=== PATIENT | male | born 1950 | race Caucasian/White ===

== ENCOUNTER → 2020-02-04 07:40 | Outpatient (CLI) | payer MEDICARE, SELFPAY ==
[2020-01-28 09:40] VITALS: BMI 32.5
--- NOTE | 2020-02-04 07:48 | CT_ITS ---
STUDY: CT CHEST WITHOUT CONTRAST REASON FOR EXAM: Male, 69 years old. PT STATED ABNORMAL PULMONARY FUNCTION TEST RADIATION DOSAGE (If Supplied By Facility): CTDIvol = ( 16.08 ) mGy, DLP = ( 554.58 ) mGycm TECHNIQUE: Transaxial imaging was performed without the administration of intravenous contrast material. Multiplanar coronal and sagittal images were reformatted. Individualized dose optimization techniques were used for this CT. COMPARISON: None. FINDINGS: There is evidence of diffuse increased interstitial markings with areas of confluence with the subpleural blebs and evidence of honeycombing. Findings are in keeping with diffuse pulmonary fibrosis. The upper lobes and lower lobes are equally involved. There is no demonstrated pleural abnormality. There are calcifications of the coronary arteries. There are multiple small lymph nodes within the mediastinum, which are normal in size and morphology most compatible with reactive lymph hyperplasia. Normal hilar regions. Normal unenhanced pulmonary arteries. Normal aorta arch and descending thoracic aorta. There are degenerative changes of the thoracic spine. Small hiatal hernia. CT/Chest without Contrast IMPRESSION: Diffuse increased interstitial markings with areas of confluence and honeycombing suggestive of a diffuse pulmonary fibrosis. Electronically Signed: Calvin Vargas, at 10:28 EDT , Service support ,
== END ==
PROVIDERS: PCP Family Medicine; Referring Provider Internal Medicine Critical Care Medicine; Visit Provider Internal Medicine Critical Care Medicine
DX: R06.02 Shortness of breath (principal); R94.2 Abnormal results of pulmonary function studies
CPT/HCPCS: 71250

== ENCOUNTER → 2020-02-07 11:18 | Outpatient (CLI) | payer MEDICARE, SELFPAY ==
[2020-01-28 09:40] VITALS: BMI 32.5
[2020-02-07 12:05] VITALS: PULSE 66; PULSE 67; PULSE 74; PULSE 85; PULSE 86; PULSE 87; PULSE 93; PULSE 99; O2SAT 86; O2SAT 87; O2SAT 93; O2SAT 94; O2SAT 95; O2SAT 97
--- NOTE | 2020-02-07 12:08 | CPS ---
Patient started testing on Room air by the 2nd minute patient's SpO2 was 86%. Patient stated that he was only moderately short of breath at this time and can get much worse at home. Placed patient on 2 lpm O2 nasal cannula, SpO2 recovered to 97%. At the 5th minute SpO2 87% on 2 lpm turned up to 3 lpm and recovered to 95% before finishing test. Patient stated he was only slightly short of breath at the time of putting him on 3 lpm O2 and at the end of the test. Patient seems apprehensive about wearing O2 at home on ambulation due to being extremely active. Explained possibility of getting small tanks or portable concentrator. Called Dr. Gallagher's office and explained to the nursing staff all of the patient's concerns and they will follow up with him.
--- NOTE | 2020-02-08 13:14 | PCM.PSN.6M ---
PSN 6 Minute Walk Test - 6 Minute Walk Test 6 Minute Walk Test: 6 Minute Walk Test PSN:6-Minute Walk Test Start: 02/07/20 12:05 Freq: Status: Active Protocol: [id number] Document 02/07/20 12:05 EWELINA (Rec: 02/07/20 12:17 [email or web address] [id number]) 6 Minute Walk Test Date Performed 02/07/20 Time Performed 11:30 Height 5 ft 11 in Weight: 229 lb Weight in Pounds 229.[address]: Romulo Gallagher Assistive device used: None Pre-test Oxygen Delivery Method Room Air Pulse Ox (%) 94 Pulse Rate (60-100 beats/min) 66 Dyspnea Shaun Scale (0-10) 0 Exertion Shaun Scale (6-20) 6 1st minute Oxygen Delivery Method Room Air Pulse Ox (%) 93 Pulse Rate (60-100 beats/min) 74 2nd minute Oxygen Delivery Method Room Air Pulse Ox (%) 86 Pulse Rate (60-100 beats/min) 87 Dyspnea Shaun Scale (0-10) 3 3rd minute Oxygen Flow Rate (L/min) (L/min) 2 Oxygen Delivery Method Nasal Cannula Pulse Ox (%) 95 Pulse Rate (60-100 beats/min) 86 4th minute Oxygen Flow Rate (L/min) (L/min) 2 Oxygen Delivery Method Nasal Cannula Pulse Ox (%) 93 Pulse Rate (60-100 beats/min) 93 5th minute Oxygen Flow Rate (L/min) (L/min) 2 Oxygen Delivery Method Nasal Cannula Pulse Ox (%) 87 Pulse Rate (60-100 beats/min) 99 Dyspnea Shaun Scale (0-10) 2 6th minute Oxygen Flow Rate (L/min) (L/min) 3 Oxygen Delivery Method Nasal Cannula Pulse Ox (%) 95 Pulse Rate (60-100 beats/min) 85 Dyspnea Shaun Scale (0-10) 2 Exertion Shaun Scale (6-20) 11 Post-test Oxygen Flow Rate (L/min) (L/min) 3 Oxygen Delivery Method Nasal Cannula Pulse Ox (%) 97 Pulse Rate (60-100 beats/min) 67 Full Laps Walked 18 Partial Lap, Number of Tiles Walked 20 Total Distance Walked (ft) 1082 02/07/20 12:08 Cardiopulmonary Services by Bree Chaparro Patient started testing on Room air by the 2nd minute patient's SpO2 was 86%. Patient stated that he was only moderately short of breath at this time and can get much worse at home. Placed patient on 2 lpm O2 nasal cannula, SpO2 recovered to 97%. At the 5th minute SpO2 87% on 2 lpm turned up to 3 lpm and recovered to 95% before finishing test. Patient stated he was only slightly short of breath at the time of putting him on 3 lpm O2 and at the end of the test. Patient seems apprehensive about wearing O2 at home on ambulation due to being extremely active. Explained possibility of getting small tanks or portable concentrator. Called Dr. Gallagher's office and explained to the nursing staff all of the patient's concerns and they will follow up with him. Initialized on 02/07/20 12:08 - END OF NOTE - Interpretation Interpretation: The patient ambulated 1082 feet over the course of 6 minutes beginning on room air without assistive devices or breaks. Pretesting oxygen saturation was noted to be 94% on room air. With ambulation, the delia oxygen saturation was 86%. 2 L/min of supplemental oxygen was applied. However, the patient once again desaturated to 87%, requiring an escalation in his flow rate to 3 L/min. - Recommendations Recommendations: 3 L/min of supplemental oxygen should be utilized with exertion. No supplemental oxygen is indicated at rest.
== END ==
PROVIDERS: PCP Family Medicine; Referring Provider Internal Medicine Critical Care Medicine; Visit Provider Internal Medicine Critical Care Medicine
DX: R06.02 Shortness of breath (principal)
CPT/HCPCS: 94618

== ENCOUNTER → 2020-03-13 08:59 | Outpatient (CLI) | payer MEDICARE, SELFPAY ==
[2020-01-28 09:40] VITALS: BMI 32.5
--- NOTE | 2020-03-13 13:01 | PFTCOMP ---
COMPLETE PULMONARY FUNCTION TEST INTERPRETATION Brief HPI: Patient is a 69 year old male, currently under the care of myself, who presents to [facility] for complete pulmonary function tests secondary to diagnosis of dyspnea. Respiratory therapist reports good effort and reproducible results. Interpretation: Forced expiration spirometry shows no large airways obstructive ventilatory defect with an FEV1 of 48% predicted. There is no significant bronchodilator response by strict ATS criteria. Spirograms are of good quality and plateau normally. The respiratory flow volume loop shows a normal pattern. Lung volumes by body plethysmography show a decreased total lung capacity at 3.38 L, 50% predicted. All other lung volumes are reduced symmetrically. Diffusion capacity by carbon monoxide is decreased at 41% predicted. The airway resistance is elevated. No previous pulmonary function tests were available for review. Impression: Severe restrictive ventilatory defect with a symmetric reduction diffusing capacity
== END ==
PROVIDERS: PCP Family Medicine; Referring Provider Internal Medicine Critical Care Medicine; Visit Provider Internal Medicine Critical Care Medicine
DX: R06.02 Shortness of breath (principal)
CPT/HCPCS: 94060; 94726; 94729

== ENCOUNTER → 2020-05-15 10:29 | Outpatient (CLI) | payer MEDICARE, SELFPAY ==
[2020-05-15 07:10] VITALS: BMI 31.6
[2020-05-15 11:05] LABS: Erythrocyte Sedimentation Rate 10 mm/hr (0-20)
[2020-05-15 11:42] LABS: CRP < 2.90 mg/L (0.0-3.0); Rheumatoid Factor < 10.0 IU/mL (<15)
[2020-05-16 15:12] LABS: ANTINUCLEAR ANTIBODIES DIRECT Negative (Negative)
[2020-05-17 03:07] LABS: Cytoplasmic Ab (C-ANCA) <1:20 titer (Neg:<1:20)
[2020-05-17 05:07] LABS: CCP IgG Antibodies 14 units (0-19); Perinuclear Ab (P-ANCA) <1:20 titer (Neg:<1:20)
== END ==
PROVIDERS: PCP Family Medicine; Referring Provider Internal Medicine Critical Care Medicine; Visit Provider Internal Medicine Critical Care Medicine
DX: J84.10 Pulmonary fibrosis, unspecified (principal)
CPT/HCPCS: 85652; 86038; 86140; 86200; 86225; 86235; 86256; 86431

== ENCOUNTER → 2020-05-18 06:40 | Outpatient (CLI) | payer MEDICARE, SELFPAY ==
[2020-04-26 16:33] VITALS: BMI 32.1
[2020-05-15 07:10] VITALS: BMI 31.6
--- NOTE | 2020-05-18 12:35 | STRESSREP ---
Stress Test Report Exercise myocardial perfusion stress test. 69-year-old man with a history of coronary artery disease status post coronary artery bypass surgery. Stress protocol: Resting EKG demonstrates normal sinus rhythm with a rate of 57 bpm normal intervals are noted resting blood pressures 140/82 mmHg. The patient exercised according to the regular Romulo protocol for a total duration of 4 minutes and 50 seconds. Patient completed 1 minute and 50 seconds into stage II of the Romulo protocol. The maximum heart rate was 134 bpm which was 90% of maximum predicted heart rate maximum workload was 6.7 metabolic equivalents. At rest there were no ST or T wave changes noted to suggest ischemia at peak exercise upsloping ST changes were noted less than 1 mm which did not meet the criteria for ischemia. The test was terminated due to dyspnea and leg weakness. The peak blood pressure was 144/80 mmHg which represented an adequate blood pressure response to exercise. Myocardial perfusion protocol. 14.9 mCi of technetium 99m sestamibi was injected at rest. The patient exercised according to regular Romulo protocol for a total duration of 4 minutes and 50 seconds at peak exercise 44.6 mCi of technetium 99m sestamibi was injected at rest. Stress and rest images were reconstructed and compared in the short axis vertical long and horizontal long axis. Gated images were also obtained per Perfusion SPECT analysis: Review of the stress images demonstrate normal uptake of tracer noted in the septum inferior wall and lateral wall. A small portion of the distal anterior wall has a small amount of perfusion defect which appears to improve suggesting a small amount of distal anterior ischemia. This appears to be similar to the results from 2018. No previous infarct is noted. It could represent apical striping. Gated SPECT analysis: The gated ejection fraction is 62%. Conclusion: Probably normal exercise myocardial perfusion stress test at a moderate workload. A small amount of apical ischemia cannot be completely excluded. The above is unchanged from 2018. Preserved ejection fraction.
== END ==
PROVIDERS: PCP Family Medicine; Referring Provider Internal Medicine Cardiovascular Disease; Visit Provider Internal Medicine Cardiovascular Disease
DX: I25.10 Atherosclerotic heart disease of native coronary artery without angina pectoris (principal); Z95.1 Presence of aortocoronary bypass graft
CPT/HCPCS: 78452; 93017; A9500

== ENCOUNTER → 2020-12-06 09:26 | Outpatient (CLI) | payer MEDICARE, SELFPAY ==
[2020-06-14 09:50] VITALS: BMI 31.5
[2020-10-25 09:51] VITALS: BMI 32.3
--- NOTE | 2020-12-07 05:51 | PFTCOMP ---
COMPLETE PULMONARY FUNCTION TEST INTERPRETATION Brief HPI: Patient is a 70 year old male, currently under the care of Maggie Kemp, who presents to [facility] for complete pulmonary function tests secondary to diagnosis of dyspnea. Respiratory therapist reports good effort and reproducible results. Interpretation: Forced expiration spirometry shows a mild large airways obstructive ventilatory defect with an FEV1 of 59% predicted. There is a significant bronchodilator response in FEV1 by strict ATS criteria. Spirograms are of good quality and plateau slowly, indicating slowly emptying areas of the lungs. The respiratory flow volume loop shows decreased expiratory flow rates at high lung volumes consistent with small airways obstruction. Lung volumes by body plethysmography show a significantly decreased total lung capacity at 3.79 L, 59% predicted. All other lung volumes are reduced symmetrically. Diffusion capacity by carbon monoxide is decreased at 57% predicted. The airway resistance is normal. Compared to previous pulmonary function tests from 03/13/2020, there is been a significant improvement in DLCO by 34%. Impression: Partially reversible mixed moderately severe large airways ventilatory defect and symmetric reduction in diffusing capacity with some improvement compared to previous testing.
== END ==
PROVIDERS: PCP Family Medicine; Referring Provider Nurse Practitioner Acute Care; Visit Provider Nurse Practitioner Acute Care
DX: R06.02 Shortness of breath (principal)
CPT/HCPCS: 94060; 94726; 94729

== ENCOUNTER → 2023-05-21 | Outpatient (CLI) | payer MEDICARE, SELFPAY ==
[2023-05-21 15:54] LABS: Absolute Lymphocyte Count 2.04 X10^3/uL (0.83-4.51); Absolute Neutrophil Count 4.5 X10^3/uL (2.0-7.7); Basophil# 0.06 X10^3/uL; Basophil% 0.8 % (0-1); Eosinophil# 0.26 X10^3/uL; Eosinophils% 3.5 % (0-5); Hematocrit 55.5 % (40-54); Hemoglobin 17.3 g/dL (13.0-16.5); Lymphocyte # 2.04 X10^3/ul (0.83-4.51); Lymphocyte % 27.2 % (19-41); Mean Corp Hgb Conc 31.2 g/dL (32-36); Mean Corpuscular Hgb 29.3 pg (27.0-32.0); Mean Corpuscular Volume 93.9 fL (80-94); Mean Platelet Vol. 10.8 fl (6.2-12.0); Monocyte# 0.57 X10^3/uL; Monocyte% 7.6 % (0-10); NRBC Flagged by Analyzer 0 % (0-5); Neutrophil # 4.51 X10^3/uL (2.7-7.7); Neutrophil % 60.2 % (47-70); Platelet Count 185 K/mm3 (150-450); RBC Distribution Width CV 13.8 % (11.6-14.6); RBC Distribution Width SD 47.6 fl (35.1-43.9); Red Blood Count 5.91 M/mm3 (4.6-6.2); White Blood Count 7.5 K/mm3 (4.4-11.0)
[2023-05-21 16:34] LABS: Anion Gap 4 (5-15); BUN 10 mg/dL (7-18); BUN/Creat Ratio 8.1 RATIO (10-20); Calcium,Total 9.4 mg/dL (8.5-10.1); Chloride 105 mmol/L (98-107); Creatinine, Serum 1.24 mg/dL (0.70-1.30); EST Glomerular Filtration Rate 60 mL/min (>60); Est Glom Filt Rate - Afr Amer 73 mL/min (>60); Glucose 109 mg/dL (74-106); Sodium Level 137 mmol/L (136-145); Thyroid Stim Hormone (TSH) 2.98 uIU/mL (0.358-3.74)
== END | disposition home or self-care (01) ==
LOC: LAB 15:27
PROVIDERS: PCP Family Medicine; Referring Provider Physician Assistant Medical; Visit Provider Physician Assistant Medical
DX: E78.5 Hyperlipidemia, unspecified (principal); Z95.1 Presence of aortocoronary bypass graft; R53.83 Other fatigue
CPT/HCPCS: 36415; 80048; 84443; 85025

== ENCOUNTER → 2023-09-01 | Outpatient (CLI) | payer MEDICARE, SELFPAY ==
--- OUTSIDE RECORDS SUMMARY | 2023-09-01 07:03 | XMS RPT_ITS | CCD ---
Author Name Unknown Address [address] [place] [address] Organization [facility] Care Team Providers Care Director Sales Name Role Phone MICHAEL CAR Referring Unavailable MICHAEL CAR Attending Unavailable JOCELINE, MICHAEL Consulting Unavailable JOCELINE, MICHAEL Primary Care Unavailable MICHAEL CAR Admitting Unavailable PROVIDER, UNKNOWN Consulting Unavailable PROVIDER, UNKNOWN Consulting Unavailable PROVIDER, UNKNOWN Consulting Unavailable ALAN, GERMAN E Primary Care Unavailable MICHAEL CAR Consulting Unavailable ALAN, GERMAN E Admitting Unavailable ALAN, GERMAN E Attending Unavailable PROVIDER, UNKNOWN Consulting Unavailable PROVIDER, UNKNOWN Consulting Unavailable PROVIDER, UNKNOWN Consulting Unavailable ALAN, GERMAN E Admitting Unavailable MICHAEL CAR Consulting Unavailable ALAN, GERMAN E Attending Unavailable ALAN, GERMAN E Primary Care Unavailable PROVIDER, UNKNOWN Consulting Unavailable PROVIDER, UNKNOWN Consulting Unavailable PROVIDER, UNKNOWN Consulting Unavailable MICHAEL CAR Attending Unavailable JOCELINE, MICHAEL Consulting Unavailable JOCELINE, MICHAEL Primary Care Unavailable MICHAEL CAR Admitting Unavailable PROVIDER, UNKNOWN Consulting Unavailable PROVIDER, UNKNOWN Consulting Unavailable PROVIDER, UNKNOWN Consulting Unavailable Problems Problem Classification Problem Date Documented Da te Episodic/Chronic Immunizations and screening for infectious disease (3 sources) Encounter for immunization; Translations: [Encounter for immunization] Onset: 09-28-2020 Episodic Results Test Name Value Interpretation Reference Range Facil ity Encounters Encounter Date Encounter Type Care Provider Facility Start: 10-26-2020 End: 10-26-2020 Patient encounter procedure GERMAN PHILLIPS [facility] Start: 09-28-2020 End: 09-28-2020 Patient encounter procedure GERMAN Lorenz ALAN [facility] Start: 12-20-2019 End: 12-20-2019 Patient encounter procedure [facility]HA[facility] Start: 12-14-2019 End: 12-14-2019 Patient encounter procedure [facility] Payers Date Payer Category Payer Unknown [id number] 1950 Unknown [id number] 1950 Unknown [id number] 1950 Unknown [id number] Medicare [id number] Medicare [id number] Summary Purpose Family History No Family History Records FoundNo Family History Records Found Advance Directives No Advanced Directives Records FoundNo Advanced Directives Records Found Additional Source Comments (unrecognized sect ion and content) No Status Records FoundNo Status Records Found INFORMATION SOURCE (unrecogn ized section and content) DATE CREATED AUTHOR AUTHOR'S ORGANIZ ATION 01/03/2022 [facility] FOR RECORDS PERTAINING TO PATIENTS WHO ARE OR HAVE BEEN ENROLLED IN A CHEMICAL DEPENDENCY/SUBSTANCEABUSE PROGRAM, SOME INFORMATION MAY BE OMITTED. This clinical summary was aggregated from multiple sources. Caution should be exercised in using it in the provision of clinical care. This summary normalizes information from multiple sources, and as a consequence, information in this document may materially change the coding, format and clinical context of patient data. In addition, data may be omitted in some cases. CLINICAL DECISIONS SHOULD BE BASED ON THE PRIMARY CLINICAL RECORDS. [employer] [facility]. provides no warranty or guarantee of the accuracy or completeness of information in this document.
--- NOTE | 2023-09-01 11:10 | STRESSREP ---
Stress Test Report Pharmacologic myocardial perfusion stress test. 73-year-old man with a history of shortness of breath Resting EKG demonstrates sinus rhythm with a rate of 74 bpm. Resting blood pressure is 138/84 mmHg. 0.4 mg of regadenoson was infused per usual protocol followed by rapid intravenous saline flush injection. Continuous EKG monitoring was performed. The maximum heart rate was 101 bpm which was 69% of max impacted heart rate the maximum workload was 1 metabolic equivalent. At rest there were no ST or T wave changes noted to suggest ischemia and at peak infusion nonspecific ST changes were noted which did not meet the criteria for ischemia. No clinical angina is noted. The final blood pressure was 140/84 mmHg. Myocardial perfusion protocol. 14.1 mCi of technetium 99m sestamibi was injected at rest. 0.4 mg of regadenoson was infused per usual protocol. At peak infusion 44.8 mCi of technetium 99m sestamibi was injected stress images were obtained stress and rest images were reconstructed and compared in the short axis vertical long and horizontal long axis. Gated images were also obtained. Perfusion SPECT analysis: Review of the stress images demonstrate normal uptake of tracer noted in all areas of the myocardium. The resting images similar demonstrated normal uptake of tracer noted in all areas of the myocardium. No areas of reversibility are noted to suggest ischemia and no previous infarct is noted. Gated SPECT analysis: The gated ejection fraction is 54%. Conclusion: Normal pharmacologic myocardial perfusion stress test. Preserved ejection fraction.
== END | disposition home or self-care (01) ==
LOC: CVS 07:01
PROVIDERS: PCP Family Medicine; Referring Provider Physician Assistant Medical; Visit Provider Physician Assistant Medical
DX: R06.02 Shortness of breath (principal)
CPT/HCPCS: 78452; 93017; A9500; A4216; J2785

== ENCOUNTER 2023-09-24 10:36 | Inpatient (IN) | payer MEDICARE, SELFPAY ==
[2023-09-24] VITALS (12 sets, daily range): BP systolic 128–145; BP diastolic 75–103; PULSE 65–98; RESP 13–23; TEMP 36.2–36.8; O2SAT 86–99; BMI 31.3; BMI 31.1
--- NOTE | 2023-09-24 10:41 | ED.RN ---
PT 86% ON ROOM AIR. PT PLACED ON 2L OXYGEN VIA NASAL CANNULA.
[2023-09-24 11:11] LABS: Absolute Lymphocyte Count 1.43 X10^3/uL (0.83-4.51); Absolute Neutrophil Count 8.1 X10^3/uL (2.0-7.7); Basophil# 0.07 X10^3/uL; Basophil% 0.7 % (0-1); Eosinophil# 0.19 X10^3/uL; Eosinophils% 1.8 % (0-5); Hematocrit 49.5 % (40-54); Hemoglobin 15.6 g/dL (13.0-16.5); Lymphocyte # 1.43 X10^3/ul (0.83-4.51); Lymphocyte % 13.7 % (19-41); Mean Corp Hgb Conc 31.5 g/dL (32-36); Mean Corpuscular Hgb 28.7 pg (27.0-32.0); Mean Corpuscular Volume 91.2 fL (80-94); Mean Platelet Vol. 10.2 fl (6.2-12.0); Monocyte# 0.58 X10^3/uL; Monocyte% 5.6 % (0-10); NRBC Flagged by Analyzer 0 % (0-5); Neutrophil # 8.08 X10^3/uL (2.7-7.7); Neutrophil % 77.6 % (47-70); Platelet Count 222 K/mm3 (150-450); RBC Distribution Width CV 13.8 % (11.6-14.6); RBC Distribution Width SD 46.1 fl (35.1-43.9); Red Blood Count 5.43 M/mm3 (4.6-6.2); White Blood Count 10.4 K/mm3 (4.4-11.0)
--- NOTE | 2023-09-24 11:18 | NURSING ---
NO OLD EKGS
[2023-09-24 11:25] LABS: Anion Gap 4 (5-15); BUN 15 mg/dL (7-18); BUN/Creat Ratio 10.9 RATIO (10-20); Calcium,Total 9.6 mg/dL (8.5-10.1); Chloride 107 mmol/L (98-107); Creatinine, Serum 1.37 mg/dL (0.70-1.30); EST Glomerular Filtration Rate 54 mL/min (>60); Est Glom Filt Rate - Afr Amer 65 mL/min (>60); Estimated Creatinine Clearance 55.33 ml/min; Glucose 153 mg/dL (74-106); Potassium 3.6 mmol/L (3.5-5.1); Sodium Level 139 mmol/L (136-145)
--- NOTE | 2023-09-24 11:40 | EKG12_ITS ---
Test Reason : SOB Blood Pressure : / mmHG Vent. Rate : 099 BPM Atrial Rate : 099 BPM P-R Int : 144 ms QRS Dur : 102 ms QT Int : 360 ms P-R-T Axes : 027 040 054 degrees QTc Int : 462 ms Normal sinus rhythm Inferior infarct , age undetermined Abnormal ECG Confirmed by Kaz Johnson [id number]), marketing editor SILVA GUIDRY ([id number]) on 12/03/2023 5:42:25 AM Referred By: Confirmed By:Kaz Johnson
--- NOTE | 2023-09-24 11:42 | EDS_ITS ---
HPI History of Present Illness Chief Complaint: Shortness of Breath Detail of Chief Complaint: Shortness of breath Informant: patient Narrative Narrative: Patient presents with worsening shortness of breath mostly dyspnea starting this morning. Patient states he is kind of been feeling weak and no energy for about 5 days. Patient denies any chest discomfort. Denies recent travel or surgery. He does have history of pulmonary fibrosis. His states that his O2 sat was down to 85% at home. He is not on home O2. He has a chronic cough. Patient with history of pulmonary fibrosis. He states that he had pneumonia several months ago. He does see a survey statistician. He denies any fevers or chills or sweats. Denies exposures to other ill individuals. [facility] Medical History Atherosclerosis of coronary artery bypass graft without angina pectoris Atherosclerosis of coronary artery of [place] heart without angina pectoris CKD (chronic kidney disease), stage III history of tick bite Hyperlipidemia Kidney disease Pneumonia Pulmonary fibrosis Shortness of breath Home Medications losartan 25 mg tablet 25 mg PO DAILY BLOOD PRESSURE #90 tabs 04/06/21 [Rx Last Taken 09/24/23] albuterol sulfate 90 mcg/actuation aerosol inhaler (Ventolin HFA) 2 puff inhalation Q4H PRN SHORTNESS OF BREATH/WHEEZNG #18 grams 11/27/22 [Rx Last Taken 09/24/23] omeprazole 20 mg capsule,delayed release 20 mg PO DAILY ACID REFLUX 05/21/23 [History Last Taken 09/24/23] aspirin 81 mg tablet,delayed release (Adult Low Dose Aspirin) 81 mg PO DAILY HEART HEALTH 09/24/23 [History Last Taken 09/24/23] atorvastatin 40 mg tablet 40 mg PO QHS CHOLESTEROL 09/24/23 [History Last Taken 09/23/23] metoprolol succinate 50 mg tablet,extended release 24 hr 50 mg PO DAILY BLOOD PRESSURE 09/24/23 [History Last Taken 09/24/23] Allergy/AdvReac Type Severity Reaction Status Date / Time No Known Allergies Allergy Verified 09/24/23 10:36 Family History Mother Brain aneurysm Father CVA (cerebral vascular accident) Surgical History H/O coronary artery bypass surgery (1989) H/O hernia repair History of left heart catheterization (01/02/16) Social History Smoking Status: Former smoker Tobacco: How many years used: 16 Smokeless tobacco user: chewing tobacco alcohol intake: current alcohol intake frequency: holidays/special occasions only Alcohol type: beer substance use type: does not use caffeine: Yes Type: coffee Number of servings: 5 ROS ROS ED Review of Systems ROS Unobtainable: other Constitutional Constitutional ED: Reports lethargy; Denies chills, fever(s), sweats or weight loss Eyes Eyes: Denies blurry vision, change in vision or diplopia ENT ENT ED: Denies rhinorrhea or sore throat Cardiovascular Cardiovascular: Denies chest pain, orthopnea or racing heartbeat Respiratory/Chest Respiratory/Chest: Reports cough, dyspnea and dyspnea on exertion; Denies orthopnea or sputum Gastrointestinal Gastrointestinal: Denies abdominal pain, diarrhea, nausea or vomiting Genitourinary Genitourinary ED: Denies dysuria, hematuria or urinary frequency Musculoskeletal Musculoskeletal: Denies arthralgias, back pain, myalgias or neck pain Integumentary Denies abscess, Abrasions or rash Neurologic Neurologic: Reports weakness; Denies headache(s) Psychiatric Psychiatric: Denies anxiety, depression or suicidal thoughts Endocrine Endocrinology: Denies polydipsia, polyphagia or polyuria Hematologic/Lymphatic Hematologic/Lymphatic: Denies easy bleeding, easy bruising or lymphadenopathy Allergic/Immunologic Allergic/Immunologic ED: Denies mouth swelling, tongue swelling or urticaria EXAM Physical Exam Const Vital Signs: 09/24/23 10:38 09/24/23 11:29 09/24/23 11:30 Temperature 98.3 F Temperature Source Temporal Pulse Rate 98 82 Respiratory Rate 20 H 16 16 Respiratory Effort Respiratory Pattern Blood Pressure 128/75 H 143/88 H Blood Pressure Mean 92 106 Pulse Ox 86 98 98 Oxygen Delivery Method Room Air Nasal Cannula Nasal Cannula Oxygen Flow Rate (L/min) 2 2 09/24/23 11:31 09/24/23 11:31 09/24/23 11:55 Temperature Temperature Source Pulse Rate Respiratory Rate Respiratory Effort Short of Breath Respiratory Pattern Normal Blood Pressure Blood Pressure Mean Pulse Ox Oxygen Delivery Method Nasal Cannula Nasal Cannula Nasal Cannula Oxygen Flow Rate (L/min) 2 09/24/23 12:08 09/24/23 12:08 09/24/23 13:33 Temperature Temperature Source Pulse Rate 73 76 Respiratory Rate 14 13 Respiratory Effort Respiratory Pattern Normal Blood Pressure 143/88 H Blood Pressure Mean 106 Pulse Ox 96 99 Oxygen Delivery Method Nasal Cannula Nasal Cannula Oxygen Flow Rate (L/min) 3 2 09/24/23 13:33 09/24/23 15:00 Temperature 97.2 F L Temperature Source Temporal Pulse Rate 80 74 Respiratory Rate 18 16 Respiratory Effort Respiratory Pattern Blood Pressure 143/88 H 137/98 H Blood Pressure Mean 106 111 Pulse Ox 93 96 Oxygen Delivery Method Nasal Cannula Oxygen Flow Rate (L/min) 2 Positive well nourished and well developed General Appearance ED: well developed and NAD HEENT Reports TM's clear and moist mucous membranes normocephalic and atraumatic; Negative for trauma or tenderness Tympanic Membrane ED: Yes TM's clear Eyes PERRL and EOMs intact bilaterally General Eye ED: Negative for pale conjunctiva or scleral icterus Neck no lymphadenopathy, supple and no JVD General: Negative for tenderness Chest Wall inspection of chest normal and palpation of chest normal Chest: Negative for tenderness Resp normal respiratory effort and clear to auscultation bilaterally Resp Narrative: No significant tachypnea or conversational dyspnea. No accessory muscle use or retractions. He does have Rales and some faint expiratory wheezes. Effort and Inspection: Negative for respiratory distress or pain with movement Auscultation: rales and wheezes; Negative for rhonchi or diminished lung sounds Cardio regular rate, regular rhythm, S1 normal heart sound, S2 normal heart sound and no murmurs Peripheral Pulses: pulses 2+ throughout GI normal to inspection, nondistended, normoactive bowel sounds, soft to palpation, non-tender, non-distended and no masses Back/Spine no CVA tenderness and no thoracic nor lumbar tenderness Extremity normal to inspection General Extremety ED: Negative for edema General Extremity: Negative for edema Neuro oriented x3, CN's II-XII intact bilaterally, no sensory deficits noted and gait normal Sensorium / Orientation: awake, alert, oriented to person, oriented to place and oriented to time Motor Exam: strength 5/5 throughout and strength abnormal Psych mental status grossly normal Skin no rashes or lesions noted and no wounds MDM MDM MDM Narrative Medical decision making narrative: Patient presents to the emergency department with dyspnea and hypoxemia today. Patient has been feeling weak with no energy for about 5 days. He has history of pulmonary fibrosis. He does not wear home O2. IV line established and patient placed on a environmental monitoring technician. Patient placed on 2 L nasal cannula O2. EKG obtained showed sinus rhythm with rate of [address] changes. CBC with differential count of 10.4 with hemoglobin 15.6 and platelet count of 222. Chemistries unremarkable. Lactate normal at 1.3. D-dimer normal at 0.49. Chest x-ray showed chronic changes related to his chronic lung disease of pulmonary fibrosis. Lab Data Attestation: I reviewed the patient's lab results. Labs: Laboratory Results - last 24 hr 09/24/23 09/24/23 10:50 12:03 WBC 10.4 RBC 5.43 Hgb 15.6 Hct 49.5 MCV 91.2 MCH 28.7 MCHC 31.5 L RDW Std Deviation 46.1 H RDW Coeff of Breana 13.8 Plt Count 222 MPV 10.2 Immature Gran % (Auto) 0.600 Neut % (Auto) 77.6 H Lymph % (Auto) 13.7 L Carlton % (Auto) 5.6 Eos % (Auto) 1.8 Baso % (Auto) 0.7 Absolute Neuts (auto) 8.1 H Absolute Lymphs (auto) 1.43 Nucleated RBC % 0 D-Dimer Quant (PE/DVT) 0.49 Sodium 139 Potassium 3.6 Chloride 107 Carbon Dioxide 28.0 Anion Gap 4 L BUN 15 Creatinine 1.37 H Estim Creat Clear Calc 55.33 Est GFR (MDRD) Af Amer 65 Est GFR (MDRD) Non-Af 54 L BUN/Creatinine Ratio 10.9 Glucose 153 H Lactic Acid 1.3 Calcium 9.6 Troponin I High Sens 25 Radiography Diagnostic Testing: Clinical Impression(s) from Imaging Studies Chest X-Ray 09/24/23 12:25 IMPRESSION: 1. Diffuse chronic interstitial lung disease. 2. Cardiomegaly. Electronically Signed: Gonzales Sequeira MD at 13:03 EST , 1 view chest x-ray obtained interpreted by myself as chronic interstitial changes without evidence of infiltrate or pneumothorax or acute disease process. Radiology in agreement. Radiology also noted cardiomegaly. EKG Initial EKG: Attestation: I personally reviewed and interpreted this EKG as follows: Comments: Sinus rhythm with rate of [address] changes Discharge Plan Dx/Rx/DC Orders Clinical Impression: Dyspnea, Pulmonary fibrosis, Hypoxemia Disposition Disposition: [facility] omeprazole 20 mg capsule,delayed release(DR/EC) 20 mg PO DAILY atorvastatin 40 mg tablet 40 mg PO QHS metoprolol succinate 50 mg tablet extended release 24 hr 50 mg PO DAILY aspirin [Adult Low Dose Aspirin] 81 mg tablet,delayed release (DR/EC) 81 mg PO DAILY losartan 25 mg tablet 25 mg PO DAILY Qty: 90 3RF albuterol sulfate [Ventolin HFA] 90 mcg/actuation HFA aerosol inhaler 2 puff INHALATION Q4H PRN (Reason: SHORTNESS OF BREATH/WHEEZNG ) Qty: 18 6RF Primary Care Provider: Nehemiah Flanagan Referrals: Nehemiah Flanagan MD [Primary Care Provider] - Disposition Disposition: [facility]
[2023-09-24] MEDS: Ipratropium/Albuterol Sulfate 3 ML AMPUL.NEB INHALATION ×2 (12:07→20:27)
[2023-09-24] MEDS: 0.9% Normal Saline (1000mL) 1,000 ML 150 ML IV (12:07)
[2023-09-24] MEDS: MethylPREDNISolone 125 MG/2 ML Vial 60 MG IV (12:08)
--- NOTE | 2023-09-24 12:25 | RAD_ITS ---
EXAM: XR CHEST, 1 VIEW CLINICAL INDICATION: dyspnea TECHNIQUE: Frontal view of the chest. COMPARISON: CT chest 02/04/2020 FINDINGS: LUNGS AND PLEURAL SPACES: Diffuse interstitial thickening of the lungs consistent with chronic inflammatory change. HEART: Mild cardiomegaly. Surgical changes of coronary artery bypass graft (CABG). MEDIASTINUM: No mediastinal or hilar mass. BONES/JOINTS: No acute abnormality. RAD/Chest 1 View (Portable) IMPRESSION: 1. Diffuse chronic interstitial lung disease. 2. Cardiomegaly. Electronically Signed: Gonzales Sequeira MD at 13:03 EST ,
[2023-09-24 12:48] LABS: Lactic Acid 1.3 mmol/L (0.4-1.9)
[2023-09-24 13:23] LABS: D-Dimer Quantitative (DVT/PE) 0.49 FEU/ug/m (0.27-0.49)
--- NOTE | 2023-09-24 13:53 | NURSING ---
DR ESTEPHANIA DIAZ
[2023-09-24 13:58] LABS: Troponin-I HS 25 pg/mL (3.0-78.0)
--- NOTE | 2023-09-24 14:12 | NURSING ---
MED SURG ESTEPHANIA DYSPNEA, RESP FAILURE, HYPOXEMIA, PULMONARY FIBROSIS
--- NOTE | 2023-09-24 15:16 | PCM.HP.STD ---
HPI - General General Date of Admission: 09/24/23 Date of Service: 09/24/23 Chief Complaint: SOB HPI Narrative DU BACA, is a 73M history of CKD stage III unclear subtype, CAD w/ bypass, hypertension, pulmonary fibrosis, GERD who presented to [facility] 09/24/2023 with shortness of breath that mostly started this morning and has been somewhat weak with lack of energy for about 5 days. His O2 sat was 85% at home and he is not on home O2. Does follow with pulmonology. In the ED patient had x-ray that showed diffuse chronic interstitial lung disease and cardiomegaly. D-dimer 0.49, patient given steroids and DuoNebs and placed on O2 and hospitalist contacted for admission. Patient evaluated at bedside with present and reports that he has been short of breath for 3 months since he had pneumonia however the past 3 days he has had increased shortness of breath with some intermittent cough, has not really cough today however in last coughed yesterday morning, has a chronic scratchy throat, no chest pain, no fevers, denies any other specific complaints at this time aside from his increasing shortness of breath for the past 3 days. [facility] Medical History (Reviewed 09/18/23 @ 12:56 by Maggie Kemp PERSONAL INJURY PARALEGAL, PERSONAL INJURY PARALEGAL-C) Atherosclerosis of coronary artery bypass graft without angina pectoris Atherosclerosis of coronary artery of [place] heart without angina pectoris CKD (chronic kidney disease), stage III history of tick bite Hyperlipidemia Kidney disease Pneumonia Pulmonary fibrosis Shortness of breath Home Medications losartan 25 mg tablet 25 mg PO DAILY BLOOD PRESSURE #90 tabs 04/06/21 [Rx Last Taken 09/24/23] albuterol sulfate 90 mcg/actuation aerosol inhaler (Ventolin HFA) 2 puff inhalation Q4H PRN SHORTNESS OF BREATH/WHEEZNG #18 grams 11/27/22 [Rx Last Taken 09/24/23] omeprazole 20 mg capsule,delayed release 20 mg PO DAILY ACID REFLUX 05/21/23 [History Last Taken 09/24/23] aspirin 81 mg tablet,delayed release (Adult Low Dose Aspirin) 81 mg PO DAILY HEART HEALTH 09/24/23 [History Last Taken 09/24/23] atorvastatin 40 mg tablet 40 mg PO QHS CHOLESTEROL 09/24/23 [History Last Taken 09/23/23] metoprolol succinate 50 mg tablet,extended release 24 hr 50 mg PO DAILY BLOOD PRESSURE 09/24/23 [History Last Taken 09/24/23] Allergy/AdvReac Type Severity Reaction Status Date / Time No Known Allergies Allergy Verified 09/24/23 10:36 Family History (Reviewed 09/18/23 @ 12:56 by Maggie Kemp PERSONAL INJURY PARALEGAL, PERSONAL INJURY PARALEGAL-C) Mother Brain aneurysm Father CVA (cerebral vascular accident) Surgical History (Reviewed 09/18/23 @ 12:56 by Maggie Kemp PERSONAL INJURY PARALEGAL, PERSONAL INJURY PARALEGAL-C) H/O coronary artery bypass surgery (1989) H/O hernia repair History of left heart catheterization (01/02/16) Social History (Reviewed 09/18/23 @ 12:56 by Maggie Kemp PERSONAL INJURY PARALEGAL, PERSONAL INJURY PARALEGAL-C) Smoking Status: Former smoker Tobacco: How many years used: 16 Smokeless tobacco user: chewing tobacco alcohol intake: current alcohol intake frequency: holidays/special occasions only Alcohol type: beer substance use type: does not use caffeine: Yes Type: coffee Number of servings: 5 ROS ROS Narrative General: Denies fever/chills HENT: Denies headache, denies stuffy nose, has some chronic sore throat EYES: Denies changes in vision Resp: Occasional cough, has not coughed today, increasing shortness of breath for 3 days Cardiac: Denies chest pain GI: Denies abdominal pain, denies changes in bowel, denies nausea/vomiting : Denies changes in urination Extremity: Denies swelling MSK: Denies weakness Neuro: Denies any numbness/tingling Heme: Denies any bleeding or bruising Skin: Denies rashes Psychiatric: No complaints voiced Vital Signs Vital Signs Vital Signs: 09/24/23 10:38 09/24/23 11:29 09/24/23 11:30 Temperature 98.3 F Temperature Source Temporal Pulse Rate 98 82 Respiratory Rate 20 H 16 16 Respiratory Effort Respiratory Pattern Blood Pressure 128/75 H 143/88 H Blood Pressure Mean 92 106 Pulse Ox 86 98 98 Oxygen Delivery Method Room Air Nasal Cannula Nasal Cannula Oxygen Flow Rate (L/min) 2 2 09/24/23 11:31 09/24/23 11:31 09/24/23 11:55 Temperature Temperature Source Pulse Rate Respiratory Rate Respiratory Effort Short of Breath Respiratory Pattern Normal Blood Pressure Blood Pressure Mean Pulse Ox Oxygen Delivery Method Nasal Cannula Nasal Cannula Nasal Cannula Oxygen Flow Rate (L/min) 2 09/24/23 12:08 09/24/23 12:08 09/24/23 13:33 Temperature Temperature Source Pulse Rate 73 76 Respiratory Rate 14 13 Respiratory Effort Respiratory Pattern Normal Blood Pressure 143/88 H Blood Pressure Mean 106 Pulse Ox 96 99 Oxygen Delivery Method Nasal Cannula Nasal Cannula Oxygen Flow Rate (L/min) 3 2 09/24/23 13:33 09/24/23 15:00 Temperature 97.2 F L Temperature Source Temporal Pulse Rate 80 74 Respiratory Rate 18 16 Respiratory Effort Respiratory Pattern Blood Pressure 143/88 H 137/98 H Blood Pressure Mean 106 111 Pulse Ox 93 96 Oxygen Delivery Method Nasal Cannula Oxygen Flow Rate (L/min) 2 Weight Weight: 100.425 kg Body Mass Index (BMI) 31.3 Physical Exam Narrative General: Alert, oriented, no apparent distress HEENT: Atraumatic, normocephalic Eyes: Anicteric, normal conjunctiva, extraocular movements grossly intact Neck: Supple Respiratory: Coarse diffusely with some scattered wheezes, normal respiratory effort Cardiovascular: Regular rate GI: Soft, nontender, nondistended Extremities: Trace lower extremity edema Musculoskeletal: Moving all extremities Neuro: No overt focal neurological deficits Skin: No rashes appreciated Psych: Cooperative Results Lab / Micro Data 09/24/23 10:50 09/24/23 10:50 Labs: Laboratory Results - last 24 hr 09/24/23 10:50: WBC 10.4, RBC 5.43, Hgb 15.6, Hct 49.5, MCV 91.2, MCH 28.7, MCHC 31.5 L, RDW Std Deviation 46.1 H, RDW Coeff of Breana 13.8, Plt Count 222, MPV 10.2, Immature Gran % (Auto) 0.600, Neut % (Auto) 77.6 H, Lymph % (Auto) 13.7 L, Bremer % (Auto) 5.6, Eos % (Auto) 1.8, Baso % (Auto) 0.7, Absolute Neuts (auto) 8.1 H, Absolute Lymphs (auto) 1.43, Nucleated RBC % 0, D-Dimer Quant (PE/DVT) 0.49, Sodium 139, Potassium 3.6, Chloride 107, Carbon Dioxide 28.0, Anion Gap 4 L, BUN 15, Creatinine 1.37 H, Estim Creat Clear Calc 55.33, Est GFR (MDRD) Af Amer 65, Est GFR (MDRD) Non-Af 54 L, BUN/Creatinine Ratio 10.9, Glucose 153 H, Calcium 9.6, Troponin I High Sens 25 09/24/23 12:03: Lactic Acid 1.3 Micro: Microbiology 09/24/23 12:00 Mucosa - Nasopharyngeal SARS-CoV-2, Influenza & RSV (PCR) - Final Imaging Radiology Impression Chest X-Ray 09/24/23 12:25 IMPRESSION: 1. Diffuse chronic interstitial lung disease. 2. Cardiomegaly. Electronically Signed: Gonzales Sequeira MD at 13:03 EST , Assessment & Plan Assessment/Plan (1) Hypoxemia: (2) Pulmonary fibrosis: (3) H/O coronary artery bypass surgery: (4) Atherosclerosis of coronary artery bypass graft without angina pectoris: PLAN: Plan #Hypoxia in setting of chronic pulmonary fibrosis -Increasing shortness of breath over the past 3 days but does not endorse any significant cough and no fevers or chills but was found to be hypoxic -CXR in ED diffuse chronic interstitial lung disease and cardiomegaly. -Follows with Dr. Gallagher for pulmonology -Last PFTs in 2020 with partially reversible mixed moderately severe large airway ventilatory defect and symmetric reduction in diffusing capacity -COVID/flu/RSV negative, will obtain rest of respiratory panel and sputum culture if possible -Incentive spirometry -Mucinex -Continue nebs and steroids, do not presently see indication for antibiotics but will additionally check Pro-Baldemar -Will check BNP to assess for any component of fluid overload and if elevated will obtain echo #Hx CAD s/p bypass in 1989 -Continue aspirin, statin, beta-hermann #HTN -Continue beta-hermann, slight bump in creatinine so we will hold losartan at this time #CKD unclear subtype -Slight elevation in creatinine but does not meet criteria for DAISHA, monitor daily BMP #GERD -Continue PPI #Tobacco use -Chews tobacco occasionally, advise cessation -Nicotine replacement available if desired #DVT ppx: Heparin subcu Muna Bowers MD Time spent in the patient's overall evaluation,decision-making process, review of diagnostic data, adjustment of management, discussion with other providers, nursing nursing and ancillary staff involved in patient's care documentation, 56 Minutes Charges/Coding Visit Charges Inpatient E&M: 56346 Init Hosp L2
[2023-09-24 16:47] LABS: Procalcitonin < 0.04 ng/mL (0.00-0.09)
[2023-09-24 17:59] LABS: BNP,B-Type NATRIURETIC PEPTIDE 262.7 pg/mL (0-100)
--- NOTE | 2023-09-24 18:10 | ECHOCS_ITS ---
Reason For Study: Dyspnea/SOB Procedure This was a 2D Doppler, Color Flow transthoracic echocardiogram. The study was technically difficult. Contrast injection was performed. Exam performed portable in patient room. Left Ventricle Normal LV size. D shaped septum in systole and diastole. The estimated ejection fraction is 60 %. No evidence for diastolic dysfunction. No regional wall motion abnormalities noted. Right Ventricle Moderately dilated right ventricle. Mild global right ventricular systolic dysfunction. Atria The left atrium is mildly enlarged. Normal right atrium. Mitral Valve The mitral valve is structurally normal. No prolapse or stenosis seen. Trivial mitral valve insufficiency. Tricuspid Valve Normal tricuspid valve. Mild (1+) tricuspid valve insufficiency. Right ventricular systolic pressure estimated to be 43 mmHg. Mild pulmonary hypertension. Aortic Valve Trisinus/trileaflet aortic valve. Mild focal aortic valve thickening. Mild focal aortic valve calcification. Aortic sclerosis, no stenosis. Trivial aortic valve insufficiency. Pulmonic Valve Normal pulmonic valve. Great Vessels Mild atherosclerosis of the ascending aorta. Pericardium/Pleural Epicardial fat. No pericardial effusion. Medication Diluted definity 2ml given slow IV push to enhance endocardial definition. MMode/2D Measurements & Calculations LVIDd: 5.1 cm IVSd: 0.83 cm Ao root diam: 3.5 cm LVIDs: 3.1 cm LVPWd: 0.75 cm LA dimension: 3.7 cm RVDd: 4.5 cm FS: 38.0 % LAV(MOD-bp): 69.4 ml LVAd ap4: 31.3 cm2 SV(MOD-sp4): 58.6 ml LAV(MOD-bp) Indexed: 32.1 ml/m2 LVLd ap4: 7.9 cm LAV(MOD-sp2): 71.8 ml EDV(MOD-sp4): 99.5 ml LAV(MOD-sp4): 63.6 ml EDV(sp4-el): 105.4 ml LVAs ap4: 18.1 cm2 LVLs ap4: 6.8 cm ESV(MOD-sp4): 40.9 ml ESV(sp4-el): 41.2 ml EF(MOD-sp4): 58.9 % EF(sp4-el): 60.9 % SV(sp4-el): 64.1 ml LA A4 area: 23.4 cm2 RA A4 area: 19.5 cm2 TAPSE: 1.6 cm Time Measurements MV dec time: 0.16 sec Doppler Measurements & Calculations MV E max aly: 80.6 cm/sec Lat Peak E' Aly: 10.5 cm/sec Med Peak E' Aly: 7.9 cm/sec MV A max aly: 91.7 cm/sec E/E' lat: 7.7 E/E' med: 10.2 MV E/A: 0.88 MV V2 max: 107.1 cm/sec MV P1/2t max aly: 106.6 cm/sec Ao V2 max: 122.6 cm/sec MV max P.6 mmHg MV P1/2t: 69.4 msec Ao max P.0 mmHg MV V2 mean: 64.3 cm/sec Ao V2 mean: 88.1 cm/sec MV mean P.9 mmHg MV dec slope: 450.1 cm/sec2 Ao mean P.4 mmHg MV V2 VTI: 31.7 cm MVA(P1/2t): 3.2 cm2 Ao V2 VTI: 26.2 cm AV (velocity ratio): 0.86 AI max aly: 375.7 cm/sec LV V1 max: 104.1 cm/sec TR max aly: 295.8 cm/sec AI max P.5 mmHg LV V1 max P.3 mmHg TR max P.0 mmHg LV V1 mean P.3 mmHg AI dec slope: 220.7 cm/sec2 LV V1 mean: 72.0 cm/sec AI P1/2t: 498.6 msec LV V1 VTI: 22.6 cm ECHO/Echo Complete W/ Contrast Interpretation Summary The estimated ejection fraction is 60 %. D shaped septum in systole and diastole. Moderately dilated right ventricle. Mild global right ventricular systolic dysfunction. The left atrium is mildly enlarged. Mild (1+) tricuspid valve insufficiency. Mild pulmonary hypertension. Aortic sclerosis, no stenosis. Mild aortic insufficiency Mild atherosclerosis of the ascending aorta. Ordering Physician: Muna Bowers Referring Physician: Nehemiah Flanagan Performed By: Maximilian Morin RCS
[2023-09-24] MEDS: Furosemide 20 MG/2 ML VIAL IV (21:04)
[2023-09-24] MEDS: Atorvastatin Calcium 40 MG Tablet PO (21:04)
[2023-09-24] MEDS: Heparin Injection (Vial) 5,000 UNIT/ML VIAL 5000 UNIT SC (21:04)
[2023-09-24] MEDS: guaiFENesin 1,200 MG Tablet 1200 MG PO (21:13)
[2023-09-25] VITALS (9 sets, daily range): BP systolic 116–128; BP diastolic 70–90; PULSE 76–93; RESP 16–24; TEMP 36.3–36.6; O2SAT 84–96; BMI 31.4
[2023-09-25] MEDS: 0.9% Saline Lock 10 ML Syringe IV ×2 (05:43→21:30)
[2023-09-25] MEDS: Ipratropium/Albuterol Sulfate 3 ML AMPUL.NEB INHALATION ×3 (07:13→19:14)
[2023-09-25 07:40] LABS: Absolute Lymphocyte Count 0.91 X10^3/uL (0.83-4.51); Absolute Neutrophil Count 11.5 X10^3/uL (2.0-7.7); Basophil# 0.01 X10^3/uL; Basophil% 0.1 % (0-1); Hematocrit 45.1 % (40-54); Hemoglobin 14.5 g/dL (13.0-16.5); Lymphocyte # 0.91 X10^3/ul (0.83-4.51); Lymphocyte % 7.1 % (19-41); Mean Corp Hgb Conc 32.2 g/dL (32-36); Mean Corpuscular Hgb 29.1 pg (27.0-32.0); Mean Corpuscular Volume 90.4 fL (80-94); Mean Platelet Vol. 10.6 fl (6.2-12.0); Monocyte# 0.23 X10^3/uL; Monocyte% 1.8 % (0-10); NRBC Flagged by Analyzer 0 % (0-5); Neutrophil # 11.54 X10^3/uL (2.7-7.7); Neutrophil % 90.3 % (47-70); Platelet Count 226 K/mm3 (150-450); RBC Distribution Width CV 13.6 % (11.6-14.6); RBC Distribution Width SD 45.2 fl (35.1-43.9); Red Blood Count 4.99 M/mm3 (4.6-6.2); White Blood Count 12.8 K/mm3 (4.4-11.0)
[2023-09-25] MEDS: guaiFENesin 1,200 MG Tablet 1200 MG PO ×2 (08:13→21:30)
[2023-09-25] MEDS: Metoprolol(XL)Succ 50 MG Tablet PO (08:13)
[2023-09-25] MEDS: Aspirin E.C. 81 MG Tablet PO (08:13)
[2023-09-25] MEDS: Pantoprazole Sodium 20 MG Tablet PO (08:13)
[2023-09-25] MEDS: Heparin Injection (Vial) 5,000 UNIT/ML VIAL 5000 UNIT SC ×2 (08:14→21:30)
[2023-09-25 08:23] LABS: ALB/GLOB Ratio 0.6 RATIO (0.9-2.4); AST(SGOT) 16 U/L (15-37); Alanine Aminotransfer ALT/SGPT 25 U/L (16-61); Albumin, Serum 2.6 g/dL (3.2-5.0); Alkaline Phosphatase 92 U/L (45-117); Anion Gap 5 (5-15); BUN 26 mg/dL (7-18); BUN/Creat Ratio 24.3 RATIO (10-20); Calcium,Total 9.2 mg/dL (8.5-10.1); Chloride 107 mmol/L (98-107); Creatinine, Serum 1.07 mg/dL (0.70-1.30); EST Glomerular Filtration Rate 72 mL/min (>60); Est Glom Filt Rate - Afr Amer 87 mL/min (>60); Estimated Creatinine Clearance 70.43 ml/min; Globulin 4.5 g/dL (2.2-4.2); Glucose 146 mg/dL (74-106); Magnesium 2.2 mg/dL (1.6-2.6); Potassium 4.4 mmol/L (3.5-5.1); Protein, Total 7.1 g/dL (6.4-8.2); Sodium Level 136 mmol/L (136-145)
--- NOTE | 2023-09-25 08:56 | PCM.PN.HOSP ---
Subjective Subjective Short of breath with activity. Objective Data Objective Data Vital Signs: Vital Signs Temp Pulse Resp BP Pulse Ox O2 Del Method O2 Flow Rate 36.5 C L 79 16 117/70 94 Nasal Cannula 2 09/25/23 08:10 09/25/23 08:13 09/25/23 08:10 09/25/23 08:13 09/25/23 08:10 09/25/23 08:27 09/25/23 08:27 Oxygen Flow Rate (L/min) 2 Oxygen Delivery Method Nasal Cannula Weight: 99.2 kg Body Mass Index (BMI) 31.4 Intake & Output: Intake and Output for Last 24 Hours 09/23/23 09/24/23 09/25/23 23:59 23:59 23:59 Intake Total 837.5 / 837.5 Output Total 0 / 0 Balance 837.5 / 837.5 Lab / Micro Data 09/25/23 07:20 09/25/23 07:20 Labs: Laboratory Results - last 24 hr 09/24/23 10:50: WBC 10.4, RBC 5.43, Hgb 15.6, Hct 49.5, MCV 91.2, MCH 28.7, MCHC 31.5 L, RDW Std Deviation 46.1 H, RDW Coeff of Breana 13.8, Plt Count 222, MPV 10.2, Immature Gran % (Auto) 0.600, Neut % (Auto) 77.6 H, Lymph % (Auto) 13.7 L, Marquette % (Auto) 5.6, Eos % (Auto) 1.8, Baso % (Auto) 0.7, Absolute Neuts (auto) 8.1 H, Absolute Lymphs (auto) 1.43, Nucleated RBC % 0, D-Dimer Quant (PE/DVT) 0.49, Sodium 139, Potassium 3.6, Chloride 107, Carbon Dioxide 28.0, Anion Gap 4 L, BUN 15, Creatinine 1.37 H, Estim Creat Clear Calc 55.33, Est GFR (MDRD) Af Amer 65, Est GFR (MDRD) Non-Af 54 L, BUN/Creatinine Ratio 10.9, Glucose 153 H, Calcium 9.6, Troponin I High Sens 25, B-Natriuretic Peptide 262.7 H 09/24/23 12:03: Lactic Acid 1.3 09/24/23 15:52: Procalcitonin < 0.04 09/25/23 07:20: WBC 12.8 H, RBC 4.99, Hgb 14.5, Hct 45.1, MCV 90.4, MCH 29.1, MCHC 32.2, RDW Std Deviation 45.2 H, RDW Coeff of Breana 13.6, Plt Count 226, MPV 10.6, Immature Gran % (Auto) 0.700, Neut % (Auto) 90.3 H, Lymph % (Auto) 7.1 L, Marquette % (Auto) 1.8, Eos % (Auto) 0.0, Baso % (Auto) 0.1, Absolute Neuts (auto) 11.5 H, Absolute Lymphs (auto) 0.91, Nucleated RBC % 0, Sodium 136, Potassium 4.4, Chloride 107, Carbon Dioxide 24.0, Anion Gap 5, BUN 26 H, Creatinine 1.07, Estim Creat Clear Calc 70.43, Est GFR (MDRD) Af Amer 87, Est GFR (MDRD) Non-Af 72, BUN/Creatinine Ratio 24.3 H, Glucose 146 H, Calcium 9.2, Magnesium 2.2, Total Bilirubin 0.80, AST 16, ALT 25, Alkaline Phosphatase 92, Total Protein 7.1, Albumin 2.6 L, Globulin 4.5 H, Albumin/Globulin Ratio 0.6 L, TSH 0.50 Micro: Microbiology 09/24/23 17:25 Mucosa - Nasopharyngeal Respiratory Panel (PCR) - Final 09/24/23 12:00 Mucosa - Nasopharyngeal SARS-CoV-2, Influenza & RSV (PCR) - Final Radiography Diagnostic Testing: Radiology Impression Chest X-Ray 09/24/23 12:25 IMPRESSION: 1. Diffuse chronic interstitial lung disease. 2. Cardiomegaly. Electronically Signed: Gonzales Sequeira MD at 13:03 EST , Physical Exam Const alert and no apparent distress HEENT head/scalp atraumatic and moist oral mucous membranes Resp Resp Narrative: bilateral crackles. Cardio regular rate, regular rhythm, S1 normal heart sound and S2 normal heart sound GI normal to inspection, nondistended, normoactive bowel sounds and soft to palpation Neuro Sensorium / Orientation: awake and alert Assessment & Plan Assessment/Plan (1) Hypoxemia: (2) Pulmonary fibrosis: PLAN: Plan Acute exacerbation of pulmonary fibrosis CXR reviewed and shows chronic changes in lungs bilatearlly. COVID/flu/RSV/resp panel negative PEP steroids. Wean oxygen as tolerated. Chronic conditions: Hx CAD s/p bypass in 1989-Continue aspirin, statin, beta-hermann HTN-Continue beta-hermann, slight bump in creatinine so we will hold losartan at this time CKD unclear subtype-Slight elevation in creatinine but does not meet criteria for DAISHA, monitor daily BMP GERD-Continue PPI Tobacco use-Chews tobacco occasionally, advise cessation-Nicotine replacement available if desired DVT ppx: Heparin subcu DW pt's and dtr at bedside. Charges/Coding Visit Charges Inpatient E&M: 24523 Subs Hosp L2
--- NOTE | 2023-09-25 11:00 | CASEMGMT ---
RN ARSENIO Face to Face with patient for initial transition planning/care coordination assessment. RN CM introduced self and role at [facility]. Patient lying in bed, alert and oriented, and daughter at bedside. Patient willing to participate in assessment and is able to answer all questions appropriately. Care providers, pharmacy, and demographics verified. Patient wishes to discharge home, denies need for home health at this time. Patient states he has no further needs or concerns at this time. CM to follow for discharge planning needs that may arise. PCP: [facility] Specialists: Elliott, russian language professor; Arun, drying unit felting machine operator; Estela ENT Preferred Pharmacy: [facility], [facility] retail at discharge. Insurance: [employer] [facility] Prescription Benefit: yes Living Will/HPOA: none LNOK: , daughter Living Arrangements: Patient lives with in a single story home with ramp to enter the home. Patient states he is independent at home. Transportation: self, DME/HHC: Patient has shower chair, raised toilet, cane, walker, wheelchair, and POC the he purchased himself. No previous HHC or SNF. Will monitor for home oxygen, prefers [employer]. Disposition Plan: Patient to to discharge home with family support and follow-up plans in place. Will monitor for home oxygen. Raina PAULSON, RN, CM
[2023-09-25] MEDS: Atorvastatin Calcium 40 MG Tablet PO (21:30)
[2023-09-26 02:00] VITALS: BP 111/76; PULSE 72; RESP 17; TEMP 36.6; O2SAT 93
[2023-09-26 03:27] VITALS: BMI 31.9
[2023-09-26] MEDS: Ipratropium/Albuterol Sulfate 3 ML AMPUL.NEB INHALATION ×2 (07:08→11:12)
[2023-09-26 07:51] VITALS: PULSE 62; RESP 17; O2SAT 95
--- NOTE | 2023-09-26 08:41 | PN.HOSP_ITS ---
Subjective Subjective Breathing welll. Anxious to go home. Objective Data Objective Data Vital Signs: Vital Signs Temp Pulse Resp BP Pulse Ox O2 Del Method O2 Flow Rate 36.6 C 62 17 111/76 95 Nasal Cannula 2 09/26/23 02:00 09/26/23 07:51 09/26/23 07:51 09/26/23 02:00 09/26/23 07:51 09/26/23 07:51 09/26/23 07:51 Oxygen Flow Rate (L/min) [ 4 AMBULATING with Oxygen #2] Oxygen Flow Rate (L/min) [ 2 AMBULATING with Oxygen #1] Oxygen Flow Rate (L/min) [At 2 REST with Oxygen] Oxygen Flow Rate (L/min) 2 Oxygen Delivery Method Nasal Cannula Weight: 101.1 kg Body Mass Index (BMI) 31.9 Intake & Output: Intake and Output for Last 24 Hours 09/24/23 09/25/23 09/26/23 23:59 23:59 23:59 Intake Total 837.5 / 837.5 Output Total 0 / 0 0 / 0 Balance 837.5 / 837.5 Lab / Micro Data 09/25/23 07:20 09/25/23 07:20 Micro: Microbiology 09/24/23 17:25 Mucosa - Nasopharyngeal Respiratory Panel (PCR) - Final 09/24/23 12:00 Mucosa - Nasopharyngeal SARS-CoV-2, Influenza & RSV (PCR) - F inal Radiography Diagnostic Testing: Radiology Impression Echocardiogram 09/24/23 18:10 Interpretation Summary The estimated ejection fraction is 60 %. D shaped septum in systole and diastole. Moderately dilated right ventricle. Mild global right ventricular systolic dysfunction. The left atrium is mildly enlarged. Mild (1+) tricuspid valve insufficiency. Mild pulmonary hypertension. Aortic sclerosis, no stenosis. Mild aortic insufficiency Mild atherosclerosis of the ascending aorta. Ordering Physician: Muna Bowers Referring Physician: Nehemiah Flanagan Performed By: Maximilian Morin RCS Physical Exam Const alert and no apparent distress HEENT head/scalp atraumatic and moist oral mucous membranes Resp Resp Narrative: crackles bilaterally. Cardio regular rate, regular rhythm, S1 normal heart sound and S2 normal heart sound GI normal to inspection, nondistended, normoactive bowel sounds and soft to palpation Assessment & Plan Assessment/Plan (1) Hypoxemia: (2) Pulmonary fibrosis: PLAN: Plan Acute exacerbation of pulmonary fibrosis * CXR reviewed and shows chronic changes in lungs bilatearlly. * COVID/flu/RSV/resp panel negative * PEP * Prednisone taper. Levofloxacin. * Patient required oxygen at home with up to 6 L with activity. Patient is ambulatory in the home and community and requires home oxygen with portability. Chronic conditions: * Hx CAD s/p bypass in 1989-Continue aspirin, statin, beta-hermann * HTN-Continue beta-hermann, slight bump in creatinine so we will hold losartan at this time * CKD unclear subtype-Slight elevation in creatinine but does not meet criteria for DAISHA, monitor daily BMP * GERD-Continue PPI * Tobacco use-Chews tobacco occasionally, advise cessation-Nicotine replacement available if desired DVT ppx: Heparin subcu DW pt's and son at bedside.
[2023-09-26 09:36] VITALS: BP 107/77; PULSE 78; RESP 18; TEMP 36.3; O2SAT 95
[2023-09-26 09:49] VITALS: O2SAT 81; O2SAT 88; O2SAT 93
[2023-09-26] MEDS: Aspirin E.C. 81 MG Tablet PO (10:03)
[2023-09-26] MEDS: guaiFENesin 1,200 MG Tablet 1200 MG PO (10:04)
[2023-09-26] MEDS: Heparin Injection (Vial) 5,000 UNIT/ML VIAL 5000 UNIT SC (10:04)
[2023-09-26] MEDS: Pantoprazole Sodium 20 MG Tablet PO (10:04)
[2023-09-26 10:05] VITALS: PULSE 78
[2023-09-26] MEDS: Metoprolol(XL)Succ 50 MG Tablet PO (10:05)
--- NOTE | 2023-09-26 10:33 | DS.PCM_ITS ---
Providers Date of Admission: 09/24/23 Date of Discharge: 09/26/23 Primary Care Physician: Dr. Nehemiah Flanagan MD Reason For Visit: HYPOXIA Diagnosis Discharge Diagnosis (1) Hypoxemia: Status: Acute Code(s): R09.02 - Hypoxemia (2) Pulmonary fibrosis: Status: Acute Code(s): J84.10 - Pulmonary fibrosis, unspecified Plan Acute exacerbation of pulmonary fibrosis * CXR reviewed and shows chronic changes in lungs bilatearlly. * COVID/flu/RSV/resp panel negative * PEP * Prednisone taper. Levofloxacin. * Patient required oxygen at home with up to 6 L with activity. Patient is ambulatory in the home and community and requires home oxygen with portability. Chronic conditions: * Hx CAD s/p bypass in 1989-Continue aspirin, statin, beta-hermann * HTN-Continue beta-hermann, slight bump in creatinine so we will hold losartan at this time * CKD unclear subtype-Slight elevation in creatinine but does not meet criteria for DAISHA, monitor daily BMP * GERD-Continue PPI * Tobacco use-Chews tobacco occasionally, advise cessation-Nicotine replacement available if desired DVT ppx: Heparin subcu DW pt's and son at bedside. Medications at Discharge Home Medications losartan 25 mg tablet 25 mg PO DAILY BLOOD PRESSURE #90 tabs 04/06/21 albuterol sulfate 90 mcg/actuation aerosol inhaler (Ventolin HFA) 2 puff inhalation Q4H PRN SHORTNESS OF BREATH/WHEEZNG #18 grams 11/27/22 omeprazole 20 mg capsule,delayed release 20 mg PO DAILY ACID REFLUX 05/21/23 aspirin 81 mg tablet,delayed release (Adult Low Dose Aspirin) 81 mg PO DAILY HEART HEALTH 09/24/23 atorvastatin 40 mg tablet 40 mg PO QHS CHOLESTEROL 09/24/23 metoprolol succinate 50 mg tablet,extended release 24 hr 50 mg PO DAILY BLOOD PRESSURE 09/24/23 guaifenesin 1,200 mg tablet, extended release 12 hr (Mucus Relief ER) 1,200 mg PO BID #10 tabs 09/26/23 levofloxacin 750 mg tablet 750 mg PO DAILY #7 tabs 09/26/23 prednisone 10 mg tablet 10 mg PO DAILY #30 tabs 09/26/23 Hospital Course Operations None Procedures None Summary of Care Provided Minutes Spent on Discharge: 40 Hospital Course: Patient presents with shortness of breath and hypoxia. Workup was unremarkable but the patient overall did well. Patient required up to 6 L of oxygen with activity. Is due to an exacerbation of his idiopathic pulmonary fibrosis. Patient will be discharged on prednisone taper as well as 70 course of levofloxacin. Patient to follow-up with pulmonary office. Patient improved faster than anticipated. Weight / BMI Weight Weight: 101.1 kg Body Mass Index (BMI) 31.9 ABG / Lab / Microbiology Data 09/25/23 07:20 09/25/23 07:20 Microbiology: Microbiology 09/24/23 17:25 Mucosa - Nasopharyngeal Respiratory Panel (PCR) - Final 09/24/23 12:00 Mucosa - Nasopharyngeal SARS-CoV-2, Influenza & RSV (PCR) - Final Radiography Diagnostic Testing: Radiology Impression Echocardiogram 09/24/23 18:10 Interpretation Summary The estimated ejection fraction is 60 %. D shaped septum in systole and diastole. Moderately dilated right ventricle. Mild global right ventricular systolic dysfunction. The left atrium is mildly enlarged. Mild (1+) tricuspid valve insufficiency. Mild pulmonary hypertension. Aortic sclerosis, no stenosis. Mild aortic insufficiency Mild atherosclerosis of the ascending aorta. Ordering Physician: Muna Bowers Referring Physician: Nehemiah Flanagan Performed By: Maximilian Morin RCS D/C Instructions Discharge Diet: No restrictions Discharge Activity: - (Slowly ease back into your normal routine.) Meaningful Use Info Meaningful Use Diagnoses (Choose all that apply): None applicable Discharge Plan Admission Admit Date/Time: 09/24/23 15:16 Primary Reason for Your Visit: Acute exacerbation of pulmonary fibrosis. Attending Provider: Martin Clemens Primary Care Provider: Nehemiah Flanagan Consulting Providers: Muna Bowers Instructions Additional Instructions / Restrictions: You had an exacerbation of your pulmonary fibrosis. The source of which is not identified. You will be on a course of prednisone will be weaned over time. Also complete a course of antibiotics. Notify physician if you are feeling worse or not getting better over the coming weeks. Discharge Orders/Prescriptions Prescriptions: New guaifenesin [Mucus Relief ER] 1,200 mg Tablet Extended Release 12hr 1,200 mg PO BID Qty: 10 0RF prednisone 10 mg tablet 10 mg PO DAILY Qty: 30 0RF Rx Instructions: 4 tabs daily for 3 days, then 3 tabs daily for 3 days, then 2 tabs daily for 3 days, then 1 tab daily for 3 days levofloxacin 750 mg tablet 750 mg PO DAILY Qty: 7 0RF Continued omeprazole 20 mg capsule,delayed release(DR/EC) 20 mg PO DAILY atorvastatin 40 mg tablet 40 mg PO QHS metoprolol succinate 50 mg tablet extended release 24 hr 50 mg PO DAILY aspirin [Adult Low Dose Aspirin] 81 mg tablet,delayed release (DR/EC) 81 mg PO DAILY losartan 25 mg tablet 25 mg PO DAILY Qty: 90 3RF albuterol sulfate [Ventolin HFA] 90 mcg/actuation HFA aerosol inhaler 2 puff INHALATION Q4H PRN (Reason: SHORTNESS OF BREATH/WHEEZNG ) Qty: 18 6RF Referrals / Follow Up: [facility] [Provider Group] - Within 1 Month Nehemiah Flanagan MD [Primary Care Provider] - Within 2 Weeks Disposition Disposition (needs filled in before D/C Order can be placed): Home, Self Care Charges/Coding Visit Charges Inpatient E&M: 40797 Disch Hosp >30min
--- NOTE | 2023-09-26 10:56 | PHA.DC.MC.R ---
Pharmacy [facility] has performed discharge medication reconciliation and counseling for this patient. The patient's discharge medication list was reviewed for discrepancies and discrepancies were resolved. The patient was counseled on the following discharge medications and changes in medications for homegoing were reviewed. 1. LEVAQUIN 2. PREDNISONE The Reason for Use, instructions for use, and potential side effects were reviewed for all new medications. The patient's questions regarding all of their medications were answered. The patient/ family was able to verbally demonstrate an understanding of their discharge medications. Medications at Discharge Home Medications losartan 25 mg tablet 25 mg PO DAILY BLOOD PRESSURE #90 tabs 04/06/21 albuterol sulfate 90 mcg/actuation aerosol inhaler (Ventolin HFA) 2 puff inhalation Q4H PRN SHORTNESS OF BREATH/WHEEZNG #18 grams 11/27/22 omeprazole 20 mg capsule,delayed release 20 mg PO DAILY ACID REFLUX 05/21/23 aspirin 81 mg tablet,delayed release (Adult Low Dose Aspirin) 81 mg PO DAILY HEART HEALTH 09/24/23 atorvastatin 40 mg tablet 40 mg PO QHS CHOLESTEROL 09/24/23 metoprolol succinate 50 mg tablet,extended release 24 hr 50 mg PO DAILY BLOOD PRESSURE 09/24/23 guaifenesin 1,200 mg tablet, extended release 12 hr (Mucus Relief ER) 1,200 mg PO BID #10 tabs 09/26/23 levofloxacin 750 mg tablet 750 mg PO DAILY #7 tabs 09/26/23 prednisone 10 mg tablet 10 mg PO DAILY #30 tabs 09/26/23
[2023-09-26 11:13] VITALS: PULSE 79; RESP 17
--- NOTE | 2023-09-26 11:30 | CASEMGMT ---
Patient has order for discharge. Patient will need oxygen at discharge. Script received and referral sent to [facility] via [facility], patient's preferred provider. RN CM in to discuss needs at discharge. Patient and deny needs or help at home. Patient and deny further questions or concerns.
== END 2023-09-26 13:32 | disposition home or self-care (01) | DRG 198 ==
LOC: ED 14:00 → PCU 15:55
PROVIDERS: Admitting Provider Internal Medicine; Emergency Provider Emergency Medicine; PCP Family Medicine
DX: J84.112 Idiopathic pulmonary fibrosis (principal); E78.5 Hyperlipidemia, unspecified; Z99.81 Dependence on supplemental oxygen; N18.30 Chronic kidney disease, stage 3 unspecified; I12.9 Hypertensive chronic kidney disease with stage 1 through stage 4 chronic kidney disease, or unspecified chronic kidney disease; I25.10 Atherosclerotic heart disease of native coronary artery without angina pectoris; K21.9 Gastro-esophageal reflux disease without esophagitis; F17.220 Nicotine dependence, chewing tobacco, uncomplicated; R09.02 Hypoxemia; Z79.82 Long term (current) use of aspirin; Z79.899 Other long term (current) drug therapy
CPT/HCPCS: 36415; 71045; 80048; 80053; 83605; 83735; 83880; 84145; 84443; 84484; 85025; 85379; 87040; 87631; 87633; 93005; 93306; 94640; 94668; 94760; 97802; 99252; 99284; J7030; Q9957; A4216; C8929; G0463; J1940

== ENCOUNTER → 2023-10-24 | Outpatient (CLI) | payer MEDICARE, SELFPAY ==
[2023-10-24 11:50] VITALS: PULSE 101; PULSE 102; PULSE 88; PULSE 91; PULSE 97; PULSE 98; PULSE 99; PULSE 993; O2SAT 81; O2SAT 86; O2SAT 87; O2SAT 88; O2SAT 89; O2SAT 90; O2SAT 91; O2SAT 94
--- NOTE | 2023-10-24 12:17 | CPS ---
Pt came to walk on 8 lpm. Pt walked from Diagnostic to bench outside pulmonary rehab and had dropped to 88%. Walk was started on 8 lpm after pt had recovered and at 1 minute after 2 laps pt dropped to 88%. Pt was seated on bench for remainder of walk to recover.
--- NOTE | 2023-10-24 13:23 | PCM.PSN.6M ---
PSN 6 Minute Walk Test 6 Minute Walk Test 6 Minute Walk Test: 6 Minute Walk Test PSN:6-Minute Walk Test Start: 10/24/23 12:12 Freq: Status: Active Protocol: [id number] Document 10/24/23 11:50 AEH (Rec: 10/24/23 12:20 AEH Desktop) 6 Minute Walk Test Date Performed 10/24/23 Time Performed 11:50 Height 5 ft 11 in Weight: 102.512 kg Weight in Pounds 226.[address]: Dr Gallagher Assistive device used: None Pre-test Oxygen Flow Rate (L/min) 8 Oxygen Delivery Method Nasal Cannula Pulse Ox 94 Pulse Rate (60-100) 88 Dyspnea Shaun Scale (0-10) 0 1st minute Oxygen Flow Rate (L/min) 8 Oxygen Delivery Method Nasal Cannula Pulse Ox 88 Pulse Rate (60-100) 99 Dyspnea Shaun Scale (0-10) 0 2nd minute Oxygen Flow Rate (L/min) 8 Oxygen Delivery Method Nasal Cannula Pulse Ox 81 Pulse Rate (60-100) 101 H Dyspnea Shaun Scale (0-10) 0 Number of Rests Taken 1 3rd minute Oxygen Flow Rate (L/min) 8 Oxygen Delivery Method Nasal Cannula Pulse Ox 87 Pulse Rate (60-100) 102 H Dyspnea Shaun Scale (0-10) 0 Number of Rests Taken 1 4th minute Oxygen Flow Rate (L/min) 8 Oxygen Delivery Method Nasal Cannula Pulse Ox 86 Pulse Rate (60-100) 97 Dyspnea Shaun Scale (0-10) 0 Number of Rests Taken 1 5th minute Oxygen Flow Rate (L/min) 8 Pulse Ox 89 Pulse Rate (60-100) 98 Dyspnea Shaun Scale (0-10) 0 Number of Rests Taken 1 6th minute Oxygen Flow Rate (L/min) 8 Oxygen Delivery Method Nasal Cannula Pulse Ox 90 Pulse Rate (60-100) 993 H Dyspnea Shaun Scale (0-10) 0 Number of Rests Taken 1 Post-test Oxygen Flow Rate (L/min) 8 Oxygen Delivery Method Nasal Cannula Pulse Ox 91 Pulse Rate (60-100) 91 Dyspnea Shaun Scale (0-10) 0 Number of Rests Taken 1 Full Laps Walked 2 Partial Lap, Number of Tiles Walked 0 Total Distance Walked (ft) 118 10/24/23 12:17 Cardiopulmonary Services by [facility] Pt came to walk on 8 lpm. Pt walked from Diagnostic to bench outside pulmonary rehab and had dropped to 88%. Walk was started on 8 lpm after pt had recovered and at 1 minute after 2 laps pt dropped to 88%. Pt was seated on bench for remainder of walk to recover. Initialized on 10/24/23 12:17 - END OF NOTE Interpretation Interpretation: Patient noted to desaturate to 80% despite 8 L/min initially on the testing. Patient was able to rest for a minute and did improve to 94%. Patient did require the majority of the time to recover with ambulation. In total, the patient traveled 118 feet over the course of 6 minutes with no assistive devices and 1 break. No significant tachycardia was noted. There does appear to be an error in the 6-minute of documentation as patient's heart rate was noted to be 93 on the raw data. Recommendations Recommendations: The patient requires at least 8 L/min at all times to maintain saturation
== END | disposition home or self-care (01) ==
LOC: PSN 11:40
PROVIDERS: PCP Family Medicine; Referring Provider Internal Medicine Critical Care Medicine; Visit Provider Internal Medicine Critical Care Medicine
DX: R09.02 Hypoxemia (principal)
CPT/HCPCS: 94618

== ENCOUNTER → 2023-10-31 | Outpatient (CLI) | payer MEDICARE, SELFPAY | END | disposition home or self-care (01) | LOC: PSN 12:43 | PROVIDERS: PCP Family Medicine; Referring Provider Internal Medicine Critical Care Medicine; Visit Provider Internal Medicine Critical Care Medicine | DX: R09.02 Hypoxemia (principal) | CPT/HCPCS: 94010 ==

== ENCOUNTER 2023-12-01 13:24 | Inpatient (IN) | payer MEDICARE, SELFPAY ==
[2023-12-01] VITALS (22 sets, daily range): BP systolic 120–159; BP diastolic 74–119; PULSE 89–105; RESP 12–41; TEMP 35.8–36.6; O2SAT 88–100; BMI 31.8; BMI 29.0
[2023-12-01 14:11] LABS: Base Excess 11 mmol/L (-2 to +2); Blood Gas Specimen Type ART; Mode Not entered; O2 Delivery Device NRB; PO2 86 mmHG (75-100); SITE L Brach; SO2 96 % (95-99); Total Carbon Dioxide 38 mmol/L; pCO2 57.3 mmHg (35-45); pH 7.41 (7.35-7.45)
[2023-12-01] MEDS: Ipratropium/Albuterol Sulfate 3 ML AMPUL.NEB INHALATION (14:14)
[2023-12-01 14:15] LABS: Absolute Lymphocyte Count 0.76 X10^3/uL (0.83-4.51); Absolute Neutrophil Count 7.7 X10^3/uL (2.0-7.7); Basophil# 0.04 X10^3/uL; Basophil% 0.4 % (0-1); Eosinophil# 0.11 X10^3/uL; Eosinophils% 1.2 % (0-5); Hematocrit 45.6 % (40-54); Hemoglobin 13.9 g/dL (13.0-16.5); Lymphocyte # 0.76 X10^3/ul (0.83-4.51); Lymphocyte % 8.4 % (19-41); Mean Corp Hgb Conc 30.5 g/dL (32-36); Mean Corpuscular Hgb 28.1 pg (27.0-32.0); Mean Corpuscular Volume 92.1 fL (80-94); Mean Platelet Vol. 11.9 fl (6.2-12.0); Monocyte# 0.35 X10^3/uL; Monocyte% 3.9 % (0-10); NRBC Flagged by Analyzer 0 % (0-5); Neutrophil # 7.71 X10^3/uL (2.7-7.7); Neutrophil % 85.5 % (47-70); Platelet Count 186 K/mm3 (150-450); RBC Distribution Width CV 16.4 % (11.6-14.6); RBC Distribution Width SD 54.3 fl (35.1-43.9); Red Blood Count 4.95 M/mm3 (4.6-6.2)
[2023-12-01] MEDS: 0.9% Normal Saline (1000mL) 1,000 ML 150 ML IV (14:17)
--- NOTE | 2023-12-01 14:25 | RAD_ITS ---
STUDY: X-RAY CHEST REASON FOR EXAM: Male, 73 years old. Shortness of breath. TECHNIQUE: Single frontal view of the chest. COMPARISON: Chest x-ray report dated 09/24/2023. Images not provided. FINDINGS: Low volume to the lung smith with diffuse reticular nodular/interstitial opacities and patchy parenchymal opacities most marked in both bases, left greater than right. There is no demonstrated pleural abnormality. Cardiomegaly, sternotomy wires and changes of coronary artery bypass grafting. Normal mediastinum and liya. Prominent central pulmonary arteries. Aortic tortuosity with calcification. No abnormality of the visualized soft tissue structures of the upper abdomen. RAD/Chest 1 View (Portable) IMPRESSION: Cardiomegaly, low volume to the lung smith, diffuse reticulonodular and interstitial opacities and patchy parenchymal opacities in both bases, left greater than right. Findings may represent a combination of interstitial fibrosis and interstitial edema/congestive failure. Follow-up chest imaging to resolution recommended. Electronically Signed: Brian Hicks MD at 14:42 EDT ,
[2023-12-01 14:34] LABS: Anion Gap 4 (5-15); BUN 23 mg/dL (7-18); BUN/Creat Ratio 22.5 RATIO (10-20); Calcium,Total 9.3 mg/dL (8.5-10.1); Chloride 94 mmol/L (98-107); Creatinine, Serum 1.02 mg/dL (0.70-1.30); EST Glomerular Filtration Rate 76 mL/min (>60); Est Glom Filt Rate - Afr Amer 91 mL/min (>60); Estimated Creatinine Clearance 76.74 ml/min; Glucose 124 mg/dL (74-106); Potassium 3.8 mmol/L (3.5-5.1); Sodium Level 135 mmol/L (136-145); Troponin-I HS 34 pg/mL (3.0-78.0)
--- NOTE | 2023-12-01 14:54 | ED.VIS.DYS ---
HPI History of Present Illness Chief Complaint: Shortness of Breath Informant: patient Narrative Narrative: Patient is a 73-year-old male with history of pulmonary hypertension and pulmonary fibrosis on 5 to 6 L of oxygen at baseline presenting with worsening shortness of breath. He has a history of pretty significant hypoxia with exertion however today apparently he had a particularly rough bowel movement and his O2 sats dropped to 70% and couldnt get his oxygen back up. He also is at increased swelling of his legs since yesterday. Patient's been complaining of some increased nasal congestion and feeling congested over the past few weeks. Does not wear CPAP or BiPAP. Denies any change in his cough. Denies any chest pain. No other complaints or concerns at this time. PFSH PFSH Medical History Atherosclerosis of coronary artery bypass graft without angina pectoris Atherosclerosis of coronary artery of [place] heart without angina pectoris CKD (chronic kidney disease), stage III history of tick bite Hyperlipidemia Hypertension Kidney disease Kidney stones On home oxygen therapy Pneumonia Pulmonary fibrosis Pulmonary fibrosis Shortness of breath Smoker Home Medications losartan 25 mg tablet 25 mg PO DAILY BLOOD PRESSURE #90 tabs 04/06/21 [Rx Last Taken 09/24/23] albuterol sulfate 90 mcg/actuation aerosol inhaler (Ventolin HFA) 2 puff inhalation Q4H PRN SHORTNESS OF BREATH/WHEEZNG #18 grams 11/27/22 [Rx Last Taken 09/24/23] omeprazole 20 mg capsule,delayed release 20 mg PO DAILY ACID REFLUX 05/21/23 [History Last Taken 09/24/23] aspirin 81 mg tablet,delayed release (Adult Low Dose Aspirin) 81 mg PO DAILY HEART HEALTH 09/24/23 [History Last Taken 09/24/23] atorvastatin 40 mg tablet 40 mg PO QHS CHOLESTEROL 09/24/23 [History Last Taken 09/23/23] metoprolol succinate 50 mg tablet,extended release 24 hr 50 mg PO DAILY BLOOD PRESSURE 09/24/23 [History Last Taken 09/24/23] guaifenesin 1,200 mg tablet, extended release 12 hr (Mucus Relief ER) 1,200 mg PO BID PRN congestion 10/23/23 [History Last Taken Unknown] multivitamin (Daily Multi-Vitamin tablet) 1 tab PO DAILY 10/23/23 [History Last Taken Unknown] prednisone 10 mg tablet 10 mg PO DAILY #30 tabs 11/13/23 [Rx Last Taken Unknown] furosemide 40 mg tablet (Lasix) 40 mg PO DAILY PRN edema #10 tabs 11/26/23 [Rx Last Taken Unknown] nintedanib 150 mg capsule (Ofev) 150 mg PO Q12H 12/01/23 [History Last Taken Unknown] Allergy/AdvReac Type Severity Reaction Status Date / Time No Known Allergies Allergy Verified 10/23/23 11:00 Family History Mother Brain aneurysm Father CVA (cerebral vascular accident) Surgical History H/O coronary artery bypass surgery (1989) H/O hernia repair History of coronary artery stent placement History of left heart catheterization (01/02/16) Social History Smoking Status: Former smoker Tobacco: How many years used: 16 Smokeless tobacco user: chewing tobacco alcohol intake: current alcohol intake frequency: holidays/special occasions only Alcohol type: beer substance use type: does not use caffeine: Yes Type: coffee Number of servings: 5 ROS ROS ED Constitutional Constitutional ED: Denies chills or fever(s) ENT ENT ED: Reports other Details: congestion Cardiovascular Cardiovascular: Denies chest pain Respiratory/Chest Respiratory/Chest: Reports dyspnea and dyspnea on exertion; Denies sputum Gastrointestinal Gastrointestinal: Denies nausea or vomiting Musculoskeletal Musculoskeletal: Denies arthralgias or myalgias Integumentary Denies rash Neurologic Neurologic: Denies headache(s) Hematologic/Lymphatic Hematologic/Lymphatic: Denies easy bleeding or easy bruising EXAM Physical Exam Const Vital Signs: 12/01/23 13:26 12/01/23 13:30 12/01/23 13:30 Temperature 97 F L 97.8 F Temperature Source Temporal Temporal Pulse Rate 103 H 103 H 103 H Respiratory Rate 22 H 41 H 32 H Respiratory Effort Respiratory Pattern Blood Pressure 141/100 H 159/101 H 159/101 H Blood Pressure Mean 113 120 120 Pulse Ox 90 90 91 Oxygen Delivery Method Non-Rebreather Non-Rebreather Non-Rebreather Oxygen Flow Rate (L/min) 10 10 Fraction of Inspired Oxygen (FIO2) 12/01/23 13:32 12/01/23 14:19 12/01/23 14:25 Temperature Temperature Source Pulse Rate 102 H Respiratory Rate 28 H Respiratory Effort Short of Breath Labored Nasal Flaring Respiratory Pattern Tachypnea Blood Pressure 147/107 H Blood Pressure Mean 120 Pulse Ox 92 96 Oxygen Delivery Method Non-Rebreather Non-Rebreather Bi-pap Oxygen Flow Rate (L/min) 10 15 Fraction of Inspired Oxygen (FIO2) 100 12/01/23 15:00 12/01/23 14:19 12/01/23 14:38 Temperature Temperature Source Pulse Rate 103 H 105 H 99 Respiratory Rate 35 H 30 H 27 H Respiratory Effort Respiratory Pattern Tachypnea Blood Pressure 151/101 H Blood Pressure Mean 117 Pulse Ox 97 96 Oxygen Delivery Method Bi-pap Oxygen Flow Rate (L/min) Fraction of Inspired Oxygen (FIO2) 100 75 Positive well developed Constitutional Narrative: Patient appears to be in mild to moderate respiratory distress General Appearance ED: well developed HEENT Reports dry mucous membranes atraumatic Mouth ED: Yes dry mucous membranes Mouth: dry mucous membranes Eyes PERRL and EOMs intact bilaterally Neck supple and no JVD Resp Resp Narrative: Tachypneic. Diffuse crackles throughout. Decreased air movement. Increased work of breathing with use of accessory muscles Cardio regular rate and regular rhythm Extremity normal to inspection General Extremety ED: Yes edema General Extremity: edema Neuro oriented x3 Sensorium / Orientation: alert Motor Exam: general weakness Psych mental status grossly normal Skin no wounds MDM MDM MDM Narrative Medical decision making narrative: Patient evaluated for 1 day of worsening shortness of breath, increased work of breathing, hypoxia and increased lower extremity edema. Patient is on nonrebreather and is only 90%. Is given a DuoNeb with no improvement. ABG is consistent with compensated respiratory hypercapnia with hypoxia. Patient will be placed on a BiPAP due to his work of breathing. Patient appears intravascularly depleted but also mild fluid overloaded. Differential includes fluid overload, exacerbation pulmonary fibrosis, pneumonia and reactive airway. Do not think this presentation is consistent with flash pulmonary edema. Chest x-ray shows cardiomegaly with dense interstitial opacities likely consistent with chronic changes left worse than right and possible superimposed interstitial edema/CHF. High since he troponin is mildly elevated at 34 but EKG is nonischemic. White blood cell count is normal. Viral panel still pending. I do think patient require admission for his increased acute on chronic respiratory distress. BNP is elevated. IV fluids are stopped and patient is given 40 mg IV Lasix. Patient is also given a dose of IV Solu-Medrol due to his underlying pulmonary fibrosis. He does not have a fever, leukocytosis or infectious symptoms so low suspicion for pneumonia. Will defer antibiotics at this time. Case discussed admitting physician, Dr. Landon and will be admitted to ICU. Lab Data Attestation: I reviewed the patient's lab results. Labs: Laboratory Results - last 24 hr 12/01/23 13:50 WBC 9.0 RBC 4.95 Hgb 13.9 Hct 45.6 MCV 92.1 MCH 28.1 MCHC 30.5 L RDW Std Deviation 54.3 H RDW Coeff of Breana 16.4 H Plt Count 186 MPV 11.9 Immature Gran % (Auto) 0.600 Neut % (Auto) 85.5 H Lymph % (Auto) 8.4 L [place] % (Auto) 3.9 Eos % (Auto) 1.2 Baso % (Auto) 0.4 Absolute Neuts (auto) 7.7 Absolute Lymphs (auto) 0.76 L Nucleated RBC % 0 Sodium 135 L Potassium 3.8 Chloride 94 L Carbon Dioxide 37.0 H Anion Gap 4 L BUN 23 H Creatinine 1.02 Estim Creat Clear Calc 76.74 Est GFR (MDRD) Af Amer 91 Est GFR (MDRD) Non-Af 76 BUN/Creatinine Ratio 22.5 H Glucose 124 H Calcium 9.3 Troponin I High Sens 34 B-Natriuretic Peptide 720.5 H ABG Data ABG results: ABG 12/01/23 14:08 Specimen Type ART Sample Site L Brach pH 7.41 Bicarbonate Actual 36.0 H Total CO2 38 Base Excess 11 H O2 Saturation 96 O2 % 15.0 ABG pCO2 57.3 H ABG pO2 86 O2 Delivery Device NRB Vent Mode Not entered Radiography Chest X-Ray - ED: 1 View, Chronic Changes and CHF Diagnostic Testing: Clinical Impression(s) from Imaging Studies Chest X-Ray 12/01/23 14:25 IMPRESSION: Cardiomegaly, low volume to the lung smith, diffuse reticulonodular and interstitial opacities and patchy parenchymal opacities in both bases, left greater than right. Findings may represent a combination of interstitial fibrosis and interstitial edema/congestive failure. Follow-up chest imaging to resolution recommended. Electronically Signed: Brian Hicks MD at 14:42 EDT Reading Location ID and State: [facility] / [place] , Service support , Rhythm Strip Rhythm Strip: Sinus Rhythm Rate: 99 Ectopy: None EKG Initial EKG: Attestation: I personally reviewed and interpreted this EKG as follows: Interpretation: Sinus Rhythm Comments: Normal sinus rhythm rate of 90 bpm Normal axis Normal intervals Normal ST segments Differential Diagnosis Chest pain/SOB: ACS ACS: Positive for no evidence of ACS based on cardiac biomarkers, EKG without ischemia and history not suggestive of ischemia pain, pneumonia Reason(s) pneumonia less likely: Positive for no elevation in WBC count, no noted fever and symptoms not consistent with acute infection, CHF and COPD Reason(s) COPD less likely: Positive for no significant wheezing on exam Critical Care Time Critical Care Time: Yes Critical care time (excluding procedures): 30-74 minutes (37), 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, Arranging Admission or Transfer and Performing Direct Patient Care at Bedside Discharge Plan Triage Chief Complaint: Shortness of Breath ED Provider: Sunita Mckenna Dx/Rx/DC Orders Clinical Impression: Acute and chronic respiratory failure with hypoxia, Pulmonary fibrosis, Fluid overload Prescriptions: No Action omeprazole 20 mg capsule,delayed release(DR/EC) 20 mg PO DAILY multivitamin [Daily Multi-Vitamin] Tablet 1 tab PO DAILY guaifenesin [Mucus Relief ER] 1,200 mg tablet extended release 12hr 1,200 mg PO BID PRN (Reason: congestion) atorvastatin 40 mg tablet 40 mg PO QHS metoprolol succinate 50 mg tablet extended release 24 hr 50 mg PO DAILY aspirin [Adult Low Dose Aspirin] 81 mg tablet,delayed release (DR/EC) 81 mg PO DAILY Ofev 150 mg capsule 150 mg PO Q12H Rx Instructions: TAKE AT 0800 AND 2000 DAILY. losartan 25 mg tablet 25 mg PO DAILY Qty: 90 3RF albuterol sulfate [Ventolin HFA] 90 mcg/actuation HFA aerosol inhaler 2 puff INHALATION Q4H PRN (Reason: SHORTNESS OF BREATH/WHEEZNG ) Qty: 18 6RF prednisone 10 mg tablet 10 mg PO DAILY Qty: 30 3RF furosemide [Lasix] 40 mg tablet 40 mg PO DAILY PRN (Reason: edema) Qty: 10 0RF Patient Comments: HAS PRESCRIPTION, HAS NOT TAKEN YET Primary Care Provider: Nehemiah Flanagan Referrals: Nehemiah Flanagan MD [Primary Care Provider] - Disposition Disposition: Acute Care Hospital [facility]
[2023-12-01 15:09] LABS: BNP,B-Type NATRIURETIC PEPTIDE 720.5 pg/mL (0-100)
[2023-12-01] MEDS: MethylPREDNISolone 125 MG/2 ML Vial IV (15:43)
[2023-12-01] MEDS: Furosemide 40 MG/4 ML Vial IV (15:43)
--- NOTE | 2023-12-01 16:41 | NURSING ---
ICU [facility] ACUTE ON CHRONIC HYPOXIC RESP FAILURE
--- NOTE | 2023-12-01 18:34 | HP.PCM.HOS_ITS ---
[facility] - General General Date of Admission: 12/01/23 HPI Narrative DU BACA, is a 73 M who presents to the hospital with increased shortness of breath. He has a baseline history of idiopathic pulmonary fibrosis as well as mild pulmonary hypertension. He states that he has been in his usual state of health with his respiratory status and then this morning he went to have a bowel movement, he has been constipated for several days and he said it is a challenge to have a bowel movement and after he had his bowel movement he developed significant shortness of breath and was found to have an oxygen saturation at home in the 70-80's and he is normally requiring anywhere between 4 to 5 L nasal cannula at rest and on arrival he was only 90% on 10 L nonrebreather. Chest x-ray demonstrated his pulmonary fibrosis as well as possible pulmonary edema and there is some concern with his pulmonary hypertension if he potentially went into flash pulmonary edema with increased intrathoracic pressures from the [place] during his multiple times to have a bowel movement today. He had an echo in August 2023 with a normal EF and an RVSP of 43 mmHg. He was ultimately increased to BiPAP in the ER with improvement in his respiratory status and he was also given a dose of IV Lasix, ABG demonstrated a pCO2 of 57.3 however we do not have any baseline ABGs to compare to and his bicarb was 36 with a pH of 7.41. PFSH Medical History Atherosclerosis of coronary artery bypass graft without angina pectoris Atherosclerosis of coronary artery of [place] heart without angina pectoris CKD (chronic kidney disease), stage III GERD (gastroesophageal reflux disease) history of tick bite Hyperlipidemia Hypertension Kidney disease Kidney stones On home oxygen therapy Pneumonia Pulmonary fibrosis Pulmonary fibrosis Shortness of breath Smoker Home Medications losartan 25 mg tablet 25 mg PO DAILY BLOOD PRESSURE #90 tabs 04/06/21 [Rx Last Taken 12/01/23] albuterol sulfate 90 mcg/actuation aerosol inhaler (Ventolin HFA) 2 puff inhalation Q4H PRN SHORTNESS OF BREATH/WHEEZNG #18 grams 11/27/22 [Rx Last Taken 09/24/23] omeprazole 20 mg capsule,delayed release 20 mg PO DAILY ACID REFLUX 05/21/23 [History Last Taken 12/01/23] aspirin 81 mg tablet,delayed release (Adult Low Dose Aspirin) 81 mg PO DAILY HEART HEALTH 09/24/23 [History Last Taken 12/01/23] atorvastatin 40 mg tablet 40 mg PO QHS CHOLESTEROL 09/24/23 [History Last Taken 11/30/23 20:00] metoprolol succinate 50 mg tablet,extended release 24 hr 50 mg PO DAILY BLOOD PRESSURE 09/24/23 [History Last Taken 12/01/23] guaifenesin 1,200 mg tablet, extended release 12 hr (Mucus Relief ER) 1,200 mg PO BID PRN congestion 10/23/23 [History Last Taken Unknown] multivitamin (Daily Multi-Vitamin tablet) 1 tab PO DAILY vitamin 10/23/23 [History Last Taken 12/01/23] prednisone 10 mg tablet 10 mg PO DAILY breathing #30 tabs 11/13/23 [Rx Last Taken 12/01/23] furosemide 40 mg tablet (Lasix) 40 mg PO DAILY PRN edema #10 tabs 11/26/23 [Rx Last Taken Unknown] nintedanib 150 mg capsule (Ofev) 150 mg PO Q12H pulm fibrosis 12/01/23 [History Last Taken 12/01/23 08:00] Allergy/AdvReac Type Severity Reaction Status Date / Time No Known Allergies Allergy Verified 10/23/23 11:00 Family History Mother Brain aneurysm Father CVA (cerebral vascular accident) Surgical History H/O coronary artery bypass surgery (1989) H/O hernia repair History of coronary artery stent placement History of left heart catheterization (01/02/16) Social History Smoking Status: Former smoker Tobacco: How many years used: 16 Smokeless tobacco user: chewing tobacco alcohol intake: current alcohol intake frequency: holidays/special occasions only Alcohol type: beer substance use type: does not use caffeine: Yes Type: coffee Number of servings: 5 ROS Constitutional Constitutional: Denies chills, fatigue, fever(s) or malaise Eyes Eyes: Denies blurry vision ENT HEENT: Denies headache(s) or nasal discharge Cardiovascular Cardiovascular: Denies chest pain, dyspnea on exertion or syncope Respiratory/Chest Respiratory/Chest: Reports shortness of breath at rest and shortness of breath with exertion; Denies cough Gastrointestinal Gastrointestinal: Denies constipation, diarrhea, nausea or vomiting Genitourinary Genitourinary: Denies dysuria Neurologic Neurologic: Denies focal weakness, numbness or tremor(s) Psychiatric Psychiatric: Denies anxiety or depression Vital Signs Vital Signs Vital Signs: 12/01/23 13:26 12/01/23 13:30 12/01/23 13:30 Temperature 97 F L 97.8 F Temperature Source Temporal Temporal Pulse Rate 103 H 103 H 103 H Respiratory Rate 22 H 41 H 32 H Respiratory Effort Respiratory Depth Respiratory Pattern Blood Pressure 141/100 H 159/101 H 159/101 H Blood Pressure Mean 113 120 120 Blood Pressure Source Blood Pressure Position Blood Pressure Location Pulse Ox 90 90 91 Oxygen Delivery Method Non-Rebreather Non-Rebreather Non-Rebreather Oxygen Flow Rate (L/min) 10 10 Fraction of Inspired Oxygen (FIO2) 12/01/23 13:32 12/01/23 14:19 12/01/23 14:25 Temperature Temperature Source Pulse Rate 102 H Respiratory Rate 28 H Respiratory Effort Short of Breath Labored Nasal Flaring Respiratory Depth Respiratory Pattern Tachypnea Blood Pressure 147/107 H Blood Pressure Mean 120 Blood Pressure Source Blood Pressure Position Blood Pressure Location Pulse Ox 92 96 Oxygen Delivery Method Non-Rebreather Non-Rebreather Bi-pap Oxygen Flow Rate (L/min) 10 15 Fraction of Inspired Oxygen (FIO2) 100 12/01/23 15:00 12/01/23 14:19 12/01/23 14:38 Temperature Temperature Source Pulse Rate 103 H 105 H 99 Respiratory Rate 35 H 30 H 27 H Respiratory Effort Respiratory Depth Respiratory Pattern Tachypnea Blood Pressure 151/101 H Blood Pressure Mean 117 Blood Pressure Source Blood Pressure Position Blood Pressure Location Pulse Ox 97 96 Oxygen Delivery Method Bi-pap Oxygen Flow Rate (L/min) Fraction of Inspired Oxygen (FIO2) 100 75 12/01/23 16:00 12/01/23 16:30 12/01/23 17:22 Temperature 96.8 F L Temperature Source Pulse Rate 102 H 100 Respiratory Rate 32 H 32 H Respiratory Effort Short of Breath Labored Accessory Muscle Use Respiratory Depth Shallow Respiratory Pattern Tachypnea Blood Pressure 140/98 H 148/107 H Blood Pressure Mean 112 120 Blood Pressure Source Blood Pressure Position Blood Pressure Location Pulse Ox 97 96 Oxygen Delivery Method Bi-pap Bi-pap Oxygen Flow Rate (L/min) Fraction of Inspired Oxygen (FIO2) 75 12/01/23 17:20 12/01/23 17:15 12/01/23 17:30 Temperature 96.5 F L Temperature Source Temporal Pulse Rate 96 94 94 Respiratory Rate 34 H 28 H 27 H Respiratory Effort Respiratory Depth Respiratory Pattern Tachypnea Blood Pressure 158/101 H 150/119 H Blood Pressure Mean 120 129 Blood Pressure Source Monitor Monitor Blood Pressure Position Semi-Fowlers Semi-Fowlers Blood Pressure Location Right Arm Right Arm Pulse Ox 94 97 97 Oxygen Delivery Method Bi-pap Bi-pap Oxygen Flow Rate (L/min) Fraction of Inspired Oxygen (FIO2) 75 75 75 12/01/23 17:45 12/01/23 18:00 Temperature Temperature Source Pulse Rate 97 94 Respiratory Rate 27 H 22 H Respiratory Effort Respiratory Depth Respiratory Pattern Blood Pressure 152/102 H 148/74 H Blood Pressure Mean 118 98 Blood Pressure Source Monitor Monitor Blood Pressure Position Semi-Fowlers Semi-Fowlers Blood Pressure Location Right Arm Right Arm Pulse Ox 96 94 Oxygen Delivery Method Bi-pap Bi-pap Oxygen Flow Rate (L/min) Fraction of Inspired Oxygen (FIO2) 60 50 Weight Weight: 208 lb 1.862 oz Body Mass Index (BMI) 29.0 Physical Exam Narrative General: Alert, Oriented x3, Cooperative, moderate respiratory distress HEENT: Atraumatic, PERRLA, EOMI, Normocephalic Oral: On BiPAP Neck: Supple, No JVD Lungs: Diminished, Normal air movement, rhonchi, No wheeze, No rales, tachypneic, accessory muscle use Cardiovascular: Regular rate, Regular Rhythm, Normal S1, Normal S2, No murmurs Abdomen: Soft, Non Tender, Non-Distended, No Hepato-splenomegaly Extremities: Edema, Capillary Refill Less than 3 Seconds Skin: No rashes, No breakdown Musculoskeletal: No Tenderness to Palpation of Joints or Extremities Neurological: No focal neurological deficits, Motor Exam 5/5 strength throughout, Sensory exam intact to light touch and pain Psych/Mental Status: Anxious Results Lab / Micro Data 12/01/23 13:50 12/01/23 13:50 Labs: Laboratory Results - last 24 hr 12/01/23 13:50: WBC 9.0, RBC 4.95, Hgb 13.9, Hct 45.6, MCV 92.1, MCH 28.1, MCHC 30.5 L, RDW Std Deviation 54.3 H, RDW Coeff of Breana 16.4 H, Plt Count 186, MPV 11.9, Immature Gran % (Auto) 0.600, Neut % (Auto) 85.5 H, Lymph % (Auto) 8.4 L, [place] % (Auto) 3.9, Eos % (Auto) 1.2, Baso % (Auto) 0.4, Absolute Neuts (auto) 7.7, Absolute Lymphs (auto) 0.76 L, Nucleated RBC % 0, Sodium 135 L, Potassium 3.8, Chloride 94 L, Carbon Dioxide 37.0 H, Anion Gap 4 L, BUN 23 H, Creatinine 1.02, Estim Creat Clear Calc 76.74, Est GFR (MDRD) Af Amer 91, Est GFR (MDRD) Non-Af 76, BUN/Creatinine Ratio 22.5 H, Glucose 124 H, Calcium 9.3, Troponin I High Sens 34, B-Natriuretic Peptide 720.5 H Micro: Microbiology 12/01/23 14:20 Mucosa - Nose SARS-CoV-2, Influenza & RSV (PCR) - Final ABG Data ABG results: ABG 12/01/23 14:08 Specimen Type ART Sample Site L Brach pH 7.41 Bicarbonate Actual 36.0 H Total CO2 38 Base Excess 11 H O2 Saturation 96 O2 % 15.0 ABG pCO2 57.3 H ABG pO2 86 O2 Delivery Device NRB Vent Mode Not entered Rhythm Strip Rhythm Strip: Sinus Rhythm Rate: 99 Ectopy: None Imaging Radiology Impression Chest X-Ray 12/01/23 14:25 IMPRESSION: Cardiomegaly, low volume to the lung smith, diffuse reticulonodular and interstitial opacities and patchy parenchymal opacities in both bases, left greater than right. Findings may represent a combination of interstitial fibrosis and interstitial edema/congestive failure. Follow-up chest imaging to resolution recommended. Electronically Signed: Brian Hicks MD at 14:42 EDT , Assessment & Plan Assessment/Plan (1) Acute and chronic respiratory failure with hypoxia: PLAN: Plan 1. Acute on chronic hypoxic respiratory failure with acute hypercapnic respira tory failure secondary to pulmonary fibrosis and flash pulmonary edema in the setting of pulmonary hypertension ? Will continue with twice daily Lasix dosing ? Given his pulmonary fibrosis and his chronic prednisone use, will continue with p.o. prednisone 40 mg ? Will consult pulmonology ? Continue with BiPAP ? May benefit from Trelegy with sleep, unclear if he meets criteria with the pCO2 of 57 on ABG ? Continue with albuterol ? Continue with his home Nintedanib 2. CAD status post CABG and stent/essential HTN/HLD ? Continue with his home blood pressure medications ? His blood pressure is currently stable ? We will monitor make adjustments as necessary ? Continue with cholesterol medications 3. GERD ? Stable ? Continue with PPI 4. Anxiety/depression ? This will be a new diagnosis for him as he does not take any medications at baseline though family does agree that he does struggle with his medical diagnosis ? Will continue with Xanax 0.25 mg p.o. twice daily as well as Zoloft 50 mg daily DVT: Lovenox 75 minutes was spent on direct patient care, including documentation as well as chart review and collaboration with colleagues Charges/Coding Visit Charges Inpatient E&M: 02602 Init Hosp L3
[2023-12-01 21:58] LABS: D-Dimer Quantitative (DVT/PE) 0.56 FEU/ug/m (0.27-0.49)
[2023-12-02] VITALS (30 sets, daily range): BP systolic 86–150; BP diastolic 63–96; PULSE 75–95; RESP 12–36; TEMP 36.2–36.8; O2SAT 78–99; BMI 28.9
[2023-12-02 03:14] LABS: Absolute Lymphocyte Count 0.46 X10^3/uL (0.83-4.51); Absolute Neutrophil Count 5.4 X10^3/uL (2.0-7.7); Basophil# 0.01 X10^3/uL; Basophil% 0.2 % (0-1); Hematocrit 41.3 % (40-54); Hemoglobin 13.4 g/dL (13.0-16.5); Lymphocyte # 0.46 X10^3/ul (0.83-4.51); Lymphocyte % 7.7 % (19-41); Mean Corp Hgb Conc 32.4 g/dL (32-36); Mean Corpuscular Hgb 29.5 pg (27.0-32.0); Mean Platelet Vol. 11.5 fl (6.2-12.0); Monocyte# 0.08 X10^3/uL; Monocyte% 1.3 % (0-10); NRBC Flagged by Analyzer 0 % (0-5); Neutrophil # 5.43 X10^3/uL (2.7-7.7); Neutrophil % 90.3 % (47-70); POSITIVE DIFFERENTIAL YES; Platelet Count 147 K/mm3 (150-450); RBC Distribution Width CV 16.1 % (11.6-14.6); RBC Distribution Width SD 52.6 fl (35.1-43.9); Red Blood Count 4.54 M/mm3 (4.6-6.2)
[2023-12-02 03:30] LABS: Anion Gap 4 (5-15); BUN 24 mg/dL (7-18); BUN/Creat Ratio 23.8 RATIO (10-20); Calcium,Total 8.7 mg/dL (8.5-10.1); Chloride 98 mmol/L (98-107); Creatinine, Serum 1.01 mg/dL (0.70-1.30); EST Glomerular Filtration Rate 76 mL/min (>60); Est Glom Filt Rate - Afr Amer 93 mL/min (>60); Estimated Creatinine Clearance 74.14 ml/min; Glucose 128 mg/dL (74-106); Potassium 3.7 mmol/L (3.5-5.1); Sodium Level 141 mmol/L (136-145)
[2023-12-02] MEDS: 0.9% Saline Lock 10 ML Syringe IV ×3 (03:54→17:36)
[2023-12-02] MEDS: CHLORHEXIDINE GLUC 2% CLOTH 1 EACH TOWELETTE TOPICAL (03:55)
--- NOTE | 2023-12-02 07:08 | EX.PCM.CONCC ---
Assessment & Plan Assessment/Plan (1) Acute and chronic respiratory failure with hypoxia: PLAN: Plan RECOMMENDATIONS: 1. Continue AVAPS therapy and attempt to wean to heated high flow oxygen, as tolerated. 2. Diuretics as tolerated by hemodynamics and renal function. 3. Continue corticosteroids. 4. Resume Ofev after discharge. 5. Obtain follow-up CT chest without contrast to evaluate for progression of ILD. IMPRESSIONS: 1. Acute on chronic respiratory failure with hypoxemia The patient has a known history of interstitial lung disease and chronic respiratory failure with a 8 L/min oxygen requirement. He has been followed in the past by Dr. Gallagher in the pulmonary medicine clinic and was recently placed on Ofev. The patient readily admitted to noncompliance with prescribed oxygen therapy, which is likely contributing to his current clinical state. In addition, the patient is likely volume overloaded in the setting of pulmonary hypertension and RV dysfunction. For now, the patient will be transitioned from noninvasive positive pressure ventilatory to support to heated high flow oxygen, as tolerated. It is reasonable to continue diuretic therapy as tolerated by hemodynamics and renal function along with corticosteroids. Will obtain follow-up noncontrasted chest CT to evaluate for ILD progression. Ultimately, the patient would likely benefit from palliative care referral with eventual transition to hospice care services. 2. Coronary artery disease status post CABG/GERD/hypertension/hyperlipidemia/anxiety/depression Complicates care, management, recovery and prognosis. Continue home medications as indicated. This note was generated with [employer] dictation software. It may contain incorrect words, spelling, and punctuation that were not noted in checking the note before signing. HPI Consult Data Date of Consult: 12/02/23 HPI Narrative Reason for Consultation: Acute on chronic respiratory failure HPI Narrative: The patient is a 73-year-old male, with a history as outlined below, who presented to the emergency department on November 30 with worsening shortness of breath. The patient has been under the care of Dr. Gallagher since 2019, and according to documentation, has a history of pulmonary fibrosis, pulmonary hypertension and chronic hypoxemic respiratory failure. According to his last 6-minute walk test, the patient required 8 L/min of supplemental oxygen. However, the patient readily admitted that he has been noncompliant with its use. Prior autoimmune workup in 2019 was unremarkable. There has not been any recent CT imaging of the chest completed. He was recently started on Ofev by Dr. Gallagher in October. On presentation to the emergency department, the patient was documented to be afebrile hemodynamically stable. He was mildly tachycardic and tachypneic and presented with hypoxemia. Initial laboratory evaluation revealed a normal white blood cell count. D-dimer was noted to be 0.56. ABG was notable for a pH of 7.4 with a pCO2 of 57 and pO2 of 86. Chemistry profile was notable for a bicarbonate of 37 and normal creatinine. BNP was elevated at 720. The patient was started on noninvasive positive pressure ventilatory support and was administered IV Lasix. He was subsequently admitted to the medical intensive care unit for further management. Surface echocardiogram from September 2023 demonstrated normal LV size with an ejection fraction of 60%. There was mild global RV systolic dysfunction with left atrial enlargement and a right ventricular systolic pressure of 43 mmHg. PFSH Medical History Atherosclerosis of coronary artery bypass graft without angina pectoris Atherosclerosis of coronary artery of [place] heart without angina pectoris CKD (chronic kidney disease), stage III GERD (gastroesophageal reflux disease) history of tick bite Hyperlipidemia Hypertension Kidney disease Kidney stones On home oxygen therapy Pneumonia Pulmonary fibrosis Pulmonary fibrosis Shortness of breath Smoker Home Medications losartan 25 mg tablet 25 mg PO DAILY BLOOD PRESSURE #90 tabs 04/06/21 [Rx Last Taken 12/01/23] albuterol sulfate 90 mcg/actuation aerosol inhaler (Ventolin HFA) 2 puff inhalation Q4H PRN SHORTNESS OF BREATH/WHEEZNG #18 grams 11/27/22 [Rx Last Taken 09/24/23] omeprazole 20 mg capsule,delayed release 20 mg PO DAILY ACID REFLUX 05/21/23 [History Last Taken 12/01/23] aspirin 81 mg tablet,delayed release (Adult Low Dose Aspirin) 81 mg PO DAILY HEART HEALTH 09/24/23 [History Last Taken 12/01/23] atorvastatin 40 mg tablet 40 mg PO QHS CHOLESTEROL 09/24/23 [History Last Taken 11/30/23 20:00] metoprolol succinate 50 mg tablet,extended release 24 hr 50 mg PO DAILY BLOOD PRESSURE 09/24/23 [History Last Taken 12/01/23] guaifenesin 1,200 mg tablet, extended release 12 hr (Mucus Relief ER) 1,200 mg PO BID PRN congestion 10/23/23 [History Last Taken Unknown] multivitamin (Daily Multi-Vitamin tablet) 1 tab PO DAILY vitamin 10/23/23 [History Last Taken 12/01/23] prednisone 10 mg tablet 10 mg PO DAILY breathing #30 tabs 11/13/23 [Rx Last Taken 12/01/23] furosemide 40 mg tablet (Lasix) 40 mg PO DAILY PRN edema #10 tabs 11/26/23 [Rx Last Taken Unknown] nintedanib 150 mg capsule (Ofev) 150 mg PO Q12H pulm fibrosis 12/01/23 [History Last Taken 12/01/23 08:00] Allergy/AdvReac Type Severity Reaction Status Date / Time No Known Allergies Allergy Verified 10/23/23 11:00 Family History Mother Brain aneurysm Father CVA (cerebral vascular accident) Surgical History H/O coronary artery bypass surgery (1989) H/O hernia repair History of coronary artery stent placement History of left heart catheterization (01/02/16) Social History Smoking Status: Former smoker Tobacco: How many years used: 16 Smokeless tobacco user: chewing tobacco alcohol intake: current alcohol intake frequency: holidays/special occasions only Alcohol type: beer substance use type: does not use caffeine: Yes Type: coffee Number of servings: 5 ROS ROS Narrative 10 systems were reviewed with pertinent positives as noted in the HPI above. Physical Exam Const alert and no apparent distress Constitutional Narrative: PAP mask in place. General Appearance: cooperative HEENT normocephalic and head/scalp atraumatic Eyes PERRL, EOMs intact bilaterally and conjunctivae normal Neck supple General: trachea midline Chest inspection of chest normal Resp Effort and Inspection: tachypneic Auscultation: rales, wheezes and diminished lung sounds Cardio regular rate and regular rhythm GI normal to inspection, nondistended, normoactive bowel sounds Extremity General Extremity: edema bilateral lower extremity; Negative for clubbing Neuro CN's II-XII intact bilaterally, moves all extremities and no focal motor deficits Psych cooperative and affect normal Lab / Micro Data 12/02/23 03:06 12/02/23 03:06 Labs: Laboratory Results - last 24 hr 12/01/23 13:50: WBC 9.0, RBC 4.95, Hgb 13.9, Hct 45.6, MCV 92.1, MCH 28.1, MCHC 30.5 L, RDW Std Deviation 54.3 H, RDW Coeff of [place] 16.4 H, Plt Count 186, MPV 11.9, Immature Gran % (Auto) 0.600, Neut % (Auto) 85.5 H, Lymph % (Auto) 8.4 L, [place] % (Auto) 3.9, Eos % (Auto) 1.2, Baso % (Auto) 0.4, Absolute Neuts (auto) 7.7, Absolute Lymphs (auto) 0.76 L, Nucleated RBC % 0, Sodium 135 L, Potassium 3.8, Chloride 94 L, Carbon Dioxide 37.0 H, Anion Gap 4 L, BUN 23 H, Creatinine 1.02, Estim Creat Clear Calc 76.74, Est GFR (MDRD) Af Amer 91, Est GFR (MDRD) Non-Af 76, BUN/Creatinine Ratio 22.5 H, Glucose 124 H, Calcium 9.3, Troponin I High Sens 34, B-Natriuretic Peptide 720.5 H 12/01/23 20:57: D-Dimer Quant (PE/DVT) 0.56 H* 12/02/23 03:06: WBC 6.0, RBC 4.54 L, Hgb 13.4, Hct 41.3, MCV 91.0, MCH 29.5, MCHC 32.4 D, RDW Std Deviation 52.6 H, RDW Coeff of [place] 16.1 H, Plt Count 147 L, MPV 11.5, Immature Gran % (Auto) 0.500, Neut % (Auto) 90.3 H, Lymph % (Auto) 7.7 L, [place] % (Auto) 1.3, Eos % (Auto) 0.0, Baso % (Auto) 0.2, Absolute Neuts (auto) 5.4, Absolute Lymphs (auto) 0.46 L, Nucleated RBC % 0, Sodium 141, Potassium 3.7, Chloride 98, Carbon Dioxide 39.0 H, Anion Gap 4 L, BUN 24 H, Creatinine 1.01, Estim Creat Clear Calc 74.14, Est GFR (MDRD) Af Amer 93, Est GFR (MDRD) Non-Af 76, BUN/Creatinine Ratio 23.8 H, Glucose 128 H, Calcium 8.7 Micro: Microbiology 12/01/23 14:20 Mucosa - Nose SARS-CoV-2, Influenza & RSV (PCR) - Final ABG Data ABG results: ABG 12/01/23 14:08 Specimen Type ART Sample Site L Brach pH 7.41 Bicarbonate Actual 36.0 H Total CO2 38 Base Excess 11 H O2 Saturation 96 O2 % 15.0 ABG pCO2 57.3 H ABG pO2 86 O2 Delivery Device NRB Vent Mode Not entered Rhythm Strip Rhythm Strip: Sinus Rhythm Rate: 99 Ectopy: None Imaging Radiology Impression Chest X-Ray 12/01/23 14:25 IMPRESSION: Cardiomegaly, low volume to the lung smith, diffuse reticulonodular and interstitial opacities and patchy parenchymal opacities in both bases, left greater than right. Findings may represent a combination of interstitial fibrosis and interstitial edema/congestive failure. Follow-up chest imaging to resolution recommended. Electronically Signed: Brian Hicks MD at 14:42 EDT , Charges/Coding Visit Charges Inpatient E&M: 38231 Init Hosp L3
--- NOTE | 2023-12-02 07:18 | PCM.PN.HOSP ---
Reason for Visit Reason for Visit: Diagnoses Acute and chronic respiratory failure with hypoxia (12/01/23) Objective Data Objective Data Vital Signs: Vital Signs Temp Pulse Resp BP Pulse Ox O2 Del Method O2 Flow Rate 97.6 F L 83 24 H 148/90 H 99 Bi-pap 10 12/02/23 04:00 12/02/23 07:00 12/02/23 07:00 12/02/23 07:00 12/02/23 07:00 12/02/23 07:00 12/02/23 00:00 FiO2 45 12/02/23 07:00 Oxygen Flow Rate (L/min) 10 Oxygen Delivery Method Bi-pap Weight: 206 lb 12.697 oz Body Mass Index (BMI) 28.9 Intake & Output: Intake and Output for Last 24 Hours 11/30/23 12/01/23 12/02/23 23:59 23:59 23:59 Intake Total 480 / 480 Output Total 5425 / 5425 375 / 375 Balance -4945 / -4945 -375 / -375 Lab / Micro Data 12/02/23 03:06 12/02/23 03:06 Labs: Laboratory Results - last 24 hr 12/01/23 13:50: WBC 9.0, RBC 4.95, Hgb 13.9, Hct 45.6, MCV 92.1, MCH 28.1, MCHC 30.5 L, RDW Std Deviation 54.3 H, RDW Coeff of [place] 16.4 H, Plt Count 186, MPV 11.9, Immature Gran % (Auto) 0.600, Neut % (Auto) 85.5 H, Lymph % (Auto) 8.4 L, [place] % (Auto) 3.9, Eos % (Auto) 1.2, Baso % (Auto) 0.4, Absolute Neuts (auto) 7.7, Absolute Lymphs (auto) 0.76 L, Nucleated RBC % 0, Sodium 135 L, Potassium 3.8, Chloride 94 L, Carbon Dioxide 37.0 H, Anion Gap 4 L, BUN 23 H, Creatinine 1.02, Estim Creat Clear Calc 76.74, Est GFR (MDRD) Af Amer 91, Est GFR (MDRD) Non-Af 76, BUN/Creatinine Ratio 22.5 H, Glucose 124 H, Calcium 9.3, Troponin I High Sens 34, B-Natriuretic Peptide 720.5 H 04/08/24 20:57: D-Dimer Quant (PE/DVT) 0.56 H* 12/02/23 03:06: WBC 6.0, RBC 4.54 L, Hgb 13.4, Hct 41.3, MCV 91.0, MCH 29.5, MCHC 32.4 D, RDW Std Deviation 52.6 H, RDW Coeff of [place] 16.1 H, Plt Count 147 L, MPV 11.5, Immature Gran % (Auto) 0.500, Neut % (Auto) 90.3 H, Lymph % (Auto) 7.7 L, [place] % (Auto) 1.3, Eos % (Auto) 0.0, Baso % (Auto) 0.2, Absolute Neuts (auto) 5.4, Absolute Lymphs (auto) 0.46 L, Nucleated RBC % 0, Sodium 141, Potassium 3.7, Chloride 98, Carbon Dioxide 39.0 H, Anion Gap 4 L, BUN 24 H, Creatinine 1.01, Estim Creat Clear Calc 74.14, Est GFR (MDRD) Af Amer 93, Est GFR (MDRD) Non-Af 76, BUN/Creatinine Ratio 23.8 H, Glucose 128 H, Calcium 8.7 Micro: Microbiology 12/01/23 14:20 Mucosa - Nose SARS-CoV-2, Influenza & RSV (PCR) - Final ABG Data ABG results: ABG 12/01/23 14:08 Specimen Type ART Sample Site L Brach pH 7.41 Bicarbonate Actual 36.0 H Total CO2 38 Base Excess 11 H O2 Saturation 96 O2 % 15.0 ABG pCO2 57.3 H ABG pO2 86 O2 Delivery Device NRB Vent Mode Not entered Radiography Diagnostic Testing: Radiology Impression Chest X-Ray 12/01/23 14:25 IMPRESSION: Cardiomegaly, low volume to the lung smith, diffuse reticulonodular and interstitial opacities and patchy parenchymal opacities in both bases, left greater than right. Findings may represent a combination of interstitial fibrosis and interstitial edema/congestive failure. Follow-up chest imaging to resolution recommended. Electronically Signed: Brian Hicks MD at 14:42 EDT , Rhythm Strip Rhythm Strip: Sinus Rhythm Rate: 99 Ectopy: None Physical Exam Narrative Seen and examined. Clinical update from the nursing staff. No fever. Patient admitted with shortness of breath with predominantly dry cough. He has chronic dyspnea on exertion from IPF and pulmonary hypertension. Complain of mild chest tightness yesterday but feeling better after admission on BiPAP. Transition to Airvo. Physical exam General: Alert, Oriented x3, Cooperative HEENT: Atraumatic, PERRLA, EOMI, Normocephalic Oral: No Gingival or Mucosal Lesions/ Ulcerations Neck: Supple, No JVD, Negative Carotid Bruits Chest wall/Lungs: Air entry diminished in bilateral lung bases. Inspiratory coarse rales. On Airvo Cardiovascular: Sinus rhythm , Normal S1, Normal S2, No M/G/R Abdomen: Bowel Sounds Present, Soft, Non Tender, Non-Distended : No dysuria. No renal angle tenderness. No suprapubic tenderness. Extremities: 1-2+ bilateral ankle , Capillary Refill Less than 3 Seconds Skin: No rashes, No breakdown Musculoskeletal: No Tenderness to Palpation of Joints or Extremities Neurological: Cranial nerves II-XII grossly intact, DTR 2+/4. No acute focal neurological deficit. Psych/Mental Status: Flat affect Assessment & Plan Assessment/Plan (1) Acute and chronic respiratory failure with hypoxia: PLAN: Plan This is a 73-year-old gentleman being admitted for severe shortness of breath started after having straining for defecation with constipation. Patient got very hypoxic with pulse ox in 70s to 80s, unable to correct on home oxygen requirement of 4 to 5 L. Bilateral leg swelling. 1. Acute on chronic hypoxic respiratory failure with acute hypercapnic respiratory failure secondary to pulmonary fibrosis and flash pulmonary edema in the setting of pulmonary hypertension and acute on chronic right ventricular failure: Patient is being admitted in ICU. Initially on BiPAP transition to Airvo. On IV Lasix. Chest x-ray delirium shows interstitial reticulonodular fibrosis with pulmonary edema ? Given his pulmonary fibrosis and his chronic prednisone use, continue with p.o. prednisone 40 mg ? Pulmonology is consulted. ? ABG showed pH 7.41/pCO2 57/86 on nonrebreather 10 L in ED. On Trelegy at home. ? Continue with albuterol ? Continue with his home Nintedanib 2. CAD status post CABG and stent/essential HTN/HLD with acute on chronic right ventricular heart failure ? Continue with his home blood pressure medications ? His blood pressure is currently stable ? We will monitor make adjustments as necessary ? Continue with cholesterol medications 2D echo in August 2023 The estimated ejection fraction is 60 %. D shaped septum in systole and diastole. Moderately dilated right ventricle. Mild global right ventricular systolic dysfunction. The left atrium is mildly enlarged. Mild (1+) tricuspid valve insufficiency. Mild pulmonary hypertension. Aortic sclerosis, no stenosis. Mild aortic insufficiency Mild atherosclerosis of the ascending aorta. 3. GERD ? Stable ? Continue with PPI 4. Anxiety/depression ? This will be a new diagnosis for him as he does not take any medications at baseline though family does agree that he does struggle with his medical diagnosis ? continue with Xanax 0.25 mg p.o. twice daily as well as Zoloft 50 mg daily DVT: Lovenox Charges/Coding Visit Charges Inpatient E&M: [address] [facility] Hosp L3
[2023-12-02] MEDS: NINTEDANIB ESYLATE 150 MG CAPSULE PO ×2 (07:36→19:59)
[2023-12-02] MEDS: Aspirin E.C. 81 MG Tablet PO (07:36)
[2023-12-02] MEDS: predniSONE 20 MG Tablet 40 MG PO (07:36)
[2023-12-02] MEDS: Pantoprazole Sodium 20 MG Tablet PO (07:37)
[2023-12-02] MEDS: Metoprolol(XL)Succ 50 MG Tablet PO (07:37)
[2023-12-02] MEDS: Sertraline 50 MG Tablet PO (07:37)
--- NOTE | 2023-12-02 07:40 | CT_ITS ---
STUDY: CT CHEST WITHOUT CONTRAST REASON FOR EXAM: Male, 73 years old. Eval for ILD progression RADIATION DOSAGE (If Supplied By Facility): CTDIvol = ( 18.33 ) mGy, DLP = ( 655.17 ) mGycm TECHNIQUE: Transaxial imaging was performed without the administration of intravenous contrast material. Multiplanar coronal and sagittal images were reformatted. Individualized dose optimization techniques were used for this CT. COMPARISON: Comparison is made with prior chest radiograph dated December 01, [address] scan of the chest dated February 04, 2020. FINDINGS: CHEST Diffuse increased interstitial markings with evidence of bronchiectasis and subpleural blebs. This involves both the upper and lower lobes but is more prominent in the upper lobes. Findings are in keeping with diffuse interstitial fibrosis. There is a 7.7 mm calcified granuloma in the peripheral lateral aspect of the left lower lobe. Small calcified granulomas in both lower lobes. There is no demonstrated pleural abnormality. There are calcifications of the coronary arteries. Prior CABG. There are small lymph nodes within the mediastinum, which are normal in size and morphology most compatible with reactive lymph hyperplasia. Normal hilar regions. Normal unenhanced pulmonary arteries. There is atherosclerotic calcification of the aortic arch with tortuosity and elongation of the aortic arch and descending thoracic aorta. There are degenerative changes of the thoracic spine. There is no demonstrated abnormality of the visualized upper abdomen. CT/Chest without Contrast IMPRESSION: Findings indicative of diffuse interstitial fibrosis involving both upper and lower lobes although it is more prominent in the upper lobes. Electronically Signed: Calvin Vargas MD at 10:20 EDT ,
[2023-12-02 09:57] LABS: Procalcitonin < 0.04 ng/mL (0.00-0.09)
[2023-12-02] MEDS: ALPRAZolam 0.25 MG Tablet PO ×2 (10:04→20:00)
[2023-12-02] MEDS: Furosemide 40 MG/4 ML Vial IV ×2 (10:05→17:35)
[2023-12-02] MEDS: Enoxaparin 40 MG/0.4 ML Syringe SC (10:05)
--- NOTE | 2023-12-02 10:09 | CASEMGMT ---
TERE CESAR Assessment Face to Face with patient for initial transition planning/care coordination assessment. RN ARSENIO introduced self and role at [facility], pt voices understanding. Pt is A&Ox4 and is resting comfortably in bed and is calm. Pt family at bedside including (Windy) and Daughter (Sarah). Care providers, pharmacy, and demographics verified. Admitting dx: Acute on Chronic RF LACE Strata: 2 PCP: Nehemiah Flanagan Specialists: Galilea Flanagan. Arun. [facility] Pharmacy: [facility] Insurance: [facility] Prescription Benefit: Yes LNOK: Windy Amador (W), Sarah Hernandez (PAULINA), Jodie Amador (DIL) Living Arrangements: Pt lives with his in a single story home with a BM with HR with a ramp to enter. Pt children live close by as well. ADLs/IADLs: States normally ind. Pt assists Transportation: Self, DME: O2 through [employer]. Pt current order states 8LPM via [place] continuous. Pt has a Pulse Ox, portable tanks, and concentrator. Pt family states they will bring in a portable tank for time of DC. Pt and pt also report that they have a shower chair, cane, walker, and WC but the pt does not normally need to use. HHC/SNF: Denies history. Pt denies wanting to go to a SNF or have HHC set up. Pt and pt family are requesting a Palliative Care Consult. Referral made at this time to the Palliative Care team for Chronic RF. Awaiting return response. Pt?s goal: Home with and Palliative Care Plan: Pt denies the need for HHC or SNF placement at time of assessment. Pt states that he feels safe and comfortable discharging home with the certified teacher assistant of his (and children), once medially ready. CM to follow for increase (or decrease) in oxygen demands. CM to follow Palliative Referral. CM to follow for safe DC from [facility]. Nikolai Bowers RN, CM
[2023-12-02] MEDS: Atorvastatin Calcium 40 MG Tablet PO (19:59)
[2023-12-03] VITALS (29 sets, daily range): BP systolic 90–127; BP diastolic 60–83; PULSE 65–93; RESP 15–40; TEMP 36.2–36.9; O2SAT 67–96; BMI 27.9
[2023-12-03 05:07] LABS: Absolute Lymphocyte Count 1.52 X10^3/uL (0.83-4.51); Absolute Neutrophil Count 8.6 X10^3/uL (2.0-7.7); Basophil# 0.03 X10^3/uL; Basophil% 0.3 % (0-1); Eosinophil# 0.03 X10^3/uL; Eosinophils% 0.3 % (0-5); Hematocrit 43.4 % (40-54); Hemoglobin 13.6 g/dL (13.0-16.5); Lymphocyte # 1.52 X10^3/ul (0.83-4.51); Lymphocyte % 13.9 % (19-41); Mean Corp Hgb Conc 31.3 g/dL (32-36); Mean Corpuscular Hgb 28.5 pg (27.0-32.0); Mean Corpuscular Volume 90.8 fL (80-94); Mean Platelet Vol. 11.1 fl (6.2-12.0); Monocyte% 6.4 % (0-10); NRBC Flagged by Analyzer 0 % (0-5); Neutrophil # 8.61 X10^3/uL (2.7-7.7); Neutrophil % 78.6 % (47-70); Platelet Count 158 K/mm3 (150-450); RBC Distribution Width CV 16.2 % (11.6-14.6); RBC Distribution Width SD 53.1 fl (35.1-43.9); Red Blood Count 4.78 M/mm3 (4.6-6.2)
[2023-12-03 05:29] LABS: ALB/GLOB Ratio 0.7 RATIO (0.9-2.4); AST(SGOT) 25 U/L (15-37); Alanine Aminotransfer ALT/SGPT 44 U/L (16-61); Albumin, Serum 2.6 g/dL (3.2-5.0); Alkaline Phosphatase 73 U/L (45-117); Anion Gap 3 (5-15); BUN 27 mg/dL (7-18); Calcium,Total 8.8 mg/dL (8.5-10.1); Chloride 91 mmol/L (98-107); Creatinine, Serum 1.04 mg/dL (0.70-1.30); EST Glomerular Filtration Rate 74 mL/min (>60); Est Glom Filt Rate - Afr Amer 89 mL/min (>60); Estimated Creatinine Clearance 70.82 ml/min; Globulin 3.6 g/dL (2.2-4.2); Glucose 102 mg/dL (74-106); Potassium 2.9 mmol/L (3.5-5.1); Protein, Total 6.2 g/dL (6.4-8.2); Sodium Level 138 mmol/L (136-145)
--- NOTE | 2023-12-03 06:58 | PN.CC_ITS ---
Assessment & Plan Assessment/Plan (1) Acute and chronic respiratory failure with hypoxia: PLAN: Plan RECOMMENDATIONS: 1. Continue to wean supplemental oxygen as tolerated. 2. Decrease Lasix dosing to once daily. 3. Continue corticosteroids. 4. Resume Ofev after discharge. 5. Potassium repletion as ordered. 6. Palliative care referral with outpatient follow-up planned. IMPRESSIONS: 1. Acute on chronic respiratory failure with hypoxemia The patient has a known history of interstitial lung disease and chronic respiratory failure with a 8 L/min oxygen requirement. He has been followed in the past by Dr. Gallagher in the pulmonary medicine clinic and was recently placed on Ofev. The patient readily admitted to noncompliance with prescribed oxygen therapy, which is likely contributing to his current clinical state. In a ddition, the patient is likely volume overloaded in the setting of pulmonary hypertension and RV dysfunction. The patient appears to be improving from a respiratory perspective with volume optimization. Plan to continue Lasix, but will decrease dosing to once daily. In the interim, continue to wean oxygen as tolerated. The patient would benefit from outpatient palliative care referral for additional symptom management. 2. Coronary artery disease status post CABG/GERD/hyperten kathy/hyperlipidemia/anxiety/depression Complicates care, management, recovery and prognosis. Continue home medications as indicated. This note was generated with [employer] dictation software. It may contain incorrect words, spelling, and punctuation that were not noted in checking the note before signing. Subjective Subjective The patient was seen and examined at the bedside this morning. Events from the last 24 hours have been reviewed. The patient is currently afebrile, hemodynamically stable and maintaining appropriate oxygen saturations on heated high flow oxygen with an FiO2 requirement of 45%. The patient was partially compliant with use of AVAPS therapy overnight. He is documented to be overall net -7.6 L for the hospitalization. Potassium is low this morning at 2.9. Creatinine is within normal limits. Objective Data Objective Data The patient's most recent lab work, culture data and imaging studies have all be en personally reviewed. COVID, influenza and RSV PCR's were negative. Vital Signs: Vital Signs Temp Pulse Resp BP Pulse Ox O2 Del Method O2 Flow Rate 98.2 F 69 29 H 121/82 H 94 Airvo 45 12/03/23 06:00 12/03/23 06:00 12/03/23 06:00 12/03/23 06:00 12/03/23 06:00 12/03/23 06:00 12/03/23 06:00 FiO2 45 12/03/23 06:00 Oxygen Flow Rate (L/min) 45 Oxygen Delivery Method Airvo Weight: 200 lb 9.93 oz Body Mass Index (BMI) 27.9 Intake & Output: Intake and Output for Last 24 Hours 12/01/23 12/02/23 12/03/23 23:59 23:59 23:59 Intake Total 480 / 480 1250 / 1350 100 / 100 Output Total 5425 / 5425 2425 / 3425 1600 / 1600 Balance -4945 / -4945 -1175 / -2075 -1500 / -1500 Lab / Micro Data Attestation: I reviewed the patient's lab results. 12/03/23 04:55 12/03/23 04:55 Labs: Laboratory Results - last 24 hr 12/02/23 08:10: Procalcitonin < 0.04 12/03/23 04:55: WBC 11.0, RBC 4.78, Hgb 13.6, Hct 43.4, MCV 90.8, MCH 28.5, MCHC 31.3 L, RDW Std Deviation 53.1 H, RDW Coeff of Breana 16.2 H, Plt Count 158, MPV 11.1, Immature Gran % (Auto) 0.500, Neut % (Auto) 78.6 H, Lymph % (Auto) 13.9 L, [place] % (Auto) 6.4, Eos % (Auto) 0.3, Baso % (Auto) 0.3, Absolute Neuts (auto) 8.6 H, Absolute Lymphs (auto) 1.52, Nucleated RBC % 0, Sodium 138, Potassium 2.9 L, Chloride 91 L, Carbon Dioxide 44.0 H, Anion Gap 3 L, BUN 27 H, Creatinine 1.04, Estim Creat Clear Calc 70.82, Est GFR (MDRD) Af Amer 89, Est GFR (MDRD) Non-Af 74, BUN/Creatinine Ratio 26.0 H, Glucose 102, Calcium 8.8, Total Bilirubin 1.00, AST 25, ALT 44, Alkaline Phosphatase 73, Total Protein 6.2 L, Albumin 2.6 L, Globulin 3.6, Albumin/Globulin Ratio 0.7 L Micro: Microbiology 12/01/23 14:20 Mucosa - Nose SARS-CoV-2, Influenza & RSV (PCR) - Final Radiography Diagnostic Testing: Radiology Impression Chest CT 12/02/23 07:40 IMPRESSION: Findings indicative of diffuse interstitial fibrosis involving both upper and lower lobes although it is more prominent in the upper lobes. Electronically Signed: Calvin Vargas MD at 10:20 EDT , Rhythm Strip Rhythm Strip: Sinus Rhythm Rate: 99 Ectopy: None Physical Exam Const alert and no apparent distress General Appearance: cooperative HEENT normocephalic and head/scalp atraumatic Eyes PERRL, EOMs intact bilaterally and conjunctivae normal Neck supple General: trachea midline Chest inspection of chest normal Resp normal respiratory effort Auscultation: rales and diminished lung sounds Cardio regular rate and regular rhythm GI normal to inspection, nondistended, normoactive bowel sounds Extremity General Extremity: edema bilateral lower extremity; Negative for clubbing Neuro CN's II-XII intact bilaterally, moves all extremities and no focal motor deficits Psych cooperative and affect normal Charges/Coding Visit Charges Inpatient E&M: 79656 Subs Hosp L2
[2023-12-03] MEDS: 0.9% Normal Saline (250mL Bag) 250 ML 15 ML IV (07:51)
[2023-12-03] MEDS: Potassium Chloride Oral Tablet 20 MEQ 40 MEQ PO ×2 (07:51→18:02)
[2023-12-03] MEDS: Potassium Chloride 10mEq/100mL 10 MEQ/100 ML IV.SOLN. 100 MEQ IV BOLUS ×4 (07:51→11:05)
[2023-12-03] MEDS: NINTEDANIB ESYLATE 150 MG CAPSULE PO ×2 (08:56→21:04)
[2023-12-03] MEDS: predniSONE 20 MG Tablet 40 MG PO (08:56)
--- NOTE | 2023-12-03 09:42 | CASEMGMT ---
Nik Lyon responds via e-mail stating that the Palliative Care referral was received and that she is processing it. RN CM to pt room and the pt and family updated. Family is requesting that the pt Daughter (Sarah Hernandez) be contacted by Palliative. Sarah is an RN. This RN CM notified Nik Lyon with this information at this time. Pt and family deny further needs at this time.
[2023-12-03] MEDS: Metoprolol(XL)Succ 50 MG Tablet PO (10:01)
[2023-12-03] MEDS: Pantoprazole Sodium 20 MG Tablet PO (10:01)
[2023-12-03] MEDS: Aspirin E.C. 81 MG Tablet PO (10:02)
[2023-12-03] MEDS: Enoxaparin 40 MG/0.4 ML Syringe SC (10:02)
[2023-12-03] MEDS: Furosemide 40 MG/4 ML Vial IV (10:02)
[2023-12-03] MEDS: Sertraline 50 MG Tablet PO (10:02)
[2023-12-03] MEDS: Losartan Potassium 25 MG Tablet PO (10:02)
[2023-12-03] MEDS: CHLORHEXIDINE GLUC 2% CLOTH 1 EACH TOWELETTE TOPICAL (10:03)
[2023-12-03] MEDS: ALPRAZolam 0.25 MG Tablet PO ×2 (10:05→21:09)
--- NOTE | 2023-12-03 11:23 | PCM.PN.HOSP ---
Reason for Visit Reason for Visit: Diagnoses Acute and chronic respiratory failure with hypoxia (12/01/23) Objective Data Objective Data Vital Signs: Vital Signs Temp Pulse Resp BP Pulse Ox O2 Del Method O2 Flow Rate 97.9 F 84 26 H 104/70 94 High Flow 10 12/03/23 08:00 12/03/23 10:01 12/03/23 08:00 12/03/23 08:00 12/03/23 08:00 12/03/23 09:20 12/03/23 09:20 FiO2 63 12/03/23 07:15 Oxygen Flow Rate (L/min) 10 Oxygen Delivery Method High Flow Weight: 200 lb 9.93 oz Body Mass Index (BMI) 27.9 Intake & Output: Intake and Output for Last 24 Hours 12/01/23 12/02/23 12/03/23 23:59 23:59 23:59 Intake Total 480 / 480 1250 / 1350 400 / 400 Output Total 5425 / 5425 2425 / 3425 1600 / 1600 Balance -4945 / -4945 -1175 / -2075 -1200 / -1200 Lab / Micro Data 12/03/23 04:55 12/03/23 04:55 Labs: Laboratory Results - last 24 hr 12/03/23 04:55: WBC 11.0, RBC 4.78, Hgb 13.6, Hct 43.4, MCV 90.8, MCH 28.5, MCHC 31.3 L, RDW Std Deviation 53.1 H, RDW Coeff of Breana 16.2 H, Plt Count 158, MPV 11.1, Immature Gran % (Auto) 0.500, Neut % (Auto) 78.6 H, Lymph % (Auto) 13.9 L, [place] % (Auto) 6.4, Eos % (Auto) 0.3, Baso % (Auto) 0.3, Absolute Neuts (auto) 8.6 H, Absolute Lymphs (auto) 1.52, Nucleated RBC % 0, Sodium 138, Potassium 2.9 L, Chloride 91 L, Carbon Dioxide 44.0 H, Anion Gap 3 L, BUN 27 H, Creatinine 1.04, Estim Creat Clear Calc 70.82, Est GFR (MDRD) Af Amer 89, Est GFR (MDRD) Non-Af 74, BUN/Creatinine Ratio 26.0 H, Glucose 102, Calcium 8.8, Total Bilirubin 1.00, AST 25, ALT 44, Alkaline Phosphatase 73, Total Protein 6.2 L, Albumin 2.6 L, Globulin 3.6, Albumin/Globulin Ratio 0.7 L Micro: Microbiology 12/01/23 14:20 Mucosa - Nose SARS-CoV-2, Influenza & RSV (PCR) - Final Rhythm Strip Rhythm Strip: Sinus Rhythm Rate: 99 Ectopy: None Physical Exam Narrative Seen and examined. Clinical update from the nursing staff. Patient on 8 L of oxygen similar to his home O2 requirement. Has about 7 L negative fluid balance. Lasix dose decreased. Was on AVAPS overnight for some time No fever. Patient admitted with shortness of breath with predominantly dry cough. Physical exam General: Alert, Oriented x3, Cooperative HEENT: Atraumatic, PERRLA, EOMI, Normocephalic Oral: No Gingival or Mucosal Lesions/ Ulcerations Neck: Supple, No JVD, Negative Carotid Bruits Chest wall/Lungs: Air entry diminished in bilateral lung bases. Inspiratory coarse rales. On high flow oxygen. Cardiovascular: Sinus rhythm , Normal S1, Normal S2, No M/G/R Abdomen: Bowel Sounds Present, Soft, Non Tender, Non-Distended : No dysuria. No renal angle tenderness. No suprapubic tenderness. Extremities: Mild bilateral pitting ankle , Capillary Refill Less than 3 Seconds Skin: No rashes, No breakdown Musculoskeletal: No Tenderness to Palpation of Joints or Extremities Neurological: Cranial nerves II-XII grossly intact, DTR 2+/4. No acute focal neurological deficit. Psych/Mental Status: Flat affect Assessment & Plan Assessment/Plan (1) Acute and chronic respiratory failure with hypoxia: PLAN: Plan This is a 73-year-old gentleman being admitted for severe shortness of breath started after having straining for defecation with constipation. Patient got very hypoxic with pulse ox in 70s to 80s, unable to correct on home oxygen requirement of 4 to 5 L. Bilateral leg swelling. 1. Acute on chronic hypoxic respiratory failure with acute hypercapnic respiratory failure secondary to pulmonary fibrosis and flash pulmonary edema in the setting of pulmonary hypertension and acute on chronic right ventricular failure: Patient is being admitted in ICU. Initially on BiPAP transition to Airvo. On IV Lasix. Chest x-ray delirium shows interstitial reticulonodular fibrosis with pulmonary edema ? Given his pulmonary fibrosis and his chronic prednisone use, continue with p.o. prednisone 40 mg ? Pulmonology is consulted. ? ABG showed pH 7.41/pCO2 57/86 on nonrebreather 10 L in ED. On Trelegy at home. ? Continue with albuterol ? Continue with his home Nintedanib 12/02: Building Components Designer consult reviewed. Patient had -7 L of fluid balance therefore furosemide dose was decreased. Hypokalemia, K2.9. Potassium IV replacement. Patient was on AVAPS for some time last night. Patient was downgraded to PCU telemetry yesterday. 2. CAD status post CABG and stent/essential HTN/HLD with acute on chronic right ventricular heart failure ? Continue with his home blood pressure medications ? His blood pressure is currently stable ? We will monitor make adjustments as necessary ? Continue with cholesterol medications 2D echo in August 2023 The estimated ejection fraction is 60 %. D shaped septum in systole and diastole. Moderately dilated right ventricle. Mild global right ventricular systolic dysfunction. The left atrium is mildly enlarged. Mild (1+) tricuspid valve insufficiency. Mild pulmonary hypertension. Aortic sclerosis, no stenosis. Mild aortic insufficiency Mild atherosclerosis of the ascending aorta. 3. GERD ? Stable ? Continue with PPI 4. Anxiety/depression ? This will be a new diagnosis for him as he does not take any medications at baseline though family does agree that he does struggle with his medical diagnosis ? continue with Xanax 0.25 mg p.o. twice daily as well as Zoloft 50 mg daily DVT: Lovenox Charges/Coding Visit Charges Inpatient E&M: 74708 Subs Hosp L2
[2023-12-03] MEDS: Atorvastatin Calcium 40 MG Tablet PO (21:04)
[2023-12-04] VITALS (16 sets, daily range): BP systolic 103–120; BP diastolic 55–90; PULSE 60–76; RESP 16–30; TEMP 36.3–36.7; O2SAT 88–99; BMI 27.7
[2023-12-04 04:09] LABS: Absolute Lymphocyte Count 1.32 X10^3/uL (0.83-4.51); Absolute Neutrophil Count 7.7 X10^3/uL (2.0-7.7); Basophil# 0.02 X10^3/uL; Basophil% 0.2 % (0-1); Eosinophil# 0.01 X10^3/uL; Eosinophils% 0.1 % (0-5); Hematocrit 46.1 % (40-54); Hemoglobin 14.3 g/dL (13.0-16.5); Lymphocyte # 1.32 X10^3/ul (0.83-4.51); Lymphocyte % 13.7 % (19-41); Mean Corpuscular Hgb 28.2 pg (27.0-32.0); Mean Corpuscular Volume 90.9 fL (80-94); Mean Platelet Vol. 11.2 fl (6.2-12.0); Monocyte# 0.51 X10^3/uL; Monocyte% 5.3 % (0-10); NRBC Flagged by Analyzer 0 % (0-5); Neutrophil # 7.74 X10^3/uL (2.7-7.7); Platelet Count 154 K/mm3 (150-450); RBC Distribution Width CV 16.2 % (11.6-14.6); RBC Distribution Width SD 52.9 fl (35.1-43.9); Red Blood Count 5.07 M/mm3 (4.6-6.2); White Blood Count 9.7 K/mm3 (4.4-11.0)
[2023-12-04 04:25] LABS: Anion Gap 3 (5-15); BUN 24 mg/dL (7-18); BUN/Creat Ratio 28.5 RATIO (10-20); Calcium,Total 9.1 mg/dL (8.5-10.1); Chloride 94 mmol/L (98-107); Creatinine, Serum 0.84 mg/dL (0.70-1.30); EST Glomerular Filtration Rate 94 mL/min (>60); Est Glom Filt Rate - Afr Amer 114 mL/min (>60); Estimated Creatinine Clearance 87.68 ml/min; Glucose 104 mg/dL (74-106); Magnesium 1.7 mg/dL (1.6-2.6); Potassium 3.6 mmol/L (3.5-5.1); Sodium Level 137 mmol/L (136-145)
[2023-12-04] MEDS: NINTEDANIB ESYLATE 150 MG CAPSULE PO ×2 (08:18→20:37)
[2023-12-04] MEDS: Potassium Chloride Oral Tablet 20 MEQ 40 MEQ PO ×2 (08:18→17:23)
[2023-12-04] MEDS: Enoxaparin 40 MG/0.4 ML Syringe SC (08:19)
[2023-12-04] MEDS: Furosemide 40 MG/4 ML Vial IV (08:19)
[2023-12-04] MEDS: Aspirin E.C. 81 MG Tablet PO (08:19)
[2023-12-04] MEDS: Pantoprazole Sodium 20 MG Tablet PO (08:19)
[2023-12-04] MEDS: Sertraline 50 MG Tablet PO (08:19)
[2023-12-04] MEDS: Metoprolol(XL)Succ 50 MG Tablet PO (08:20)
[2023-12-04] MEDS: predniSONE 20 MG Tablet 40 MG PO (08:20)
[2023-12-04] MEDS: Losartan Potassium 25 MG Tablet PO (08:20)
[2023-12-04] MEDS: CHLORHEXIDINE GLUC 2% CLOTH 1 EACH TOWELETTE TOPICAL (08:21)
[2023-12-04] MEDS: ALPRAZolam 0.25 MG Tablet PO ×2 (08:23→20:37)
--- NOTE | 2023-12-04 10:21 | PCM.PN.INT ---
Assessment & Plan Assessment/Plan (1) Acute and chronic respiratory failure with hypoxia: PLAN: Plan RECOMMENDATIONS: 1. Continue to wean supplemental oxygen as tolerated. 2. Continue Lasix once daily as tolerated by hemodynamics and renal function. 3. Continue corticosteroids. 4. Resume Ofev after discharge. 5. Palliative care referral with outpatient follow-up planned. IMPRESSIONS: 1. Acute on chronic respiratory failure with hypoxemia The patient has a known history of interstitial lung disease and chronic respiratory failure with a 8 L/min oxygen requirement. He has been followed in the past by Dr. Gallagher in the pulmonary medicine clinic and was recently placed on Ofev. The patient readily admitted to noncompliance with prescribed oxygen therapy, which is likely contributing to his current clinical state. In addition, the patient is likely volume overloaded in the setting of pulmonary hypertension and RV dysfunction. The patient has improved somewhat with volume optimization. However, I do suspect that he will require an increased amount of supplemental oxygen at the time of his discharge. For now, we will continue once daily Lasix. The patient would benefit from outpatient palliative care referral for additional symptom management. 2. Coronary artery disease status post CABG/GERD/hypertension/hyperlipidemia/anxiety/depression Complicates care, management, recovery and prognosis. Continue home medications as indicated. This note was generated with [employer] dictation software. It may contain incorrect words, spelling, and punctuation that were not noted in checking the note before signing. Subjective Subjective The patient was seen and examined at the bedside this morning. Events from the last 24 hours have been reviewed. The patient is currently afebrile, hemodynamically stable and maintaining appropriate oxygen saturations on heated high flow oxygen with an FiO2 requirement of 45%. The patient continues to readily desaturate with any form of physical exertion. He is documented to be overall net -9.4 L for the hospitalization. Serum bicarbonate remains elevated at 40 with a normal creatinine. Objective Data Objective Data The patient's most recent lab work, culture data and imaging studies have all been personally reviewed. COVID, influenza and RSV PCR's were negative. Vital Signs: Vital Signs Temp Pulse Resp BP Pulse Ox O2 Del Method O2 Flow Rate 97.9 F 75 16 114/90 H 92 Airvo 45 12/04/23 09:00 12/04/23 09:00 12/04/23 09:00 12/04/23 09:00 12/04/23 09:00 12/04/23 10:00 12/04/23 10:00 FiO2 45 12/04/23 10:00 Oxygen Flow Rate (L/min) 45 Oxygen Delivery Method Airvo Weight: 198 lb 10.184 oz Body Mass Index (BMI) 27.7 Intake & Output: Intake and Output for Last 24 Hours 12/02/23 12/03/23 12/04/23 23:59 23:59 23:59 Intake Total 1250 / 1350 500 / 500 250 / 250 Output Total 2425 / 3425 3500 / 3800 575 / 575 Balance -1175 / -2075 -3000 / -3300 -325 / -325 Lab / Micro Data Attestation: I reviewed the patient's lab results. 12/04/23 04:03 12/04/23 04:03 Labs: Laboratory Results - last 24 hr 12/04/23 04:03: WBC 9.7, RBC 5.07, Hgb 14.3, Hct 46.1, MCV 90.9, MCH 28.2, MCHC 31.0 L, RDW Std Deviation 52.9 H, RDW Coeff of Breana 16.2 H, Plt Count 154, MPV 11.2, Immature Gran % (Auto) 0.700, Neut % (Auto) 80.0 H, Lymph % (Auto) 13.7 L, [place] % (Auto) 5.3, Eos % (Auto) 0.1, Baso % (Auto) 0.2, Absolute Neuts (auto) 7.7, Absolute Lymphs (auto) 1.32, Nucleated RBC % 0, Sodium 137, Potassium 3.6, Chloride 94 L, Carbon Dioxide 40.0 H, Anion Gap 3 L, BUN 24 H, Creatinine 0.84, Estim Creat Clear Calc 87.68, Est GFR (MDRD) Af Amer 114, Est GFR (MDRD) Non-Af 94, BUN/Creatinine Ratio 28.5 H, Glucose 104, Calcium 9.1, Magnesium 1.7 Micro: Microbiology 12/01/23 14:20 Mucosa - Nose SARS-CoV-2, Influenza & RSV (PCR) - Final Radiography Diagnostic Testing: Radiology Impression Chest CT 12/02/23 07:40 IMPRESSION: Findings indicative of diffuse interstitial fibrosis involving both upper and lower lobes although it is more prominent in the upper lobes. Electronically Signed: Calvin Vargas MD at 10:20 EDT , Rhythm Strip Rhythm Strip: Sinus Rhythm Rate: 99 Ectopy: None Physical Exam Const alert and no apparent distress Constitutional Narrative: Sitting in bedside recliner. Family is present. General Appearance: cooperative HEENT normocephalic and head/scalp atraumatic Eyes PERRL, EOMs intact bilaterally and conjunctivae normal Neck supple General: trachea midline Chest inspection of chest normal Resp normal respiratory effort Auscultation: rales and diminished lung sounds Cardio regular rate and regular rhythm GI normal to inspection, nondistended, normoactive bowel sounds Extremity General Extremity: edema bilateral lower extremity; Negative for clubbing Neuro CN's II-XII intact bilaterally, moves all extremities and no focal motor deficits Psych Mood & Affect: anxious Charges/Coding Visit Charges Inpatient E&M: 08766 Subs Hosp L2
--- NOTE | 2023-12-04 11:16 | CASEMGMT ---
This RN CM talked to the pt family ( and Daughter Sarah) at the nurses station regarding pt DC needs and options. The pt is currently on Airvo. Dr. Flanagan states that the plan is to wean the pt down enough today for a hopeful DC tomorrow. The pt family, Dr. Flanagan, and the pt RN notified that [employer] has the ability to stack/piggyback a 10L concentrator with a 5L concentrator- allowing a 15L maximum. They can also attach a regulator to the portable tanks to allow the pt to go up to 15L for the transit home. The family reassured at this time. Family also notified that [employer] does deliver over the weekend in the case that the pt would need to stay until then. Pt family denies further questions or concerns. This RN CM talked to Jim from [employer] and Jim states that the [employer] drivers would deliver the regulator for the portable tanks to the pt room prior to DC. This RN CM will follow the pt case and see what the pt qualifies for in regard to going home with an increased oxygen needs.
--- NOTE | 2023-12-04 12:44 | PN.HOSP_ITS ---
Reason for Visit Reason for Visit: Diagnoses Acute and chronic respiratory failure with hypoxia (12/01/23) Objective Data Objective Data Vital Signs: Vital Signs Temp Pulse Resp BP Pulse Ox O2 Del Method O2 Flow Rate 97.9 F 75 16 114/90 H 92 Airvo 45 12/04/23 09:00 12/04/23 09:00 12/04/23 09:00 12/04/23 09:00 12/04/23 09:00 12/04/23 10:00 12/04/23 10:00 FiO2 45 12/04/23 10:00 Oxygen Flow Rate (L/min) 45 Oxygen Delivery Method Airvo Weight: 198 lb 10.184 oz Body Mass Index (BMI) 27.7 Intake & Output: Intake and Output for Last 24 Hours 12/02/23 12/03/23 12/04/23 23:59 23:59 23:59 Intake Total 1250 / 1350 500 / 500 250 / 250 Output Total 2425 / 3425 3500 / 3800 575 / 575 Balance -1175 / -2075 -3000 / -3300 -325 / -325 Lab / Micro Data 12/04/23 04:03 12/04/23 04:03 Labs: Laboratory Results - last 24 hr 12/04/23 04:03: WBC 9.7, RBC 5.07, Hgb 14.3, Hct 46.1, MCV 90.9, MCH 28.2, MCHC 31.0 L, RDW Std Deviation 52.9 H, RDW Coeff of Breana 16.2 H, Plt Count 154, MPV 11.2, Immature Gran % (Auto) 0.700, Neut % (Auto) 80.0 H, Lymph % (Auto) 13.7 L, [place] % (Auto) 5.3, Eos % (Auto) 0.1, Baso % (Auto) 0.2, Absolute Neuts (auto) 7.7, Absolute Lymphs (auto) 1.32, Nucleated RBC % 0, Sodium 137, Potassium 3.6, Chloride 94 L, Carbon Dioxide 40.0 H, Anion Gap 3 L, BUN 24 H, Creatinine 0.84, Estim Creat Clear Calc 87.68, Est GFR (MDRD) Af Amer 114, Est GFR (MDRD) Non-Af 94, BUN/Creatinine Ratio 28.5 H, Glucose 104, Calcium 9.1, Magnesium 1.7 Micro: Microbiology 12/01/23 14:20 Mucosa - Nose SARS-CoV-2, Influenza & RSV (PCR) - Final Rhythm Strip Rhythm Strip: Sinus Rhythm Rate: 99 Ectopy: None Physical Exam Narrative Seen and examined. Clinical update from the nursing staff. Patient airvo. No fever. Patient admitted with shortness of breath with predominantly dry cough. Cough has improved Physical exam General: Alert, Oriented x3, Cooperative HEENT: Atraumatic, PERRLA, EOMI, Normocephalic Oral: No Gingival or Mucosal Lesions/ Ulcerations Neck: Supple, No JVD, Negative Carotid Bruits Chest wall/Lungs: Air entry diminished in bilateral lung bases. Inspiratory coarse rales. On Airvo, NIPPV Cardiovascular: Sinus rhythm , Normal S1, Normal S2, No M/G/R Abdomen: Bowel Sounds Present, Soft, Non Tender, Non-Distended : No dysuria. No renal angle tenderness. No suprapubic tenderness. Extremities: Mild bilateral pitting ankle , Capillary Refill Less than 3 Seconds Skin: No rashes, No breakdown Musculoskeletal: No Tenderness to Palpation of Joints or Extremities Neurological: Cranial nerves II-XII grossly intact, DTR 2+/4. No acute focal neurological deficit. Psych/Mental Status: Flat affect Assessment & Plan Assessment/Plan (1) Acute and chronic respiratory failure with hypoxia: PLAN: Plan This is a 73-year-old gentleman being admitted for severe shortness of breath started after having straining for defecation with constipation. Patient got very hypoxic with pulse ox in 70s to 80s, unable to correct on home oxygen requirement of 4 to 5 L. Bilateral leg swelling. 1. Acute on chronic hypoxic respiratory failure with acute hypercapnic respiratory failure secondary to pulmonary fibrosis and flash pulmonary edema in the setting of pulmonary hypertension and acute on chronic right ventricular failure: Patient is being admitted in ICU. Initially on BiPAP transition to Airvo. On IV Lasix. Chest x-ray delirium shows interstitial reticulonodular fibrosis with pulmonary edema ? Given his pulmonary fibrosis and his chronic prednisone use, continue with p.o. prednisone 40 mg ? Pulmonology is consulted. ? ABG showed pH 7.41/pCO2 57/86 on nonrebreather 10 L in ED. On Trelegy at home. ? Continue with albuterol ? Continue with his home Nintedanib 12/02: Orthopedic Brace Maker consult reviewed. Patient had -7 L of fluid balance therefore furosemide dose was decreased. Hypokalemia, K2.9. Potassium IV replacement. Patient was on AVAPS for some time last night. Patient was downgraded to PCU telemetry yesterday. 12/03: Subjectively patient feels better but objective does not show any i mprovement in oxygenation/ventilation. As needed. 9.4 L fluid balance. Bicarb decreased from 44-40 but is still elevated 2. CAD status post CABG and stent/essential HTN/HLD with acute on chronic right ventricular heart failure ? Continue with his home blood pressure medications ? His blood pressure is currently stable ? We will monitor make adjustments as necessary ? Continue with cholesterol medications 2D echo in August 2023 The estimated ejection fraction is 60 %. D shaped septum in systole and diastole. Moderately dilated right ventricle. Mild global right ventricular systolic dysfunction. The left atrium is mildly enlarged. Mild (1+) tricuspid valve insufficiency. Mild pulmonary hypertension. Aortic sclerosis, no stenosis. Mild aortic insufficiency Mild atherosclerosis of the ascending aorta. 3. GERD ? Stable ? Continue with PPI 4. Anxiety/depression ? This will be a new diagnosis for him as he does not take any medications at baseline though family does agree that he does struggle with his medical diagnosis ? continue with Xanax 0.25 mg p.o. twice daily as well as Zoloft 50 mg daily DVT: Lovenox Charges/Coding Visit Charges Inpatient E&M: 66887 Subs Hosp L2
--- NOTE | 2023-12-04 16:13 | CASEMGMT ---
TERE CESAR NOTE: RN ARSENIO informed that pt and family are now interested in HHC. 1st HHC preference stated by them was [facility]. Per TERE Butler CM, a referral was made to [facility] but they are unable to accept pt d/t location. TERE CESAR to room. Introduced self and role. Pt sitting up in chair. @ bedside. They were made aware [facility] unable to accept him. A list of C providers including quality and resource use data and consistent with the patient?s preferred geographic region, medical needs, and insurance network were provided from the [facility] Guide were given to pt and . asks for dtr, Zenaida, to make the decision. Call placed to Zenaida. She states she will be coming to [facility] this evening and will review the list. She is aware to choose top 5 preferences and TERE CESAR will f/u tomorrow and make referrals. Merlin PAULSON RN, CM
[2023-12-04] MEDS: Atorvastatin Calcium 40 MG Tablet PO (20:37)
[2023-12-04] MEDS: 0.9% Saline Lock 10 ML Syringe IV (20:46)
[2023-12-05 03:00] VITALS: BP 122/77; PULSE 70; RESP 25; TEMP 36.3; O2SAT 94
[2023-12-05 04:00] VITALS: O2SAT 95
[2023-12-05 04:25] LABS: Absolute Lymphocyte Count 1.33 X10^3/uL (0.83-4.51); Basophil# 0.02 X10^3/uL; Basophil% 0.2 % (0-1); Eosinophil# 0.03 X10^3/uL; Eosinophils% 0.3 % (0-5); Hematocrit 42.8 % (40-54); Hemoglobin 13.6 g/dL (13.0-16.5); Lymphocyte # 1.33 X10^3/ul (0.83-4.51); Lymphocyte % 14.7 % (19-41); Mean Corp Hgb Conc 31.8 g/dL (32-36); Mean Corpuscular Hgb 29.2 pg (27.0-32.0); Mean Platelet Vol. 11.4 fl (6.2-12.0); Monocyte# 0.64 X10^3/uL; Monocyte% 7.1 % (0-10); NRBC Flagged by Analyzer 0 % (0-5); Neutrophil # 6.99 X10^3/uL (2.7-7.7); Neutrophil % 77.4 % (47-70); Platelet Count 151 K/mm3 (150-450); RBC Distribution Width CV 15.6 % (11.6-14.6); RBC Distribution Width SD 52.2 fl (35.1-43.9); Red Blood Count 4.65 M/mm3 (4.6-6.2)
[2023-12-05 04:41] LABS: Anion Gap 2 (5-15); BUN 25 mg/dL (7-18); BUN/Creat Ratio 28.7 RATIO (10-20); Calcium,Total 8.3 mg/dL (8.5-10.1); Chloride 96 mmol/L (98-107); Creatinine, Serum 0.87 mg/dL (0.70-1.30); EST Glomerular Filtration Rate 91 mL/min (>60); Est Glom Filt Rate - Afr Amer 110 mL/min (>60); Estimated Creatinine Clearance 78.14 ml/min; Glucose 104 mg/dL (74-106); Potassium 3.3 mmol/L (3.5-5.1); Sodium Level 137 mmol/L (136-145)
[2023-12-05 05:17] VITALS: BMI 27.4
--- NOTE | 2023-12-05 06:45 | PCM.PN.INT ---
Assessment & Plan Assessment/Plan (1) Acute and chronic respiratory failure with hypoxia: PLAN: Plan RECOMMENDATIONS: 1. Continue to wean supplemental oxygen as tolerated. 2. Transition to p.o. Lasix regimen when feasible. 3. Continue corticosteroids. 4. Resume Ofev after discharge. 5. Palliative care referral with outpatient follow-up planned. 6. The patient is medically stable from a pulmonary perspective to be discharged home. 7. Will sign off from a critical care perspective. Please call with any additional questions. IMPRESSIONS: 1. Acute on chronic respiratory failure with hypoxemia The patient has a known history of interstitial lung disease and chronic respiratory failure with a 8 L/min oxygen requirement. He has been followed in the past by Dr. Gallagher in the pulmonary medicine clinic and was recently placed on Ofev. The patient readily admitted to noncompliance with prescribed oxygen therapy, which is likely contributing to his current clinical state. In addition, the patient is likely volume overloaded in the setting of pulmonary hypertension and RV dysfunction. The patient has improved with volume optimization. He is currently requiring 6 L/min at rest and 10 L/min with exertion, which is within the capabilities of his current home concentrator. I would recommend that the patient follow-up with palliative care medicine following discharge. I have no new additional recommendations from a pulmonary perspective. The patient is likely stable for discharge home. 2. Coronary artery disease status post CABG/GERD/hypertension/hyperlipidemia/anxiety/depression Complicates care, management, recovery and prognosis. Continue home medications as indicated. This note was generated with cent[employer] dictation software. It may contain incorrect words, spelling, and punctuation that were not noted in checking the note before signing. Subjective Subjective The patient was seen and examined at the bedside this morning. Events from the last 24 hours have been reviewed. The patient is currently afebrile, hemodynamically stable and maintaining appropriate oxygen saturations on 6 L/min via nasal cannula. The patient is currently requiring 6 L/min of oxygen at rest and 10 L/min with exertion. He is documented to be overall net -12 L for the hospitalization. Objective Data Objective Data The patient's most recent lab work, culture data and imaging studies have all been personally reviewed. COVID, influenza and RSV PCR's were negative. Vital Signs: Vital Signs Temp Pulse Resp BP Pulse Ox O2 Del Method O2 Flow Rate 97.4 F L 70 25 H 122/77 H 95 Room Air 6 12/05/23 03:00 12/05/23 03:00 12/05/23 03:00 12/05/23 03:00 12/05/23 04:00 12/05/23 04:00 12/05/23 04:00 FiO2 45 12/04/23 10:00 Oxygen Flow Rate (L/min) 6 Oxygen Delivery Method Room Air Weight: 196 lb 13.965 oz Body Mass Index (BMI) 27.4 Intake & Output: Intake and Output for Last 24 Hours 12/03/23 12/04/23 12/05/23 23:59 23:59 23:59 Intake Total 500 / 500 250 / 250 Output Total 3500 / 3800 2875 / 2875 250 / 250 Balance -3000 / -3300 -2625 / -2625 -250 / -250 Lab / Micro Data Attestation: I reviewed the patient's lab results. 12/05/23 04:05 12/05/23 04:05 Labs: Laboratory Results - last 24 hr 12/05/23 04:05: WBC 9.0, RBC 4.65, Hgb 13.6, Hct 42.8, MCV 92.0, MCH 29.2, MCHC 31.8 L, RDW Std Deviation 52.2 H, RDW Coeff of Breana 15.6 H, Plt Count 151, MPV 11.4, Immature Gran % (Auto) 0.300, Neut % (Auto) 77.4 H, Lymph % (Auto) 14.7 L, Cuming % (Auto) 7.1, Eos % (Auto) 0.3, Baso % (Auto) 0.2, Absolute Neuts (auto) 7.0, Absolute Lymphs (auto) 1.33, Nucleated RBC % 0, Sodium 137, Potassium 3.3 L, Chloride 96 L, Carbon Dioxide 39.0 H, Anion Gap 2 L, BUN 25 H, Creatinine 0.87, Estim Creat Clear Calc 78.14, Est GFR (MDRD) Af Amer 110, Est GFR (MDRD) Non-Af 91, BUN/Creatinine Ratio 28.7 H, Glucose 104, Calcium 8.3 L Micro: Microbiology 12/04/23 14:50 Stool Enteric Bacteriology - Final 12/04/23 14:50 Stool Clostridioides difficile (PCR) - Final 12/01/23 14:20 Mucosa - Nose SARS-CoV-2, Influenza & RSV (PCR) - Final Radiography Diagnostic Testing: Radiology Impression Chest CT 12/02/23 07:40 IMPRESSION: Findings indicative of diffuse interstitial fibrosis involving both upper and lower lobes although it is more prominent in the upper lobes. Electronically Signed: Calvin Vargas MD at 10:20 EDT , Rhythm Strip Rhythm Strip: Sinus Rhythm Rate: 99 Ectopy: None Physical Exam Const alert and no apparent distress Constitutional Narrative: Sitting upright in bed. General Appearance: cooperative HEENT normocephalic and head/scalp atraumatic Eyes PERRL, EOMs intact bilaterally and conjunctivae normal Neck supple General: trachea midline Chest inspection of chest normal Resp normal respiratory effort Auscultation: rales and diminished lung sounds Cardio regular rate and regular rhythm GI normal to inspection, nondistended, normoactive bowel sounds Extremity General Extremity: edema bilateral lower extremity; Negative for clubbing Neuro CN's II-XII intact bilaterally, moves all extremities and no focal motor deficits Psych Mood & Affect: anxious Charges/Coding Visit Charges Inpatient E&M: 59232 Subs Hosp L2
--- NOTE | 2023-12-05 07:20 | PCM.PN.HOSP ---
Reason for Visit Reason for Visit: Diagnoses Acute and chronic respiratory failure with hypoxia (12/01/23) Objective Data Objective Data Vital Signs: Vital Signs Temp Pulse Resp BP Pulse Ox O2 Del Method O2 Flow Rate 97.4 F L 70 25 H 122/77 H 95 Room Air 6 12/05/23 03:00 12/05/23 03:00 12/05/23 03:00 12/05/23 03:00 12/05/23 04:00 12/05/23 04:00 12/05/23 04:00 FiO2 45 12/04/23 10:00 Oxygen Flow Rate (L/min) 6 Oxygen Delivery Method Room Air Weight: 196 lb 13.965 oz Body Mass Index (BMI) 27.4 Intake & Output: Intake and Output for Last 24 Hours 12/03/23 12/04/23 12/05/23 23:59 23:59 23:59 Intake Total 500 / 500 250 / 250 Output Total 3500 / 3800 2875 / 2875 250 / 250 Balance -3000 / -3300 -2625 / -2625 -250 / -250 Lab / Micro Data 12/05/23 04:05 12/05/23 04:05 Labs: Laboratory Results - last 24 hr 12/05/23 04:05: WBC 9.0, RBC 4.65, Hgb 13.6, Hct 42.8, MCV 92.0, MCH 29.2, MCHC 31.8 L, RDW Std Deviation 52.2 H, RDW Coeff of Breana 15.6 H, Plt Count 151, MPV 11.4, Immature Gran % (Auto) 0.300, Neut % (Auto) 77.4 H, Lymph % (Auto) 14.7 L, Harvey % (Auto) 7.1, Eos % (Auto) 0.3, Baso % (Auto) 0.2, Absolute Neuts (auto) 7.0, Absolute Lymphs (auto) 1.33, Nucleated RBC % 0, Sodium 137, Potassium 3.3 L, Chloride 96 L, Carbon Dioxide 39.0 H, Anion Gap 2 L, BUN 25 H, Creatinine 0.87, Estim Creat Clear Calc 78.14, Est GFR (MDRD) Af Amer 110, Est GFR (MDRD) Non-Af 91, BUN/Creatinine Ratio 28.7 H, Glucose 104, Calcium 8.3 L Micro: Microbiology 12/04/23 14:50 Stool Enteric Bacteriology - Final 12/04/23 14:50 Stool Clostridioides difficile (PCR) - Final 12/01/23 14:20 Mucosa - Nose SARS-CoV-2, Influenza & RSV (PCR) - Final Rhythm Strip Rhythm Strip: Sinus Rhythm Rate: 99 Ectopy: None Physical Exam Narrative Seen and examined. Clinical update from the nursing staff. Patient airvo. No fever. Patient admitted with shortness of breath with predominantly dry cough. Cough has improved Physical exam General: Alert, Oriented x3, Cooperative HEENT: Atraumatic, PERRLA, EOMI, Normocephalic Oral: No Gingival or Mucosal Lesions/ Ulcerations Neck: Supple, No JVD, Negative Carotid Bruits Chest wall/Lungs: Air entry diminished in bilateral lung bases. Inspiratory coarse rales. On Airvo, NIPPV Cardiovascular: Sinus rhythm , Normal S1, Normal S2, No M/G/R Abdomen: Bowel Sounds Present, Soft, Non Tender, Non-Distended : No dysuria. No renal angle tenderness. No suprapubic tenderness. Extremities: Mild bilateral pitting ankle , Capillary Refill Less than 3 Seconds Skin: No rashes, No breakdown Musculoskeletal: No Tenderness to Palpation of Joints or Extremities Neurological: Cranial nerves II-XII grossly intact, DTR 2+/4. No acute focal neurological deficit. Psych/Mental Status: Flat affect Assessment & Plan Assessment/Plan (1) Acute and chronic respiratory failure with hypoxia: PLAN: Plan This is a 73-year-old gentleman being admitted for severe shortness of breath started after having straining for defecation with constipation. Patient got very hypoxic with pulse ox in 70s to 80s, unable to correct on home oxygen requirement of 4 to 5 L. Bilateral leg swelling. 1. Acute on chronic hypoxic respiratory failure with acute hypercapnic respiratory failure secondary to pulmonary fibrosis and flash pulmonary edema in the setting of pulmonary hypertension and acute on chronic right ventricular failure: Patient is being admitted in ICU. Initially on BiPAP transition to Airvo. On IV Lasix. Chest x-ray delirium shows interstitial reticulonodular fibrosis with pulmonary edema ? Given his pulmonary fibrosis and his chronic prednisone use, continue with p.o. prednisone 40 mg ? Pulmonology is consulted. ? ABG showed pH 7.41/pCO2 57/86 on nonrebreather 10 L in ED. On Trelegy at home. ? Continue with albuterol ? Continue with his home Nintedanib 12/02: [employer] consult reviewed. Patient had -7 L of fluid balance therefore furosemide dose was decreased. Hypokalemia, K2.9. Potassium IV replacement. Patient was on AVAPS for some time last night. Patient was downgraded to PCU telemetry yesterday. 12/03: Subjectively patient feels better but objective does not show any improvement in oxygenation/ventilation. As needed. 9.4 L fluid balance. Bicarb decreased from 44-40 but is still elevated 2. CAD status post CABG and stent/essential HTN/HLD with acute on chronic right ventricular heart failure ? Continue with his home blood pressure medications ? His blood pressure is currently stable ? We will monitor make adjustments as necessary ? Continue with cholesterol medications 2D echo in August 2023 The estimated ejection fraction is 60 %. D shaped septum in systole and diastole. Moderately dilated right ventricle. Mild global right ventricular systolic dysfunction. The left atrium is mildly enlarged. Mild (1+) tricuspid valve insufficiency. Mild pulmonary hypertension. Aortic sclerosis, no stenosis. Mild aortic insufficiency Mild atherosclerosis of the ascending aorta. 3. GERD ? Stable ? Continue with PPI 4. Anxiety/depression ? This will be a new diagnosis for him as he does not take any medications at baseline though family does agree that he does struggle with his medical diagnosis ? continue with Xanax 0.25 mg p.o. twice daily as well as Zoloft 50 mg daily DVT: Lovenox
[2023-12-05] MEDS: Potassium Chloride Oral Tablet 20 MEQ 40 MEQ PO ×2 (08:35→11:58)
[2023-12-05] MEDS: NINTEDANIB ESYLATE 150 MG CAPSULE PO (08:36)
[2023-12-05] MEDS: predniSONE 20 MG Tablet 40 MG PO (08:36)
[2023-12-05 09:23] VITALS: BP 114/79; PULSE 81; RESP 26; TEMP 36.3; O2SAT 95
--- NOTE | 2023-12-05 09:29 | DCINST_ITS ---
Discharge Instructions Diet Discharge Diet: No restrictions Activity Discharge Activity: Return to Normal Activity Weight Bearing Status: Weight bearing as tolerated Dressing / Incision Call your doctor if you observe: Fever of 101 or Higher, Coldness, Increased Pain, Numbness or Tingling, Change in Color, Inability to urinate, Inability to have a bowel movement, Shortness of breath, Dizziness, Fainting spells, Swelling in the ankles, Chest pain, Prolonged hiccupping, Increased palpitations (irregular heartbeat) and Calf discomfort Follow Up Care When: IN 2 WEEKS Test Results: Test results from this visit will be discussed in further detail at your follow- up appointment, if applicable. Discharge Plan Admission Admit Date/Time: 12/01/23 16:40 Primary Reason for Your Visit: Acute on chronic hypoxic respiratory/ILD Attending Provider: Jerson Avelar Primary Care Provider: Nehemiah Flanagan Consulting Providers: Frank Landon Discharge Orders/Prescriptions Prescriptions: New furosemide 40 mg Tablet 40 mg PO DAILY 30 Days Qty: 30 0RF Rx Instructions: Hold for SBP less than 100 mmHg. Continue for 5 days and then as needed for shortness of breath/ . potassium chloride 20 mEq Tablet,Er Particles/Crystals 40 meq PO DAILY 7 Days Qty: 14 0RF prednisone 10 mg tablet 10 mg PO DAILY Qty: 30 0RF Rx Instructions: 40 mg for 3 days 30 mg for 3 days, 20 mg for 3 days,and 10 mg for 3 days Continued omeprazole 20 mg capsule,delayed release(DR/EC) 20 mg PO DAILY multivitamin [Daily Multi-Vitamin] Tablet 1 tab PO DAILY guaifenesin [Mucus Relief ER] 1,200 mg tablet extended release 12hr 1,200 mg PO BID PRN (Reason: congestion) atorvastatin 40 mg tablet 40 mg PO QHS metoprolol succinate 50 mg tablet extended release 24 hr 50 mg PO DAILY aspirin [Adult Low Dose Aspirin] 81 mg tablet,delayed release (DR/EC) 81 mg PO DAILY Ofev 150 mg capsule 150 mg PO Q12H Rx Instructions: TAKE AT 0800 AND 2000 DAILY. losartan 25 mg tablet 25 mg PO DAILY Qty: 90 3RF albuterol sulfate [Ventolin HFA] 90 mcg/actuation HFA aerosol inhaler 2 puff INHALATION Q4H PRN (Reason: SHORTNESS OF BREATH/WHEEZNG ) Qty: 18 6RF Held prednisone 10 mg tablet 10 mg PO DAILY Qty: 30 3RF Hold Instructions: Hold it while patient is on prednisone taper dose of 40 mg daily. After completion of taper dose continue on prednisone 10 mg daily Discontinued furosemide [Lasix] 40 mg tablet 40 mg PO DAILY PRN (Reason: edema) Qty: 10 0RF Patient Comments: HAS PRESCRIPTION, HAS NOT TAKEN YET Referrals / Follow Up: Farrukh Flanagan DO [Med Staff - Active Staff] - Within 1 Month Nehemiah Flanagan MD [Primary Care Provider] - Disposition Disposition (needs filled in before D/C Order can be placed): Home, Self Care
[2023-12-05] MEDS: Aspirin E.C. 81 MG Tablet PO (09:35)
[2023-12-05] MEDS: Losartan Potassium 25 MG Tablet PO (09:35)
[2023-12-05] MEDS: Sertraline 50 MG Tablet PO (09:35)
[2023-12-05] MEDS: Pantoprazole Sodium 20 MG Tablet PO (09:35)
[2023-12-05] MEDS: Enoxaparin 40 MG/0.4 ML Syringe SC (09:36)
--- NOTE | 2023-12-05 09:37 | CASEMGMT ---
Pt dtr Sarah called, she states she and her mother are in pt room and have discussed hospice with pt. Pt is agreeable to this. She is aware that SW will be in to discuss. Updated SW.
[2023-12-05] MEDS: ALPRAZolam 0.25 MG Tablet PO (09:46)
[2023-12-05] MEDS: Furosemide 40 MG Tablet PO (09:47)
[2023-12-05 09:48] VITALS: PULSE 79
[2023-12-05] MEDS: Metoprolol(XL)Succ 50 MG Tablet PO (09:48)
--- NOTE | 2023-12-05 09:50 | CASEMGMT ---
Addendum entered by Yuliya Valles 12/05/23 10:22: Social Work Physician states he has the form was speaking of, will give to the office today and she needs to allow some time to get it completed. SW let know this, and asked her to follow up w/the office next week. SANDRA Cummings Addendum entered by Yuliya Valles 12/05/23 10:17: Social Work Pt's also asked about a form that the physician had taken to get completed by the office for a medication called Jelena, asked if SW can follow up on this. SW called Dr. Flanagan's office, spoke w/Dhara. Dhara states that they do not have any forms in regard to this medication, Dhara states all the paperwork had already been completed. SW let know, texted physician about it as well. SW also spoke w/pt's daughter Zenaida in the waiting room, offered support. SW remains available for support to pt and family. SANDRA Cummings Original Note: Social Work SW spoke w/pt and Windy in room. They would like a referral to hospice, and would like for pt to return home on hospice. Physician is aware. SW called [facility], spoke w/Cha. Referral made and faxed, they will call the to set up a time to meet. SW let know, SW will continue to follow. SANDRA Cummings
--- NOTE | 2023-12-05 10:00 | DS.PCM_ITS ---
Providers Date of Admission: 12/01/23 Date of Discharge: 12/05/23 Primary Care Physician: Dr. Nehemiah Flanagan MD Consultations 12/01/23 17:04 Consult: Handwriting Expert / Pulmonary Medicine Routine Consulting Provider: Intensivists/Pulmonary Med Reason for Consult: Pulm fibrosis EMERGENT Consult: No MD Notified: Yes Date Notified: 12/01/23 Time Notified: 16:43 Method of Notification: Text Reason For Visit: ACUTE ON CHRONIC RESPIRATORY FAILURE Diagnosis Discharge Diagnosis (1) Acute and chronic respiratory failure with hypoxia: Status: Chronic Code(s): J96.21 - Acute and chronic respiratory failure with hypoxia Plan This is a 73-year-old gentleman being admitted for severe shortness of breath started after having straining for defecation with constipation. Patient got very hypoxic with pulse ox in 70s to 80s, unable to correct on home oxygen requirement of 4 to 5 L. Bilateral leg swelling. 1. Acute on chronic hypoxic respiratory failure with acute hypercapnic respiratory failure secondary to pulmonary fibrosis and flash pulmonary edema in the setting of pulmonary hypertension and acute on chronic right ventricular failure: Patient is being admitted in ICU. Initially on BiPAP transition to Airvo. On IV Lasix. Chest x-ray delirium shows interstitial reticulonodular fibrosis with pulmonary edema ? Given his pulmonary fibrosis and his chronic prednisone use, continue with p.o. prednisone 40 mg ? Pulmonology is consulted. ? ABG showed pH 7.41/pCO2 57/86 on nonrebreather 10 L in ED. On Trelegy at home. ? Continue with albuterol ? Continue with his home Nintedanib 12/02: Handwriting Expert consult reviewed. Patient had -7 L of fluid balance therefore furosemide dose was decreased. Hypokalemia, K2.9. Potassium IV replacement. Patient was on AVAPS for some time last night. Patient was downgraded to PCU telemetry yesterday. 12/03: Subjectively patient feels better but objective does not show any improvement in oxygenation/ventilation. As needed. 9.4 L fluid balance. Bicarb decreased from 44-40 but is still elevated 12/04: Patient currently on 6 L of oxygen. On baseline home oxygen needed. Patient is discharged on Lasix 40 mg daily for 5 days and then as needed for shortness of breath/leg swelling/fluid overload. Prednisone taper and after completion of taper dose, continue prednisone 10 mg daily. Resume Ofev 150 mg bid. Mild hypokalemia, prescription for potassium supplement given. Bicarb gradually improving. 2. CAD status post CABG and stent/essential HTN/HLD with acute on chronic right ventricular heart failure ? Continue with his home blood pressure medications ? His blood pressure is currently stable ? We will monitor make adjustments as necessary ? Continue with cholesterol medications 2D echo in August 2023 The estimated ejection fraction is 60 %. D shaped septum in systole and diastole. Moderately dilated right ventricle. Mild global right ventricular systolic dysfunction. The left atrium is mildly enlarged. Mild (1+) tricuspid valve insufficiency. Mild pulmonary hypertension. Aortic sclerosis, no stenosis. Mild aortic insufficiency Mild atherosclerosis of the ascending aorta. 3. GERD ? Stable ? Continue with PPI 4. Anxiety/depression ? This will be a new diagnosis for him as he does not take any medications at baseline though family does agree that he does struggle with his medical diagnosis ? continue with Xanax 0.25 mg p.o. twice daily as well as Zoloft 50 mg daily DVT: Lovenox Discharge medication reconciliation done. Discharge follow-up instructions completed. Discharge process discussed with the patient and all questions were answered to patient's satisfaction. Follow with PCP in 1 to 2 weeks Total time spent, exact 35 minutes on discharge meds reconciliation, exa mination, coordination of care with nurses and ancillary staff, review of imaging and blood test and discussion with the patient on follow-up instructions. Medications at Discharge Home Medications losartan 25 mg tablet 25 mg PO DAILY BLOOD PRESSURE #90 tabs 04/06/21 albuterol sulfate 90 mcg/actuation aerosol inhaler (Ventolin HFA) 2 puff inhalation Q4H PRN SHORTNESS OF BREATH/WHEEZNG #18 grams 11/27/22 omeprazole 20 mg capsule,delayed release 20 mg PO DAILY ACID REFLUX 05/21/23 aspirin 81 mg tablet,delayed release (Adult Low Dose Aspirin) 81 mg PO DAILY HEART HEALTH 09/24/23 atorvastatin 40 mg tablet 40 mg PO QHS CHOLESTEROL 09/24/23 metoprolol succinate 50 mg tablet,extended release 24 hr 50 mg PO DAILY BLOOD PRESSURE 09/24/23 guaifenesin 1,200 mg tablet, extended release 12 hr (Mucus Relief ER) 1,200 mg PO BID PRN congestion 10/23/23 multivitamin (Daily Multi-Vitamin tablet) 1 tab PO DAILY vitamin 10/23/23 prednisone 10 mg tablet 10 mg PO DAILY breathing #30 tabs 11/13/23 nintedanib 150 mg capsule (Ofev) 150 mg PO Q12H pulm fibrosis 12/01/23 furosemide 40 mg tablet 40 mg PO DAILY 30 days #30 tabs 12/05/23 potassium chloride 20 mEq tablet,extended release(part/cryst) 40 meq (2 x 20 mEq) PO DAILY 7 days #14 tabs 12/05/23 prednisone 10 mg tablet 10 mg PO DAILY #30 tabs 12/05/23 Physical Exam Narrative Seen and examined. Clinical update from the nursing staff. On 6 L of high flow oxygen. On baseline. No fever. Cough and dyspnea are better. Physical exam General: Alert, Oriented x3, Cooperative HEENT: Atraumatic, PERRLA, EOMI, Normocephalic Oral: No Gingival or Mucosal Lesions/ Ulcerations Neck: Supple, No JVD, Negative Carotid Bruits Chest wall/Lungs: Air entry diminished in bilateral lung bases. Chronic inspiratory coarse rales. Cardiovascular: Sinus rhythm , Normal S1, Normal S2, No M/G/R Abdomen: Bowel Sounds Present, Soft, Non Tender, Non-Distended : No dysuria. No renal angle tenderness. No suprapubic tenderness. Extremities: Ankle abnormalities, Capillary Refill Less than 3 Seconds Skin: No rashes, No breakdown Musculoskeletal: No Tenderness to Palpation of Joints or Extremities Neurological: Cranial nerves II-XII grossly intact, DTR 2+/4. No acute focal neurological deficit. Psych/Mental Status: Flat affect Weight / BMI Weight Weight: 196 lb 13.965 oz Body Mass Index (BMI) 27.4 ABG / Lab / Microbiology Data 12/05/23 04:05 12/05/23 04:05 Laboratory: Laboratory Results - last 24 hr 12/05/23 04:05: WBC 9.0, RBC 4.65, Hgb 13.6, Hct 42.8, MCV 92.0, MCH 29.2, MCHC 31.8 L, RDW Std Deviation 52.2 H, RDW Coeff of [place]ana 15.6 H, Plt Count 151, MPV 11.4, Immature Gran % (Auto) 0.300, Neut % (Auto) 77.4 H, Lymph % (Auto) 14.7 L, [place] % (Auto) 7.1, Eos % (Auto) 0.3, Baso % (Auto) 0.2, Absolute Neuts (auto) 7.0, Absolute Lymphs (auto) 1.33, Nucleated RBC % 0, Sodium 137, Potassium 3.3 L , Chloride 96 L, Carbon Dioxide 39.0 H, Anion Gap 2 L, BUN 25 H, Creatinine 0.87, Estim Creat Clear Calc 78.14, Est GFR (MDRD) Af Amer 110, Est GFR (MDRD) Non-Af 91, BUN/Creatinine Ratio 28.7 H, Glucose 104, Calcium 8.3 L Microbiology: Microbiology 12/04/23 14:50 Stool Enteric Bacteriology - Final 12/04/23 14:50 Stool Clostridioides difficile (PCR) - Final 12/01/23 14:20 Mucosa - Nose SARS-CoV-2, Influenza & RSV (PCR) - Final D/C Instructions Discharge Diet: No restrictions Weight Bearing Status: Weight bearing as tolerated Call your doctor if you observe: Fever of 101 or Higher, Coldness, Increased Pain, Numbness or Tingling, Change in Color, Inability to urinate, Inability to have a bowel movement, Shortness of breath, Dizziness, Fainting spells, Swelling in the ankles, Chest pain, Prolonged hiccupping, Increased palpitations (irregular heartbeat) and Calf discomfort When: IN 2 WEEKS Meaningful Use Info Meaningful Use Diagnoses (Choose all that apply): None applicable Discharge Plan Admission Admit Date/Time: 12/01/23 16:40 Primary Reason for Your Visit: Acute on chronic hypoxic respiratory/ILD Attending Provider: Jerson Avelar Primary Care Provider: Nehemiah Flanagan Consulting Providers: Frank Landon Discharge Orders/Prescriptions Prescriptions: New furosemide 40 mg Tablet 40 mg PO DAILY 30 Days Qty: 30 0RF Rx Instructions: Hold for SBP less than 100 mmHg. Continue for 5 days and then as needed for shortness of breath/ . potassium chloride 20 mEq Tablet,Er Particles/Crystals 40 meq PO DAILY 7 Days Qty: 14 0RF prednisone 10 mg tablet 10 mg PO DAILY Qty: 30 0RF Rx Instructions: 40 mg for 3 days 30 mg for 3 days, 20 mg for 3 days,and 10 mg for 3 days Continued omeprazole 20 mg capsule,delayed release(DR/EC) 20 mg PO DAILY multivitamin [Daily Multi-Vitamin] Tablet 1 tab PO DAILY guaifenesin [Mucus Relief ER] 1,200 mg tablet extended release 12hr 1,200 mg PO BID PRN (Reason: congestion) atorvastatin 40 mg tablet 40 mg PO QHS metoprolol succinate 50 mg tablet extended release 24 hr 50 mg PO DAILY aspirin [Adult Low Dose Aspirin] 81 mg tablet,delayed release (DR/EC) 81 mg PO DAILY Ofev 150 mg capsule 150 mg PO Q12H Rx Instructions: TAKE AT 0800 AND 2000 DAILY. losartan 25 mg tablet 25 mg PO DAILY Qty: 90 3RF albuterol sulfate [Ventolin HFA] 90 mcg/actuation HFA aerosol inhaler 2 puff INHALATION Q4H PRN (Reason: SHORTNESS OF BREATH/WHEEZNG ) Qty: 18 6RF Held prednisone 10 mg tablet 10 mg PO DAILY Qty: 30 3RF Hold Instructions: Hold it while patient is on prednisone taper dose of 40 mg daily. After completion of taper dose continue on prednisone 10 mg daily Discontinued furosemide [Lasix] 40 mg tablet 40 mg PO DAILY PRN (Reason: edema) Qty: 10 0RF Patient Comments: HAS PRESCRIPTION, HAS NOT TAKEN YET Referrals / Follow Up: Farrukh Flanagan DO [Med Staff - Active Staff] - Within 1 Month Nehemiah Flanagan MD [Primary Care Provider] - Disposition Disposition (needs filled in before D/C Order can be placed): Home, Self Care Charges/Coding Visit Charges Inpatient E&M: 38353 Disch Hosp >30min
[2023-12-05 12:00] VITALS: BP 97/72; PULSE 80; RESP 20; TEMP 36.5; O2SAT 94
--- NOTE | 2023-12-05 13:01 | CASEMGMT ---
Social Work Pt and family did sign on w/hospice, plan is to go home this afternoon. Family initially wanted to transport family. SW spoke w/them, as pt needs 6LPM continuous or more, suggested going by squad may be safer. Pt and family agreeable, daughter Zenaida is going to have [facility] take him as her is connected to them. The plan is for pt to get home by 4:30, daughter told Hospice they would be home by then. SW asked daughter to let ICU staff know if they cannot get pt transported w/[facility] and we can set up an ambulance. Pt has a concentrator at home already that goes to 10L, hospice did tell them they can order an additional concentrator if needed. SW faxed discharge summary and instructions to [facility]. no further needs, pt home w/[facility] today. LISE Cummings
--- NOTE | 2023-12-05 15:30 | NURSING ---
Patient has not voided yet post orozco removal. Patient being picked up via squad to go home on hospice. Family and patient made aware patient needs to void once home and to notify hospice service if patient unable to void. Patients and daughter stated they understood.
[2023-12-05 15:49] VITALS: BP 99/69; PULSE 73; RESP 26; TEMP 36.3; O2SAT 92
== END 2023-12-05 16:25 | disposition hospice, home (50) | DRG 291 ==
LOC: ED 16:00 → ICU 12-02 07:15
PROVIDERS: Internal Medicine; Internal Medicine Critical Care Medicine; Admitting Provider Family Medicine; Emergency Provider Emergency Medicine; PCP Family Medicine; Visit Provider Internal Medicine
DX: I13.0 Hypertensive heart and chronic kidney disease with heart failure and stage 1 through stage 4 chronic kidney disease, or unspecified chronic kidney disease (principal); J96.21 Acute and chronic respiratory failure with hypoxia; J81.0 Acute pulmonary edema; J96.22 Acute and chronic respiratory failure with hypercapnia; I27.20 Pulmonary hypertension, unspecified; N18.30 Chronic kidney disease, stage 3 unspecified; I50.813 Acute on chronic right heart failure; J84.10 Pulmonary fibrosis, unspecified; I08.2 Rheumatic disorders of both aortic and tricuspid valves; I70.0 Atherosclerosis of aorta; F32.A Depression, unspecified; I25.10 Atherosclerotic heart disease of native coronary artery without angina pectoris; E87.70 Fluid overload, unspecified; E78.5 Hyperlipidemia, unspecified; K21.9 Gastro-esophageal reflux disease without esophagitis; F41.9 Anxiety disorder, unspecified; E87.6 Hypokalemia; F17.220 Nicotine dependence, chewing tobacco, uncomplicated; K59.00 Constipation, unspecified; Z82.3 Family history of stroke; Z79.52 Long term (current) use of systemic steroids; Z95.5 Presence of coronary angioplasty implant and graft; Z79.82 Long term (current) use of aspirin; Z91.199 Patient's noncompliance with other medical treatment and regimen due to unspecified reason; Z79.899 Other long term (current) drug therapy
CPT/HCPCS: 36600; 71045; 71250; 80048; 80053; 82803; 83735; 83880; 84145; 84484; 85025; 85379; 87493; 87506; 87631; 93005; 94002; 94003; 94640; 94660; 97162; 97166; 97530; 97535; 99285; J7030; J7050; A4216; J1940

== ENCOUNTER → 2024-10-11 12:24 | Outpatient (REF) | payer MEDICARE, SELFPAY ==
--- OUTSIDE RECORDS SUMMARY | 2025-02-04 07:35 | XMS RPT_ITS | CCD ---
Author Organization [facility] Inform ion Partnership [facility] Care Team Providers Care Bar Finish Operator Name Role Phone Dr. Nehemiah Flanagan Primary Care Provider [phone] Dr. Nehemiah Flanagan Referring Provider [phone] Mkia KLELER, PA Sariah Durham Attending Provider Nehemiah Flanagan MD Unavailable Arun LYNN, Dr. Lazaro Ledesma Unavailable Medicine [facility], Pulmonary Unavailable Robinson LYNN, Dr. Talbot Unavailable [facility], ([facility]) Unavailable Justo RESORT MANAGER, Maggie Unavailable [phone] Elliott LYNN, Dr. Sebastian Unavailable Arturo CONSULTING PROJECT DIRECTOR, Adrienne Unavailable Tam TORRESN, Ceci Lorenz Unavailable Unavailable Gogoi (scribe), Hemanta Unavailable Unavaila quinn Baltazar LPN, Rosita Unavailable Unavailable Stephanie SPENCER, Virgie Tipton Unavailable [phone] Larry SPENCER, Josh Lorenz Unavailable Daya Juarez Unavailable Unavailable Larry CARRANZA, Rosario Cross Unavailable Unavail able Toby TORRESN, Sariah Unavailable Unavailable Garrick CARRANZA, Virgie Gomez Unavailable Unavaila quinn Fernando LPN, Daquan Unavailable Unavailable Rodger CARRANZA, Mercy Orantes Unavailable Unavailable Ayanna TORRESN, Olive K Unavailable Unavaradha Hollis PA-C, Martha Bonilla Unavailable Mamta DUMONT, Keyla Bain Unavailable Unavailab yesy Navarro MASariah Unavailable Unavailable Vess CONSULTING PROJECT DIRECTOR, Josr L Unavailable Unavailable Wefransiscaerd CONSULTING PROJECT DIRECTOR, Yokasta Unavailable Unavailabl e Keon CONSULTING PROJECT DIRECTOR, Nara Unavailable Unavailable Unavailable Unavailable Dr. Nehemiah Flanagan Primary Care Provider Dr. Nehemiah Flanagan Referring Provider ARIANNA Sandy Attending Provider Dr. Romulo Gallagher Attending Provider ARIANNA Sandy Referring Provider ARIANNA Sandy Other Provider Dr. John Dias Attending Provider Dr. Nehemiah Flanagan Primary Care Provider Dr. Nehemiah Flanagan Referring Provider ARIANNA Sandy Attending Provider Justo INTEGRATED CIRCUIT IC LAYOUT DESIGNER, INTEGRATED CIRCUIT IC LAYOUT DESIGNER-C Maggie Attending Provider Dr. Key Dent Emergency [...] Provider Dr. John Dias Attending Provider Justo INTEGRATED CIRCUIT IC LAYOUT DESIGNER, INTEGRATED CIRCUIT IC LAYOUT DESIGNER-Sarthak Serrano Attending Provider Dr. Key Dent Emergency [...] Provider Dr. Farrukh Flanagan Other Provider Dr. Yuri Garcia Other Provider [phone] Dr. Mark Ortiz Other Provider Dr. Viridiana Bashir Other Provider Dr. Kendell Thompson Other Provider Dr. Nessa Gagnon Other Provider Dr. Lakhwinder Corrales Other Provider Unavailable Dr. Kel Ernandez Other Provider Dr. Tera Nowak Other Provider [phone] Arvind Coronel Other Provider Dr. Adrien Palmer Other Provider Dr. Ayaz Harvey Other Provider [phone] Farrukh Flanagan Attending Provider Dr. Jerson Avelar Other Provider Dr. Jerson [...] 02-Mar-2024 Start: 01-14-2023 take 1 capsule by [facility] once daily Omeprazole 20 MG Oral [...] Flanagan Start: 29-Sep-2019 End: 13-Oct-2019 Status: Inactive [id number] 200 actuat albuterol 0.09 mg/actuat metered dose [...] 10, 2023 9:39am August 27, 2023 2:42pm Py-Hxp-Jwnis-F8-Gfcvdoj-Mhff in (Men 50 Plus Multivitamin) 300-600-300 mcg tablet (8 sources) Start: 05-07-2022 End: 09-24-2023 take 50-300 tablets by mouth once daily Pe-Cyd-Tplgq-L2-Fxyqkxe-Cmhjcr (Men 50 Plus Multivitamin) 300-600-300 mcg tablet Discontinued 1 TABLET PO DAILY May 07, 2022 12:00am September 24, 2023 2:53pm Start: 05-07-2022 End: 09-24-2023 take 50-300 tablets by mouth once daily Hf-Kfu-Lrqmu-Q6-Adloamo-Dpprmz (Men 50 P qing Multivitamin) 300-600-300 mcg tablet Discontinued 1 TABLET PO DAILY May 06, 2022 11:00pm September 24, 2023 1:53pm Start: 05-07-2022 take 50-300 tablets by mouth once daily Oy-Fac-Cbnsn-X7-Ivugaaj-Elysiq (Men 50 P qing Multivitamin) 300-600-300 mcg tablet Active 1 TABLET PO DAILY May 06, 2022 11:00pm Start: 05-07-2022 take 50-300 tablets by mouth once daily Tx-Inr-Mxaip-C0-Keyadmn-Wgdfbx (Men 50 P qing Multivitamin) 300-600-300 mcg [...] 42 {Tablet} Refills: 0 Ordered: 22-Oct-2014 MD Nehemiah Flanagan Start: 22-Oct-2014 End: 12-Nov-2014 Status: Inactive [...] Coronary atherosclerosis; Translations: [Atherosclerotic heart disease of [place] coronary artery without angina pectoris] 10-25-2020 Chronic [...] Respiratory failure; insufficiency; arrest (adult) (4 sources) Ynnrp-as-xoizdjf respiratory failure; Translations: [Acute and chronic respiratory [...] changes or weakness. 07-09-2022 Unclassified (20 sources) [facility] Well Adult - In general the patient [...] The patient has a Healthcare Power of Stock Selector and a Living Will. Note for [facility] Well Adult: reviewed by [facility] 01-08-2022 Unclassified [...] yellow thick drainage. 07-11-2021 Unclassified (20 sources) [facility] Well Adult - In general the patient [...] laundry, preparing/taking medications and finances. Note for [facility] Well Adult: reviewed by [facility] 01-08-2021 Unclassified (20 sources) [ADDITIONAL REASON] [...] for Multiple chronic conditions follow-up: reviewed by [facility] 01-19-2020 Unclassified (20 sources) Follow Up [...] but continues with dry cough. reviewed by [facility] 10-27-2018 Unclassified (20 sources) Follow Up [...] having any recent chest pain. reviewed by [facility] 04-10-2018 Unclassified (20 sources) [ADDITIONAL REASON] Transition into care - The patient is transitioning into care from another physician (Dr. Avitia 11/26/2017 Trim Attacher) and a summary of care was reviewed. [...] Multiple Chronic Conditions 10-10-2017 Unclassified (20 sources) [facility] Routine Follow up - The patient [...] was reviewed . 04-17-2016 Unclassified (20 sources) [facility] Routine Follow up - The patient [...] reviewed. 01-08-2021 Unclassified (16 sources) [ADDITIONAL REASON] [facility] Well Adult - In general the patient [...] laundry, preparing/taking medications and finances. Note for [facility] Well Adult: reviewed by [facility] 01-08-2021 Unclassified [...] care from another physician (Dr. Avitia 11/26/2017 Trim Attacher) and a summary of care was reviewed. [...] for Insect bite/sting: Was out in the [employer]. 07-15-2019 Unclassified (20 sources) Dizziness - The [...] lot to the right to watch the parts analyst behind him. Has had some tightness of [...] here to follow-up after Emergency Room/Urgent Care ([facility] with kidney stones.) on : [...] patient is here to follow-up after hospitalization ([facility] with hypoxemia, Pulmonary fibrosis) on : (09-24-23 to 09-26-23). Note for Consultation follow-up: Is feeling well, average pulse ox 91-95 reviewed by B 10-07-2023 Results Test Name Value Interpretation Reference Range Facility Pulmonary Visit Reporton Pulmonary Visit Report [facility] [place] [address] [place] [address] OFFICE VISIT Date of Service: 11/09/24 MR#: [id number] Acct: [id number] Name: DU BACAMONTSERRAT Rep #: [id number] : 1950 Provider: Madan Soni NP Age/Sex: 74/M Location: [facility]PM[place] Status: Signed Assessment and Plan Assessment and [...] Source Monitor (more content not included)... Normal [facility] 6 Minute Walk Teston 025 6 Minute Walk Test y [facility] Pulmonary Services/Neurology [address] [place] [address] MR#: [id number] Acct: [id number] Name: DU BACA Rep #: [id number] : 1950 74 From: Farrukh Flanagan DO Referring Dr: Madan Soni INTEGRATED CIRCUIT IC LAYOUT DESIGNER-C Status: DEP CLI Location: PSN Date: Sex: [...] CC: Date Dictated: 10/29/241332 Date Transcribed: 10/29/241332 Boat Engines Installer: Dr. Farrukh Flanagan, DO Signed Normal [facility] HEPATIC FUNCTION PANELon Albumin [Mass/Vol] 2.9 g/dL Low 3.4 - 5.0 [facility] Comment on above: Performed By: #### 2 09869 #### [facility],[address] [place], [place] [id number] ALK PHOS 97 U/L Normal 46 - 116 [facility] Comment on above: Performed By: #### 2 98601 #### [facility],[address] [place] [address] 02941 ALT [Catalytic activity/Vol] 34 U/L Normal 16 - 63 [facility] Comment on above: Performed By: #### 2 91324 #### [facility],[address] [place] [address] 83373 AST [Catalytic activity/Vol] 20 U/L Normal 15 - 37 [facility] Comment on above: Performed By: #### 2 33061 #### [facility],[address] [place] [address] 09219 Bilirubin [Mass/Vol] 0.7 mg/dL Normal 0.2 - 1.0 [facility] Comment on above: Performed By: #### 2 55117 #### [facility],[address] [place] [address] 80448 Bilirubin.direct [Mass/Vol] 0.2 mg/dL Normal 0.0 - 0.2 [facility] Comment on above: Performed By: #### 2 65622 #### [facility],[address] [place] [address] 06437 Hepatic function 2000 panel Normal [facility] Comment on above: Result Comment: HEPA TIC FUNCTION PROFILE Performed By: #### 2 60452 #### [facility],[address] [place] [address] 84428 Protein [Mass/Vol] 6.7 g/dL Normal 6.4 - 8.2 [facility] Comment on above: Performed By: #### 2 61700 #### [facility],[address] [place] [address] 26196 HEPATIC FUNCTION PANELon Albumin [Mass/Vol] 2.7 g/dL Low 3.4 - 5.0 [facility] Comment on above: Performed By: #### 2 75524 #### [facility],[address] [place] [address] 61373 ALK PHOS 96 U/L Normal 46 - 116 [facility] Comment on above: Performed By: #### 2 06922 #### [facility],[address] [place] [address] 58620 ALT [Catalytic activity/Vol] 36 U/L Normal 16 - 63 [facility] Comment on above: Performed By: #### 2 72406 #### [facility],[address] [place] [address] 93439 AST [Catalytic activity/Vol] 27 U/L Normal 15 - 37 [facility] Comment on above: Performed By: #### 2 67370 #### [facility],[address] [place] [address] 19552 Bilirubin [Mass/Vol] 0.8 mg/dL Normal 0.2 - 1.0 [facility] Comment on above: Performed By: #### 2 16623 #### [facility],[address] [place] [address] 73710 Bilirubin.direct [Mass/Vol] 0.2 mg/dL Normal 0.0 - 0.2 [facility] Comment on above: Performed By: #### 2 25816 #### [facility],[address] [place] [address] 78354 Hepatic function 2000 panel Normal [facility] Comment on above: Result Comment: HEPA TIC FUNCTION PROFILE Performed By: #### 2 47808 #### [facility],[address] [place] [address] 01718 Protein [Mass/Vol] 6.6 g/dL Normal 6.4 - 8.2 [facility] Comment on above: Performed By: #### 2 46473 #### [facility],[address] [place] [address] 94399 HEPATIC FUNCTION PANELon Albumin [Mass/Vol] 2.7 g/dL Low 3.4 - 5.0 [facility] Comment on above: Performed By: #### 2 40022 #### [facility],[address] [place] [address] 80315 ALK PHOS 96 U/L Normal 46 - 116 [facility] Comment on above: Performed By: #### 2 19377 #### [facility],[address] [place] [address] 96127 ALT [Catalytic activity/Vol] 53 U/L Normal 16 - 63 [facility] Comment on above: Performed By: #### 2 44847 #### [facility],[address] [place] [address] 03672 AST [Catalytic activity/Vol] 30 U/L Normal 15 - 37 [facility] Comment on above: Performed By: #### 2 50884 #### [facility],[address] [place] [address] Bilirubin [Mass/Vol] 0.5 mg/dL Normal 0.2 - 1.0 [facility] Comment on above: Performed By: #### 2 50240 #### [facility],[address] [place] [address] Bilirubin.direct [Mass/Vol] 0.2 mg/dL Normal 0.0 - 0.2 [facility] Comment on above: Performed By: #### 2 37575 #### [facility],[address] [place] [address] Hepatic function 2000 panel Normal [facility] Comment on above: Result Comment: HEPA TIC FUNCTION PROFILE Performed By: #### 2 60098 #### [facility],[address] [place] [address] Protein [Mass/Vol] 6.6 g/dL Normal 6.4 - 8.2 [facility] Comment on above: Performed By: #### 2 72490 #### [facility],[address] [place], [place] [id number] Pulmonary Visit Reporton Pulmonary Visit Report [facility] Pulmonary Medicine of [address] [place] [address] OFFICE VISIT Date of Service: 08/10/24 MR#: [id number] Acct: [id number] Name: DU BACA Rep #: [id number] : 1950 Provider: Madan Soni NP Age/Sex: 74/M Location: [facility] [place].PMW Status: Signed Assessment and Plan Assessment and [...] 3 Intake Visit Reasons: 6 M [place] [facility] [place]: [employer] through Hospice Accompanied by: Allergies No Known Allergies Allergy (Verified 08/10/24 13:03) Medications ???Medication ???Instructions ???Recorded ???Confirmed ???Type omeprazole 20 mg capsule,delayed 20 mg PO DAILY ACID REFLUX (more content not included)... Normal [facility] HEPATIC FUNCTION PANELon Albumin [Mass/Vol] 2.7 g/dL Low 3.4 - 5.0 [facility] Comment on above: Performed By: #### 2 69250 #### [facility],[address] [place] [address] ALK PHOS 114 U/L Normal 46 - 116 [facility] Comment on above: Performed By: #### 2 67079 #### [facility],[address] [place], [place] [id number] ALT [Catalytic activity/Vol] 48 U/L Normal 16 - 63 [facility] Comment on above: Performed By: #### 2 45883 #### [facility],[address] [place], [place] [address] AST [Catalytic activity/Vol] 27 U/L Normal 15 - 37 [facility] Comment on above: Performed By: #### 2 87905 #### [facility],[address] [place] [address] 62304 Bilirubin [Mass/Vol] 0.8 mg/dL Normal 0.2 - 1.0 [facility] Comment on above: Performed By: #### 2 59339 #### [facility],[address] [place] [address] Bilirubin.direct [Mass/Vol] 0.2 mg/dL Normal 0.0 - 0.2 [facility] Comment on above: Performed By: #### 2 38735 #### [facility],[address] [place], [place] [address] Hepatic function 2000 panel Normal [facility] Comment on above: Result Comment: HEPA TIC FUNCTION PROFILE Performed By: #### 2 11498 #### [facility],[address] [place], [place] [phone] Protein [Mass/Vol] 6.8 g/dL Normal 6.4 - 8.2 [facility] Comment on above: Performed By: #### 2 16419 #### [facility],[address] [place], [place] [id number] Pulmonary Visit Reporton Pulmonary Visit Report [facility] Pulmonary Medicine of [address] [place] [id number] OFFICE VISIT Date of Service: 02/03/24 MR#: [id number] Acct: [id number] Name: DU BACA Rep #: [id number] : 1950 Provider: CORIE Kemp Age/Sex: 73/M Location: [facility] [place].PMW Status: Signed Assessment and Plan Assessment and Plan (1) Pulmonary hypertension: Status: Chronic Plan: Symptomatically stable. (2) Pulmonary fibrosis: Status: Chronic Plan: Tolerating Ofev well. This will be continued without interruption. (3) Hypoxemia: Status: Chronic Plan: The patient is using and benefiting from oxygen. Continue to utilize to maintain a saturation of 89-92%. Follow-up in 6 months. 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 Normal [facility] HEPATIC FUNCTION PANELon Albumin [Mass/Vol] 2.9 g/dL Low 3.4 - 5.0 [facility] Comment on above: Performed By: #### 2 68085 #### [facility],[address] [place] [address] ALK PHOS 104 U/L Normal 46 - 116 [facility] Comment on above: Performed By: #### 2 75184 #### [facility],[address] [place] [address] 84393 ALT [Catalytic activity/Vol] 43 U/L Normal 16 - 63 [facility] Comment on above: Performed By: #### 2 24014 #### [facility],[address] [place] [address] 62491 AST [Catalytic activity/Vol] 23 U/L Normal 15 - 37 [facility] Comment on above: Performed By: #### 2 27527 #### [facility],[address] [place] [address] 68637 Bilirubin [Mass/Vol] 0.7 mg/dL Normal 0.2 - 1.0 [facility] Comment on above: Performed By: #### 2 70606 #### [facility],[address] [place] [address] 21595 Bilirubin.direct [Mass/Vol] 0.2 mg/dL Normal 0.0 - 0.2 [facility] Comment on above: Performed By: #### 2 89754 #### [facility],[address] [place] [address] 86558 Hepatic function 2000 panel Normal [facility] Comment on above: Result Comment: HEPA TIC FUNCTION PROFILE Performed By: #### 2 79135 #### [facility],[address] [place] [address] 07035 Protein [Mass/Vol] 7.1 g/dL Normal 6.4 - 8.2 [facility] Comment on above: Performed By: #### 2 34841 #### [facility],[address] [place] [address] 42638 HEPATIC FUNCTION PANELon Albumin [Mass/Vol] 2.3 g/dL Low 3.4 - 5.0 [facility] Comment on above: Performed By: #### 2 15390 #### [facility],[address] [place] [address] 49894 ALK PHOS 93 U/L Normal 46 - 116 [facility] Comment on above: Performed By: #### 2 58481 #### [facility],[address] [place] [address] 52853 ALT [Catalytic activity/Vol] 21 U/L Normal 16 - 63 [facility] Comment on above: Performed By: #### 2 15698 #### [facility],[address] [place] [address] 79121 AST [Catalytic activity/Vol] 22 U/L Normal 15 - 37 [facility] Comment on above: Performed By: #### 2 65650 #### [facility],[address] [place] [address] 99139 Bilirubin [Mass/Vol] 1.1 mg/dL High 0.2 - 1.0 [facility] Comment on above: Performed By: #### 2 78135 #### [facility],[address] [place] [address] 15345 Bilirubin.direct [Mass/Vol] 0.3 mg/dL High 0.0 - 0.2 [facility] Comment on above: Performed By: #### 2 63154 #### [facility],[address] [place] [address] Hepatic function 2000 panel Normal [facility] Comment on above: Result Comment: HEPA TIC FUNCTION PROFILE Performed By: #### 2 56445 #### [facility],[address] [place] [address] Protein [Mass/Vol] 6.1 g/dL Low 6.4 - 8.2 [facility] Comment on above: Performed By: #### 2 25181 #### [facility],[address] [place] [address] Absolute lymphocyte countOrd ered By: Jerson Avelar on 12-05-2023 Lymphocytes Auto (Unsp spec) [#/Vol] 1.33 10*3/uL 0.83-4.51 [facility] Automated lymphocyte count a s percentage of total leukocytesOrdered By: Jerson Avelar on 12-05-2023 Lymphocytes/100 WBC Auto (Unsp spec) 14.7 % 19-41 [facility] Basophil percentageOrdered B y: Jerson Avelar on 12-05-2023 Basophils/100 WBC (Bld) 0.2 % 0-[address] [facility] Chloride [Moles/Vol] 96 mmol/L 98-107 [facility] Eosinophils/100 WBC (Bld) 0.3 % 0-5 [facility] Glucose [Mass/Vol] 104 mg/dL 74-[address] [facility] Comment on above: Fasting Glucose resu lt from 100 to 125 mg/dL suggests IMPAIRED HOMEOSTASIS per A.D.A. criteria. Hemoglobin (Bld) [Mass/Vol] 13.6 g/dL 13.0-16.5 [facility] Monocytes/100 WBC (Bld) 7.1 % 0-[address] [facility] Neutrophils (Bld) [#/Vol] 7.0 10*3/uL 2.0-7.7 [facility] Neutrophils/100 WBC (Bld) 77.4 % 47-70 [facility] Potassium [Moles/Vol] 3.3 mmol/L 3.5-5.1 [facility] Sodium [Moles/Vol] 137 mmol/L 136-[address] [facility] WBC (Bld) [#/Vol] 9.0 10*3/uL 4.4-11.[address] [facility] Determination of erythrocyte mean corpuscular volume (MCV)Ordered By: Jerson Avelar on 12-05-2023 MCV (RBC) [Entitic vol] 92.0 fL 80-94 [facility] Erythrocyte distribution wid th ratioOrdered By: Jerson Avelar on 12-05-2023 Erythrocyte distribution width (RBC) [Ratio] 15.6 % 11.6-14.6 [facility] Erythrocyte distribution wid th standard deviationOrdered By: Jerson Avelar on 12-05-2023 Erythrocyte distribution width (RBC) [Entitic vol] 52.2 fL 35.1-43.9 [facility] Hematocrit Auto (Bld) [Volum e fraction]Ordered By: Jerson Avelar on 12-05-2023 Hematocrit (Bld) [Volume fraction] 42.8 % 40-54 [facility] Immature granulocytes/100 WB C Auto (Bld)Ordered By: Jerson Avelar on 12-05-2023 Immature granulocytes/100 WBC (Bld) 0.300 % 0.0-0.9 [facility] Comment on above: IG% - Immature Granu locytes (promyelocytes, myelocytes and metamyelocytes) > 1% indicates that a LEFT SHIFT is Present. Laboratory - Chemistry and C hemistry - challengeOrdered By: Jerson Avelar on 12-05-2023 CO2 [Moles/Vol] 39.0 mmol/L 21.0-32.0 [facility] Urea nitrogen/Creatinine [Mass ratio] 28.7 mg/mg 10-20 [facility] Laboratory - Hematology and Cell countsOrdered By: Jerson Avelar on 12-05-2023 MCH (RBC) [Entitic mass] 29.2 pg 27.0-32.0 [facility] MCHC (RBC) [Mass/Vol] 31.8 g/dL 32-36 [facility] Nucleated RBC/100 WBC (Bld) [Ratio] 0 % 0-5 [facility] Platelet mean volume (Bld) [Entitic vol] 11.4 fL 6.2-12.0 [facility] Platelets (Bld) [#/Vol] 151 10*3/uL 150-450 [facility] No Panel InformationOrdered By: Jerson Avelar on 12-05-2023 Estimated Creatinine Clearance Calc 78.14 ml/min [facility] Estimated GFR (MDRD) Amer 110 mL/min >60 [facility] Comment on above: GFR Calc Estimated GFR (MDRD) Non-Af Amer 91 mL/min >60 [facility] Comment on above: Non- GFR Calc RBC Auto (Bld) [#/Vol]Ordere d By: Jerson Avelar on 12-05-2023 RBC (Bld) [#/Vol] 4.65 10*6/uL 4.6-6.2 [facility] Serum or plasma calcium rosalio urement (mass/volume)Ordered By: Jerson Avelar on 12-05-2023 Calcium [Mass/Vol] 8.3 mg/dL 8.5-10.[address] [facility] Serum or plasma creatinine m easurement (mass/volume)Ordered By: Jerson Avelar on 12-05-2023 Creatinine [Mass/Vol] 0.87 mg/dL 0.70-1.30 [facility] Comment on above: The validity of the calculated GFR & GFRAA in patients over 70 years has not been determined. Clinical correlation is essential. Serum or plasma urea nitroge n measurement (mass/volume)Ordered By: Jerson Avelar on 12-05-2023 Urea nitrogen [Mass/Vol] 25 mg/dL 7-18 [facility] Thin prep Papanicolaou smear with manual screeningOrdered By: Jerson Avelar on 12-05-2023 Thin prep Papanicolaou smear with manual screening 2 5-15 [facility] Clostridioides difficile nuc leic acid assay by PCROrdered By: Jerson Avelar on 12-04-2023 C. difficile DNA NELI+probe Ql (Unsp spec) [facility] Laboratory - Chemistry and C hemistry - challengeOrdered By: Jerson Avelar on 12-04-2023 Magnesium [Mass/Vol] 1.7 mg/dL 1.6-2.6 [facility] Stool enteric pathogen panel by probe and target amplification methodOrdered By: Jerson Avelar on 12-04-2023 Gastrointestinal pathogens panel NELI+probe (Stl) [facility] Basophil percentageOrdered B y: Ankit Jeet on 12-03-2023 Bilirubin [Mass/Vol] 1.00 mg/dL 0.20-1.00 [facility] Comment on above: For patients on eltr ombopag therapy, use of Dimension [place] TBIL is not recommended. Protein [Mass/Vol] 6.2 g/dL 6.4-8.[address] [facility] Laboratory - Chemistry and C hemistry - challengeOrdered By: Ankit Marcano on 12-03-2023 Albumin/Globulin [Mass ratio] 0.7 {ratio} 0.9-2.4 [facility] ALP [Catalytic activity/Vol] 73 U/L 45-117 [facility] ALT [Catalytic activity/Vol] 44 U/L 16-61 [facility] Globulin (S) [Mass/Vol] 3.6 g/dL 2.2-4.2 [facility] Thin prep Papanicolaou smear with manual screeningOrdered By: Ankit Marcano on 12-03-2023 Thin prep Papanicolaou smear with manual screening 2.6 g/dL 3.2-5.0 [facility] Thin prep Papanicolaou smear with manual screening 25 U/L 15-37 [facility] Serum procalcitonin measurem entOrdered By: Farrukh Flanagan on 12-02-2023 Procalcitonin [Mass/Vol] ng/mL 0.00-0.09 [facility] Comment on above: A procalcitonin (PCT ) [...] Auto (Unsp spec) [#/Vol] 0.76 10*3/uL 0.83-4.51 [facility] Automated lymphocyte count a s percentage of total leukocytesOrdered By: Sunita Mckenna on 12-01-2023 Lymphocytes/100 WBC Auto (Unsp spec) 8.4 % 19-41 [facility] Base excessOrdered By: Alisson Mckenna on 12-01-2023 Base excess Calc (BldV) [Moles/Vol] 11 mmol/L -2-2 [facility] Basophil percentageOrdered B y: Sunita Mckenna on 12-01-2023 Basophil percentage 38 mmol/L [facility] Basophils/100 WBC (Bld) 96 % 95-[address] [facility] Basophils/100 WBC (Bld) 0.4 % 0-[address] [facility] Chloride [Moles/Vol] 94 mmol/L 98-107 [facility] Eosinophils/100 WBC (Bld) 1.2 % 0-5 [facility] Glucose [Mass/Vol] 124 mg/dL 74-[address] [facility] Comment on above: Fasting Glucose resu lt from 100 to 125 mg/dL suggests IMPAIRED HOMEOSTASIS per A.D.A. criteria. Hemoglobin (Bld) [Mass/Vol] 13.9 g/dL 13.0-16.5 [facility] Monocytes/100 WBC (Bld) 3.9 % 0-[address] [facility] Neutrophils (Bld) [#/Vol] 7.7 10*3/uL 2.0-7.7 [facility] Neutrophils/100 WBC (Bld) 85.5 % 47-70 [facility] Potassium [Moles/Vol] 3.8 mmol/L 3.5-5.1 [facility] Comment on above: Moderate Hemolysis, Result may be falsely increased. Sodium [Moles/Vol] 135 mmol/L 136-[address] [facility] WBC (Bld) [#/Vol] 9.0 10*3/uL 4.4-11.[address] [facility] Determination of erythrocyte mean corpuscular volume (MCV)Ordered By: Sunita Mckenna on 12-01-2023 MCV (RBC) [Entitic vol] 92.1 fL 80-94 [facility] Erythrocyte distribution wid th ratioOrdered By: Sunita Mckenna on 12-01-2023 Erythrocyte distribution width (RBC) [Ratio] 16.4 % 11.6-14.6 [facility] Erythrocyte distribution wid th standard deviationOrdered By: Sunita Mckenna on 12-01-2023 Erythrocyte distribution width (RBC) [Entitic vol] 54.3 fL 35.1-43.9 [facility] Hematocrit Auto (Bld) [Volum e fraction]Ordered By: Sunita Mckenna on 12-01-2023 Hematocrit (Bld) [Volume fraction] 45.6 % 40-54 [facility] Immature granulocytes/100 WB C Auto (Bld)Ordered By: Sunita Mckenna on 12-01-2023 Immature granulocytes/100 WBC (Bld) 0.600 % 0.0-0.9 [facility] Comment on above: IG% - Immature Granu locytes (promyelocytes, myelocytes and metamyelocytes) > 1% indicates that a LEFT SHIFT is Present. Laboratory - Chemistry and C hemistry - challengeOrdered By: Sunita Mckenna on 12-01-2023 CO2 [Moles/Vol] 37.0 mmol/L 21.0-32.0 [facility] Natriuretic peptide B (Bld) [Mass/Vol] 720.5 pg/mL 0-100 [facility] Urea nitrogen/Creatinine [Mass ratio] 22.5 mg/mg 10-20 [facility] Laboratory - Hematology and Cell countsOrdered By: Sunita Mckenna on 12-01-2023 MCH (RBC) [Entitic mass] 28.1 pg 27.0-32.0 [facility] MCHC (RBC) [Mass/Vol] 30.5 g/dL 32-36 [facility] Nucleated RBC/100 WBC (Bld) [Ratio] 0 % 0-5 [facility] Platelet mean volume (Bld) [Entitic vol] 11.9 fL 6.2-12.0 [facility] Platelets (Bld) [#/Vol] 186 10*3/uL 150-450 [facility] Laboratory - Microbiology an d Antimicrobial susceptibilityOrdered By: Sunita Mckenna on 12-01-2023 SARS-CoV-2 (COVID-19) RNA NELI+probe Ql (Unsp spec) [facility] Measurement, pHOrdered By: Sarthak Mckenna on 12-01-2023 pH (Unsp spec) 7.41 [pH] 7.35-7.45 [facility] No Panel InformationOrdered By: Ankit Marcano on 12-01-2023 D-Dimer Quantitative (PE/DVT) 0.56 FEU/ug/m 0.27-0.49 [facility] Comment on above: D-Dimer ELEVATED (>0 .49): Additional studies and clinicalassessments are indicated to conclude diagnosis of:Deep Vein Thrombosis (DVT) or Pulmonary Embolism (PE)CRITICAL VALUE VERIFIED. CALLED TO [id number] Alicia Emily Ely.RESULTS READ BACK BY SAME . No Panel InformationOrdered By: Sunita Mckenna on 12-01-2023 Arterial Blood Partial Pressure CO2 57.3 mmHg 35-45 [facility] Arterial Blood Partial Pressure O2 86 mmHG 75-100 [facility] Blood Gas Bicarbonate Actual 36.0 mmol/L 22-26 [facility] Blood Gas Oxygen Percent 15.0 [facility] Blood Gas Sample Site L Brach [facility] Blood Gas Specimen Type ART [facility] Blood Gas Vent Mode Not entered [facility] Oxygen Delivery Device [facility] Estimated Creatinine Clearance Calc 76.74 ml/min [facility] Estimated GFR (MDRD) Amer 91 mL/min >60 [facility] Comment on above: GFR Calc Estimated GFR (MDRD) Non-Af Amer 76 mL/min >60 [facility] Comment on above: Non- GFR Calc Troponin I High Sensitivity 34 pg/mL 3.0-78.0 [facility] Comment on above: Please Note: New Teresa t Units and Gender Specific Reference Ranges. For more information see Policy Stat Procedure [place] High Sensitivity Troponin (TNIH) and attachments. RBC Auto (Bld) [#/Vol]Ordere d By: Sunita Mckenna on 12-01-2023 RBC (Bld) [#/Vol] 4.95 10*6/uL 4.6-6.2 [facility] Serum or plasma calcium rosalio urement (mass/volume)Ordered By: Sunita Mckenna on 12-01-2023 Calcium [Mass/Vol] 9.3 mg/dL 8.5-10.[address] [facility] Serum or plasma creatinine m easurement (mass/volume)Ordered By: Sunita Mckenna on 12-01-2023 Creatinine [Mass/Vol] 1.02 mg/dL 0.70-1.30 [facility] Comment on above: The validity of the calculated GFR & GFRAA in patients over 70 years has not been determined. Clinical correlation is essential. Serum or plasma urea nitroge n measurement (mass/volume)Ordered By: Sunita Mckenna on 12-01-2023 Urea nitrogen [Mass/Vol] 23 mg/dL 7-18 [facility] Thin prep Papanicolaou smear with manual screeningOrdered By: Sunita Mckenna on 12-01-2023 Thin prep Papanicolaou smear with manual screening 4 5-15 [facility] Absolute lymphocyte countOrd ered By: Muna Bowers on 09-25-2023 Lymphocytes Auto (Unsp spec) [#/Vol] 0.91 10*3/uL 0.83-4.51 [facility] Automated lymphocyte count a s percentage of total leukocytesOrdered By: Muna Bowers on 09-25-2023 Lymphocytes/100 WBC Auto (Unsp spec) 7.1 % 19-41 [facility] Basophil percentageOrdered B y: Muna Bowers on 09-25-2023 Basophils/100 WBC (Bld) 0.1 % 0-1 [facility] Bilirubin [Mass/Vol] 0.80 mg/dL 0.20-1.00 [facility] Comment on above: For patients on eltr ombopag therapy, use of Dimension [place] TBIL is not recommended. Chloride [Moles/Vol] 107 mmol/L 98-107 [facility] Eosinophils/100 WBC (Bld) 0.0 % 0-5 [facility] Glucose [Mass/Vol] 146 mg/dL 74-[address] [facility] Comment on above: Fasting Glucose resu lt greater than or equal to 126 mg/dL suggests DIABETES MELLITUS per A.D.A. criteria. Hemoglobin (Bld) [Mass/Vol] 14.5 g/dL 13.0-16.5 [facility] Monocytes/100 WBC (Bld) 1.8 % 0-10 [facility] Neutrophils (Bld) [#/Vol] 11.5 10*3/uL 2.0-7.7 [facility] Neutrophils/100 WBC (Bld) 90.3 % 47-70 [facility] Potassium [Moles/Vol] 4.4 mmol/L 3.5-5.1 [facility] Protein [Mass/Vol] 7.1 g/dL 6.4-8.[address] [facility] Sodium [Moles/Vol] 136 mmol/L 136-[address] [facility] WBC (Bld) [#/Vol] 12.8 10*3/uL 4.4-11.0 [facility] Determination of erythrocyte mean corpuscular volume (MCV)Ordered By: Muna Bowers on 09-25-2023 MCV (RBC) [Entitic vol] 90.4 fL 80-94 [facility] Erythrocyte distribution wid th ratioOrdered By: Muna Bowers on 09-25-2023 Erythrocyte distribution width (RBC) [Ratio] 13.6 % 11.6-14.6 [facility] Erythrocyte distribution wid th standard deviationOrdered By: Muna Bowers on 09-25-2023 Erythrocyte distribution width (RBC) [Entitic vol] 45.2 fL 35.1-43.9 [facility] Hematocrit Auto (Bld) [Volum e fraction]Ordered By: Muna Bowers on 09-25-2023 Hematocrit (Bld) [Volume fraction] 45.1 % 40-54 [facility] Immature granulocytes/100 WB C Auto (Bld)Ordered By: Muna Bowers on 09-25-2023 Immature granulocytes/100 WBC (Bld) 0.700 % 0.0-0.9 [facility] Comment on above: IG% - Immature Granu locytes (promyelocytes, myelocytes and metamyelocytes) > 1% indicates that a LEFT SHIFT is Present. Laboratory - Chemistry and C hemistry - challengeOrdered By: Muna Bowers on 09-25-2023 Albumin/Globulin [Mass ratio] 0.6 {ratio} 0.9-2.4 [facility] ALP [Catalytic activity/Vol] 92 U/L 45-117 [facility] ALT [Catalytic activity/Vol] 25 U/L 16-61 [facility] CO2 [Moles/Vol] 24.0 mmol/L 21.0-32.0 [facility] Globulin (S) [Mass/Vol] 4.5 g/dL 2.2-4.2 [facility] Magnesium [Mass/Vol] 2.2 mg/dL 1.6-2.6 [facility] Urea nitrogen/Creatinine [Mass ratio] 24.3 mg/mg 10-20 [facility] Laboratory - Hematology and Cell countsOrdered By: Muna Bowers on 09-25-2023 MCH (RBC) [Entitic mass] 29.1 pg 27.0-32.0 [facility] MCHC (RBC) [Mass/Vol] 32.2 g/dL 32-36 [facility] Nucleated RBC/100 WBC (Bld) [Ratio] 0 % 0-5 [facility] Platelets (Bld) [#/Vol] 226 10*3/uL 150-450 [facility] No Panel InformationOrdered By: Muna Bowers on 09-25-2023 Estimated Creatinine Clearance Calc 70.43 ml/min [facility] Estimated GFR (MDRD) Amer 87 mL/min >60 [facility] Comment on above: GFR Calc Estimated GFR (MDRD) Non-Af Amer 72 mL/min >60 [facility] Comment on above: Non- GFR Calc Platelet mean volume Ari-Ec ker (Bld) [Entitic vol]Ordered By: Muna Bowers on 09-25-2023 Platelet mean volume (Bld) [Entitic vol] 10.6 fL 6.2-12.0 [facility] RBC Auto (Bld) [#/Vol]Ordere d By: Muna Bowers on 09-25-2023 RBC (Bld) [#/Vol] 4.99 10*6/uL 4.6-6.2 [facility] Serum or plasma calcium rosalio urement (mass/volume)Ordered By: Muna Bowers on 09-25-2023 Calcium [Mass/Vol] 9.2 mg/dL 8.5-10.[address] [facility] Serum or plasma creatinine m easurement (mass/volume)Ordered By: Muna Bowers on 09-25-2023 Creatinine [Mass/Vol] 1.07 mg/dL 0.70-1.30 [facility] Comment on above: The validity of the calculated GFR & GFRAA in patients over 70 years has not been determined. Clinical correlation is essential. Serum or plasma thyroid stim ulating hormone (TSH) measurement (units/volume)Ordered By: Muna Bowers on 09-25-2023 TSH Qn 0.50 uIU/mL 0.358-3.74 [facility] Serum or plasma urea nitroge n measurement (mass/volume)Ordered By: Muna Bowers on 09-25-2023 Urea nitrogen [Mass/Vol] 26 mg/dL 7-18 [facility] Thin prep Papanicolaou smear with manual screeningOrdered By: Muna Bowers on 09-25-2023 Thin prep Papanicolaou smear with manual screening 2.6 g/dL 3.2-5.0 [facility] Thin prep Papanicolaou smear with manual screening 16 U/L 15-37 [facility] Thin prep Papanicolaou smear with manual screening 5 5-15 [facility] Absolute lymphocyte countOrd ered By: ED PROVIDER on 09-24-2023 Lymphocytes Auto (Unsp spec) [#/Vol] 1.43 10*3/uL 0.83-4.51 [facility] Automated lymphocyte count a s percentage of total leukocytesOrdered By: ED PROVIDER on 09-24-2023 Lymphocytes/100 WBC Auto (Unsp spec) 13.7 % 19-41 [facility] Basophil percentageOrdered B y: Remus Ungur on 09-24-2023 Lactate [Moles/Vol] 1.3 mmol/L 0.4-2.0 [facility] Basophil percentageOrdered B y: ED PROVIDER on 09-24-2023 Basophils/100 WBC (Bld) 0.7 % 0-1 [facility] Chloride [Moles/Vol] 107 mmol/L 98-107 [facility] Eosinophils/100 WBC (Bld) 1.8 % 0-5 [facility] Glucose [Mass/Vol] 153 mg/dL 74-[address] [facility] Comment on above: Fasting Glucose resu lt greater than or equal to 126 mg/dL suggests DIABETES MELLITUS per A.D.A. criteria. Hemoglobin (Bld) [Mass/Vol] 15.6 g/dL 13.0-16.5 [facility] Monocytes/100 WBC (Bld) 5.6 % 0-10 [facility] Neutrophils (Bld) [#/Vol] 8.1 10*3/uL 2.0-7.7 [facility] Neutrophils/100 WBC (Bld) 77.6 % 47-70 [facility] Potassium [Moles/Vol] 3.6 mmol/L 3.5-5.1 [facility] Sodium [Moles/Vol] 139 mmol/L 136-[address] [facility] WBC (Bld) [#/Vol] 10.4 10*3/uL 4.4-11.0 [facility] Determination of erythrocyte mean corpuscular volume (MCV)Ordered By: ED PROVIDER on 09-24-2023 MCV (RBC) [Entitic vol] 91.2 fL 80-94 [facility] Erythrocyte distribution wid th ratioOrdered By: ED PROVIDER on 09-24-2023 Erythrocyte distribution width (RBC) [Ratio] 13.8 % 11.6-14.6 [facility] Erythrocyte distribution wid th standard deviationOrdered By: ED PROVIDER on 09-24-2023 Erythrocyte distribution width (RBC) [Entitic vol] 46.1 fL 35.1-43.9 [facility] Hematocrit Auto (Bld) [Volum e fraction]Ordered By: ED PROVIDER on 09-24-2023 Hematocrit (Bld) [Volume fraction] 49.5 % 40-54 [facility] Immature granulocytes/100 WB C Auto (Bld)Ordered By: ED PROVIDER on 09-24-2023 Immature granulocytes/100 WBC (Bld) 0.600 % 0.0-0.9 [facility] Comment on above: IG% - Immature Granu locytes (promyelocytes, myelocytes and metamyelocytes) > 1% indicates that a LEFT SHIFT is Present. Laboratory - Chemistry and C hemistry - challengeOrdered By: ED PROVIDER on 09-24-2023 CO2 [Moles/Vol] 28.0 mmol/L 21.0-32.0 [facility] Urea nitrogen/Creatinine [Mass ratio] 10.9 mg/mg 10-20 [facility] Laboratory - Chemistry and C hemistry - challengeOrdered By: Muna Bowers on 09-24-2023 Natriuretic peptide B (Bld) [Mass/Vol] 262.7 pg/mL 0-100 [facility] Laboratory - Hematology and Cell countsOrdered By: ED PROVIDER on 09-24-2023 MCH (RBC) [Entitic mass] 28.7 pg 27.0-32.0 [facility] MCHC (RBC) [Mass/Vol] 31.5 g/dL 32-36 [facility] Nucleated RBC/100 WBC (Bld) [Ratio] 0 % 0-5 [facility] Platelets (Bld) [#/Vol] 222 10*3/uL 150-450 [facility] Laboratory - Microbiology an d Antimicrobial susceptibilityOrdered By: Key Dent on 09-24-2023 Bacteria identified Cx Nom (Bld) No growth in 5 days. [facility] SARS-CoV-2 (COVID-19) RNA NELI+probe Ql (Unsp spec) [facility] Bacteria identified Cx Nom (Bld) No growth in 5 days. [facility] No Panel InformationOrdered By: Key Dent on 09-24-2023 D-Dimer Quantitative (PE/DVT) 0.49 FEU/ug/m 0.27-0.49 [facility] Comment on above: NORMAL D-Dimer level (<0.50) indicates no DVT or PE. Troponin I High Sensitivity 25 pg/mL 3.0-78.0 [facility] Comment on above: Please Note: New Teresa t Units and Gender Specific Reference Ranges. For more information see Policy Stat Procedure [place] High Sensitivity Troponin (TNIH) and attachments. No Panel InformationOrdered By: ED PROVIDER on 09-24-2023 Estimated Creatinine Clearance Calc 55.33 ml/min [facility] Estimated GFR (MDRD) Amer 65 mL/min >60 [facility] Comment on above: GFR Calc Estimated GFR (MDRD) Non-Af Amer 54 mL/min >60 [facility] Comment on above: Non- GFR Calc Platelet mean volume Ari-Ec ker (Bld) [Entitic vol]Ordered By: ED PROVIDER on 09-24-2023 Platelet mean volume (Bld) [Entitic vol] 10.2 fL 6.2-12.0 [facility] RBC Auto (Bld) [#/Vol]Ordere d By: ED PROVIDER on 09-24-2023 RBC (Bld) [#/Vol] 5.43 10*6/uL 4.6-6.2 [facility] Respiratory pathogens detect ion panel by molecular detection methodOrdered By: Muna Bowers on 09-24-2023 Respiratory pathogens DNA and RNA panel NELI+probe (Resp) [facility] Respiratory pathogens DNA and RNA panel NELI+probe (Resp) [facility] Serum or plasma calcium rosalio urement (mass/volume)Ordered By: ED PROVIDER on 09-24-2023 Calcium [Mass/Vol] 9.6 mg/dL 8.5-10.[address] [facility] Serum or plasma creatinine m easurement (mass/volume)Ordered By: ED PROVIDER on 09-24-2023 Creatinine [Mass/Vol] 1.37 mg/dL 0.70-1.30 [facility] Comment on above: The validity of the calculated GFR & GFRAA in patients over 70 years has not been determined. Clinical correlation is essential. Serum or plasma urea nitroge n measurement (mass/volume)Ordered By: ED PROVIDER on 09-24-2023 Urea nitrogen [Mass/Vol] 15 mg/dL 7-18 [facility] Serum procalcitonin measurem entOrdered By: Muna Bowers on 09-24-2023 Procalcitonin [Mass/Vol] ng/mL 0.00-0.09 [facility] Comment on above: A procalcitonin (PCT ) [...] Papanicolaou smear with manual screening 4 5-15 [facility] Absolute lymphocyte countOrd ered By: Sariah Brennan on 05-21-2023 Lymphocytes Auto (Unsp spec) [#/Vol] 2.04 10*3/uL 0.83-4.51 [facility] Basophil percentageOrdered B y: Sariah Brennan on 05-21-2023 Basophils/100 WBC (Bld) 0.8 % 0-1 [facility] Chloride [Moles/Vol] 105 mmol/L 98-107 [facility] Eosinophils/100 WBC (Bld) 3.5 % 0-5 [facility] Glucose [Mass/Vol] 109 mg/dL 74-[address] [facility] Comment on above: Fasting Glucose resu lt from 100 to 125 mg/dL suggests IMPAIRED HOMEOSTASIS per A.D.A. criteria. Neutrophils (Bld) [#/Vol] 4.5 10*3/uL 2.0-7.7 [facility] Neutrophils/100 WBC (Bld) 60.2 % 47-70 [facility] Potassium [Moles/Vol] 4.0 mmol/L 3.5-5.1 [facility] Sodium [Moles/Vol] 137 mmol/L 136-[address] [facility] WBC (Bld) [#/Vol] 7.5 10*3/uL 4.4-11.[address] [facility] Blood erythrocytes count (nu mber/volume)Ordered By: Sariah Brennan on 05-21-2023 RBC (Bld) [#/Vol] 5.91 10*6/uL 4.6-6.2 [facility] Blood hemoglobin measurement (mass/volume)Ordered By: Sariah Brennan on 05-21-2023 Hemoglobin (Bld) [Mass/Vol] 17.3 g/dL 13.0-16.5 [facility] Blood lymphocytes/100 leukoc ytesOrdered By: Sariah Brennan on 05-21-2023 Lymphocytes/100 WBC (Bld) 27.2 % 19-41 [facility] Blood monocytes/100 leukocyt esOrdered By: Sariah Brennan on 05-21-2023 Monocytes/100 WBC (Bld) 7.6 % 0-10 [facility] Blood platelet mean volumeOr dered By: Sariah Brennan on 05-21-2023 Platelet mean volume (Bld) [Entitic vol] 10.8 fL 6.2-12.0 [facility] Determination of erythrocyte mean corpuscular volume (MCV)Ordered By: Sariah Brennan on 05-21-2023 MCV (RBC) [Entitic vol] 93.9 fL 80-94 [facility] Hematocrit Auto (Bld) [Volum e fraction]Ordered By: Sariah Brennan on 05-21-2023 Hematocrit (Bld) [Volume fraction] 55.5 % 40-54 [facility] Laboratory - Chemistry and C hemistry - challengeOrdered By: Sariah Brennan on 05-21-2023 CO2 [Moles/Vol] 28.0 mmol/L 21.0-32.0 [facility] Urea nitrogen/Creatinine [Mass ratio] 8.1 mg/mg 10-20 [facility] Laboratory - Hematology and Cell countsOrdered By: Sariah Brennan on 05-21-2023 Erythrocyte distribution width (RBC) [Entitic vol] 47.6 fL 35.1-43.9 [facility] Erythrocyte distribution width (RBC) [Ratio] 13.8 % 11.6-14.6 [facility] Immature granulocytes/100 WBC (Bld) 0.700 % 0.0-0.9 [facility] Comment on above: IG% - Immature Granu locytes (promyelocytes, myelocytes and metamyelocytes) > 1% indicates that a LEFT SHIFT is Present. MCH (RBC) [Entitic mass] 29.3 pg 27.0-32.0 [facility] Nucleated RBC/100 WBC (Bld) [Ratio] 0 % 0-5 [facility] MCHC Auto (RBC) [Mass/Vol]Or dered By: Sariah Brennan on 05-21-2023 MCHC (RBC) [Mass/Vol] 31.2 g/dL 32-36 [facility] No Panel InformationOrdered By: Sariah Brennan on 05-21-2023 Estimated GFR (MDRD) Amer 73 mL/min >60 [facility] Comment on above: GFR Calc Estimated GFR (MDRD) Non-Af Amer 60 mL/min >60 [facility] Comment on above: Non- GFR Calc Thyroid Stimulating Hormone (TSH) 2.98 uIU/mL 0.358-3.74 [facility] Platelets bldOrdered By: Bud jessica Mika on 05-21-2023 Platelets (Bld) [#/Vol] 185 10*3/uL 150-450 [facility] Serum or plasma calcium rosalio urement (mass/volume)Ordered By: Sariah Brennan on 05-21-2023 Calcium [Mass/Vol] 9.4 mg/dL 8.5-10.[address] [facility] Serum or plasma creatinine m easurement (mass/volume)Ordered By: Sariah Brennan on 05-21-2023 Creatinine [Mass/Vol] 1.24 mg/dL 0.70-1.30 [facility] Comment on above: The validity of the calculated GFR & GFRAA in patients over 70 years has not been determined. Clinical correlation is essential. Serum or plasma urea nitroge n measurement (mass/volume)Ordered By: Sariah Brennan on 05-21-2023 Urea nitrogen [Mass/Vol] 10 mg/dL 7-18 [facility] Thin prep Papanicolaou smear with manual screeningOrdered By: Sariah Brennan on 05-21-2023 Thin prep Papanicolaou smear with manual screening 4 5-15 [facility] Laboratory - Chemistry and C hemistry - challengeon 01-07-2023 Albumin [Mass/Vol] 4.0 g/dL Normal 3.6 - 5.1 g/dL [facility], [facility] Albumin/Globulin [Mass ratio] 1.3 {ratio} Normal 1.0 - 2.5 [facility], [facility].; [facility], [facility]. ALP [Catalytic activity/Vol] 73 U/L Normal 35 - 144 U/L [facility], [facility].; [facility], [facility]. ALT [Catalytic activity/Vol] 13 U/L Normal 9 - 46 U/L [facility], [facility].; [facility], [facility]. AST [Catalytic activity/Vol] 14 U/L Normal 10 - 35 U/L [facility], [facility] [facility], [facility]. Bilirubin [Mass/Vol] 0.8 mg/dL Normal 0.2 - 1 .2 mg/dL [facility], [facility].; [facility], [facility]. Calcium [Mass/Vol] 9.7 mg/dL Normal 8.6 - 10. 3 mg/dL [facility], [facility].; [facility], [facility]. Chloride [Moles/Vol] 103 mmol/L Normal 98 - 11 0 mmol/L [facility].; [facility], [facility]. Cholesterol [Mass/Vol] 146 mg/dL Normal [facility], [facility].; [facility], [facility] Cholesterol in HDL [Mass/Vol] 50 mg/dL Normal [facility], [facility].; [facility], [facility]. Cholesterol in LDL [Mass/Vol] 80 mg/dL Normal [facility], [facility].; [place] [employer] [facility], [facility]. CO2 [Moles/Vol] 27 mmol/L Normal 20 - 32 mmol/L [facility].; [facility], [facility]. Creatinine [Mass/Vol] 1.13 mg/dL Normal 0.70 - 1.28 mg/dL [facility], [facility].; [facility], [facility]. GFR/1.73 sq M.predicted among non-blacks MDRD (S/P/Bld) [Vol rate/Area] 68 mL/min/{1.73_m2} Normal [facility], [facility].; [place] [employer] [facility] Glucose [Mass/Vol] 103 mg/dL Abnormal 65 - 99 mg/dL [facility], [facility].; [facility], [facility]. Potassium [Moles/Vol] 4.7 mmol/L Normal 3.5 - 5.3 mmol/L [facility], [facility].; [employer], [facility]. Protein [Mass/Vol] 7.2 g/dL Normal 6.1 - 8.1 g/dL [facility].; [facility] Sodium [Moles/Vol] 138 mmol/L Normal 135 - 146 mmol/L [facility]; [facility] Triglyceride [Mass/Vol] 78 mg/dL Normal [facility]; [place] [facility] [facility] Urea nitrogen [Mass/Vol] 16 mg/dL Normal 7 - 25 mg/dL [facility]; [facility] No Panel Informationon 01-07 BUN/CREATININE RATIO NOT APPLICABLE Normal 6 - 22 [facility]; [employer]. CHOL/HDLC RATIO 2.9 Normal [facility]; [facility] GLOBULIN 3.2 Normal 1.9 - 3.7 [facility]; [facility] NON HDL CHOLESTEROL 96 Normal [facility]; [place] [employer] [facility] PSA, TOTAL 5.69 ng/mL Abnormal [facility]; [place] [facility] [facility] COMPREHENSIVE METABOLIC PANE [facility] 01-02-2022 Albumin [Mass/Vol] 4.2 g/dL Normal 3.6-5.1 [facility] Comment on above: Performed By: #### 7 600, [id number], 6041 #### [facility] [place] [address] Emergency Medical Service Manager: Oli Fong MD Albumin/Globulin [Mass ratio] 1.4 {ratio} Normal 1.0-2.5 [facility] Comment on above: Performed By: #### 7 600, 54667, 5398 #### [facility] [place] [address] Emergency Medical Service Manager: Oli Fong MD ALP [Catalytic activity/Vol] 64 U/L Normal 35-144 [facility] Comment on above: Performed By: #### 7 600, 96115, 4392 #### [facility] [place] [address] Emergency Medical Service Manager: Oli Fong MD ALT [Catalytic activity/Vol] 17 U/L Normal 9-46 [facility] Comment on above: Performed By: #### 7 600, 59542, 5363 #### [facility] of [address], [address] [place] [address] Emergency Medical Service Manager: Oli Fong MD AST [Catalytic activity/Vol] 16 U/L Normal 10-35 [facility] Comment on above: Performed By: #### 7 600, 26524, 5363 #### [facility] of [address], [address] [place] [address] Emergency Medical Service Manager: Oli Fong MD Bilirubin [Mass/Vol] 1.0 mg/dL Normal 0.2-1.2 [facility] Comment on above: Performed By: #### 7 600, 82492, 5363 #### [facility] of [address], [address] [place] [address] Emergency Medical Service Manager: Oli Fong MD BUN/CREATININE RATIO NOT APPLICABLE Normal 6-22 [facility] Comment on above: Performed By: #### 7 600, 49143, 5363 #### [facility] of [address], [address] [place] [address] Emergency Medical Service Manager: Oli Fong MD Calcium [Mass/Vol] 10.1 mg/dL Normal 8.6-10.3 [facility] Comment on above: Performed By: #### 7 600, 10196, 5363 #### [facility] of [address], [address] [place] [address] Emergency Medical Service Manager: Oli Fong MD Chloride [Moles/Vol] 100 mmol/L Normal 98-110 [facility] Comment on above: Performed By: #### 7 600, 92766, 5363 #### [facility] of [address], [address] [place] [address] Emergency Medical Service Manager: Oli Fong MD CO2 [Moles/Vol] 30 mmol/L Normal 20-32 [facility] Comment on above: Performed By: #### 7 600, 90935, 5363 #### [facility] of [address], [address] [place] [address] Emergency Medical Service Manager: Oli Fong MD Creatinine [Mass/Vol] 1.06 mg/dL Normal 0.70-1.[address] [facility] Comment on above: Result Comment: For patients >49 years of age, the reference limit for Creatinine is approximately 13% higher for people identified as -Martiniquais. Performed By: #### 7 600, 64299, 5363 #### [facility] [address], [address] [place] [address] Emergency Medical Service Manager: Oli Fong MD eGFR NON-AFR. NEPALESE 69 mL/min/1.73m2 Normal > OR = 60 [facility] Comment on above: Performed By: #### 7 600, , 5363 #### [facility] [address], [address] [place] [address] Emergency Medical Service Manager: Oli Fong MD GFR/1.73 sq M.predicted among blacks MDRD (S/P/Bld) [Vol rate/Area] 80 mL/min/{1.73_m2} Normal > OR = 60 [facility] Comment on above: Performed By: #### 7 600, 59580, 5363 #### [facility] [address], [address] [place] [address] Emergency Medical Service Manager: Oli Fong MD Globulin (S) [Mass/Vol] 3.1 g/dL Normal 1.9-3.7 [facility] Comment on above: Performed By: #### 7 600, 73518, 5363 #### [facility] [address], [address] [place] [address] Emergency Medical Service Manager: Oli Fong MD Glucose [Mass/Vol] 96 mg/dL Normal 65-99 [facility] Comment on above: Result Comment: Fasting reference interval Performed By: #### 7 600, 57761, 5363 #### [facility] [address], [address] [place] [address] Emergency Medical Service Manager: Oli Fong MD Potassium [Moles/Vol] 4.6 mmol/L Normal 3.5-5.[address] [facility] Comment on above: Performed By: #### 7 600, 32058, 5363 #### [facility] of [address], [address] [place] [address] Emergency Medical Service Manager: Oli Fong MD Protein [Mass/Vol] 7.3 g/dL Normal 6.1-8.1 [facility] Comment on above: Performed By: #### 7 600, 13006, 5363 #### [facility] of [place] [address] Emergency Medical Service Manager: Oli Fong MD Sodium [Moles/Vol] 138 mmol/L Normal 135-146 [facility] Comment on above: Performed By: #### 7 600, 36108, 5363 #### [facility] of [place] [address] Emergency Medical Service Manager: Oli Fong MD Urea nitrogen [Mass/Vol] 12 mg/dL Normal 7-25 [facility] Comment on above: Performed By: #### 7 600, 05199, 5363 #### [facility] of [place] [address] Emergency Medical Service Manager: Oli Fong MD LIPID PANEL, [facility] 05- Cholesterol [Mass/Vol] 150 mg/dL Normal <200 [facility] Comment on above: Performed By: #### 7 600, 31562, 5363 #### [facility] of [place] [address] Emergency Medical Service Manager: Oli Fong MD Cholesterol in HDL [Mass/Vol] 50 mg/dL Normal > OR = 40 [facility] Comment on above: Performed By: #### 7 600, 85236, 5363 #### [facility] of [place] [address] Emergency Medical Service Manager: Oli Fong MD Cholesterol in LDL [Mass/Vol] [...] LDL-C. Db SS et al. LAURA. 2013;310(19): 8499-9118 (http://[email or web address]-[employer]/faq/CGR872) Performed By: #### 7 600, 66595, 5363 #### [facility] [address], [address] [place] [address] Emergency Medical Service Manager: Oli Fong MD Cholesterol.total/Choles terol in HDL [Mass ratio] 3.0 {ratio} Normal <5.0 [facility] Comment on above: Performed By: #### 7 600, 26300, 5363 #### [facility] [place] [address] Emergency Medical Service Manager: Oli Fong MD NON HDL CHOLESTEROL 100 mg/dL (calc) Normal <130 [facility] Comment on above: Result Comment: For patients with diabetes plus 1 major ASCVD risk factor, treating to a non-HDL-C goal of <100 mg/dL (LDL-C of <70 mg/dL) is considered a therapeutic option. Performed By: #### 7 600, 16694, 5363 #### [facility] [place] [address] Emergency Medical Service Manager: Oli Fong MD Triglyceride [Mass/Vol] 134 mg/dL Normal <150 [facility] Comment on above: Performed By: #### 7 600, 32496, 5363 #### [facility] [place] [address] Emergency Medical Service Manager: Oli Fong MD PSA, TOTALon 01-02-2022 PSA, [...] absence of disease. Performed By: #### 7 123, 54026, 9214 #### [facility] [address] [facility], [address] [place] [address] Emergency Medical Service Manager: Oli Fong MD Laboratory - Chemistry and C hemistry - challengeon 01-01-2022 Albumin [Mass/Vol] 4.2 g/dL Normal 3.6 - 5.1 g/dL [facility] [employer] Albumin/Globulin [Mass ratio] 1.4 {ratio} Normal 1.0 - 2.5 [facility] [place] [employer] [facility] ALP [Catalytic activity/Vol] 64 U/L Normal 35 - 144 U/L [facility] [place] [employer] [facility] ALT [Catalytic activity/Vol] 17 U/L Normal 9 - 46 U/L [facility] [employer], [employer] AST [Catalytic activity/Vol] 16 U/L Normal 10 - 35 U/L [place] [employer] [facility].; [employer] Bilirubin [Mass/Vol] 1.0 mg/dL Normal 0.2 - 1 .2 mg/dL [place] [employer] [facility].; [employer], [employer] Calcium [Mass/Vol] 10.1 mg/dL Normal 8.6 - 10. 3 mg/dL [facility] [employer], [employer] Chloride [Moles/Vol] 100 mmol/L Normal 98 - 11 0 mmol/L [facility] [employer], [employer] Cholesterol [Mass/Vol] 150 mg/dL Normal [facility], [facility].; [employer], [employer] Cholesterol in HDL [Mass/Vol] 50 mg/dL Normal [place] [employer] [facility].; [place] [employer] [facility] Cholesterol in LDL [Mass/Vol] 77 mg/dL Normal [place] [employer] [facility].; [employer], [employer] CO2 [Moles/Vol] 30 mmol/L Normal 20 - 32 mmol/L [facility] [employer], [employer] Creatinine [Mass/Vol] 1.06 mg/dL Normal 0.70 - 1.18 mg/dL [facility].; [facility]. GFR/1.73 sq M.predicted among blacks MDRD (S/P/Bld) [Vol rate/Area] 80 mL/min/{1.73_m2} Normal [facility], [facility].; [facility], [facility] Glucose [Mass/Vol] 96 mg/dL Normal 65 - 99 mg/dL [facility].; [facility], [facility] Potassium [Moles/Vol] 4.6 mmol/L Normal 3.5 - 5.3 mmol/L [facility], [facility]; [facility], [facility] Protein [Mass/Vol] 7.3 g/dL Normal 6.1 - 8.1 g/dL [facility]; [facility], [facility] Sodium [Moles/Vol] 138 mmol/L Normal 135 - 146 mmol/L [facility].; [facility], [facility]. Triglyceride [Mass/Vol] 134 mg/dL Normal [facility].; [place] [facility]. Urea nitrogen [Mass/Vol] 12 mg/dL Normal 7 - 25 mg/dL [facility].; [place] [employer] [facility], [facility]. No Panel Informationon 01-01 BUN/CREATININE RATIO NOT APPLICABLE Normal 6 - 22 [facility]; [employer], [facility] CHOL/HDLC RATIO 3.0 Normal [facility]; [facility], [facility] eGFR NON-AFR. NEPALESE 69 Normal [facility]; [place] [employer] [facility] GLOBULIN 3.1 Normal 1.9 - 3.7 [facility].; [place] [employer] [facility], [facility]. NON HDL CHOLESTEROL 100 Normal [facility]; [place] [employer] [facility], [facility] PSA, TOTAL 6.24 ng/mL Abnormal [facility].; [employer], [facility]. Laboratory - Chemistry and C hemistry - challengeon 01-01-2021 Albumin [Mass/Vol] 4.0 g/dL Normal 3.6 - 5.1 g/dL [facility].; [facility] Albumin/Globulin [Mass ratio] 1.3 {ratio} Normal 1.0 - 2.5 [facility], [facility].; [facility], [facility]. ALP [Catalytic activity/Vol] 65 U/L Normal 35 - 144 U/L [facility], [facility].; [facility], [facility]. ALT [Catalytic activity/Vol] 22 U/L Normal 9 - 46 U/L [facility], [facility].; [facility], [facility]. AST [Catalytic activity/Vol] 20 U/L Normal 10 - 35 U/L [facility].; [facility], [facility]. Bilirubin [Mass/Vol] 1.2 mg/dL Normal 0.2 - 1 .2 mg/dL [facility], [facility].; [facility], [facility]. Calcium [Mass/Vol] 9.4 mg/dL Normal 8.6 - 10. 3 mg/dL [facility], [facility].; [facility], [facility]. Chloride [Moles/Vol] 100 mmol/L Normal 98 - 11 0 mmol/L [facility].; [employer], [facility]. Cholesterol [Mass/Vol] 140 mg/dL Normal [facility].; [place] [employer], [facility]. Cholesterol in HDL [Mass/Vol] 47 mg/dL Normal [facility].; [facility], [facility]. Cholesterol in LDL [Mass/Vol] 74 mg/dL Normal [facility], [facility].; [employer], [facility]. CO2 [Moles/Vol] 27 mmol/L Normal 20 - 32 mmol/L [facility].; [facility], [facility]. Creatinine [Mass/Vol] 1.08 mg/dL Normal 0.70 - 1.18 mg/dL [facility], [facility].; [employer], [facility]. GFR/1.73 sq M.predicted among blacks MDRD (S/P/Bld) [Vol rate/Area] 79 mL/min/{1.73_m2} Normal [facility], [facility].; [place] [employer] [facility] Glucose [Mass/Vol] 90 mg/dL Normal 65 - 99 mg/dL [facility], [facility].; [place] [employer], [facility]. Potassium [Moles/Vol] 4.7 mmol/L Normal 3.5 - 5.3 mmol/L [facility]; [place] [employer] [facility] Protein [Mass/Vol] 7.0 g/dL Normal 6.1 - 8.1 g/dL [facility]; [employer] Sodium [Moles/Vol] 136 mmol/L Normal 135 - 146 mmol/L [facility]; [place] [facility] [facility] Triglyceride [Mass/Vol] 106 mg/dL Normal [facility]; [place] [employer] [facility] Urea nitrogen [Mass/Vol] 11 mg/dL Normal 7 - 25 mg/dL [facility]; [place] [employer] [facility] No Panel Informationon 01-01 BUN/CREATININE RATIO NOT APPLICABLE Normal - [facility]; [employer] CHOL/HDLC RATIO 3.0 Normal [facility]; [place] [employer] [facility] eGFR NON-AFR. NEPALESE 68 Normal [facility]; [employer] GLOBULIN 3.0 Normal 1.9 - 3.7 [facility]; [employer] NON HDL CHOLESTEROL 93 Normal [facility]; [employer] PSA, TOTAL 6.4 ng/mL Abnormal [facility]; [employer] SPECIMEN INTEGRITY COMPROMISED See Below Normal [facility]; [employer] Work Phone: No Panel Informationon 01-18 PSA, TOTAL 6.4 ng/mL Abnormal [facility]; [employer] Laboratory - Chemistry and C hemistry - challengeon 05-11-2019 Prostate specific Ag [Mass/Vol] 7.3 ng/mL Abnormal [facility]; [employer] Laboratory - Chemistry and C hemistry - challengeon 01-21-2019 Bilirubin Ql (U) Negative Normal [facility].; [employer] Ketones Ql (U) Negative Normal [facility].; [employer]. pH (U) 6.5 [pH] Normal [facility].; [employer]. Specific gravity (U) [Rel density] 1.010 Normal [facility] HospitalPro[facility]; [employer] Urobilinogen Qn (U) 0.2 mg/dL Normal [facility].; [employer]. Laboratory - Hematology and Cell countson 01-21-2019 Hemoglobin Ql (U) small Abnormal [facility] [employer]; [employer] Laboratory - Microbiology an d Antimicrobial susceptibilityon 01-21-2019 Amikacin [Susc] >32 Normal [facility]; [employer]. Work Phone: Ampicillin [Susc] <=2 Normal [facility]; [employer]. Work Phone: Bacteria identified # 2 Cx Nom (Unsp spec) SEE NOTE Abnormal [facility] Hospital[facility]; [employer]. Bacteria identified Cx Nom (U) SEE NOTE Normal [employer].; [employer]. Bacteria identified Cx Nom (Unsp spec) SEE NOTE Abnormal [facility] Hospital[facility]; [employer]. Cefepime [Susc] 16 Normal [facility]; [employer]. Work Phone: Cefotaxime [Susc] <=2 Normal [facility] Hospital[facility]; [employer]. Work Phone: cefTAZidime [Susc] >16 Normal [employer]; [email or web address]. Work Phone: cefTRIAXone [Susc] 8 Normal [employer]; [employer]. Work Phone: Ciprofloxacin [Susc] 1 Normal [facility] ER[facility].; [email or web address]. Work Phone: Ciprofloxacin [Susc] <=1 Normal [facility] ERPro[facility]Mail; [employer]. Work Phone: Gentamicin [Susc] >8 Normal [facility]; [facility] Work Phone: Imipenem [Susc] <=1 Normal [facility]; [facility] Work Phone: levoFLOXacin [Susc] 2 Normal [facility]; [facility] Work Phone: levoFLOXacin [Susc] <=2 Normal [facility]; [facility] Work Phone: Meropenem [Susc] 4 Normal [facility]; [facility] Work Phone: Nitrofurantoin [Susc] <=16 Normal [facility]; [facility] Work Phone: Penicillin [Susc] 4 Normal [facility]; [facility]. Work Phone: Piperacillin+Sulbactam [Susc] <=16 Normal [facility]; [facility]. Work Phone: Tetracycline [Susc] <=1 Normal [facility]; [facility] Work Phone: Tetracycline [Susc] <=4 Normal [facility]; [facility] Work Phone: Tobramycin [Susc] 8 Normal [facility]; [facility] Work Phone: Trimethoprim+Sulfamethox azole [Susc] <=2/38 Normal [facility]; [facility] Work Phone: Vancomycin [Susc] 1 Normal [facility]; [facility] Work Phone: Laboratory - Specimen inform [facility] 01-21-2019 Appearance (U) cloudy Abnormal [email or web address]. Color (U) yellow Normal [employer]; [employer] Specimen source Nom (Unsp spec) URINE-URINE Normal [employer].; [email or web address]. Laboratory - Urinalysison Glucose Test strip (U) [Mass/Vol] Negative Normal [employer].; [email or web address]. Leukocyte esterase Test strip Ql (U) large Abnormal [employer].; [email or web address]. Nitrite Ql (U) Negative Normal [email or web address]; [email or web address]. Protein Ql (U) Negative Normal [employer].; [email or web address]. Laboratoryon 04-12-2018 Lower GI hemoglobin IA Ql (Stl) Not detected Normal [employer]; [email or web address]. Laboratory - Chemistry and C hemistry - challengeon 04-10-2018 Albumin [Mass/Vol] 4.2 g/dL Normal 3.6 - 5.1 g/dL [employer].; [employer], [employer]. Albumin/Globulin [Mass ratio] 1.5 {ratio} Normal 1.0 - 2.5 [employer].; [email or web address]. ALP [Catalytic activity/Vol] 64 U/L Normal 40 - 115 U/L [employer].; [email or web address]. ALT [Catalytic activity/Vol] 21 U/L Normal 9 - 46 U/L [employer].; [employer], [employer]. AST [Catalytic activity/Vol] 25 U/L Normal 10 - 35 U/L [email or web address].; [email or web address]. Bilirubin [Mass/Vol] 0.9 mg/dL Normal 0.2 - 1 .2 mg/dL [employer].; [employer], [employer]. Calcium [Mass/Vol] 9.1 mg/dL Normal 8.6 - 10. 3 mg/dL [employer].; [email or web address]. Chloride [Moles/Vol] 104 mmol/L Normal 98 - 11 0 mmol/L [facility].; [facility], [facility]. Cholesterol [Mass/Vol] 136 mg/dL Normal [facility]; [facility], [facility] Cholesterol in HDL [Mass/Vol] 47 mg/dL Normal [facility].; [facility], [facility] Cholesterol in LDL [Mass/Vol] 72 mg/dL Normal 0 - 100 mg/dL [facility].; [facility], [facility] [facility] Cholesterol non HDL [Mass/Vol] 90 mg/dL Normal [facility].; [facility], [facility] Cholesterol.total/Choles terol in HDL [Mass ratio] 2.9 {ratio} Normal [facility]; [facility], [facility] CO2 [Moles/Vol] 27 mmol/L Normal 20 - 31 mmol/L [facility], [facility]; [facility], [facility]. Creatinine [Mass/Vol] 1.15 mg/dL Normal 0.70 - 1.25 mg/dL [facility], [facility].; [facility], [facility]. GFR/1.73 sq M.predicted among blacks MDRD (S/P/Bld) [Vol rate/Area] 75 {ML/MIN/1.73M2} Normal [facility], [facility].; [facility], [facility]. GFR/1.73 sq M.predicted MDRD (S/P/Bld) [Vol rate/Area] 65 {ML/MIN/1.73M2} Normal [facility], [facility].; [facility], [facility]. Globulin (S) [Mass/Vol] 2.8 g/dL Normal 1.9 - 3.7 g/dL [facility], [facility].; [facility], [facility]. Glucose [Mass/Vol] 98 mg/dL Normal 65 - 99 mg/dL [facility], [facility].; [facility], [facility]. Potassium [Moles/Vol] 4.5 mmol/L Normal 3.5 - 5.3 mmol/L [facility], [facility].; [facility], [facility] Prostate specific Ag [Mass/Vol] 5.2 ng/mL Abnormal [facility].; [facility], [facility]. Protein [Mass/Vol] 7.0 g/dL Normal 6.1 - 8.1 g/dL [facility], [facility].; [facility], [facility]. Sodium [Moles/Vol] 140 mmol/L Normal 135 - 146 mmol/L [facility], [facility].; [facility], [facility]. Triglyceride [Mass/Vol] 91 mg/dL Normal H [facility].; [facility], [facility]. Urea nitrogen [Mass/Vol] 17 mg/dL Normal 7 - 25 mg/dL [facility], [facility].; [facility], [facility] Urea nitrogen/Creatinine [Mass ratio] 15.0 mg/mg Normal 6 - 22 [facility], [facility].; [facility], [facility]. Laboratory - Chemistry and C hemistry - challengeon 10-06-2017 Albumin [Mass/Vol] 4.3 g/dL Normal 3.6 - 5.1 g/dL [facility], [facility].; [facility], [facility]. Albumin/Globulin [Mass ratio] 1.4 {ratio} Normal 1.0 - 2.5 [facility].; [facility], [facility]. ALP [Catalytic activity/Vol] 71 U/L Normal 40 - 115 U/L [facility], [facility].; [facility], [facility]. ALT [Catalytic activity/Vol] 20 U/L Normal 9 - 46 U/L [facility], [facility].; [employer] [facility] AST [Catalytic activity/Vol] 26 U/L Normal 10 - 35 U/L [facility], [facility].; [facility], [facility]. Bilirubin [Mass/Vol] 1.0 mg/dL Normal 0.2 - 1 .2 mg/dL [facility], [facility].; [employer] [facility], [facility]. Calcium [Mass/Vol] 9.8 mg/dL Normal 8.6 - 10. 3 mg/dL [facility], [facility].; [employer] [facility], [facility]. Chloride [Moles/Vol] 103 mmol/L Normal 98 - 11 0 mmol/L [facility], [facility].; [employer] Cholesterol [Mass/Vol] 166 mg/dL Normal [facility] Cholesterol in HDL [Mass/Vol] 46 mg/dL Normal [facility].; [facility], [facility]. Cholesterol in LDL [Mass/Vol] 96 mg/dL Normal 0 - 100 mg/dL [facility].; [facility], [facility]. Cholesterol non HDL [Mass/Vol] 119 mg/dL Normal [facility], [facility].; [facility], [facility]. Cholesterol.total/Choles terol in HDL [Mass ratio] 3.6 {ratio} Normal [facility].; [facility], [facility]. CO2 [Moles/Vol] 24 mmol/L Normal 20 - 31 mmol/L [facility].; [facility], [facility]. Creatinine [Mass/Vol] 1.17 mg/dL Normal 0.70 - 1.25 mg/dL [facility], [facility].; [facility], [facility]. GFR/1.73 sq M.predicted among blacks MDRD (S/P/Bld) [Vol rate/Area] 73 {ML/MIN/1.73M2} Normal [facility], [facility].; [facility], [facility]. GFR/1.73 sq M.predicted MDRD (S/P/Bld) [Vol rate/Area] 63 {ML/MIN/1.73M2} Normal [facility], [facility].; [facility], [facility]. Globulin (S) [Mass/Vol] 2.9 g/dL Normal 1.9 - 3.7 g/dL [facility], [facility].; [facility], [facility]. Glucose [Mass/Vol] 115 mg/dL Abnormal 65 - 99 mg/dL [facility], [facility].; [facility], [facility]. Potassium [Moles/Vol] 4.6 mmol/L Normal 3.5 - 5.3 mmol/L [facility], [facility].; [facility], [facility]. Protein [Mass/Vol] 7.2 g/dL Normal 6.1 - 8.1 g/dL [facility], [facility].; [facility], [facility]. Sodium [Moles/Vol] 136 mmol/L Normal 135 - 146 mmol/L [facility], [facility].; [facility], [facility]. Triglyceride [Mass/Vol] 138 mg/dL [facility].; [facility], [facility]. Urea nitrogen [Mass/Vol] 18 mg/dL Normal 7 - 25 mg/dL [facility].; [facility], [facility]. Urea nitrogen/Creatinine [Mass ratio] 15.6 mg/mg Normal 6 - 22 [facility].; [facility], [facility]. Laboratory - Chemistry and C hemistry - challengeon 04-09-2017 Albumin [Mass/Vol] 4.1 g/dL Normal 3.6 - 5.1 g/dL [facility], [facility].; [facility], [facility]. Albumin/Globulin [Mass ratio] 1.5 {ratio} Normal 1.0 - 2.5 [facility].; [facility], [facility]. ALP [Catalytic activity/Vol] 55 U/L Normal 40 - 115 U/L [facility].; [facility], [facility]. ALT [Catalytic activity/Vol] 20 U/L Normal 9 - 46 U/L [facility], [facility].; [facility], [facility]. AST [Catalytic activity/Vol] 19 U/L Normal 10 - 35 U/L [facility].; [employer], [facility]. Bilirubin [Mass/Vol] 1.2 mg/dL Normal 0.2 - 1 .2 mg/dL [facility], [facility].; [employer] [facility], [facility]. Calcium [Mass/Vol] 9.4 mg/dL Normal 8.6 - 10. 3 mg/dL [facility], [facility].; [facility] [facility], [facility]. Chloride [Moles/Vol] 102 mmol/L Normal 98 - 11 0 mmol/L [facility].; [facility] [facility], [facility]. Cholesterol [Mass/Vol] 160 mg/dL Normal 125 - 200 mg/dL [facility], [facility].; [facility], [facility]. Cholesterol in HDL [Mass/Vol] 44 mg/dL Normal [facility], [facility].; [facility], [facility]. Cholesterol in LDL [Mass/Vol] 92 mg/dL Normal [facility], [facility].; [employer] [facility], [facility]. Cholesterol non HDL [Mass/Vol] 116 mg/dL Normal [facility], [facility].; [employer] [facility], [facility]. Cholesterol.total/Choles terol in HDL [Mass ratio] 3.6 {ratio} Normal [facility].; [facility]. CO2 [Moles/Vol] 29 mmol/L Normal 20 - 31 mmol/L [facility].; [facility]. Creatinine [Mass/Vol] 1.16 mg/dL Normal 0.70 - 1.25 mg/dL [facility].; [facility], [facility]. GFR/1.73 sq M.predicted among blacks MDRD (S/P/Bld) [Vol rate/Area] 75 {ML/MIN/1.73M2} Normal [facility].; [facility], [facility]. GFR/1.73 sq M.predicted MDRD (S/P/Bld) [Vol rate/Area] 64 {ML/MIN/1.73M2} Normal [facility].; [facility], [facility]. Globulin (S) [Mass/Vol] 2.6 g/dL Normal 1.9 - 3.7 g/dL [facility].; [facility], [facility]. Glucose [Mass/Vol] 98 mg/dL Normal 65 - 99 mg/dL [facility].; [facility], [facility]. Potassium [Moles/Vol] 4.3 mmol/L Normal 3.5 - 5.3 mmol/L [facility].; [facility], [facility]. Protein [Mass/Vol] 6.7 g/dL Normal 6.1 - 8.1 g/dL [facility], [facility].; [facility], [facility]. Sodium [Moles/Vol] 138 mmol/L Normal 135 - 146 mmol/L [facility].; [facility], [facility]. Triglyceride [Mass/Vol] 121 mg/dL Normal H [facility].; [facility], [facility]. Urea nitrogen [Mass/Vol] 18 mg/dL Normal 7 - 25 mg/dL [facility].; [facility], [facility]. Urea nitrogen/Creatinine [Mass ratio] 15.9 mg/mg Normal 6 - 22 [facility].; [facility] [employer] [facility], [facility]. Laboratory - Chemistry and C hemistry - challengeon 10-11-2016 Albumin [Mass/Vol] 4.2 g/dL Normal 3.6 - 5.1 g/dL [facility].; [facility], [facility]. Albumin/Globulin [Mass ratio] 1.2 {ratio} Normal 1.0 - 2.5 [facility].; [facility], [facility]. ALP [Catalytic activity/Vol] 64 U/L Normal 40 - 115 U/L [facility].; [facility], [facility]. ALT [Catalytic activity/Vol] 42 U/L Normal 9 - 46 U/L [facility].; [facility], [facility]. AST [Catalytic activity/Vol] 25 U/L Normal 10 - 35 U/L [facility].; [facility], [facility]. Bilirubin [Mass/Vol] 1.0 mg/dL Normal 0.2 - 1 .2 mg/dL [facility].; [facility], [facility]. Calcium [Mass/Vol] 9.7 mg/dL Normal 8.6 - 10. 3 mg/dL [facility].; [facility]. Chloride [Moles/Vol] 103 mmol/L Normal 98 - 11 0 mmol/L [facility].; [facility], [facility]. Cholesterol [Mass/Vol] 190 mg/dL Normal 125 - 200 mg/dL [facility].; [facility], [facility]. Cholesterol in HDL [Mass/Vol] 52 mg/dL Normal [facility].; [facility], [facility]. Cholesterol in LDL [Mass/Vol] 111 mg/dL Normal [facility].; [facility], [facility]. Cholesterol non HDL [Mass/Vol] 138 mg/dL Normal [facility].; [facility], [facility]. Cholesterol.total/Choles terol in HDL [Mass ratio] 3.7 {ratio} Normal [facility].; [facility]. CO2 [Moles/Vol] 29 mmol/L Normal 20 - 31 mmol/L [facility].; [facility], [facility]. Creatinine [Mass/Vol] 1.13 mg/dL Normal 0.70 - 1.25 mg/dL [facility].; [facility], [facility]. GFR/1.73 sq M.predicted among blacks MDRD (S/P/Bld) [Vol rate/Area] 77 {ML/MIN/1.73M2} Normal [facility], [facility].; [facility], [facility]. GFR/1.73 sq M.predicted MDRD (S/P/Bld) [Vol rate/Area] 66 {ML/MIN/1.73M2} Normal [facility], [facility].; [facility], [facility]. Globulin (S) [Mass/Vol] 3.4 g/dL Normal 1.9 - 3.7 g/dL [facility], [facility].; [employer] [facility], [facility]. Glucose [Mass/Vol] 102 mg/dL Abnormal 65 - 99 mg/dL [facility], [facility].; [facility], [facility]. Potassium [Moles/Vol] 5.0 mmol/L Normal 3.5 - 5.3 mmol/L [facility], [facility].; [facility], [facility]. Protein [Mass/Vol] 7.6 g/dL Normal 6.1 - 8.1 g/dL [facility].; [employer], [facility]. Sodium [Moles/Vol] 138 mmol/L Normal 135 - 146 mmol/L [facility], [facility].; [employer] [facility], [facility]. Triglyceride [Mass/Vol] 134 mg/dL Normal [facility].; [employer] [facility], [facility]. Urea nitrogen [Mass/Vol] 17 mg/dL Normal 7 - 25 mg/dL [facility], [facility].; [employer], [facility]. Urea nitrogen/Creatinine [Mass ratio] 14.8 mg/mg Normal 6 - 22 [facility].; [employer], [facility]. Laboratory - Chemistry and C hemistry - challengeon 04-12-2016 Albumin [Mass/Vol] 4.1 g/dL Normal 3.6 - 5.1 g/dL [facility], [facility].; [employer], [facility]. Albumin/Globulin [Mass ratio] 1.3 {ratio} Normal 1.0 - 2.5 [facility], [facility].; [employer], [facility]. ALP [Catalytic activity/Vol] 55 U/L Normal 40 - 115 U/L [facility].; [employer], [employer]. ALT [Catalytic activity/Vol] 22 U/L Normal 9 - 46 U/L [facility].; [facility]. AST [Catalytic activity/Vol] 21 U/L Normal 10 - 35 U/L [facility].; [facility] [facility], [facility]. Bilirubin [Mass/Vol] 1.0 mg/dL Normal 0.2 - 1 .2 mg/dL [facility].; [facility], [facility]. Calcium [Mass/Vol] 9.6 mg/dL Normal 8.6 - 10. 3 mg/dL [facility].; [facility], [facility]. Chloride [Moles/Vol] 104 mmol/L Normal 98 - 11 0 mmol/L [facility].; [facility], [facility]. Cholesterol [Mass/Vol] 158 mg/dL Normal 125 - 200 mg/dL [facility].; [facility], [facility]. Cholesterol in HDL [Mass/Vol] 53 mg/dL Normal [facility].; [facility]. Cholesterol in LDL [Mass/Vol] 86 mg/dL Normal [facility].; [employer] [facility], [facility]. Cholesterol non HDL [Mass/Vol] 106 mg/dL Normal [facility].; [facility]. Cholesterol.total/Choles terol in HDL [Mass ratio] 3.0 {ratio} Normal [facility].; [facility]. CO2 [Moles/Vol] 26 mmol/L Normal 20 - 31 mmol/L [facility].; [employer] [facility], [facility]. Creatinine [Mass/Vol] 1.09 mg/dL Normal 0.70 - 1.25 mg/dL [facility], [facility].; [facility], [facility]. GFR/1.73 sq M.predicted among blacks MDRD (S/P/Bld) [Vol rate/Area] 81 {ML/MIN/1.73M2} Normal [facility].; [facility], [facility]. GFR/1.73 sq M.predicted MDRD (S/P/Bld) [Vol rate/Area] 70 {ML/MIN/1.73M2} Normal [facility].; [employer] [facility], [facility]. Globulin (S) [Mass/Vol] 3.0 g/dL Normal 1.9 - 3.7 g/dL [facility], [facility].; [facility], [facility]. Glucose [Mass/Vol] 96 mg/dL Normal 65 - 99 mg/dL [facility].; [facility], [facility]. Potassium [Moles/Vol] 4.5 mmol/L Normal 3.5 - 5.3 mmol/L [facility].; [facility], [facility] Protein [Mass/Vol] 7.1 g/dL Normal 6.1 - 8.1 g/dL [facility].; [facility], [facility] Sodium [Moles/Vol] 138 mmol/L Normal 135 - 146 mmol/L [facility].; [facility], [facility] Triglyceride [Mass/Vol] 94 mg/dL Normal [facility]; [facility], [facility] Urea nitrogen [Mass/Vol] 20 mg/dL Normal 7 - 25 mg/dL [facility].; [facility], [facility] Urea nitrogen/Creatinine [Mass ratio] 18.3 mg/mg Normal 6 - 22 [facility]; [facility], [facility] Laboratory - Chemistry and C hemistry - challengeon 10-11-2015 Albumin [Mass/Vol] 4.1 g/dL Normal 3.6 - 5.1 g/dL [facility].; [facility], [facility]. Albumin/Globulin [Mass ratio] 1.4 {ratio} Normal 1.0 - 2.5 [facility].; [facility]. ALP [Catalytic activity/Vol] 59 U/L Normal 40 - 115 U/L [facility].; [facility], [facility]. ALT [Catalytic activity/Vol] 23 U/L Normal 9 - 46 U/L [facility].; [facility], [facility]. AST [Catalytic activity/Vol] 21 U/L Normal 10 - 35 U/L [facility], [facility].; [employer] [facility], [facility]. Bilirubin [Mass/Vol] 0.7 mg/dL Normal 0.2 - 1 .2 mg/dL [facility].; [facility] Calcium [Mass/Vol] 9.8 mg/dL Normal 8.6 - 10. 3 mg/dL [facility], [facility].; [facility], [facility]. Chloride [Moles/Vol] 100 mmol/L Normal 98 - 11 0 mmol/L [facility], [facility].; [facility], [facility]. Cholesterol [Mass/Vol] 166 mg/dL Normal 125 - 200 mg/dL [facility], [facility].; [facility], [facility]. Cholesterol in HDL [Mass/Vol] 54 mg/dL Normal [facility], [facility].; [facility], [facility]. Cholesterol in LDL [Mass/Vol] 91 mg/dL Normal [facility], [facility].; [facility], [facility]. Cholesterol non HDL [Mass/Vol] 112 mg/dL Normal [facility], [facility].; [facility], [facility]. Cholesterol.total/Choles terol in HDL [Mass ratio] 3.1 {ratio} Normal [facility], [facility].; [facility], [facility]. CO2 [Moles/Vol] 29 mmol/L Normal 19 - 30 mmol/L [facility], [facility].; [employer] [facility], [facility]. Creatinine [Mass/Vol] 1.23 mg/dL Normal 0.70 - 1.25 mg/dL [facility], [facility].; [facility], [facility]. GFR/1.73 sq M.predicted among blacks MDRD (S/P/Bld) [Vol rate/Area] 70 {ML/MIN/1.73M2} Normal [facility], [facility].; [facility], [facility]. GFR/1.73 sq M.predicted MDRD (S/P/Bld) [Vol rate/Area] 60 {ML/MIN/1.73M2} Normal [facility], [facility].; [employer] [facility], [facility]. Globulin (S) [Mass/Vol] 3.0 g/dL Normal 1.9 - 3.7 g/dL [facility], [facility].; [employer] [facility] Glucose [Mass/Vol] 80 mg/dL Normal 65 - 99 mg/dL [facility], [facility].; [employer] Potassium [Moles/Vol] Normal [facility].; [facility], [facility]. Protein [Mass/Vol] 7.1 g/dL Normal 6.1 - 8.1 g/dL [facility], [facility].; [facility], [facility]. Sodium [Moles/Vol] 135 mmol/L Normal 135 - 146 mmol/L [facility].; [facility], [facility]. Triglyceride [Mass/Vol] 107 mg/dL Normal H [facility].; [facility], [facility]. Urea nitrogen [Mass/Vol] 20 mg/dL Normal 7 - 25 mg/dL [facility].; [facility], [facility] Urea nitrogen/Creatinine [Mass ratio] 15.9 mg/mg Normal 6 - 22 [facility], [facility].; [facility], [facility]. Laboratory - Chemistry and C hemistry - challengeon 04-10-2015 Albumin [Mass/Vol] 4.2 g/dL Normal 3.6 - 5.1 g/dL [facility], [facility].; [facility], [facility]. Albumin/Globulin [Mass ratio] 1.5 {ratio} Normal 1.0 - 2.5 [facility].; [facility], [facility]. ALP [Catalytic activity/Vol] 56 U/L Normal 40 - 115 U/L [facility], [facility].; [facility], [facility]. ALT [Catalytic activity/Vol] 20 U/L Normal 9 - 46 U/L [facility].; [facility], [facility]. AST [Catalytic activity/Vol] 20 U/L Normal 10 - 35 U/L [facility], [facility].; [facility], [facility]. Bilirubin [Mass/Vol] 0.8 mg/dL Normal 0.2 - 1 .2 mg/dL [facility], [facility].; [facility] [employer] [facility], [facility]. Calcium [Mass/Vol] 9.7 mg/dL Normal 8.6 - 10. 3 mg/dL [facility], [facility].; [facility], [facility]. Chloride [Moles/Vol] 100 mmol/L Normal 98 - 11 0 mmol/L [facility], [facility].; [facility] [employer] [facility], [facility]. Cholesterol [Mass/Vol] 165 mg/dL Normal 125 - 200 mg/dL [facility], [facility].; [facility], [facility]. Cholesterol in HDL [Mass/Vol] 55 mg/dL Normal [facility].; [facility], [facility]. Cholesterol in LDL [Mass/Vol] 86 mg/dL Normal [facility], [facility].; [facility], [facility]. Cholesterol non HDL [Mass/Vol] 110 mg/dL Normal [facility], [facility].; [facility], [facility]. Cholesterol.total/Choles terol in HDL [Mass ratio] 3.0 {ratio} Normal [facility].; [facility], [facility]. CO2 [Moles/Vol] 23 mmol/L Normal 19 - 30 mmol/L [facility], [facility].; [facility], [facility]. Creatinine [Mass/Vol] 1.13 mg/dL Normal 0.70 - 1.25 mg/dL [facility], [facility].; [facility], [facility]. GFR/1.73 sq M.predicted among blacks MDRD (S/P/Bld) [Vol rate/Area] 78 {ML/MIN/1.73M2} Normal [facility], [facility].; [facility], [facility]. GFR/1.73 sq M.predicted MDRD (S/P/Bld) [Vol rate/Area] 67 {ML/MIN/1.73M2} Normal [facility], [facility].; [facility], [facility]. Globulin (S) [Mass/Vol] 2.9 g/dL Normal 1.9 - 3.7 g/dL [facility], [facility].; [facility], [facility]. Glucose [Mass/Vol] 82 mg/dL Normal 65 - 99 mg/dL [facility], [facility].; [facility], [facility]. Potassium [Moles/Vol] 5.9 mmol/L Abnormal 3.5 - 5.3 mmol/L [facility], [facility].; [facility] [employer], [facility]. Prostate specific Ag [Mass/Vol] 3.6 ng/mL Normal 0.0 - 4.0 ng/mL [facility], [facility].; [facility], [facility]. Protein [Mass/Vol] 7.1 g/dL Normal 6.1 - 8.1 g/dL [facility], [facility].; [facility], [facility]. Sodium [Moles/Vol] 136 mmol/L Normal 135 - 146 mmol/L [facility].; [facility] Triglyceride [Mass/Vol] 120 mg/dL Normal [facility] [employer]. Urea nitrogen [Mass/Vol] 15 mg/dL Normal 7 - 25 mg/dL [employer], [facility]. Urea nitrogen/Creatinine [Mass ratio] 13.6 mg/mg Normal 6 - 22 [email or web address]. Laboratory - Chemistry and C hemistry - challengeon 10-22-2014 Bilirubin Ql (U) Negative Normal [facility] [employer]. Ketones Ql (U) Negative Normal [facility] [employer]. pH (U) 5.5 [pH] Normal [employer]. Specific gravity (U) [Rel density] 1.025 Normal [employer] [email or web address]. Urobilinogen Qn (U) 0.2 mg/dL Normal [facility] [email or web address]. Laboratory - Hematology and Cell countson 10-22-2014 Hemoglobin Ql (U) trace, hemolyzed Abnormal [facility] [employer].; [employer]. Laboratory - Specimen inform ationon 10-22-2014 Appearance (U) clear Normal [facility] [email or web address]. Color (U) yellow Normal [email or web address]. Laboratory - Urinalysison Glucose Test strip (U) [Mass/Vol] Negative Normal [email or web address]. Leukocyte esterase Test strip Ql (U) Negative Normal [email or web address]. Protein Ql (U) Negative Normal [facility] [employer], [employer]. Laboratory - UrinalysisOrder ed By: Mercy Soares on 10-22-2014 Nitrite Ql (U) Negative Normal [facility].; [email or web address]. Vital Signs Date Time Vital Sign Value Performing Clinician Facility 12-05-2023 15:49-0400 Body temperature 97.4 [degF] Dr. Nehemiah Flanagan Work Phone: 6(630)039-812414 [place] [address] 12-05-2023 15:49-0400 Diastolic blood pressure 69 mm[Hg] Dr. Nehemiah Flanagan Work Phone: 6(288)695-378445 [place] [address] 12-05-2023 15:49-0400 Heart rate 73 /min Dr. Nehemiah Flanagan Work Phone: 3(614)127-412645 [place] [address] 12-05-2023 15:49-0400 Inhaled oxygen flow rate 6 L/min Dr. Nehemiah Flanagan Work Phone: 1(975)209-199345 [place] [address] 12-05-2023 15:49-0400 Respiratory rate 26 /min Dr. Nehemiah Flanagan Work Phone: 8(282)943-958045 [place] [address] 12-05-2023 15:49-0400 SaO2% (BldA) [Mass fraction] 92 % Dr. Nehemiah Flanagan Work Phone: 1(289)909-115945 [place] [address] 12-05-2023 15:49-0400 Systolic blood pressure 99 mm[Hg] Dr. Nehemiah Flanagan Work Phone: 1(375)653-831845 [place] [address] 12-05-2023 05:17-0400 Body mass index (BMI) [Ratio] 27.4 kg/m2 Dr. Nehemiah Flanagan Work Phone: 6(302)231-496245 [place] [address] 12-05-2023 05:17-0400 Body weight 89.[address] Nehemiah Flanagan Work Phone: 6(862)988-092345 [place] [address] 12-04-2023 10:00-0400 Inhaled oxygen concentration 45 % Dr. Nehemiah Flanagan Work Phone: 5(854)400-747614 [place] [address] 12-02-2023 09:30-0400 Body height 180.[address] Nehemiah Flanagan Work Phone: 2(623)229-367345 [place] [address] 12-01-2023 17:12-0400 Body height 180.[address] Nehemiah Flanagan Work Phone: 0(838)358-448945 [place] [address] 12-01-2023 17:12-0400 Body mass index (BMI) [Ratio] 29 kg/m2 Dr. Nehemiah Flanagan Work Phone: 3(255)992-266314 [address] 12-01-2023 17:12-0400 Body weight 94.[address] Nehemiah Flanagan Work Phone: 0(084)911-082114 [place] [address] 12-01-2023 16:30-0400 Body temperature 96.8 [degF] Dr. Nehemiah Flanagan Work Phone: 3(271)458-945014 [place] [address] 12-01-2023 16:30-0400 Diastolic blood pressure 107 mm[Hg] Dr. Nehemiah Flanagan Work Phone: 7(905)137-926714 [address] 12-01-2023 16:30-0400 Heart rate 100 /min Dr. Nehemiah Flanagan Work Phone: 8(460)519-077145 [place] [address] 12-01-2023 16:30-0400 Respiratory rate 32 /min Dr. Nehemiah Flanagan Work Phone: 8(430)657-532145 [place] [address] 12-01-2023 16:30-0400 SaO2% (BldA) [Mass fraction] 96 % Dr. Nehemiah Flanagan Work Phone: 2(169)881-590714 [place] [address] 12-01-2023 16:30-0400 Systolic blood pressure 148 mm[Hg] Dr. Nehemiah Flanagan Work Phone: 6(836)899-994014 [place] [address] 12-01-2023 16:00-0400 Inhaled oxygen concentration 75 % Dr. Nehemiah Flanagan Work Phone: 9(111)906-947745 [place] [address] 12-01-2023 14:19-0400 Inhaled oxygen flow rate 15 L/min Dr. Nehemiah Flanagan Work Phone: 2(816)357-165514 [place] [address] 10-24-2023 11:50-0500 Body height 180.[address] Nehemiah Flanagan Work Phone: 7(920)540-131414 [place] [address] 10-24-2023 11:50-0500 Body weight 102.[address] Nehemiah Flanagan Work Phone: 1(128)216-802114 [place] [address] 10-24-2023 11:50-0500 Heart rate 88 /min Dr. Nehemiah Flanagan Work Phone: 6(901)544-463914 [place] [address] 10-24-2023 11:50-0500 Inhaled oxygen flow rate 8 L/min Dr. Nehemiah Flanagan Work Phone: 6(124)338-628714 [place] [address] 10-24-2023 11:50-0500 SaO2% (BldA) [Mass fraction] 94 % Dr. Nehemiah Flanagan Work Phone: [facility] 10-23-2023 10:58-0500 Body mass index (BMI) [Ratio] 31.5 kg/m2 Dr. Nehemiah Flanagan Work Phone: [facility] 10-23-2023 10:58-0500 Body temperature 98.6 [degF] Dr. Nehemiah Flanagan Work Phone: [facility] 10-23-2023 10:58-0500 Body weight 99.[address] Nehemiah Flanagan Work Phone: [facility] 10-23-2023 10:58-0500 Diastolic blood pressure 73 mm[Hg] Dr. Nehemiah Flanagan Work Phone: [facility] 10-23-2023 10:58-0500 Heart rate 98 /min Dr. Nehemiah Flanagan Work Phone: [facility] 10-23-2023 10:58-0500 Inhaled oxygen flow rate 3 L/min Dr. Nehemiah Flanagan Work Phone: [facility] 10-23-2023 10:58-0500 Respiratory rate 20 /min Dr. Nehemiah Flanagan Work Phone: [facility] 10-23-2023 10:58-0500 SaO2% (BldA) [Mass fraction] 93 % Dr. Nehemiah Flanagan Work Phone: [facility] 10-23-2023 10:58-0500 Systolic blood pressure 113 mm[Hg] Dr. Nehemiah Flanagan Work Phone: [facility] 10-07-2023 10:56-0500 Body height 179.07 cm [facility], [facility].; [facility], [facility]. 10-07-2023 10:56-0500 Body mass index (BMI) [Ratio] 31.4 kg/m2 [facility], [facility].; [facility], [facility] 10-07-2023 10:56-0500 Body surface area Derived from formula 2.19 m2 Iman Mamta [employer] [facility], [facility].; [facility]. 10-07-2023 10:56-0500 Body weight 100.7 kg [facility].; [facility]. 10-07-2023 10:56-0500 Diastolic blood pressure 93 mm[Hg] [facility].; [facility]. Comment on above: Patient Position: Sitting; Cuff Location : Left Arm; Cuff Size: Large 10-07-2023 10:56-0500 Heart rate 75 /min [facility], [facility].; [facility]. Comment on above: Pattern: Regular 10-07-2023 10:56-0500 Inhaled oxygen concentration 36 % [facility]. Comment on above: 4L O2 10-07-2023 10:56-0500 Oxygen flow rate 4 L/min [facility].; [facility] [facility]. 10-07-2023 10:56-0500 SaO2% (BldA) [Mass fraction] 98 % [facility]. 10-07-2023 10:56-0500 Systolic blood pressure 129 mm[Hg] [facility].; [facility]. Comment on above: Patient Position: Sitting; Cuff Location : Left Arm; Cuff Size: Large 09-26-2023 11:13-0500 Heart rate 79 /min Dr. Nehemiah Flanagan Work Phone: [facility] 09-26-2023 11:13-0500 Respiratory rate 17 /min Dr. Nehemiah Flanagan Work Phone: [facility] 09-26-2023 09:49-0500 Inhaled oxygen flow rate 6 L/min Dr. Nehemiah Flanagan Work Phone: [facility] 09-26-2023 09:49-0500 SaO2% (BldA) [Mass fraction] 81 % Dr. Nehemiah Flanagan Work Phone: 7(628)081-552314 [place] [address] 09-26-2023 09:36-0500 Body temperature 97.4 [degF] Dr. Nehemiah Flanagan Work Phone: 6(596)801-895114 [place] [address] 09-26-2023 09:36-0500 Diastolic blood pressure 77 mm[Hg] Dr. Nehemiah Flanagan Work Phone: 8(309)332-152314 [address] 09-26-2023 09:36-0500 Systolic blood pressure 107 mm[Hg] Dr. Nehemiah Flanagan Work Phone: 0(459)642-164345 [place] [address] 09-26-2023 03:27-0500 Body mass index (BMI) [Ratio] 31.9 kg/m2 Dr. Nehemiah Flanagan Work Phone: 1(130)110-186214 [address] 09-26-2023 03:27-0500 Body weight 101.[address] Nehemiah Flanagan Work Phone: 7(578)977-712614 [address] 09-25-2023 14:35-0500 Body height 177.[address] Nehemiah Flanagan Work Phone: 3(099)234-844014 [address] 09-24-2023 16:19-0500 Diastolic blood pressure 103 mm[Hg] Dr. Nehemiah Flanagan Work Phone: 2(851)053-124145 [place] [address] 09-24-2023 16:19-0500 Heart rate 73 /min Dr. Nehemiah Flanagan Work Phone: 5(757)077-418514 [address] 09-24-2023 16:19-0500 Inhaled oxygen flow rate 2 L/min Dr. Nehemiah Flanagan Work Phone: 2(080)585-471614 [address] 09-24-2023 16:19-0500 Respiratory rate 23 /min Dr. Nehemiah Flanagan Work Phone: 1(697)722-341314 [address] 09-24-2023 16:19-0500 SaO2% (BldA) [Mass fraction] 96 % Dr. Nehemiah Flanagan Work Phone: 6(629)658-309414 [place] [address] 09-24-2023 16:19-0500 Systolic blood pressure 145 mm[Hg] Dr. Nehemiah Flanagan Work Phone: 5(545)084-970045 [place] [address] 09-24-2023 13:33-0500 Body temperature 97.2 [degF] Dr. Nehemiah Flanagan Work Phone: 7(853)465-819045 [place] [address] 09-24-2023 10:38-0500 Body height 178.[address] Nehemiah Flanagan Work Phone: 1(695)594-277345 [place] [address] 09-24-2023 10:38-0500 Body mass index (BMI) [Ratio] 31.3 kg/m2 Dr. Nehemiah Flanagan Work Phone: 4(044)705-143945 [place] [address] 09-24-2023 10:38-0500 Body weight 100.[address] Nehemiah Flanagan Work Phone: 1(336)336-648145 [place] [address] 09-18-2023 07:56-0500 Body mass index (BMI) [Ratio] 31.1 kg/m2 Dr. Nehemiah Flanagan Work Phone: 2(034)953-010845 [place] [address] 09-18-2023 07:56-0500 Body temperature 97.2 [degF] Dr. Nehemiah Flanagan Work Phone: 1(448)585-527645 [place] [address] 09-18-2023 07:56-0500 Body weight 99.[address] Nehemiah Flanagan Work Phone: 1(047)163-512545 [place] [address] 09-18-2023 07:56-0500 Diastolic blood pressure 73 mm[Hg] Dr. Nehemiah Flanagan Work Phone: 6(813)085-083845 [place] [address] 09-18-2023 07:56-0500 Heart rate 94 /min Dr. Nehemiah Flanagan Work Phone: 9(709)586-281345 [place] [address] 09-18-2023 07:56-0500 Respiratory rate 18 /min Dr. Nehemiah Flanagan Work Phone: 1(915)427-765745 [place] [address] 09-18-2023 07:56-0500 SaO2% (BldA) [Mass fraction] 91 % Dr. Nehemiah Flanagan Work Phone: 4(152)766-961245 [place] [address] 09-18-2023 07:56-0500 Systolic blood pressure 104 mm[Hg] Dr. Nehemiah Flanagan Work Phone: 2(818)075-530845 [place] [address] 08-27-2023 13:03-0500 Body height 179.[address] Nehemiah Flanagan Work Phone: [facility] 08-27-2023 13:03-0500 Body mass index (BMI) [Ratio] 31.4 kg/m2 Dr. Nehemiah Flanagan Work Phone: [facility] 08-27-2023 13:03-0500 Body weight 100.[address] Nehemiah Flanagan Work Phone: [facility] 08-27-2023 13:03-0500 Diastolic blood pressure 69 mm[Hg] Dr. Nehemiah Flanagan Work Phone: [facility] 08-27-2023 13:03-0500 Heart rate 103 /min Dr. Nehemiah Flanagan Work Phone: [facility] 08-27-2023 13:03-0500 Respiratory rate 18 /min Dr. Nehemiah Flanagan Work Phone: [facility] 08-27-2023 13:03-0500 SaO2% (BldA) [Mass fraction] 94 % Dr. Nehemiah Flanagan Work Phone: [facility] 08-27-2023 13:03-0500 Systolic blood pressure 108 mm[Hg] Dr. Nehemiah Flanagan Work Phone: [facility] 07-09-2023 08:33-0500 Body height 179.07 cm Sariah Luis LPN [facility], [facility].; [facility], [facility]. 07-09-2023 08:33-0500 Body mass index (BMI) [Ratio] 31.54 kg/m2 Sariah Luis LPN [facility], [facility].; [facility], [facility]. 07-09-2023 08:33-0500 Body surface area Derived from formula 2.2 m2 Sariah Luis LPN [facility], [facility].; [facility], [facility]. 07-09-2023 08:33-0500 Body weight 101.15 kg Sariah Luis LPN [facility], [facility].; [facility], [facility]. 07-09-2023 08:33-0500 Diastolic blood pressure 76 mm[Hg] Sariah Luis LPN [facility], [facility].; [facility], [facility]. Comment on above: Patient Position: Sitting; Cuff Location : Left Arm; Cuff Size: Standard 07-09-2023 08:33-0500 Heart rate 79 /min Sariah Luis LPN [facility], [facility].; [facility], [facility]. Comment on above: Pattern: Regular 07-09-2023 08:33-0500 Systolic blood pressure 112 mm[Hg] Sariah Luis LPN [facility], [facility].; [facility]. Comment on above: Patient Position: Sitting; Cuff Location : Left Arm; Cuff Size: Standard 06-10-2023 07:56-0400 Body mass index (BMI) [Ratio] 31.5 kg/m2 Dr. Nehemiah Flanagan Work Phone: 0(635)861-908545 [place] [address] 06-10-2023 07:56-0400 Body temperature 96.8 [degF] Dr. Nehemiah Flanagan Work Phone: 1(729)561-249545 [place] [address] 06-10-2023 07:56-0400 Body weight 101.[address] Nehemiah Flanagan Work Phone: 7(577)006-478145 [place] [address] 06-10-2023 07:56-0400 Diastolic blood pressure 78 mm[Hg] Dr. Nehemiah Flanagan Work Phone: 9(077)645-682745 [place] [address] 06-10-2023 07:56-0400 Heart rate 84 /min Dr. Nehemiah Flanagan Work Phone: 2(485)962-833745 [place] [address] 06-10-2023 07:56-0400 Respiratory rate 20 /min Dr. Nehemiah Flanagan Work Phone: 9(936)059-116245 [place] [address] 06-10-2023 07:56-0400 SaO2% (BldA) [Mass fraction] 94 % Dr. Nehemiah Flanagan Work Phone: 2(051)842-207445 [place] [address] 06-10-2023 07:56-0400 Systolic blood pressure 132 mm[Hg] Dr. Nehemiah Flanagan Work Phone: 1(193)786-429345 [place] [address] 05-21-2023 09:36-0400 Body height 179.[address] Nehemiah Flanagan Work Phone: 3(142)753-334914 [address] 05-21-2023 09:36-0400 Body mass index (BMI) [Ratio] 31.1 kg/m2 Dr. Nehemiah Flanagan Work Phone: [facility] 05-21-2023 09:36-0400 Body weight 99.[address] Nehmeiah Flanagan Work Phone: [facility] 05-21-2023 09:36-0400 Diastolic blood pressure 98 mm[Hg] Dr. Nehemiah Flanagan Work Phone: [facility] 05-21-2023 09:36-0400 Heart rate 86 /min Dr. Nehemiah Flanagan Work Phone: [facility] 05-21-2023 09:36-0400 Respiratory rate 20 /min Dr. Nehemiah Flanagan Work Phone: [facility] 05-21-2023 09:36-0400 Systolic blood pressure 159 mm[Hg] Dr. Nehemiah Flanagan Work Phone: [facility] 01-14-2023 10:16-0400 Body weight 105.24 kg Nehemiah Flanagan MD Work Phone: [facility]; [employer] [facility] 01-14-2023 10:16-0400 Diastolic blood pressure 74 mm[Hg] Nehemiah Flanagan MD Work Phone: [facility].; [employer]. Comment on above: Patient Position: Sitting; Cuff Location : Left Arm; Cuff Size: Standard 01-14-2023 10:16-0400 Heart rate 53 /min Nehemiah Flanagan MD Work Phone: [facility].; [employer]. Comment on above: Pattern: Regular 01-14-2023 10:16-0400 Systolic blood pressure 122 mm[Hg] Nehemiah Flanagan MD Work Phone: [facility].; [employer]. Comment on above: Patient Position: Sitting; Cuff Location : Left Arm; Cuff Size: Standard 01-10-2023 10:30-0400 Body height 179.07 cm Virgie Mccauley RN [facility].; [employer] 01-10-2023 10:30-0400 Body mass index (BMI) [Ratio] 31.54 kg/m2 Virgie Mccauley RN [facility].; [employer] [facility]. 01-10-2023 10:30-0400 Body surface area Derived from formula 2.2 m2 Virgie Mccauley RN [facility].; [employer]. 01-10-2023 10:30-0400 Body temperature 98 [degF] Virgie Mccauley RN [facility].; [employer]. Comment on above: Method: Tympanic 01-10-2023 10:30-0400 Body weight 101.15 kg Virgie Mccauley RN [facility].; [employer] [facility]. 01-10-2023 10:30-0400 Diastolic blood pressure 82 mm[Hg] Virgie Mccauley RN [facility].; [employer]. Comment on above: Patient Position: Sitting; Cuff Location : Left Arm; Cuff Size: Standard 01-10-2023 10:30-0400 Heart rate 60 /min Virgie Mccauley RN [facility].; [employer]. Comment on above: Pattern: Regular 01-10-2023 10:30-0400 Systolic blood pressure 133 mm[Hg] Virgie Mccauley RN [employer] [facility].; [employer]. Comment on above: Patient Position: Sitting; Cuff Location : Left Arm; Cuff Size: Standard 07-09-2022 10:26-0500 Body height 179.07 cm Sariah Navarro MA [facility].; [employer] [facility]. 07-09-2022 10:26-0500 Body mass index (BMI) [Ratio] 31.54 kg/m2 Sariah Navarro MA [employer] [facility].; [employer] [facility]. 07-09-2022 10:26-0500 Body surface area Derived from formula 2.2 m2 Sariah Navarro MA [facility] [facility] [employer] [facility]. 07-09-2022 10:26-0500 Body weight 101.15 kg Sariah Navarro MA [email or web address]. 07-09-2022 10:26-0500 Diastolic blood pressure 83 mm[Hg] Sariah Navarro MA [email or web address]. Comment on above: Patient Position: Sitting; Cuff Location : Left Arm; Cuff Size: Standard 07-09-2022 10:26-0500 Heart rate 55 /min Sariah Navarro MA [email or web address]. Comment on above: Pattern: Regular 07-09-2022 10:26-0500 Systolic blood pressure 138 mm[Hg] Sariah Navarro MA [email or web address]. Comment on above: Patient Position: Sitting; Cuff Location : Left Arm; Cuff Size: Standard 01-08-2022 09:23-0400 Body height 179.07 cm Nehemiah Flanagan MD Work Phone: [email or web address]. 01-08-2022 09:23-0400 Body mass index (BMI) [Ratio] 31.83 kg/m2 Nehemiah Flanagan MD Work Phone: [email or web address]. 01-08-2022 09:23-0400 Body surface area Derived from formula 2.21 m2 Nehemiah Flanagan MD Work Phone: [email or web address]. 01-08-2022 09:23-0400 Body weight 102.06 kg Nehemiah Flanagan MD Work Phone: [email or web address]. 01-08-2022 09:23-0400 Diastolic blood pressure 76 mm[Hg] Nehemiah Flanagan MD Work Phone: [email or web address]. Comment on above: Patient Position: Sitting; Cuff Location : Left Arm; Cuff Size: Large 01-08-2022 09:23-0400 Heart rate 60 /min Nehemiah Flanagan MD Work Phone: [email or web address]. Comment on above: Pattern: Regular 01-08-2022 09:23-0400 Systolic blood pressure 128 mm[Hg] Nehemiah Flanagan MD Work Phone: [email or web address]. Comment on above: Patient Position: Sitting; Cuff Location : Left Arm; Cuff Size: Large 07-11-2021 08:49-0500 Body height 179.07 cm Nehemiah Flanagan MD Work Phone: [email or web address] 07-11-2021 08:49-0500 Body mass index (BMI) [Ratio] 30.84 kg/m2 Nehemiah Flanagan MD Work Phone: [employer] 07-11-2021 08:49-0500 Body surface area Derived from formula 2.18 m2 Nehemiah Flanagan MD Work Phone: [email or web address]. 07-11-2021 08:49-0500 Body weight 98.88 kg Nehemiah Flanagan MD Work Phone: [email or web address]. 07-11-2021 08:49-0500 Diastolic blood pressure 64 mm[Hg] Nehemiah Flanagan MD Work Phone: [email or web address]. Comment on above: Patient Position: Sitting; Cuff Location : Left Arm; Cuff Size: Standard 07-11-2021 08:49-0500 Heart rate 91 /min Nehemiah Flanagan MD Work Phone: [email or web address] Comment on above: Pattern: Regular 07-11-2021 08:49-0500 Systolic blood pressure 122 mm[Hg] Nehemiah Flanagan MD Work Phone: [email or web address]. Comment on above: Patient Position: Sitting; Cuff Location : Left Arm; Cuff Size: Standard 01-08-2021 09:55-0400 Body height 179.07 cm [facility].; [facility] 01-08-2021 09:55-0400 Body mass index (BMI) [Ratio] 32.25 kg/m2 Keyla Oleary [facility], [facility].; [facility] 01-08-2021 09:55-0400 Body surface area Derived from formula 2.22 m2 Iman Mamta [facility], [facility].; [employer] [facility], [facility]. 01-08-2021 09:55-0400 Body weight 103.42 kg Keyla Oleary [facility], [facility].; [employer] [facility], [facility]. 01-08-2021 09:55-0400 Diastolic blood pressure 80 mm[Hg] Keyla Oleary [facility], [facility].; [employer] [facility], [facility] Comment on above: Patient Position: Sitting; Cuff Location : Left Arm; Cuff Size: Large 01-08-2021 09:55-0400 Heart rate 59 /min Keyla Oleary [facility], [facility].; [employer] [facility], [facility] Comment on above: Pattern: Regular 01-08-2021 09:55-0400 Systolic blood pressure 127 mm[Hg] Keyla Oleary [facility], [facility].; [employer] [facility], [facility] Comment on above: Patient Position: Sitting; Cuff Location : Left Arm; Cuff Size: Large 07-11-2020 10:44-0500 Body height 179.07 cm Nehemiah Flanagan MD Work Phone: [facility], [facility].; [employer] [facility], [facility]. 07-11-2020 10:44-0500 Body mass index (BMI) [Ratio] 31.54 kg/m2 Nehemiah Flanagan MD Work Phone: [facility], [facility].; [employer] 07-11-2020 10:44-0500 Body surface area Derived from formula 2.2 m2 Nehemiah Flanagan MD Work Phone: [facility], [facility] [employer], [facility]. 07-11-2020 10:44-0500 Body weight 101.15 kg Nehemiah Flanagan MD Work Phone: [employer]; [employer] 07-11-2020 10:44-0500 Diastolic blood pressure 69 mm[Hg] Nehemiah Flanagan MD Work Phone: [employer]; [email or web address]. Comment on above: Patient Position: Sitting; Cuff Location : Left Arm; Cuff Size: Large 07-11-2020 10:44-0500 Heart rate 75 /min Nehemiah Flanagan MD Work Phone: [employer]; [employer] Comment on above: Pattern: Regular 07-11-2020 10:44-0500 Inhaled oxygen concentration 20 % Nehemiah Flanagan MD Work Phone: [employer]; [email or web address]. Comment on above: Room air 07-11-2020 10:44-0500 Inhaled oxygen concentration 21 % Nehemiah Flanagan MD Work Phone: [employer]; [email or web address]. Comment on above: Room air 07-11-2020 10:44-0500 SaO2% (BldA) [Mass fraction] 98 % Nehemiah Flanagan MD Work Phone: [employer]; [employer] 07-11-2020 10:44-0500 Systolic blood pressure 108 mm[Hg] Nehemiah Flanagan MD Work Phone: [employer]; [email or web address]. Comment on above: Patient Position: Sitting; Cuff Location : Left Arm; Cuff Size: Large 01-19-2020 07:35-0400 Body height 179.07 cm Mercy Soares RN [employer] 01-19-2020 07:35-0400 Body mass index (BMI) [Ratio] 32.89 kg/m2 Mercy Soares RN [employer] 01-19-2020 07:35-0400 Body surface area Derived from formula 2.24 m2 Mercy Soares RN [employer] 01-19-2020 07:35-0400 Body weight 105.46 kg Mercy Soares RN [facility], [facility].; [facility]. 01-19-2020 07:35-0400 Diastolic blood pressure 69 mm[Hg] Mercy Soares RN [facility], [facility].; [employer] [facility], [facility]. Comment on above: Patient Position: Sitting; Cuff Location : Left Arm; Cuff Size: Standard 01-19-2020 07:35-0400 Heart rate 61 /min Mercy Soares RN [facility], [facility].; [employer], [facility]. Comment on above: Pattern: Regular 01-19-2020 07:35-0400 Systolic blood pressure 108 mm[Hg] Mercy Soares RN [facility], [facility].; [employer] [facility], [facility]. Comment on above: Patient Position: Sitting; Cuff Location : Left Arm; Cuff Size: Standard 12-14-2019 08:01-0400 Body height 179.07 cm Keyla Oleary LPN [facility].; [employer] [facility], [facility]. 12-14-2019 08:01-0400 Body mass index (BMI) [Ratio] 33.24 kg/m2 ImanTaya Oleary LPN [facility], [facility].; [employer] [facility], [facility]. 12-14-2019 08:01-0400 Body surface area Derived from formula 2.25 m2 Keyla Oleary LPN [facility], [facility].; [employer] [facility], [facility]. 12-14-2019 08:01-0400 Body temperature 97.3 [degF] Keyla Oleary LPN [facility], [facility].; [employer], [facility]. Comment on above: Method: Tympanic 12-14-2019 08:01-0400 Body weight 106.6 kg Keyla Oleary LPN [facility], [facility].; [employer], [facility]. 12-14-2019 08:01-0400 Diastolic blood pressure 81 mm[Hg] Keyla Oleary LPN [facility], [facility].; [email or web address]. Comment on above: Patient Position: Sitting; Cuff Location : Left Arm; Cuff Size: Large 12-14-2019 08:01-0400 Heart rate 73 /min Keyla Oleary LPN [employer] [facility], [facility].; [employer], [facility]. Comment on above: Pattern: Regular 12-14-2019 08:01-0400 Inhaled oxygen concentration 20 % Keyla Oleary [facility], [facility].; [employer], [employer] Comment on above: Room air 12-14-2019 08:01-0400 Inhaled oxygen concentration 21 % Keyla Oleary [facility] [employer] [facility], [facility].; [employer], [facility]. Comment on above: Room air 12-14-2019 08:01-0400 SaO2% (BldA) [Mass fraction] 95 % ImanTaya Oleary [facility] [employer] [facility], [facility].; [employer], [facility]. 12-14-2019 08:01-0400 Systolic blood pressure 141 mm[Hg] Keyla Oleary [facility] [employer] [facility], [facility].; [employer], [facility]. Comment on above: Patient Position: Sitting; Cuff Location : Left Arm; Cuff Size: Large 07-15-2019 08:48-0500 Body height 179.07 cm Josr Escamilla [facility] [employer] [facility], [facility].; [employer], [facility]. 07-15-2019 08:48-0500 Body mass index (BMI) [Ratio] 33.1 kg/m2 [employer] [facility] [employer] [facility], [facility].; [employer], [employer] 07-15-2019 08:48-0500 Body surface area Derived from formula 2.24 m2 [employer] [facility] [employer], [employer].; [employer], [facility]. 07-15-2019 08:48-0500 Body temperature 97.6 [degF] [employer] Tay [facility] [email or web address]. Comment on above: Method: Tympanic 07-15-2019 08:48-0500 Body weight 106.14 kg [employer]zbriane Tay Escamilla [facility] [email or web address]. 07-15-2019 08:48-0500 Diastolic blood pressure 68 mm[Hg] Harperlabzilee L Francine [facility] [email or web address]. Comment on above: Patient Position: Sitting; Cuff Location : Left Arm; Cuff Size: Standard 07-15-2019 08:48-0500 Heart rate 70 /min Nebriane Tay Vess CONSULTING PROJECT DIRECTOR [email or web address] Comment on above: Pattern: Regular 07-15-2019 08:48-0500 Systolic blood pressure 112 mm[Hg] Neilee L Vess CONSULTING PROJECT DIRECTOR [employer] Comment on above: Patient Position: Sitting; Cuff Location : Left Arm; Cuff Size: Standard 05-11-2019 07:55-0400 Body height 179.07 cm Nehemiah Flanagan MD Work Phone: [email or web address] 05-11-2019 07:55-0400 Body mass index (BMI) [Ratio] 32.82 kg/m2 Nehemiah Flanagan MD Work Phone: [email or web address] 05-11-2019 07:55-0400 Body surface area Derived from formula 2.23 m2 Nehemiah Flanagan MD Work Phone: [email or web address] 05-11-2019 07:55-0400 Body weight 105.24 kg Nehemiah Flanagan MD Work Phone: [email or web address] 05-11-2019 07:55-0400 Diastolic blood pressure 77 mm[Hg] Nehemiah Flanagan MD Work Phone: [email or web address] Comment on above: Patient Position: Sitting; Cuff Location : Left Arm; Cuff Size: Standard 05-11-2019 07:55-0400 Heart rate 58 /min Nehemiah Flanagan MD Work Phone: [email or web address] Comment on above: Pattern: Regular 05-11-2019 07:55-0400 Systolic blood pressure 123 mm[Hg] Nehemiah Flanagan MD Work Phone: [email or web address] Comment on above: Patient Position: Sitting; Cuff Location : Left Arm; Cuff Size: Standard 03-12-2019 08:30-0400 Body height 179.07 cm Yokasta Nunesliza DUMONT [employer] [facility], [facility].; [employer], [employer] 03-12-2019 08:30-0400 Body mass index (BMI) [Ratio] 32.25 kg/m2 Yokasta Rodriguezlidia DUMONT [employer], [employer].; [employer], [employer] 03-12-2019 08:30-0400 Body surface area Derived from formula 2.22 m2 Yokasta Niñohesham CONSULTING PROJECT DIRECTOR [employer], [employer].; [employer], [employer] 03-12-2019 08:30-0400 Body temperature 97 [degF] Yokasta Arias [facility] [employer], [facility]. Comment on above: Method: Tympanic 03-12-2019 08:30-0400 Body weight 103.42 kg Yokasta Niñohesham [facility] [employer] [facility], [facility].; [employer] 03-12-2019 08:30-0400 Diastolic blood pressure 84 mm[Hg] Yokasta Arias CONSULTING PROJECT DIRECTOR [email or web address]. Comment on above: Patient Position: Sitting; Cuff Location : Left Arm; Cuff Size: Standard 03-12-2019 08:30-0400 Heart rate 62 /min Yokasta Arias TIM [employer], [employer] Comment on above: Pattern: Regular 03-12-2019 08:30-0400 Systolic blood pressure 136 mm[Hg] Yokasta Arias TIM [email or web address]. Comment on above: Patient Position: Sitting; Cuff Location : Left Arm; Cuff Size: Standard 01-21-2019 08:24-0400 Body height 179.07 cm Mercy Soares RN [employer], [facility].; [employer] 01-21-2019 08:24-0400 Body mass index (BMI) [Ratio] 32.07 kg/m2 Mercy Soares RN [employer], [employer], [employer] 01-21-2019 08:24-0400 Body surface area Derived from formula 2.21 m2 Mercy Soares RN [email or web address] 01-21-2019 08:24-0400 Body temperature 97.9 [degF] Mercy Soares RN [email or web address]. Comment on above: Method: Tympanic 01-21-2019 08:24-0400 Body weight 102.83 kg Mercy Soares RN [email or web address] 01-21-2019 08:24-0400 Diastolic blood pressure 71 mm[Hg] Mercy Soares RN [email or web address]. Comment on above: Patient Position: Sitting; Cuff Location : Left Arm; Cuff Size: Standard 01-21-2019 08:24-0400 Heart rate 89 /min Mercy Soares RN [email or web address]. Comment on above: Pattern: Regular 01-21-2019 08:24-0400 Systolic blood pressure 116 mm[Hg] Mercy Soares RN [email or web address]. Comment on above: Patient Position: Sitting; Cuff Location : Left Arm; Cuff Size: Standard 10-27-2018 08:31-0500 Body height 179.07 cm Nehemiah Flanagan MD Work Phone: [email or web address] 10-27-2018 08:31-0500 Body mass index (BMI) [Ratio] 32.39 kg/m2 Nehemiah Flanagan MD Work Phone: [email or web address] 10-27-2018 08:31-0500 Body surface area Derived from formula 2.22 m2 Nehemiah Flanagan MD Work Phone: [email or web address] 10-27-2018 08:31-0500 Body temperature 97.5 [degF] Nehemiah Flanagan MD Work Phone: [email or web address] Comment on above: Method: Tympanic 10-27-2018 08:31-0500 Body weight 103.87 kg Nehemiah Flanagan MD Work Phone: [email or web address] 10-27-2018 08:31-0500 Diastolic blood pressure 80 mm[Hg] Nehemiah Flanagan MD Work Phone: [email or web address] Comment on above: Patient Position: Sitting; Cuff Location : Left Arm; Cuff Size: Large 10-27-2018 08:31-0500 Heart rate 62 /min Nehemiah Flanagan MD Work Phone: [email or web address] Comment on above: Pattern: Regular 10-27-2018 08:31-0500 Inhaled oxygen concentration 20 % Nehemiah Flanagan MD Work Phone: [employer]; [email or web address]. Comment on above: Room air 10-27-2018 08:31-0500 Inhaled oxygen concentration 21 % Nehemiah Flanagan MD Work Phone: [employer]; [email or web address]. Comment on above: Room air 10-27-2018 08:31-0500 SaO2% (BldA) [Mass fraction] 99 % Nehemiah Flanagan MD Work Phone: [employer]; [email or web address]. 10-27-2018 08:31-0500 Systolic blood pressure 146 mm[Hg] Nehemiah Flanagan MD Work Phone: [employer]; [email or web address]. Comment on above: Patient Position: Sitting; Cuff Location : Left Arm; Cuff Size: Large 10-22-2018 10:43-0500 Body height 179.07 cm Virgie Mccauley RN [email or web address] 10-22-2018 10:43-0500 Body mass index (BMI) [Ratio] 32.82 kg/m2 Virgie Mccauley RN [email or web address] 10-22-2018 10:43-0500 Body surface area Derived from formula 2.23 m2 Virgie Mccauley RN [email or web address] 10-22-2018 10:43-0500 Body temperature 99.1 [degF] Virgie Mccauley RN [email or web address]. Comment on above: Method: Tympanic 10-22-2018 10:43-0500 Body weight 105.24 kg Virgie Mccauley RN [email or web address] 10-22-2018 10:43-0500 Diastolic blood pressure 59 mm[Hg] Virgie Mccauley RN [email or web address]. Comment on above: Patient Position: Sitting; Cuff Location : Left Arm; Cuff Size: Standard 10-22-2018 10:43-0500 Inhaled oxygen concentration 20 % Virgie Mccauley RN [email or web address]. Comment on above: Room air 10-22-2018 10:43-0500 Inhaled oxygen concentration 21 % Virgie Mccauley RN [email or web address]. Comment on above: Room air 10-22-2018 10:43-0500 SaO2% (BldA) [Mass fraction] 96 % Virgie Mccauley RN [email or web address] 10-22-2018 10:43-0500 Systolic blood pressure 99 mm[Hg] Virgie Mccauley RN [email or web address]. Comment on above: Patient Position: Sitting; Cuff Location : Left Arm; Cuff Size: Standard 08-26-2018 09:00-0500 Body height 179.07 cm Keyla Oleary LPN [employer], [email or web address] 08-26-2018 09:00-0500 Body mass index (BMI) [Ratio] 33.95 kg/m2 Keyla Oleary LPN [employer] 08-26-2018 09:00-0500 Body surface area Derived from formula 2.27 m2 Keyla Oleary CONSULTING PROJECT DIRECTOR [employer], [facility].; [email or web address] 08-26-2018 09:00-0500 Body temperature 97.1 [degF] Keyla Oleary [facility], [facility].; [employer], [facility]. Comment on above: Method: Tympanic 08-26-2018 09:00-0500 Body weight 108.86 kg Keyla Oleary LPN [facility], [facility].; [employer], [employer] 08-26-2018 09:00-0500 Diastolic blood pressure 83 mm[Hg] Keyla Oleary CONSULTING PROJECT DIRECTOR [facility], [facility].; [employer], [employer] Comment on above: Patient Position: Sitting; Cuff Location : Left Arm; Cuff Size: Large 08-26-2018 09:00-0500 Heart rate 73 /min Keyla Oleary CONSULTING PROJECT DIRECTOR [facility], [facility].; [employer], [facility]. Comment on above: Pattern: Regular 08-26-2018 09:00-0500 Systolic blood pressure 143 mm[Hg] Keyla Oleary CONSULTING PROJECT DIRECTOR [employer] [facility], [facility].; [employer], [employer] Comment on above: Patient Position: Sitting; Cuff Location : Left Arm; Cuff Size: Large 04-10-2018 08:07-0400 Body height 179.07 cm Virgie Mccauley RN [employer] [facility], [facility].; [employer], [facility]. 04-10-2018 08:07-0400 Body mass index (BMI) [Ratio] 33.52 kg/m2 Virgie Mccauley RN [employer] [facility], [facility].; [employer], [employer] 04-10-2018 08:07-0400 Body surface area Derived from formula 2.26 m2 Virgie Mccauley RN [employer] [facility], [facility].; [employer], [facility]. 04-10-2018 08:07-0400 Body weight 107.5 kg Virgie Mccauley RN [employer] [facility], [facility].; [email or web address]. 04-10-2018 08:07-0400 Diastolic blood pressure 85 mm[Hg] Virgie Mccauley RN [employer] [facility], [facility].; [email or web address]. Comment on above: Patient Position: Sitting; Cuff Location : Left Arm; Cuff Size: Standard 04-10-2018 08:07-0400 Heart rate 52 /min Virgie Mccauley RN [facility], [facility].; [employer]. Comment on above: Pattern: Regular 04-10-2018 08:07-0400 Systolic blood pressure 131 mm[Hg] Virgie Mccauley RN [facility], [facility].; [employer]. Comment on above: Patient Position: Sitting; Cuff Location : Left Arm; Cuff Size: Standard 10-13-2017 08:09-0500 Body height 179.07 cm Ceci Turcios LPN [facility].; [employer] 10-13-2017 08:09-0500 Body mass index (BMI) [Ratio] 34.37 kg/m2 Ceci Turcios LPN [facility], [facility].; [employer], [facility] [facility]. 10-13-2017 08:09-0500 Body surface area Derived from formula 2.28 m2 Ceci Turcios LPN [facility], [facility].; [employer], [facility]. 10-13-2017 08:09-0500 Body weight 110.22 kg Ceci Turcios LPN [facility], [facility].; [employer], [facility]. 10-13-2017 08:09-0500 Diastolic blood pressure 66 mm[Hg] Ceci Turcios LPN [employer] [facility], [facility].; [email or web address]. Comment on above: Patient Position: Sitting; Cuff Location : Left Arm; Cuff Size: Standard 10-13-2017 08:09-0500 Heart rate 57 /min Ceci Turcios LPN [facility].; [employer]. Comment on above: Pattern: Regular 10-13-2017 08:09-0500 Systolic blood pressure 113 mm[Hg] Ceci Turcios LPN [employer] [facility], [facility].; [email or web address]. Comment on above: Patient Position: Sitting; Cuff Location : Left Arm; Cuff Size: Standard 04-16-2017 08:31-0400 Body height 179.07 cm Olive Urena CONSULTING PROJECT DIRECTOR [employer] [facility], [facility].; [email or web address]. 04-16-2017 08:31-0400 Body mass index (BMI) [Ratio] 33.81 kg/m2 Olive Urena CONSULTING PROJECT DIRECTOR [facility].; [email or web address]. 04-16-2017 08:31-0400 Body surface area Derived from formula 2.26 m2 Olive Urena CONSULTING PROJECT DIRECTOR [facility], [facility].; [employer], [employer] 04-16-2017 08:31-0400 Body weight 108.41 kg Olive Urena CONSULTING PROJECT DIRECTOR [facility].; [employer] 04-16-2017 08:31-0400 Diastolic blood pressure 73 mm[Hg] Olive Georgebaugh CONSULTING PROJECT DIRECTOR [employer] [facility], [facility].; [email or web address]. Comment on above: Patient Position: Sitting; Cuff Location : Left Arm; Cuff Size: Standard 04-16-2017 08:31-0400 Heart rate 62 /min Olive Urena CONSULTING PROJECT DIRECTOR [facility].; [employer], [facility]. Comment on above: Pattern: Regular 04-16-2017 08:31-0400 Systolic blood pressure 129 mm[Hg] Olive Georgebaugh CONSULTING PROJECT DIRECTOR [employer] [facility], [facility].; [email or web address]. Comment on above: Patient Position: Sitting; Cuff Location : Left Arm; Cuff Size: Standard 10-18-2016 08:52-0500 Body temperature 96.6 [degF] Ceci Turcios [facility] [employer] [facility], [facility].; [employer] 10-18-2016 08:52-0500 Body weight 109.32 kg Ceci Turcios CONSULTING PROJECT DIRECTOR [employer] [facility], [facility].; [email or web address]. 10-18-2016 08:52-0500 Diastolic blood pressure 70 mm[Hg] Ceci Turcios LPN [employer] [facility], [facility].; [email or web address]. Comment on above: Patient Position: Sitting; Cuff Location : Left Arm; Cuff Size: Standard 10-18-2016 08:52-0500 Heart rate 68 /min Ceci Turcios LPN [employer] [facility], [facility].; [email or web address]. Comment on above: Pattern: Regular 10-18-2016 08:52-0500 Inhaled oxygen concentration 20 % Ceci Turcios LPN [employer] [facility], [facility].; [email or web address]. Comment on above: Room air 10-18-2016 08:52-0500 Inhaled oxygen concentration 21 % Ceci Turcios LPN [facility], [facility] [employer], [facility]. Comment on above: Room air 10-18-2016 08:52-0500 SaO2% (BldA) [Mass fraction] 97 % Ceci Turcios LPN [facility], [facility].; [employer], [employer] 10-18-2016 08:52-0500 Systolic blood pressure 143 mm[Hg] Ceci Turcios LPN [facility], [facility].; [employer], [facility]. Comment on above: Patient Position: Sitting; Cuff Location : Left Arm; Cuff Size: Standard 04-17-2016 07:19-0400 Body height 179.07 cm Keyla Bain [place] TIM [facility], [facility].; [employer], [employer] 04-17-2016 07:19-0400 Body mass index (BMI) [Ratio] 34.37 kg/m2 MianTaya Handleyey TIM [facility], [facility].; [employer] 04-17-2016 07:19-0400 Body surface area Derived from formula 2.28 m2 ImanTaya Handleyey CONSULTING PROJECT DIRECTOR [facility], [facility].; [employer] 04-17-2016 07:19-0400 Body weight 110.22 kg Keyla Oleary TIM [facility], [facility].; [employer] 04-17-2016 07:19-0400 Diastolic blood pressure 81 mm[Hg] Keyla Oleary TIM [facility], [facility].; [employer], [facility]. Comment on above: Patient Position: Sitting; Cuff Location : Left Arm; Cuff Size: Large 04-17-2016 07:19-0400 Heart rate 64 /min Iman Mamta TIM [facility], [facility].; [email or web address]. Comment on above: Pattern: Regular 04-17-2016 07:19-0400 Systolic blood pressure 135 mm[Hg] Keyla Oleary TIM [facility], [facility].; [employer], [facility]. Comment on above: Patient Position: Sitting; Cuff Location : Left Arm; Cuff Size: Large 10-18-2015 08:34-0500 Body height 179.07 cm Nehemiah Flanagan MD Work Phone: [email or web address] 10-18-2015 08:34-0500 Body mass index (BMI) [Ratio] 35.36 kg/m2 Nehemiah Flanagan MD Work Phone: [email or web address] 10-18-2015 08:34-0500 Body surface area Derived from formula 2.31 m2 Nehemiah Flanagan MD Work Phone: [email or web address] 10-18-2015 08:34-0500 Body weight 113.4 kg Nehemiah Flanagan MD Work Phone: [email or web address] 10-18-2015 08:34-0500 Diastolic blood pressure 78 mm[Hg] Nehemiah Flanagan MD Work Phone: [email or web address] Comment on above: Patient Position: Sitting; Cuff Location : Left Arm; Cuff Size: Standard 10-18-2015 08:34-0500 Heart rate 67 /min Nehemiah Flanagan MD Work Phone: [email or web address] Comment on above: Pattern: Regular 10-18-2015 08:34-0500 Systolic blood pressure 132 mm[Hg] Nehemiah Flanagan MD Work Phone: [email or web address] Comment on above: Patient Position: Sitting; Cuff Location : Left Arm; Cuff Size: Standard 04-17-2015 08:06-0400 Body height 179.07 cm Ceci Turcios LPN [email or web address] 04-17-2015 08:06-0400 Body mass index (BMI) [Ratio] 33.67 kg/m2 Ceci Turcios LPN [employer] 04-17-2015 08:06-0400 Body surface area Derived from formula 2.26 m2 Ceci Turcios LPN [employer] 04-17-2015 08:06-0400 Body weight 107.96 kg Ceci Turcios LPN [facility], [facility].; [employer]. 04-17-2015 08:06-0400 Diastolic blood pressure 76 mm[Hg] Ceci Turcios LPN [employer] [facility], [facility].; [email or web address]. Comment on above: Patient Position: Sitting; Cuff Location : Left Arm; Cuff Size: Standard 04-17-2015 08:06-0400 Heart rate 53 /min Ceci Turcios LPN [employer] [facility], [facility].; [email or web address] Comment on above: Pattern: Regular 04-17-2015 08:06-0400 Systolic blood pressure 134 mm[Hg] Ceci Turcios LPN [facility] [employer] [facility].; [email or web address] Comment on above: Patient Position: Sitting; Cuff Location : Left Arm; Cuff Size: Standard 10-22-2014 09:39-0500 Body height 180.34 cm Mercy Soares RN [employer] [facility], [facility].; [employer]. 10-22-2014 09:39-0500 Body mass index (BMI) [Ratio] 33.78 kg/m2 Mercy Soares RN [facility] [employer] [facility].; [employer]. 10-22-2014 09:39-0500 Body surface area Derived from formula 2.29 m2 Mercy Soares RN [facility] [employer] [facility].; [employer]. 10-22-2014 09:39-0500 Body temperature 97.7 [degF] Mercy Soares RN [facility] [facility].; [employer]. Comment on above: Method: Tympanic 10-22-2014 09:39-0500 Body weight 109.86 kg Mercy Soares RN [facility] [employer] [facility] [email or web address] 10-22-2014 09:39-0500 Diastolic blood pressure 79 mm[Hg] Mercy Soares RN [employer] [facility].; [email or web address] Comment on above: Patient Position: Sitting; Cuff Location : Left Arm; Cuff Size: Standard 10-22-2014 09:39-0500 Heart rate 60 /min Mercy Soares RN [facility], [facility].; [facility] Comment on above: Pattern: Regular 10-22-2014 09:39-0500 Systolic blood pressure 128 mm[Hg] Mercy Soares RN [facility].; [facility] Comment on above: Patient Position: Sitting; Cuff Location : Left Arm; Cuff Size: Standard Encounters Encounter Date Encounter Type Care Provider Facility Start: 11-09-2024 End: 11-09-2024 ambulatory Madan Soni Facility:[facility] Start: 10-29-2024 ambulatory [facility] Start: 10-24-2024 End: 10-24-2024 ambulatory MADAN Moreno [facility] Start: 10-14-2024 End: 10-14-2024 ambulatory Madan Soni Facility:[facility] Start: 10-11-2024 End: 10-11-2024 ambulatory Nehemiah [facility] Facility:[facility] Start: 09-18-2024 End: 09-18-2024 [facility] Start: 08-20-2024 End: 08-20-2024 ambulatory MADANKAYLIE Moreno [facility] Start: 08-10-2024 End: 08-10-2024 ambulatory Madan Soni Facility:[facility] Start: 03-02-2024 End: 03-02-2024 Medication Nehemiah Flanagan MD Work Phone: [facility] Start: 02-10-2024 End: 02-10-2024 ambulatory MAGGIE KEMP Josh [facility] Start: 02-03-2024 End: 02-03-2024 ambulatory Maggie Kemp NP Facility:[facility] Start: 01-12-2024 End: 01-12-2024 ambulatory MAGGIE KEMP Josh [facility] Start: 12-15-2023 End: 12-15-2023 ambulatory AMGGIE JERRY [facility] Start: 12-08-2023 End: 12-08-2023 Telephone follow-up Nehemiah Flanagan MD Work Phone: [facility] Start: 12-05-2023 Non-patient / Non-visit Dr. Andres Flanagan Work Phone: [facility] Work Phone: Start: 12-04-2023 Non-patient / Non-visit Dr. Andres Flanagan Work Phone: [facility] Work Phone: Start: 12-04-2023 Non-patient / Non-visit Dr. Andres Flanagan Work Phone: [facility] Start: 12-03-2023 Non-patient / Non-visit Dr. Andres Flanagan Work Phone: [facility] Work Phone: Start: 12-03-2023 Non-patient / Non-visit Dr. Andres Flanagan Work Phone: [facility] Start: 12-02-2023 Non-patient / Non-visit Dr. Andres Flanagan Work Phone: [facility] Work Phone: Start: 12-01-2023 Non-patient / Non-visit Dr. Andres Flanagan Work Phone: [facility] Work Phone: Start: 12-01-2023 End: 12-05-2023 Evaluation and management of inpatient Dr. Nehemiah Flanagan Work Phone: [facility]-Intensive Care Unit Work Phone: Start: 10-31-2023 End: 10-31-[address] Nehemiah Flanagan Work Phone: [facility] Work Phone: Start: 10-31-2023 End: 10-31-[address] Nehemiah Flanagan Work Phone: [facility]-Pulmonary Services/Neurology Work Phone: Start: 10-24-2023 Non-patient / Non-visit Dr. Andres Flanagan Work Phone: [facility] Start: 10-24-2023 End: 10-24-[address] Nehemiah Flanagan Work Phone: [facility] Work Phone: Start: 10-24-2023 End: 10-24-[address] Nehemiah Flanagan Work Phone: [facility]-Pulmonary Services/Neurology Work Phone: Start: 10-23-2023 Review [facility]agan MD [facility] Start: 10-23-2023 End: 10-23-[address] Nehemiah Flanagan Work Phone: [facility] Work Phone: Start: 10-07-2023 End: 10-07-2023 Office outpatient visit 15 minutes Nehemiah Flanagan MD Work Phone: [employer] [facility] Start: 09-30-2023 End: 09-30-2023 Telephone follow-up Nehemiah Flanagan MD [facility]: [facility] Start: 09-26-2023 Non-patient / Non-visit Dr. Andres Flanagan Work Phone: [facility] Work Phone: Start: 09-25-2023 Non-patient / Non-visit Dr. Andres Flanagan Work Phone: [facility] Start: 09-25-2023 Non-patient / Non-visit Dr. Andres Flanagan Work Phone: [facility] Work Phone: Start: 09-24-2023 End: 09-26-2023 Evaluation and management of inpatient Dr. Nehemiah Flanagan Work Phone: [facility]-Progressive Care Unit Work Phone: Start: 09-18-2023 End: 09-18-[address] [facility]hem[facility] Work Phone: Start: 09-01-2023 Non-patient / Non-visit Dr. Andres Flanagan Work Phone: [facility] Start: 09-01-2023 End: 09-01-[address] Nehemiah Flanagan Work Phone: [facility] Work Phone: Start: 09-01-2023 End: 09-01-[address] [facility]: Start: 08-27-2023 End: 08-27-[address] Nehemiah Flanagan Work Phone: [facility] Work Phone: Start: 07-09-2023 End: 07-09-2023 Office outpatient visit 25 minutes Nehemiah Flanagan MD Work Phone: [employer] Start: 06-10-2023 End: 06-10-[address] Nehemiah Flanagan [facility] Work Phone: Start: 05-21-2023 End: 05-21-[address] Nehemiah Flanagan Work Phone: [facility] Work Phone: Start: 05-21-2023 End: 05-21-[address] Nehemiah Flanagan Work Phone: [facility] Work Phone: Start: 03-24-2023 End: 03-24-2023 [facility] Nehemiah Flanagan MD Work Phone: [facility] Start: 03-19-2023 End: 03-19-2023 Historical Summary Nehemiah Flanagan MD Work Phone: [employer] Start: 01-14-2023 End: 01-14-2023 Patient encounter procedure Nehemiah Flanagan MD Work Phone: [employer]; [email or web address] Start: 01-14-2023 End: 01-14-2023 Periodic preventive med est patient 65yrs& older Nehemiah Flanagan MD Work Phone: [email or web address] Start: 01-10-2023 End: 01-10-2023 Office outpatient visit 15 minutes Nehemiah Flanagan MD Work Phone: [employer] Start: 01-06-2023 End: 01-06-2023 Orders Nehemiah Flanagan MD Work Phone: [employer] Start: 07-09-2022 End: 07-09-2022 Office outpatient visit 25 minutes Nehemiah Flanagan MD Work Phone: [employer] Start: 01-08-2022 End: 01-08-2022 Patient encounter procedure Nehemiah Flanagan MD Work Phone: [employer]; [email or web address] Start: 01-08-2022 End: 01-08-2022 Periodic preventive med est patient 65yrs& older Nehemiah Flanagan MD Work Phone: [email or web address] Start: 12-31-2021 End: 12-31-2021 Orders Nehemiah Flanagan MD Work Phone: [email or web address] Start: 07-11-2021 End: 07-11-2021 Office outpatient visit 15 minutes Nehemiah Flanagan MD Work Phone: [email or web address] Start: 01-08-2021 End: 01-08-2021 Patient encounter procedure Nehemiah Flanagan MD Work Phone: [email or web address] Start: 01-08-2021 End: 01-08-2021 Periodic preventive med est patient 65yrs& older Nehemiah Flanagan MD Work Phone: [email or web address] Start: 01-01-2021 End: 01-01-2021 Orders Nehemiah Flanagan MD Work Phone: [email or web address] Start: 11-28-2020 End: 11-28-2020 Orders Nehemiah Flanagan MD Work Phone: [email or web address] Start: 07-11-2020 End: 07-11-2020 Office outpatient visit 25 minutes Nehemiah Flanagan MD Work Phone: [email or web address] Start: 03-22-2020 End: 03-22-2020 Orders Nehemiah Flanagan MD Work Phone: [email or web address] Start: 03-06-2020 End: 03-06-2020 Historical Summary Nehemiah Flanagan MD Work Phone: [email or web address] Start: 01-19-2020 End: 01-19-2020 Office outpatient visit 25 minutes Nehemiah Flanagan MD Work Phone: [email or web address] Start: 12-21-2019 End: 12-21-2019 Orders Nehemiah Flanagan MD Work Phone: [email or web address] Start: 12-16-2019 End: 12-16-2019 Orders Nehemiah Flanagan MD Work Phone: [email or web address] Start: 12-14-2019 End: 12-14-2019 Office outpatient visit 15 minutes Nehemiah Flanagan MD Work Phone: [email or web address] Start: 09-24-2019 End: 09-24-2019 Medication Nehemiah Flanagan MD Work Phone: [email or web address] Start: 07-15-2019 End: 07-15-2019 Office outpatient visit 15 minutes Nehemiah Flanagan MD Work Phone: [email or web address] Start: 05-11-2019 End: 05-11-2019 Office outpatient visit 15 minutes Nehemiah Flanagan MD Work Phone: [email or web address] Start: 03-12-2019 End: 03-12-2019 Office outpatient visit 15 minutes Nehemiah Flanagan MD Work Phone: [employer] Start: 01-21-2019 End: 01-21-2019 Office outpatient visit 15 minutes Nehemiah Flanagan MD Work Phone: [email or web address] Start: 10-27-2018 End: 10-27-2018 Office outpatient visit 25 minutes Nehemiah Flanagan MD Work Phone: [email or web address] Start: 10-22-2018 End: 10-22-2018 Office outpatient visit 15 minutes Nehemiah Flanagan MD Work Phone: [email or web address] Start: 10-09-2018 End: 10-07-2018 Historical Summary Nehemiah Flanagan MD Work Phone: [email or web address] Start: 08-27-2018 End: 08-27-2018 Telephone follow-up Nehemiah Flanagan MD Work Phone: [email or web address] Start: 08-26-2018 End: 08-26-2018 Office outpatient visit 15 minutes Nehemiah Flanagan MD Work Phone: [employer] Start: 07-01-2018 End: 07-01-2018 Nursing evaluation of patient and report Nehemiah Flanagan MD Work Phone: [email or web address] Start: 04-13-2018 End: 04-13-2018 Historical Summary Nehemiah Flanagan MD Work Phone: [employer] Start: 04-10-2018 End: 04-10-2018 Office outpatient visit 25 minutes Nehemiah Flanagan MD Work Phone: [email or web address] Start: 10-13-2017 End: 10-13-2017 Office outpatient visit 15 minutes Nehemiah Flanagan MD Work Phone: [email or web address] Start: 10-10-2017 End: 10-10-2017 Follow-up encounter Nehemiah Flanagan MD Work Phone: [email or web address] Start: 10-06-2017 End: 10-06-2017 Orders Nehemiah Flanagan MD Work Phone: [email or web address] Start: 04-16-2017 End: 04-16-2017 Office outpatient visit 15 minutes Nehemiah Flanagan MD Work Phone: [email or web address] Start: 04-09-2017 End: 04-09-2017 Orders Nehemiah Flanagan MD Work Phone: [email or web address] Start: 10-18-2016 End: 10-18-2016 Office outpatient visit 15 minutes Nehemiah Flanagan MD Work Phone: [email or web address] Start: 10-11-2016 End: 10-11-2016 Orders Nehemiah Flanagan MD Work Phone: [email or web address] Start: 04-17-2016 End: 04-17-2016 Office outpatient visit 15 minutes Nehemiah Flanagan MD Work Phone: [email or web address] Start: 04-16-2016 End: 04-16-2016 Historical Summary Nehemiah Flanagan MD Work Phone: [email or web address] Start: 04-12-2016 End: 04-12-2016 Orders Nehemiah Flanagan MD Work Phone: [email or web address] Start: 10-18-2015 End: 10-18-2015 Office outpatient visit 15 minutes Nehemiah Flanagan MD Work Phone: [email or web address] Start: 10-11-2015 End: 10-11-2015 Orders Nehemiah Flanagan MD Work Phone: [email or web address] Start: 04-17-2015 End: 04-17-2015 Periodic preventive med est patient 65yrs& older Nehemiah Flanagan MD Work Phone: [email or web address] Start: 04-17-2015 End: 04-17-2015 Routine general medical examination at a health care facility Nehemiah Flanagan MD Work Phone: [email or web address] Start: 04-10-2015 End: 04-10-2015 Orders Nehemiah Flanagan MD Work Phone: [email or web address] Start: 04-10-2015 End: 04-10-2015 Routine general medical examination at a health care facility Nehemiah Flanagan MD Work Phone: [email or web address] Start: 03-10-2015 End: 03-10-2015 Orders Nehemiah Flanagan MD Work Phone: [employer] Start: 03-10-2015 End: 03-10-2015 Routine general medical examination at a [facility] facility Nehemiah Flanagan MD Work Phone: [email or web address] Start: 11-30-2014 End: 11-30-2014 Medication Nehemiah Flanagan MD Work Phone: [employer] Start: 10-22-2014 End: 10-22-2014 Office outpatient visit 15 minutes Nehemiah Flanagan MD Work Phone: [employer] [facility] Patient encounter procedure Sariah Luis CONSULTING PROJECT DIRECT[facility].; [employer] Patient encounter procedure Nara Herbert CONSULTING PROJECT DIRECTORNor-Lea General HospitalDeja [facility].; [email or web address]. Patient encounter procedure Virgie Mccauley RN [email or web address] Patient encounter procedure Keyla Oleary CONSULTING PROJECT DIRECTORNor-Lea General HospitalPolimax.; [email or web address]. Procedures Date Procedure Procedure Detail Performing Clinician [...] Detail Author Start: 04-06-2024 Patient encounter procedure [facility] [employer] Start: 12-05-2023 Patient discharge [facility] Start: 12-05-2023 Referral to service [facility] Start: 12-04-2023 Referral to service [facility] Start: 12-02-2023 Oxygen therapy [facility] Start: 12-02-2023 Referral to occupational therapist [facility] Start: 12-02-2023 End: 12-02-2023 Referral to service [facility] Start: 12-02-2023 Care planning and problem solving actions [facility] Start: 12-02-2023 Blood chemistry [facility] Start: 12-02-2023 Continuous positive airway pressure ventilation treatment [facility] Start: 12-01-2023 Following clinical pathway protocol [facility] Start: 12-01-2023 Assessment of risk of venous thromboembolism [facility] Start: 12-01-2023 Consultation [facility] Start: 12-01-2023 Continuous pulse oximetry [facility] Start: 12-01-2023 Insertion of catheter into peripheral vein [facility] Start: 12-01-2023 Measuring intake and output [facility] Start: 12-01-2023 Providing care according to standard [facility] Start: 12-01-2023 Vital signs measurements [facility] Start: 12-01-2023 [facility] Start: 12-01-2023 Verification routine [facility] Start: 12-01-2023 Admission procedure [facility] Start: 12-01-2023 Removal of urinary catheter [facility] Start: 12-01-2023 Continuous pulse oximetry [facility] Start: 12-01-2023 Dual pressure spontaneous ventilation support [facility] Start: 10-07-2023 Patient encounter procedure Medical; Hospital F/U - hosp d/c 09/26, [facility] pulmon fibrosis exac. [facility] Start: 07-Oct-2023 11:00 MD Nehemiah Flanagan Appointment Request [facility] Start: 09-26-2023 Patient discharge [facility] Start: 09-24-2023 Assessment of risk of venous thromboembolism [facility] Start: 09-24-2023 Incentive spirometry [facility] Start: 09-24-2023 Inhalation therapy procedure [facility] Start: 09-24-2023 Insertion of catheter into peripheral vein [facility] Start: 09-24-2023 Measuring intake and output [facility] Start: 09-24-2023 Oxygen therapy [facility] Start: 09-24-2023 Providing care according to standard [facility] Start: 09-24-2023 Provision of activity privileges [facility] Start: 09-24-2023 Referral to service [facility] Start: 09-24-2023 [facility] Start: 09-24-2023 Following clinical pathway protocol [facility] Start: 09-24-2023 Respiratory pathogens DNA and RNA panel - Respiratory specimen by NELI with probe detection [facility] Start: 09-24-2023 Verification routine [facility] Start: 09-24-2023 Admission procedure [facility] Start: 09-24-2023 Bacteria identified in Blood by Culture Blood Culture [facility] Start: 09-24-2023 Hospital admission, emergency, from emergency room, medical nature [facility] Start: 09-24-2023 End: 09-24-2023 Blood culture [facility] Start: 09-24-2023 Patient referral to dietitian [facility] Anion gap measurement [facility] BUN/Creatinine ratio [facility] Calcium [Mass/volume ] in Serum or Plasma [facility] Carbon dioxide, tota l [Moles/volume] in Serum or Plasma [facility] Chloride [Moles/volu me] in Serum or Plasma [facility] Creatinine [Moles/vo lume] in Serum or Plasma [facility] Erythrocyte mean corpuscular volume determination [facility] Glucose [Mass/volume ] in Serum or Plasma [facility] Hematocrit [Volume Fraction] of Blood [facility] Hemoglobin [Mass/vol ume] in Blood [facility] Leukocytes [#/volume ] in Blood [facility] Mean corpuscular hem oglobin concentration determination [facility] Mean corpuscular hem oglobin determination [facility] Measurement of renal function [facility] Measurement of respi ratory function [facility] Neutrophil count [facility] Neutrophil percent differential count [facility] Patient referral [facility] Work Phone: Platelets [#/volume] in Blood [facility] Potassium [Moles/vol ume] in Serum or Plasma [facility] Procalcitonin [Mass/ volume] in Serum or Plasma [facility] Red blood cell count [facility] Red cell distributio n width determination [facility] Sodium [Moles/volume ] in Serum or Plasma [facility] Urea nitrogen [Mass/ volume] in Serum or Plasma [facility] Immunizations Immunization Date Immunization Notes Care Provider Fa cility 07-09-2023 influenza virus vacc ine, unspecified formulation Nehemiah Flanagan MD Work Phone: [facility]; [facility] 07-09-2023 influenza, injectabl e, quadrivalent, preservative free Nehemiah Flanagan MD Work Phone: [facility]; [facility] Comment on above: [facility] * Influenza (Flu) Vaccine (Inactivated or Recombinant) (03/30/21) 06-02-2023 zoster vaccine recombinant Nehemiah Flanagan MD Work Phone: [facility]; [facility] Comment on above: [facility] 07-09-2022 COVID-Pfizer (Bivale nt 30 MCG/0.3 ML IM BST) Nehemiah Flanagan MD Work Phone: [facility]; [facility] Work Phone: 06-27-2022 influenza, injectabl e, quadrivalent, preservative free Dr. Nehemiah Flanagan Work Phone: [facility] 10-26-2020 COVID-Pfizer (30 MCG /0.3 ML) Nehemiah Flanagan MD Work Phone: [facility]; [facility] 09-28-2020 COVID-Pfizer (30 MCG /0.3 ML) Nehemiah Flanagan MD Work Phone: [facility]; [facility] 05-25-2020 influenza, injectabl e, quadrivalent, contains preservative Nehemiah Flanagan MD Work Phone: [facility]; [facility] Comment on above: at [facility] 05-15-2020 influenza, injectabl e, quadrivalent, preservative free Dr. Nehemiah Flanagan Work Phone: [facility] 05-11-2019 influenza virus vacc ine, unspecified formulation Nehemiah Flanagan MD Work Phone: [facility]; [employer] 05-11-2019 influenza, injectabl e, quadrivalent, contains preservative Nehemiah Flanagan MD Work Phone: [facility]; [employer] Comment on above: Site: Left ArmVIS Gi honorio: * Influenza - Inactivated (03/31/15) 07-01-2018 influenza virus vacc ine, unspecified formulation Nehemiah Flanagan MD Work Phone: [facility]; [employer] 07-01-2018 influenza, injectabl e, quadrivalent, contains preservative Nehemiah Flanagan MD Work Phone: [facility]; [employer]. Comment on above: Site: Left DeltoidVI S Given: * Influenza - Inactivated (03/31/15) 07-01-2018 pneumococcal conjuga te vaccine, 13 valent Nehemiah Flanagan MD Work Phone: [facility]; [employer] Comment on above: Site: Right DeltoidV IS Given: * Pneumococcal Conjugate (PCV13) (06/29/15) 06-13-2014 influenza, seasonal, injectable Nehemiah Flanagan MD Work Phone: [facility]; ScottPolimax 06-13-2014 pneumococcal Conjuga te, unspecified formulation Nehemiah Flanagan MD Work Phone: [facility] NanoLumens; ScottPressBaby Comment on above: prevnar 07/01/2018 06-13-2014 pneumococcal polysaccharide vaccine, 23 valent Nehemiah Flanagan MD Work Phone: [facility]; [employer] Payers Date Payer Category Payer Self-pay [id number] 2023 Medicare [id number] 2023 Medicare [id number] 1950 Unknown [id number] 1950 Unknown [id number] 2.16.840.1.567140.3.579.2.651 1948 Unknown [id number] 2.16.840.1.141872.3.579.2.651 1948 Unknown [id number] 2..840.1.000108.3.579.2.651 1948 Unknown [id number] 2.840.1.655406.3.579.2.651 1950 Unknown [id number] 2.840.1.331837.3.579.2.651 Unknown [id number] Unknown [employer]ARE [id number] Unknown ANTHEM MEDICARE PREFERRED-PP O Unknown [id number] [id number] Unknown [id number] 2.840.1.676591.3.579.2.462 Unknown [id number] 2.16.840.1.841700.3.579.2.462 Unknown [id number] 2.16.840.1.518344.3.579.2.462 Unknown [id number] 2.16.840.1.992360.3.579.2.462 Unknown [id number] 2.16.840.1.538263.3.579.2.462 Unknown [id number] 2.16.840.1.502906.3.579.2.462 Social History Date Type Detail Facility Start: 05-21-2023 End: 12-01-2023 Tobacco smoking status NHIS Unknown if ever smoked [facility] Start: 1950 Sex Assigned At Male [facility] Alcohol Use: Alcohol Use: ; 7 or fewer drinks per week. 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 [facility]oo [facility].; Scott [employer]ocha[employer]. Tobacco Use: Tobacco Use: ; U ses chewing tobacco. Scott Little Big Things; ScottPolimax Uses chewing tobacco [employer]; Scott [employer]. 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 Work Phone: Goals Date Patient Goal Desired Activity /State Functional Status Date Assessment Result Facility 12-05-2023 Functional status Ambulates [facility] Work Phone: 09-26-2023 Functional status Ambulates;Up ad beny [facility] Work Phone: Mental Status Date Assessment Result Facility 12-05-2023 Cognitive function Voice/Name;To uch/Shaking;L ight Pain;Deep Pain [facility] Work Phone: 09-26-2023 Cognitive function Voice/Name [facility] Work Phone: 09-26-2023 Cognitive function Appropriate;Cooperativ e [facility] Work Phone: Clinical Notes 09-24-2023 to 12-05-2023 Note Date & Type Note Facility 12-05-2023 Discharge summary Note Date/Time December 05, 2023 10:04am [facility] Medical Records Department [address] [place] [address] Discharge Summary 12/05/23 1000 MR#: [id number] Acct: [id number] Name: DU BACA Rep #:[id number] : 1950 73 From: Jerson Tipton PCP: Dr. Nehemiah Flanagan MD Status:ADM IN Location: ICU ICU02-1 Providers Date of Admission: 12/01/23 Date of Discharge: 12/05/23 Primary Care Physician: Dr. Nehemiah Flanagan MD Consultations 12/01/23 17:04 Consult: Baton Teacher / Pulmonary Medicine Routine Consulting Provider: Intensivists/Pulmonary [...] ? Continue with his home Nintedanib 12/02: Baton Teacher consult reviewed. Patient had -7 L of [...] (Auto) 77.4 H, Lymph % (Auto) 14.7 L,[place] % (Auto) 7.1, Eos % (Auto) 0.3, [...] Self Care Charges/Coding Visit Charges Inpatient E&M: 77860 Disch Hosp >30min 12/05/23 1004 <Electronically signed [...] MD; Dr. Nehemiah Flanagan MD ~* Signed [facility] Work Phone: 1(201) 658-582904-12-2024 Discharge summary Author Jerson Avelar [facility] December 05, 2023 10:00am Note Date/Time December 05, 2023 9:5 4am [facility] Medical Records Department [address] [place] [address] Instructions for Home/Discharge Instructions 12/05/23 0929 MR#: [id number] Acct: [id number] Name: DU BACA Rep #:[id number] : 1950 73 From: Jerson Tipton PCP: [...] MD; Dr. Nehemiah Flanagan MD ~ Signed [facility] Work Phone: 1(545) 777-646004-12-2024 Progress note Author Farrukh Flanagan [facility] December 05, 2023 8:19am Note Date/Time December 05, 2023 6:4 6am [facility] Medical Records Department [facility] [place] [address] Progress Note - Baton Teacher 12/05/23 0645 MR#: [id number] Acct: [id number] Name: DU BACA Rep #:[id number] : 1950 73 From: Farrukh Flanagan DO PCP: Dr. Nehemiah Flanagna MD Status:ADM IN Location: ICU ICU02-1 Assessment [...] medicationsas indicated. This note was generated with Corpsolv dictation software. It may contain incorrectwords, spelling, [...] (Auto) 77.4 H, Lymph % (Auto) 14.7 L,[place] % (Auto) 7.1, Eos % (Auto) 0.3, [...] Affect: anxious Charges/Coding Visit Charges Inpatient E&M: 14716 Subs Hosp L2 12/05/23 0819 <Electronically signed by Farrukh Flanagan DO> Cosigner Signature (if applicable): CC: ~ Signed [facility] Work Phone: 1(635) 536-972104-11-2024 Progress note Author Jerson Avelar [facility] December 04, 2023 12:48pm Note Date/Time December 04, 2023 12: 48pm [facility] Medical Records Department [address] [place] [address] [place] [address] Progress Note - Hospitalist 12/04/23 1244 MR#: [id number] Acct: [id number] Name: DU BACA Rep #:[id number] : 1950 73 From: Jerson Tipton PCP: [...] (Auto) 80.0 H, Lymph % (Auto) 13.7 L,[place] % (Auto) 5.3, Eos % (Auto) 0.1, [...] ? Continue with his home Nintedanib 12/02: Baton Teacher consult reviewed. Patient had -7 L of [...] DVT: Lovenox Charges/Coding Visit Charges Inpatient E&M: 08712 Subs Hosp L2 12/04/23 1248 <Electronically signed by Jerson Avelar MD> Cosigner Signature (if applicable): CC: ~ Signed [facility] Work Phone: 1(831) 251-985504-11-2024 Progress note Author Farrukh Flanagan [facility] December 04, 2023 10:28am Note Date/Time December 04, 2023 10: 23am [facility] Medical Records Department [address] [place] [address] Progress Note - Baton Teacher 12/04/23 1021 MR#: [id number] Acct: [id number] Name: DU BACA Rep #:[id number] : 1950 73 From: Farrukh Flanagan DO [...] medicationsas indicated. This note was generated with Corpsolv dictation software. It may contain incorrectwords, spelling, [...] (Auto) 80.0 H, Lymph % (Auto) 13.7 L,[place] % (Auto) 5.3, Eos % (Auto) 0.1, [...] Affect: anxious Charges/Coding Visit Charges Inpatient E&M: 01820 Subs Hosp L2 12/04/23 1028 <Electronically signed by Farrukh Flanagan DO> Cosigner Signature (if applicable): CC: ~ Signed [facility] Work Phone: 1(155) 909-794904-10-2024 Progress note Author Jerson Avelar [facility] December 03, 2023 11:32am Note Date/Time December 03, 2023 11: 31am [facility] Medical Records Department [address] [place] [address] Progress Note - Hospitalist 12/03/23 1123 MR#: [id number] Acct: [id number] Name: DU BACA Rep #:[id number] : 1950 73 From: Jerson Tipton PCP: [...] (Auto) 78.6 H, Lymph % (Auto) 13.9 L,[place] % (Auto) 6.4, Eos % (Auto) 0.3, [...] ? Continue with his home Nintedanib 12/02: Baton Teacher consult reviewed. Patient had -7 L of [...] DVT: Lovenox Charges/Coding Visit Charges Inpatient E&M: 65367 Subs Hosp L2 12/03/23 1132 <Electronically signed by Jerson Avelar MD> Cosigner Signature (if applicable): CC: ~ Signed [facility] Work Phone: 1(440) 969-449704-10-2024 Progress note Author Farrukh Flanagan [facility] December 03, 2023 7:41am Note Date/Time December 03, 2023 7:0 1am [facility] Medical Records Department [address] [place] [address] Progress Note - Baton Teacher 12/03/23 0658 MR#: [id number] Acct: [id number] Name: DU BACA Rep #:[id number] : 1950 73 From: Farrukh Flanagan DO [...] medicationsas indicated. This note was generated with Corpsolv dictation software. It may contain incorrectwords, spelling, [...] (Auto) 78.6 H, Lymph % (Auto) 13.9 L,[place] % (Auto) 6.4, Eos % (Auto) 0.3, [...] affect normal Charges/Coding Visit Charges Inpatient E&M: 22852 Subs Hosp L2 12/03/23 0741 <Electronically signed by Farrukh Flanagan DO> Cosigner Signature (if applicable): CC: ~ Signed [facility] Work Phone: 1(940) 204-323104-09-2024 Progress note Author Jerson Avelar [facility] December 02, 2023 8:28am Note Date/Time December 02, 2023 7:20 am [facility] Medical Records Department [address] [place] [address] Progress Note - Hospitalist 12/02/23717 MR#: [id number] Acct: [id number] Name: DU BACA Rep #:[id number] : 1950 73 From: Jerson Tipton PCP: [...] 85.5 H, Lymph % (Auto) 8.4 L, [place] % (Auto) 3.9, Eos % (Auto) 1.2, [...] 90.3 H, Lymph % (Auto) 7.7 L, [place] % (Auto) 1.3, Eos % (Auto) 0.0, [...] imaging to resolution recommended. Electronically Signed: Brian Hicsk MD at 14:42 EDT , Rhythm Strip [...] DVT: Lovenox Charges/Coding Visit Charges Inpatient E&M: 04695 Subs Hosp L3 12/02/23827 <Electronically signed by Jerson Avelar MD> Cosigner Signature (if applicable): CC: ~ Signed [facility] Work Phone: 1(665) 165-296504-09-2024 Consult note Author Farrukh Flanagan [facility] December 02, 2023 8:24am Note Date/Time December 02, 2023 7:09 am [facility] Medical Records Department [address] [place] [address] Consultation - Baton Teacher 12/02/23 0708 MR#: [id number] Acct: [id number] Name: DU BACA Rep #:[id number] : 1950 73 From: Farrukh Flanagan DO [...] medicationsas indicated. This note was generated with DailyLookation software. It may contain incorrectwords, spelling, and [...] angina pectoris Atherosclerosis of coronary artery of [place] heart without angina pectoris CKD (chronic kidney [...] 85.5 H, Lymph % (Auto) 8.4 L, [place] % (Auto) 3.9, Eos % (Auto) 1.2, [...] 90.3 H, Lymph % (Auto) 7.7 L, [place] % (Auto) 1.3, Eos % (Auto) 0.0, [...] 14:42 EDT Reading Location ID and State: [address] [place] [address] , Service support , Charges/Coding Visit Charges Inpatient E&M: 91103 Init Hosp L3 12/02/23823 <Electronically signed by [...] Harvey MD; Dr. Viridiana Bashir MD~ Signed [facility] Work Phone: 1(870) 455-971604-08-2024 History and physical note Author Frank Landon [facility] December 01, 2023 8:05pm Note Date/Time December 01, 2023 6:40 pm [facility] Medical Records Department [address] [place] [address] H&P Exam - Hospitalist 12/01/23 1834 MR#: [id number] Acct: [id number] Name: DU BACA Rep #:[id number] : 1950 73 From: Frank bella MD [...] angina pectoris Atherosclerosis of coronary artery of [place] heart without angina pectoris CKD (chronic kidney [...] 85.5 H, Lymph % (Auto) 8.4 L, [place] % (Auto) 3.9, Eos % (Auto) 1.2, [...] with colleagues Charges/Coding Visit Charges Inpatient E&M: 40356 Init Hosp L3 12/01/232004 <Electronically signed by Frank Landon MD> Cosigner Signature (if applicable): CC: Dr. Frank Landon MD; Dr. Nehemiah Flanagan MD~ Signed [facility] Work Phone: 1(670) 988-643504-08-2024 Discharge summary Author Sunita Mckenna [facility] December 01, 2023 4:00pm Note Date/Time December 01, 2023 3:01 pm [facility] Medical Records Department [address] [place] [address] Emergency Department Summary 12/01/23 MR#: [id number] Acct: [id number] Name: DU BACA Rep #:[id number] : 1950 73 From: Sunita Gamble PCP: [...] other complaints or concerns at this time. [facility] Medical History Atherosclerosis of coronary artery bypass graft without angina pectoris Atherosclerosis of coronary artery of [place] heart without angina pectoris CKD (chronic kidney [...] 85.5 H Lymph % (Auto) 8.4 L [place] % (Auto) 3.9 Eos % (Auto) 1.2 [...] 14:42 EDT Reading Location ID and State: [facility] / [place] , Service support , Rhythm Strip Rhythm [...] procedures): 30-74 minutes (37), Discussing w/Patient &/or Family/Biomedical Scientist, Arranging Admission or Transfer and PerformingDirect Patient [...] Provider] - Disposition Disposition: Acute Care Hospital [facility] What to do if you have Problems For any increased pain, shortness of breath, bleeding, nausea or vomiting, chestpain, or any unexpected problems, contact your Primary Care Provider. Call [facility] ([phone]) or report to the closest Emergency Room. Call 911 if necessary. 12/01/23 1600 <Electronically signed by Sunita Mckenna DO> Cosigner Signature (if applicable): CC: Dr. Nehemiah Flanagan MD ~ Signed [facility] Work Phone: 1([phone]) 192-658804-08-2024 Discharge summary Author Sunita [facility] December 01, 2023 4:00pm Note Date/Time December 01, 2023 3:01 pm [facility] Medical Records Department [address] [place] [address] Emergency Department Summary 12/01/23 MR#: [id number] Acct: [id number] Name: DU BACA Rep #:[id number] : 1950 73 From: Sunita Gamble PCP: [...] other complaints or concerns at this time. [facility] Medical History Atherosclerosis of coronary artery bypass graft without angina pectoris Atherosclerosis of coronary artery of [place] heart without angina pectoris CKD (chronic kidney [...] 85.5 H Lymph % (Auto) 8.4 L [place] % (Auto) 3.9 Eos % (Auto) 1.2 [...] 14:42 EDT Reading Location ID and State: [address] [place] [address] , Service support , Rhythm Strip Rhythm [...] procedures): 30-74 minutes (37), Discussing w/Patient &/or Family/Biomedical Scientist, Arranging Admission or Transfer and PerformingDirect Patient [...] Primary Care Provider: Nehemiah Flanagan Referrals: Nehemiah Flangaan MD [Primary Care Provider] - Disposition Disposition: Acute Care Hospital [facility] What to do if you have Problems For any increased pain, shortness of breath, bleeding, nausea or vomiting, chestpain, or any unexpected problems, contact your Primary Care Provider. Call [facility] ([phone]) or report to the closest Emergency Room. Call 911 if necessary. 12/01/23 1600 <Electronically signed by Sunita Mckenna DO> Cosigner Signature (if applicable): CC: Dr. Nehemiah Flanagan MD ~ Signed [facility] Work Phone: 1(585) 584-110903-01-2024 Procedure [facility] 09-26-2023 Consult note [facility] September 26, 2023 10:57am Note Date/Time September 26, 2023 1 0:57am [facility] Medical Records Department [address] [place] [address] Counseling Note - Pharmacy 09/26/23 1056 MR#: [id number] Acct: [id number] Name: DU BACA Rep #:[id number] : 1950 73 From: Estrella Ang PCP: Dr. Nehemiah Flanagan MD Status:ADM IN Location: [place] [address] Pharmacy [facility] Pharmacy Service has performed discharge medication reconciliation [...] Signature (if applicable): Date CC: ~ Signed [facility] Work Phone: 1(948) 693-834802-02-2024 Discharge summary Author Martin Clemens [facility] September 26, 2023 10:39am Note Date/Time September 26, 2023 1 0:35am [facility] Medical Records Department [address] [place] [address] Discharge Summary 09/26/23 1033 MR#: [id number] Acct: [id number] Name: DU BACA Rep #:[id number] : 1950 73 From: Martin Clemens DO PCP: Dr. Nehemiah Flanagan MD Status:ADM IN Location: [place] [id number] Providers Date of Admission: 09/24/23 Date [...] Referrals / Follow Up: [facility] [Provider Group] - Within 1 Month Nehemiah Flanagan MD [Primary Care Provider] - Within 2 Weeks Disposition Disposition (needs filled in before D/C Order can be placed): Home, Self Care Charges/Coding Visit Charges Inpatient E&M: 33092 Disch Hosp >30min 09/26/23 1039 <Electronically signed by Martin Cleemns DO> Cosigner Signature (if applicable): CC: Dr. Martin Clemens DO; Dr. Nehemiah Flanagan MD~ Signed [facility] Work Phone: 1(766) 341-171102-02-2024 Progress note Author Martin Clemens [facility] September 26, 2023 10:32am Note Date/Time September 26, 2023 8 :41am [facility] Medical Records Department [address] [facility] [place] [address] Progress Note - Hospitalist 09/26/23840 MR#: [id number] Acct: [id number] Name: DU BACA Rep #:[id number] : 1950 73 From: Martin Clemens DO PCP: Dr. Nehemiah Flanagan MD Status:ADM IN Location: [place] [address] Subjective Subjective Breathing welll. Anxious to go [...] Cosigner Signature (if applicable): CC: ~ Signed [facility] Work Phone: 1(251) 492-289902-01-2024 Progress note Author Martin Clemens [facility] September 25, 2023 1:47pm Note Date/Time September 25, 2023 9 :01am [facility] Medical Records Department [address] [place] [address] Progress Note - Hospitalist 09/25/23 0856 MR#: [id number] Acct: [id number] Name: DU BACA Rep #:[id number] : 1950 73 From: Martin Clemens DO PCP: Dr. Nehemiah Flanagan MD Status:ADM IN Location: [place] [address] Subjective Subjective Short of breath with activity. [...] (Auto) 77.6 H, Lymph % (Auto) 13.7 L,[place] % (Auto) 5.6, Eos % (Auto) 1.8, [...] 90.3 H, Lymph % (Auto) 7.1 L, [place] % (Auto) 1.8, Eos % (Auto) 0.0, [...] 13:03 EST Reading Location ID and State: [facility] / [place] Tel , Service support , Physical Exam [...] at bedside. Charges/Coding Visit Charges Inpatient E&M: 34788 Subs Hosp L2 09/25/23 1343 <Electronically signed by Martin Clemens DO> Cosigner Signature (if applicable): CC: ~ Signed [facility] Work Phone: 1(311) 369-275801-31-2024 Discharge summary Author Key Christiansanti [facility] September 24, 2023 3:54pm Note Date/Time September 24, 2023 1 1:44am [facility] Medical Records Department [address] [place] [address] Emergency Department Summary 09/24/23 MR#: [id number] Acct: [id number] Name: DU BACA Rep #:[id number] : 1950 73 From: Key Dent DO [...] several months ago. He does see a flight line service attendant. He denies any fevers or chills or sweats. Denies exposures to other ill individuals. [facility] Medical History (Reviewed 09/18/23 @ 12:56 by Maggie Kemp INTEGRATED CIRCUIT IC LAYOUT DESIGNER, INTEGRATED CIRCUIT IC LAYOUT DESIGNER-C) Atherosclerosis of coronary artery bypass graft without angina pectoris Atherosclerosis of coronary artery of [place] heart without angina pectoris CKD (chronic kidney [...] Allergies Allergy Verified 09/24/23 10:36 Family History (Reviewed 09/18/23 @ 12:56 by Maggie Kemp INTEGRATED CIRCUIT IC LAYOUT DESIGNER, INTEGRATED CIRCUIT IC LAYOUT DESIGNER-C) Mother Brain aneurysm Father CVA (cerebral vascular [...] line established and patient placed on a hospital monitor. Patient placed on 2 L nasal cannula [...] 77.6 H Lymph % (Auto) 13.7 L [place] % (Auto) 5.6 Eos % (Auto) 1.8 [...] 13:03 EST Reading Location ID and State: [facility] / [place] Tel , Service support , 1 view [...] fibrosis, Hypoxemia Disposition Disposition: Acute Care Hospital [facility] What to do if you have Problems For any increased pain, shortness of breath, bleeding, nausea or vomiting, chestpain, or any unexpected problems, contact your Primary Care Provider. Call [facility] ([phone]) or report to the closest Emergency Room. Call 911 if necessary. 09/24/23 1554 <Electronically signed by Key Dent DO> Cosigner Signature (if applicable): CC: Dr. Nehemiah Flanagan MD ~ Signed [facility] Work Phone: 1(954) 488-130501-31-2024 History and physical note Author Muna Bowers [facility] September 24, 2023 3:24pm Note Date/Time September 24, 2023 3 :24pm [facility] Medical Records Department [address] [place] [address] H&P Exam - Hospitalist 09/24/23 1516 MR#: [id number] Acct: [id number] Name: DU BACA Rep #:[id number] : 1950 73 From: Muna Bowers MD PCP: Dr. Nehemiah Flanagan MD Status:REG ER Location: ED HPI - General General Date of Admission: 09/24/23 Date of Service: 09/24/23 Chief Complaint: SOB HPI Narrative DU BACA, is a 73M history of CKD stage III unclear subtype, CAD w/ bypass,hypertension, pulmonary fibrosis, GERD who presented to [facility] 09/24/2023 with shortness of breath that mostly [...] of breath for the past 3 days. [facility] Medical History (Reviewed 09/18/23 @ 12:56 by Maggie Kemp INTEGRATED CIRCUIT IC LAYOUT DESIGNER, INTEGRATED CIRCUIT IC LAYOUT DESIGNER-C) Atherosclerosis of coronary artery bypass graft without angina pectoris Atherosclerosis of coronary artery of [place] heart without angina pectoris CKD (chronic kidney [...] Allergies Allergy Verified 09/24/23 10:36 Family History (Reviewed 09/18/23 @ 12:56 by Maggie Kemp INTEGRATED CIRCUIT IC LAYOUT DESIGNER, INTEGRATED CIRCUIT IC LAYOUT DESIGNER-C) Mother Brain aneurysm Father CVA (cerebral vascular accident) Surgical History (Reviewed 09/18/23 @ 12:56 by Maggie Kemp INTEGRATED CIRCUIT IC LAYOUT DESIGNER, INTEGRATED CIRCUIT IC LAYOUT DESIGNER-C) H/O coronary artery bypass surgery (1989) H/O hernia repair History of left heart catheterization (01/02/16) Social History (Reviewed 09/18/23 @ 12:56 by Maggie Kemp INTEGRATED CIRCUIT IC LAYOUT DESIGNER, INTEGRATED CIRCUIT IC LAYOUT DESIGNER-C) Smoking Status: Former smoker Tobacco: How many [...] (Auto) 77.6 H, Lymph % (Auto) 13.7 L,[place] % (Auto) 5.6, Eos % (Auto) 1.8, [...] documentation, 56Minutes Charges/Coding Visit Charges Inpatient E&M: 38949 Init Hosp L2 09/24/23 1524 <Electronically signed by Muna Bowers MD> Cosigner Signature (if applicable): CC: Dr. Muna Bowers MD; Dr. Nehemiah Flanagan MD~ Signed [facility] Work Phone: 1(887) 800-664801-31-2024 Discharge summary Author Key Dent [facility] September 24, 2023 3:54pm Note Date/Time September 24, 2023 1 1:44am [facility] Medical Records Department [address] [place] [address] Emergency Department Summary 09/24/23 MR#: [id number] Acct: [id number] Name: DU BACA Rep #:[id number] : 1950 73 From: Key Dent DO [...] several months ago. He does see a flight line service attendant. He denies any fevers or chills or sweats. Denies exposures to other ill individuals. [facility] Medical History (Reviewed 09/18/23 @ 12:56 by Maggie Kemp INTEGRATED CIRCUIT IC LAYOUT DESIGNER, INTEGRATED CIRCUIT IC LAYOUT DESIGNER-C) Atherosclerosis of coronary artery bypass graft without angina pectoris Atherosclerosis of coronary artery of [place] heart without angina pectoris CKD (chronic kidney [...] Allergies Allergy Verified 09/24/23 10:36 Family History (Reviewed 09/18/23 @ 12:56 by Maggie Kemp INTEGRATED CIRCUIT IC LAYOUT DESIGNER, INTEGRATED CIRCUIT IC LAYOUT DESIGNER-C) Mother Brain aneurysm Father CVA (cerebral vascular [...] line established and patient placed on a hospital monitor. Patient placed on 2 L nasal cannula [...] 77.6 H Lymph % (Auto) 13.7 L [place] % (Auto) 5.6 Eos % (Auto) 1.8 [...] 13:03 EST Reading Location ID and State: [address] [place] [address] Tel , Service support , 1 view [...] fibrosis, Hypoxemia Disposition Disposition: Acute Care Hospital [facility] What to do if you have Problems For any increased pain, shortness of breath, bleeding, nausea or vomiting, chestpain, or any unexpected problems, contact your Primary Care Provider. Call [facility] ([phone]) or report to the closest Emergency Room. Call 911 if necessary. 09/24/23 1554 <Electronically signed by Key Dent DO> Cosigner Signature (if applicable): CC: Dr. Nehemiah Flanagan MD ~ Signed [facility] Work Phone: Evaluation note* Diagnosis Onset Date Resolution Status Fatigue acute H/O coronary artery bypass surgery 1989 chronic Hyperlipidemia chronic Hypertension [facility] Work Phone: Evaluation note* Diagnosis Onset Date Resolution Status Fatigue acute H/O coronary artery bypass surgery 1989 chronic Hyperlipidemia chronic Hypertension chronic Shortness of breath acute Pulmonary fibrosis chronic H/O coronary artery bypass surgery 1989 chronic Hyperlipidemia chronic Hypertension [facility] Work Phone: Evaluation note* Diagnosis Onset Date Resolution Status Pulmonary fibrosis chronic Shortness of breath chronic H/O coronary artery bypass surgery 1989 chronic Hyperlipidemia chronic Hypertension chronic Pulmonary fibrosis chronic Shortness of breath chronic Dyspnea acute Hypoxemia acute Pulmonary fibrosis acute Atherosclerosis of coronary artery bypass graft without angina pectoris chronic H/O coronary artery bypass surgery 1989 [facility] Work Phone: Evaluation note* Diagnosis Onset Date Resolution Status Pulmonary fibrosis acute Shortness of breath resolved Dyspnea acute Hypoxemia acute Hypoxemia acute Pulmonary fibrosis acute Pulmonary hypertension acute [facility] Work Phone: Evaluation note* Diagnosis Onset Date Resolution Status Pulmonary fibrosis acute Shortness of breath resolved Dyspnea acute Hypoxemia acute Hypoxemia acute Pulmonary fibrosis acute Pulmonary hypertension acute Fluid overload acute Pulmonary fibrosis acute Acute and chronic respiratory failure with hypoxia [facility] Work Phone: History and physical note Author Muna Bowers [facility] September 24, 2023 3:24pm Note Date/Time September 24, 2023 3 :24pm [facility] Medical Records Department [address] [place] [id number] H&P Exam - Hospitalist 09/24/23 1516 MR#: [id number] Acct: [id number] Name: DU BACA Rep #:[id number] : 1950 73 From: Muna Bowers MD PCP: Dr. Nehemiah Flanagan MD Status:REG ER Location: ED HPI - General General Date of Admission: 09/24/23 Date of Service: 09/24/23 Chief Complaint: SOB HPI Narrative DU BACA, is a 73M history of CKD stage III unclear subtype, CAD w/ bypass,hypertension, pulmonary fibrosis, GERD who presented to [facility] 09/24/2023 with shortness of breath that mostly [...] of breath for the past 3 days. [facility] Medical History (Reviewed 09/18/23 @ 12:56 by Maggie Kemp [employer] LAYOUT DESIGNER, [employer]TEGRATED [employer] IC LAYOUT DESIGNER-C) Atherosclerosis of coronary artery bypass graft without angina pectoris Atherosclerosis of coronary artery of [place] heart without angina pectoris CKD (chronic kidney [...] Allergies Allergy Verified 09/24/23 10:36 Family History (Reviewed 09/18/23 @ 12:56 by Maggie Kemp [employer] IC LAYOUT DESIGNER, INTEGRATED [employer] IC LAYOUT DESIGNER-C) Mother Brain aneurysm Father CVA (cerebral vascular accident) Surgical History (Reviewed 09/18/23 @ 12:56 by Maggie Kemp [employer] IC LAYOUT DESIGNER, INTEGRATED [employer] IC LAYOUT DESIGNER-C) H/O coronary artery bypass surgery (1989) H/O hernia repair History of left heart catheterization (01/02/16) Social History (Reviewed 09/18/23 @ 12:56 by Maggie Kemp [employer] IC LAYOUT DESIGNER, INTEGRATED CIRCUIT IC LAYOUT DESIGNER-C) Smoking Status: Former smoker Tobacco: How many [...] (Auto) 77.6 H, Lymph % (Auto) 13.7 L,[place] % (Auto) 5.6, Eos % (Auto) 1.8, [...] documentation, 56Minutes Charges/Coding Visit Charges Inpatient E&M: 99531 Init Hosp L2 09/24/23 1524 <Electronically signed by Muna Bowers MD> Cosigner Signature (if applicable): CC: Dr. Muna Bowers MD; Dr. Nehemiah Flanagan MD~ Signed [facility] Work Phone: Summary Purpose Family History Relationship [...] Date/ Time Name of Medical Power of Stock Selector September 24, 2023 11:32am Living Will Yes September 24 11:32am Power of Stock Selector Yes September 24, 2023 11:32am Advance Directive Response Recorded Date/ Time Name of Medical Power of Stock Selector September 24, 2023 4:53pm Living Will Yes September 24 4:53pm Power of Stock Selector Yes September 24, 2023 4:53pm Advance Directive Response Recorded Date/ Time Name of Medical Power of Stock Selector September 24, 2023 5:53pm Living Will Yes September 24 5:53pm Power of Stock Selector Yes September 24, 2023 5:53pm Advance Directive Response Recorded Date/ Time Name of Medical Power of Stock Selector September 24, 2023 5:53pm Living Will No December 01, 2023 1:32pm Power of Stock Selector No November 30 1:32pm Advance Directive Response Recorded Date/ Time Name of Medical Power of Stock Selector September 24, 2023 5:53pm Living Will No December 01, 2023 5:38pm Power of Stock Selector No November 30 5:38pm Chief Complaint and [...] DATE CREATED AUTHOR AUTHOR'S ORGANIZ ATION 10/25/2024 [facility] DATE CREATED AUTHOR AUTHOR'S ORGANIZ ATION 12/22/2024 [facility] Care Teams (unrecognized sec tion and [...] Care Provider, Referring Provider Active Maggie Kemp [employer] LAYOUT DESIGNER, [employer] LAYOUT DESIGNER-C Attending Provider Active Team Status: Active Member [...] Flanagan MD Primary Care Provider Active Dr. Suniat Mckenna DO Emergency Provider Active Dr. Frank [...] Status: Active Member Role Status Dates Dr. Nehemaih Flanagan MD Primary Care Provider Active Dr. Sunita Mckenna , Emergency Provider Active Dr. Frank Landon MD Admit Provider, Other Pro vider Active Dr. Henrry Acotsa MD Other Provider Active Dr. Seymour Goldberg [...] Palmer MD Other Provider Active Dr. Ayaz Havrey MD Other Provider Active Team Status: Active [...] Jerson Avelar MD Other Provider Active Dr. Farrukh Flanagan , DO Attending Provider Active Team [...] BE BASED ON THE PRIMARY CLINICAL RECORDS. [facility] [employer] provides no warranty or guarantee of the accuracy or completeness of information in this document.
== END ==
LOC: PSN 12:24
PROVIDERS: PCP Family Medicine; Referring Provider Nurse Practitioner Family; Visit Provider Nurse Practitioner Family
DX: J84.10 Pulmonary fibrosis, unspecified (principal)
CPT/HCPCS: 94010; 94726

== ENCOUNTER → 2024-10-11 | Outpatient (CLI) | payer MEDICARE, SELFPAY | END | disposition home or self-care (01) | LOC: PSN 12:36 | PROVIDERS: PCP Family Medicine; Referring Provider Nurse Practitioner Family; Visit Provider Nurse Practitioner Family | DX: J84.10 Pulmonary fibrosis, unspecified (principal) | CPT/HCPCS: 94010; 94726 ==

== ENCOUNTER → 2024-10-14 13:21 | Outpatient (REF) | payer MEDICARE, SELFPAY ==
--- OUTSIDE RECORDS SUMMARY | 2025-02-04 07:33 | XMS RPT_ITS | CCD ---
Author Organization [facility] Inform ion Partnership [facility] Care Team Providers Care Electric Organ Assembler Name Role Phone Dr. Nehemiah Flanagan Primary Care Provider Dr. Nehemiah Flanagan Referring Provider Mika KELLER, PA Sariah Durham Attending Provider Nehemiah Flanagan MD Unavailable Arun LYNN, Dr. Lazaro Ledesma Unavailable [phone] Medicine [facility], Pulmonary Unavailable Robinson LYNN, Dr. Talbot Unavailable [phone] [facility] Un[facility], ([place]) Unavailable Justo FORGING PRESS LEVER TENDER, Maggie Unavailable Elliott LYNN, Dr. Sebastian Unavailable Arturo SENIOR COGNOS DEVELOPER, Adrienne Unavailable Tam TORRESN, Ceci Lorenz Unavailable Unavailable Gogoi (scribe), Hemanta Unavailable Unavaila quinn Baltazar LPN, Rosita Unavailable Unavailable Stephanie SPENCER, Virgie Tipton Unavailable Larry SPENCER, Josh Lorenz Unavailable Daya Juarez Unavailable Unavailable Larry CARRANZA, Rosario Cross Unavailable Unavail able Toby TORRESN, Sariah Unavailable Unavailable Garrick CARRANZA, Virgie Gomez Unavailable Unavaila quinn Fernando LPN, Daquan Unavailable Unavailable Rodger CARRANZA, Mercy Orantes Unavailable Unavailable Ayanna TORRESN, Olive K Unavailable Unavaradha Hollis PA-C, Martha Bonilla Unavailable Mamta DUMONT, Keyla Bain Unavailable Unavailab yesy Navarro MASariah Unavailable Unavailable Vess SENIOR COGNOS DEVELOPER, Josr L Unavailable Unavailable Wefransiscaerd SENIOR COGNOS DEVELOPER, Yokasta Unavailable Unavailabl e Keon SENIOR COGNOS DEVELOPER, Nara Unavailable Unavailable Unavailable Unavailable Dr. Nehemiah Flanagan Primary Care Provider Dr. Nehemiah Flanagan Referring Provider ARIANNA Sandy Attending Provider Dr. Romulo Gallagher Attending Provider ARIANNA Sandy Referring Provider ARIANNA Sandy Other Provider Dr. John Dias Attending Provider Dr. Nehemiah Flanagan Primary Care Provider Dr. Nehemiah Flanagan Referring Provider ARIANNA Sandy Attending Provider Justo CHIEF ESTIMATOR, CHIEF ESTIMATOR-C Maggie Attending Provider Dr. Key Dent Emergency Provider Dr. Muna Bowers Admit Provider Dr. Muna Bowers Other Provider Dr. Martin Clemens Attending Provider Dr. Martin Clemens Other Provider Dr. Carrington Munguia Attending Provider Dr. Nehemiah Flanagan Primary Care Provider Dr. Nehemiah Flanagan Referring Provider Dr. Romulo Gallagher Attending Provider Dr. Romulo Gallagher Referring Provider Dr. Romulo Gallagher Other Provider Dr. Nehemiah Flanagan Primary Care Provider Dr. Nehemiah Flanagan Referring Provider ARIANNA Sandy Attending Provider ARIANNA Sandy Referring Provider Mika KELLER, PA Sariah Durham Other Provider Dr. John Dias Attending Provider Justo CHIEF ESTIMATOR, CHIEF ESTIMATOR-Sarthak Serrano Attending Provider Dr. Key Dent Emergency Provider Dr. Muna Bowers Admit Provider Dr. Muna Bowers Other Provider Dr. Martin Clemens Attending Provider Dr. Martin Clemens Other Provider Dr. Carrington Munguia Attending Provider Dr. Romulo Gallagher Attending Provider Dr. Romulo Gallagher Referring Provider Elliott, Dr. Sebastian Other Provider Dr. Sunita Mckenna Emergency Provider Dr. Frank Landon Admit Provider Dr. Frank Landon Attending Provider Dr. Frank Landon Other Provider Dr. Henrry Acosta Other Provider Dr. Seymour Goldberg Other Provider Dr. Farrukh Flanagan Other Provider Dr. Yrui Garcia Other Provider [phone] Dr[address] Mark Ortiz Other Provider Dr. Viridiana Bashir Other Provider [phone] Dr. Kendell Thompson Other Provider Dr. Nessa Gagnon Other Provider Dr. Lakhwinder Corrales Other Provider Unavailable Dr. Kel Ernandez Other Provider Dr. Tera Nowak Other Provider Dr. Arvind Coronel Other Provider Dr. Adrien Palmer Other Provider Dr. Ayaz Harvey Other Provider Dr. Farrukh Flanagan Attending Provider [phone] Jerson Avelar Other Provider Dr. Jerson Avelar Attending Provider KEMP, MAGGIE S Primary Care Unavailable KEMP, MAGGIE S Attending Unavailable BROWN, NEHEMIAH Consulting Unavailable KEMP, MAGGIE S Admitting Unavailable PROVIDER, UNKNOWN Consulting Unavailable PROVIDER, UNKNOWN Consulting Unavailable PROVIDER, UNKNOWN Consulting Unavailable KEMP, MAGGIE S Primary Care Unavailable KEMP, MAGGIE S Attending Unavailable KEMP, MAGGIE S Admitting Unavailable BROWN, NEHEMIAH Consulting Unavailable PROVIDER, UNKNOWN Consulting Unavailable PROVIDER, UNKNOWN Consulting Unavailable PROVIDER, UNKNOWN Consulting Unavailable RUFENER, MADAN Attending Unavailable RUFENER, MADAN Admitting Unavailable RUFENER, MADAN Primary Care Unavailable BROWN, NEHEMIAH Consulting Unavailable PROVIDER, UNKNOWN Consulting Unavailable PROVIDER, UNKNOWN Consulting Unavailable PROVIDER, UNKNOWN Consulting Unavailable RUFENER, MADAN Admitting Unavailable RUFENER, MADAN Primary Care Unavailable RUFENER, MADAN Attending Unavailable BROWN, NEHEMIAH Consulting Unavailable PROVIDER, UNKNOWN Consulting Unavailable PROVIDER, UNKNOWN Consulting Unavailable PROVIDER, UNKNOWN Consulting Unavailable RUFENER, MADAN Admitting Unavailable RUFENER, MADAN Primary Care Unavailable RUFENER, MADAN Attending Unavailable BROWN, NEHEMIAH Consulting Unavailable PROVIDER, UNKNOWN Consulting Unavailable PROVIDER, UNKNOWN Consulting Unavailable PROVIDER, UNKNOWN Consulting Unavailable MAGGIE KHAN DO Primary Care Unavailable KHAN, MAGGIE DO Attending Unavailable KHAN, MAGGIE DO Admitting Unavailable BROWN, NEHEMIAH Consulting Unavailable BROWN, NEHEMIAH Referring Unavailable PROVIDER, UNKNOWN Consulting Unavailable PROVIDER, UNKNOWN Consulting Unavailable PROVIDER, UNKNOWN Consulting Unavailable Brown, Nehemiah Primary Care Unavailable Farrukh Flanagan Attending Unavailable Rufener, Madan M Referring Unavailable Rufener, Madan M Attending Unavailable Brown, Nehemiah Referring Unavailable Brown, Nehemiah Primary Care Unavailable Maggie Kemp NP Attending Unavailable Brown, Nehemiah Primary Care Unavailable Brown, Nehemiah Referring Unavailable Rufener, Madan M Attending Unavailable Rufener, Madan M Attending Unavailable Rufener, Madan M Referring Unavailable Brown, Nehemiah Primary Care Unavailable Rufener, Madan M Attending Unavailable Brown, Nehemiah Primary Care Unavailable Brown, Nehemiah Referring Unavailable Brown, Nehemiah Primary Care Unavailable Farrukh Flanagan Attending Unavailable Madan Soni Referring Unavailable Madan Soni Consulting Unavailable Medications Current Medications Medication Drug Class(es) Dates Sig (Normalized) Sig (Original) ALPRAZolam 0.25 mg oral tablet (1 source) Benzodiazepine Start: 12-05-2023 take 0.25 mg by mouth twice daily Alprazolam Active 0.25 MG PO TWICE A DAY 12 25December 05, 2023 12:00am atorvastatin 40 mg oral tablet (20 sources) HMG-CoA Reductase Inhibitor Start: 12-24-2024 atorvastatin 40 mg tablet ; 1 Tablet qhs for 0 days Quantity: 90 {Tablet} Refills: 1 Ordered: 24-Dec-2024 MD Nehemiah Flanagan Start: 24-Dec-2024 Start: 08-23-2024 atorvastatin 4 0 mg tablet ; 1 Tablet qhs for 0 days Quantity: 90 {Tablet} Refills: 1 Ordered: 23-Aug-2024 MD Nehemiah Flanagan Start: 23-Aug-2024 Start: 01-08-2024 atorvastatin 4 0 mg tablet ; 1 Tablet qhs for 0 days Quantity: 90 {Tablet} Refills: 1 Ordered: 08-Jan-2024 MD Nehemiah Flanagan Start: 08-Jan-2024 Start: 01-21-2020 End: 09-24-2023 atorvastatin 40 mg tablet ; 1 Tablet qhs for 0 days Quantity: 90 {Tablet} Refills: 1 Ordered: 09-Jul-2023 MD Nehemiah Flanagan Start: 09-Jul-2023 furosemide 40 mg oral tablet (3 sources) Loop Diuretic Start: 12-05-2023 Furosemide Act pro 40 MG PO DAILY December 05, 2023 12:00am Hold for SBP less than 100 mmHg. Continue for 5 days and then as needed for shortness of breath/ . Start: 11-26-2023 End: 12-05-2023 take 1 tablet by mouth once daily Furosemide (Lasix) 40 mg tablet Discontinued 40 MG PO DAILY November 26, 2023 12:00am December 05, 2023 9:56am 12 hr guaiFENesin 1200 mg extended release oral tablet (9 sources) Start: 09-26-2023 End: 10-23-2023 take 1 tablet by mouth twice daily, then take 1 tablet by mouth every twelve hours Guaifenesin (Mucus Relief Er) 1,200 mg tablet extended release 12hr Active 1200 MG PO TWICE A DAY October 23, 2023 12:05pm loratadine 10 mg oral tablet (20 sources) take 1 tablet by mouth once daily Loratadine 10 MG Oral Tablet ; 1 daily (10 MG) losartan potassium 25 mg oral tablet (20 sources) Angiotensin 2 Receptor Hermann Start: 01-08-2024 losartan 25 mg tablet ; 1 Tablet daily for 0 days Quantity: 90 {Tablet} Refills: 1 Ordered: 08-Jan-2024 MD Nehemiah Flanagan Start: 08-Jan-2024 Start: 07-09-2023 losartan 25 mg tablet ; 1 Tablet daily for 0 days Quantity: 90 {Tablet} Refills: 1 Ordered: 09-Jul-2023 MD Nehemiah Flanagan Start: 09-Jul-2023 Start: 01-21-2020 End: 04-06-2021 take 25 mg by mouth once daily Losartan Discontinued 2 5 MG PO DAILY April 26, 2020 5:12pm April 06, 2021 11:05am 24 hr metoprolol succinate 50 mg extended release oral tablet (20 sources) beta-Adrenergic Hermann Start: 04-26-2020 End: 09-24-2023 take 1 tablet by mouth once daily Metoprolol Succinate ER 50 MG Oral Tablet Extended Release 24 Hour ; 1 Tablet daily for 0 days Quantity: 90 {Tablet} Refills: 1 Ordered: 14-Jan-2023 MD Nehemiah Flanagan Start: 14-Jan-2023 Multivitamin (Daily Multi-Vitamin) tablet (4 sources) Start: 10-23-2023 take 1 tablet by mouth once daily Multivitamin (Daily Multi-Vitamin) tablet Active 1 TABLET PO DAILY October 23, 2023 1:00am Start: 10-23-2023 take 1 tablet by carmen th once daily Multivitamin (Daily Multi-Vitamin) tablet Active 1 TABLET PO DAILY October 23, 2023 12:00am nintedanib 150 mg oral capsule (2 sources) Kinase Inhibitor Start: 12-01-2023 take 1 capsule by mouth once daily Nintedanib (Ofev) 150 mg capsule Active 150 MG PO Q12H December 01, 2023 12:00am TAKE AT 0800 AND 2000 DAILY. omeprazole 20 mg delayed release oral capsule (20 sources) Proton Pump Inhibitor Start: 03-02-2024 omeprazole 20 mg capsule,delayed release ; 1 (one) Capsule qd for 0 days Quantity: 90 {Capsule} Refills: 3 Ordered: 02-Mar-2024 MD Nehemiah Flanagan Start: 02-Mar-2024 Start: 01-14-2023 take 1 capsule by [facility] once daily Omeprazole 20 MG Oral Capsule Delayed Release ; 1 (one) Capsule qd for 0 days Quantity: 90 {Capsule} Refills: 3 Ordered: 14-Jan-2023 MD Nehemiah Flanagan Start: 14-Jan-2023 microencapsulated potassium chloride 20 meq extended release oral tablet (1 source) Start: 12-05-2023 take 40 mEq by mouth once daily Potassium Chloride Active 40 MEQ PO DAILY 14 December 05, 2023 12:00am predniSONE 10 mg oral tablet (20 sources) Start: 12-05-2023 Prednisone Act pro 10 MG PO DAILY December 05, 2023 12:00am 40 mg for 3 days 30 mg for 3 days, 20 mg for 3 days,and 10 mg for 3 days Start: 11-13-2023 take 10 mg by mouth once daily Prednisone Active 10 MG PO DAILY November 13, 2023 12:41pm Start: 09-26-2023 End: 11-13-2023 take 4 tablets by mouth once daily, then take 3 tablets by mouth once daily, then take 2 tablets by mouth once daily, then take 1 tablet by mouth once daily Prednisone Discontinued 10 MG PO DAILY October 23, 2023 1:00am November 13, 2023 12:41pm Take 4 tabs PO daily for 3 days, then 3 tabs daily for 3 days, then 2 tabs daily for 3 days, then 1 tab daily for 3 days Start: 06-10-2023 End: 08-27-2023 take 4 tablets by mouth once daily, then take 3 tablets by mouth once daily, then take 2 tablets by mouth once daily, then take 1 tablet by mouth once daily Prednisone Discontinued 10 MG PO DAILY June 10, 2023 9:39am August 27, 2023 2:41pm Take 4 tabs PO daily for 3 days, then 3 tabs daily for 3 days, then 2 tabs daily for 3 days, then 1 tab daily for 3 days Start: 01-10-2023 End: 07-09-2023 predniSONE 20 mg tablet ; 1 (one) Tablet take as directed for 0 days Quantity: 20 {Tablet} Refills: 0 Ordered: 09-Jul-2023 TIM Luis Sariah Start: 10-Jan-2023 End: 09-Jul-2023 Status: Inactive Comments: Take 3tabs qd for 3 days thenTake 2tabs qd for 3 days thenTake 1tab qd for 3 days thenTake 1/2tab qd for 4 days. Comment on above: Take 3tabs qd for 3 days thenTake 2tabs qd for 3 days thenTake 1tab qd for 3 days thenTake 1/2tab qd for 4 days. sertraline 50 mg oral tablet (1 source) Serotonin Reuptake Inhibitor Start: 12-05-2023 take 50 mg by mouth once daily Sertraline Active 50 MG PO DAILY December 05, 2023 12:00am Completed/Discontinued Medications Medication Drug Class(es) Dates Sig (Normalized) Sig (Original) acebutolol 200 mg oral capsule (20 sources) beta-Adrenergic Hermann Start: 04-21-2020 End: 04-26-2020 take 200 mg by mouth twice daily Acebutolol Discontinued 200 MG PO TWICE A DAY April 21, 2020 4:40pm April 26, 2020 5:07pm Start: 01-21-2020 End: 04-21-2020 take 200 mg by mouth once daily Acebutolol Discontinue d 200 MG PO DAILY January 21, 2020 12:00am April 21, 2020 4:40pm Start: 09-29-2019 End: 10-13-2019 take 1 capsule by mouth twice daily Acebutolol HCl 200 MG Oral Capsule ; 1 Capsule two times daily for 14 days Quantity: 28 {Capsule} Refills: 0 Ordered: 29-Sep-2019 MD Nehemiah Flanagan Start: 29-Sep-2019 End: 13-Oct-2019 Status: Inactive [id number] 200 actuat albuterol 0.09 mg/actuat metered dose inhaler (20 sources) beta2-Adrenergic Agonist Start: 06-14-2020 End: 11-27-2022 take 1 puff(s) by inhalation every four hours Albuterol Sulfate (Ventolin Hfa) 90 mcg/actuation HFA aerosol inhaler Discontinued 2 PUFF INHALATION Q4H June 28, 2021 10:16am June 27, 2022 10:39am Albuterol Sulfat e HFA 108 (90 Base) MCG/ACT Inhalation Aerosol Solution ; (108 (90 Base) MCG/ACT) aspirin 81 mg delayed release oral tablet (20 sources) Platelet Aggregation Inhibitor, Nonsteroidal Anti-inflammatory Drug Start: 04-26-2020 End: 04-26-2020 take 325 mg by mouth once daily Aspirin Discontinued 325 MG PO DAILY April 26, 2020 12:00am April 26, 2020 5:07pm Start: 01-21-2020 End: 09-24-2023 Aspirin (Adult Low Dose Aspi rin) 81 mg tablet,delayed release (DR/EC) Discontinued 81 MG PO daily April 19, 2021 9:15am September 24, 2023 2:49pm azithromycin 500 mg oral tablet (20 sources) Macrolide Antimicrobial Start: 07-11-2021 End: 07-14-2021 take 1 tablet by mouth once daily Azithromycin 500 MG Oral Tablet ; 1 (one) Tablet daily for 3 days Quantity: 3 {Tablet} Refills: 0 Ordered: 11-Jul-2021 MD Nehemiah Flanagan Start: 11-Jul-2021 End: 14-Jul-2021 Status: Inactive ciprofloxacin 500 mg oral tablet (20 sources) Quinolone Antimicrobial Start: 01-30-2019 End: 02-09-2019 take 1 tablet by mouth twice daily Cipro 500 MG Oral Tablet ; 1 Tab two times daily for 10 days Quantity: 20 {Tablet} Refills: 0 Ordered: 30-Jan-2019 MD Nehemiah Flanagan Start: 30-Jan-2019 End: 09-Feb-2019 Status: Inactive doxycycline hyclate 100 mg oral tablet (20 sources) Tetracycline-class Drug Start: 07-15-2019 End: 12-14-2019 take 2 tablets by mouth once Doxycycline Hyclate 100 MG Oral Tablet ; 2 (two) Tablet one time dose for 0 days Quantity: 2 {Tablet} Refills: 0 Ordered: 14-Dec-2019 TIM Oleary Keyla Bain Start: 15-Jul-2019 End: 14-Dec-2019 Status: Inactive Comments: Take with full glass of water Comment on above: Take with full glass of water levoFLOXacin 750 mg oral tablet (19 sources) Quinolone Antimicrobial Start: 09-26-2023 End: 10-23-2023 take 750 mg by mouth once daily Levofloxacin Discontinued 750 MG PO DAILY September 26, 2023 1:00am October 23, 2023 12:06pm Start: 06-10-2023 End: 08-27-2023 take 750 mg by mouth once daily Levofloxacin Discontinued 750 MG PO DAILY June 10, 2023 9:39am August 27, 2023 2:42pm Lh-Sqn-Vwuuy-F4-Gzennjw-Smvd in (Men 50 Plus Multivitamin) 300-600-300 mcg tablet (8 sources) Start: 05-07-2022 End: 09-24-2023 take 50-300 tablets by mouth once daily Om-Wce-Kxwbd-G4-Odzcesv-Raszwy (Men 50 Plus Multivitamin) 300-600-300 mcg tablet Discontinued 1 TABLET PO DAILY May 07, 2022 12:00am September 24, 2023 2:53pm Start: 05-07-2022 End: 09-24-2023 take 50-300 tablets by mouth once daily Ik-Cfe-Xfqiq-K5-Salwrlw-Xskvpe (Men 50 P qing Multivitamin) 300-600-300 mcg tablet Discontinued 1 TABLET PO DAILY May 06, 2022 11:00pm September 24, 2023 1:53pm Start: 05-07-2022 take 50-300 tablets by mouth once daily Lj-Oac-Xtqyo-O2-Bhevgdo-Xrnryr (Men 50 P qing Multivitamin) 300-600-300 mcg tablet Active 1 TABLET PO DAILY May 06, 2022 11:00pm Start: 05-07-2022 take 50-300 tablets by mouth once daily Ii-Wus-Ommrk-J3-Ayilgef-Xocvxb (Men 50 P qing Multivitamin) 300-600-300 mcg tablet Active 1 TABLET PO DAILY May 07, 2022 12:00am naproxen sodium 220 mg oral tablet (20 sources) Nonsteroidal Anti-inflammatory Drug ALEVE, 220MG (Oral Tablet) ; 1 tablet as needed (220 MG) Status: Inactive Comments: Medication taken as needed. Comment on above: Medication taken as needed. phenazopyridine hydrochloride 200 mg oral tablet (20 sources) Start: End: take 1 tablet by mouth three times daily as needed Pyridium 200 MG Oral Tablet ; 1 Tab Tab 3 times daily, as needed for burining with urination for 0 days Quantity: 9 {Tablet} Refills: 0 Ordered: 27-Apr-2019 TIM Oleary Start: 21-Jan-2019 End: 27-Apr-2019 Status: Inactive Comments: Medication taken as needed. Comment on above: Medication taken as needed. sulfamethoxazole 800 mg / trimethoprim 160 mg oral tablet (20 sources) Dihydrofolate Reductase Inhibitor Antibacterial, Sulfonamide Antimicrobial Start: 015 End: 015 take 1 tablet by mouth twice daily BACTRIM DS, 800-160MG (Oral Tablet) ; 1 Tab two times daily for 21 days Quantity: 42 {Tablet} Refills: 0 Ordered: 22-Oct-2014 MD Neheimah Flanagan Start: 22-Oct-2014 End: 12-Nov-2014 Status: Inactive Problems Active Problems Problem Classification Problem Date Documented Da te Episodic/Chronic Calculus of urinary tract (20 sources) Kidney stone; Translations: [Calculus of kidney] 07-11-2021 Episodic Chronic kidney disease (20 sources) Chronic kidney disease stage 3; Translations: [Chronic kidney disease, Stage III (moderate)] 01-01-2021 Chronic Chronic obstructive pulmonary disease and bronchiectasis (1 source) Chronic obstructive pulmonary disease, unspecified; Translations: [Chronic obstructive pulmonary disease, unspecified] Onset: Chronic Complication of device; implant or graft (10 sources) Arteriosclerosis of coronary artery bypass graft; Translations: [Atherosclerosis of coronary artery bypass graft(s) without angina pectoris] 03-27-2021 Chronic Conditions associated with dizziness or vertigo (20 sources) Vertigo; Translations: [Dizziness and giddiness] 07-11-2021 Episodic Coronary atherosclerosis and other heart disease (20 sources) Coronary atherosclerosis; Translations: [Atherosclerotic heart disease of [place] coronary artery without angina pectoris] 10-25-2020 Chronic Comment on above: followed by Dr Toño sinclair , s/p CABG x 3 Disorders of lipid metabolism (20 sources) Hyperlipidemia; Translations: [Hyperlipidemia, unspecified] 10-25-2020 Chronic Esophageal disorders (20 sources) Gastroesophageal reflux disease; Translations: [Gastro-esophageal reflux disease without esophagitis] 07-09-2023 Chronic Essential hypertension (13 sources) Hypertensive disorder; Translations: [Essential (primary) hypertension] 05-21-2023 Chronic Fluid and electrolyte disorders (4 sources) Hypervolemia; Translations: [Fluid overload, unspecified] 12-01-2023 Episodic Immunizations and screening for infectious disease (20 sources) Needs influenza immunization; Translations: [Encounter for immunization] 07-11-2021 Episodic Inflammatory conditions of male genital organs (20 sources) Prostatitis; Translations: [Inflammatory disease of prostate, unspecified] 11-30-2014 Episodic Malaise and fatigue (10 sources) Fatigue; Translations: [Other fatigue] 05-21-2023 Episodic Other connective tissue disease (20 sources) Biceps femoris tendinitis; Translations: [Other specified enthesopathies of unspecified lower limb, excluding foot] 07-09-2023 Episodic Other diseases of kidney and ureters (8 sources) Kidney disease; Translations: [Disorder of kidney and ureter, unspecified] 04-21-2020 Episodic Other gastrointestinal disorders (20 sources) Stool DNA-based colorectal cancer screening positive; Translations: [Other fecal abnormalities] 07-09-2023 Episodic Other injuries and conditions due to external causes (20 sources) At risk for falls ; Translations: [History of falling] 07-11-2021 Episodic Other lower respiratory disease (20 sources) Fibrosis of lung; Translations: [Pulmonary fibrosis, unspecified] 04-26-2020 Chronic Other lower respiratory disease (20 sources) Pulmonary fibrosis, unspecified; Translations: [Postinflammatory pulmonary fibrosis] Onset: 4 06-10-2023 Chronic Other lower respiratory disease (20 sources) Dyspnea; Translations: [Shortness of breath] 06-27-2021 Episodic Other lower respiratory disease (9 sources) Shortness of breath; Translations: [Shortness of breath] 06-10-2023 Episodic Other lower respiratory disease (6 sources) Hypoxemia; Translations: [Hypoxemia] 09-24-2023 Episodic Other lower respiratory disease (6 sources) Dyspnea, unspecified; Translations: [Other respiratory abnormalities] 09-24-2023 Episodic Other lower respiratory disease (11 sources) Hypoxemia; Translations: [Hypoxemia] Onset: 5 09-24-2023 Episodic Other lower respiratory disease (1 source) Wheezing; Translations: [Wheezing] Onset: 5 Episodic Other nutritional; endocrine; and metabolic disorders (20 sources) Body mass index 30+ - obesity; Translations: [Body mass index (BMI) 34.0-34.9, adult] 07-09-2023 Chronic Other nutritional; endocrine; and metabolic disorders (20 sources) Obesity caused by energy imbalance; Translations: [Morbid (severe) obesity due to excess calories] 07-09-2023 Chronic Other nutritional; endocrine; and metabolic disorders (20 sources) Obesity; Translations: [Obesity, unspecified] 01-08-2021 Chronic Other screening for suspected conditions (not mental disorders or infectious disease) (20 sources) Raised prostate specific antigen; Translations: [Elevated prostate specific antigen [PSA]] 07-09-2023 Episodic Other upper respiratory infections (20 sources) Sinusitis; Translations: [Chronic sinusitis, unspecified] 01-10-2023 Chronic Pneumonia (except that caused by tuberculosis or sexually transmitted disease) (20 sources) Pneumonia; Translations: [Pneumonia, unspecified organism] 04-21-2020 Episodic Pulmonary heart disease (9 sources) Pulmonary hypertension; Translations: [Pulmonary hypertension, unspecified] Onset: 5 10-23-2023 Chronic Respiratory failure; insufficiency; arrest (adult) (4 sources) [id number] respiratory failure; Translations: [Acute and chronic respiratory failure with hypoxia] 12-01-2023 Chronic Screening and history of mental health and substance abuse codes (20 sources) Patient encounter status; Translations: [Encounter for screening for depression] 07-11-2021 Episodic Superficial injury; contusion (20 sources) Tick bite; Translations: [Insect bite (nonvenomous) of unspecified forearm, initial encounter] 07-15-2019 Episodic Unclassified (20 sources) Follow up for multiple chronic conditions - The patient is here for follow-up of congestive heart failure, GERD, hyperlipidemia, obesity and other condition(s) (pulmonary fibrosis). The patient always takes the prescribed medications. No side effects noted. 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 The patient's out of office blood pressure checks occur occasionally (checked for 2 weeks for cardio but does not have readings). The patient states that there is no recent angina or dyspnea, weight has decreased (down 10lbs) and they do not have headaches. Note for Multiple chronic conditions follow-up: pt states he had pneumonia 3 weeks ago, asking about the shot he had the prevnar 13 and Pneumovax 23 reviewed by [facility] 07-09-2023 Unclassified (20 sources) MCR Well Adult - In general the patient feels well with minor complaints (Jumped sideways away from cow and twisted left knee). The patient has a balanced diet. The patient exercises none (Active) and sleeps 8 hours per night. The patient denies having trouble with bathing, dressing/grooming, toileting, preparing meals and ambulating. The patient denies having trouble with grocery shopping, driving, use of telephone, housework, laundry, preparing/taking medications and finances. 01-14-2023 Unclassified (20 sources)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 well. 08-26-2018 Unclassified (20 sources) UTI - Symptoms include dysuria, urinary frequency and urinary urgency, but do not include hematuria. The pain is located in the right inguinal area. The pain radiates to the suprapubic area, back and right inguinal area. The patient describes the pain as burning. Onset was gradual 2 week(s) ago. The symptoms occur intermittently. The patient describes this as moderate in severity and worsening. Symptoms are relieved by urinary anesthetics (azo). Associated symptoms include urinary hesitancy, but do not include fever, chills, nausea or vomiting. Note for UTI: Pt has h/o kidney stones. reviewed by B 10-22-2014 Unclassified (20 sources) Follow up consultation - The patient is here to follow-up after hospitalization ([facility] with hypoxemia, Pulmonary fibrosis) on : (09-24-23 to 09-26-23). Note for Consultation follow-up: Is feeling well, average pulse ox 91-95 reviewed by B 10-07-2023 Results Test Name Value Interpretation Reference Range Facility Pulmonary Visit Reporton Pulmonary Visit Report [facility] [place] [address] [place] [address] OFFICE VISIT Date of Service: 11/09/24 MR#: [id number] Acct: [id number] Name: DU BACAMONTSERRAT Rep #: [id number] : 1950 Provider: Madan Soni NP Age/Sex: 74/M Location: [facility].PMW Status: Signed Assessment and Plan Assessment and Plan (1) Pulmonary fibrosis: Status: Chronic Plan: Tolerating Ofev well at current dose. Continue with LFT every 3-months while on Ofev. Severe restrictive disease seen on PFT. Refill OFEV. (2) Pulmonary hypertension: Status: Chronic Plan: Symptomatically stable. Continue with use of supplemental oxygen. (3) Hypoxemia: Status: Chronic Plan: The patient is using and benefiting from supplemental oxygen. I recommend that he continue with use of 8 liter per minute supplemental oxygen. continue to titrate supplemental oxygen to maintain a saturation of 89-92%. Nocturnal oximetry with vendor- [employer] to ensure 4.5L/min is adequate. Oxygen mask and tubing refills. (4) Wheeze: Status: Chronic Plan: In the past there has been benefit from DuoNebs nebulized. Unfortunately the disease process is so severe that reversibility was not able to be obtained on the PFT. I have recommended that he continue with use of DuoNeb therapy nebulized 1-2 times per day. Prescription for nebulizer and tubing kits will be provided for the patient today if there is transition from hospice to palliative care. To advance therapy for chest congestion I have recommended a PEP device. Patient does report that he had 1 of these at 1 point and it was beneficial but he is not certain where it is located currently. Medications: New [pep device with training] As directed 1 ea 0RF [nebulizer tubing kits] As directed 1 ea 0RF J44.9 - Chronic obstructive pulmonary disease, unspecified [neublizer machine] As directed 1 ea 0RF J44.9 - Chronic obstructive pulmonary disease, unspecified Refilled nintedanib 150 mg PO Q12H 60 caps 11RF Plan Details Follow Up: 6 Months (LMR) HPI HPI Comments Details: This 74-year-old male patient presents to the office today for follow-up of his pulmonary fibrosis with hypoxemia and pulmonary hypertension. He is in a wheelchair, currently on supplemental oxygen and accompanied today by his daughter and . Family indicates that the patient has now been placed on hospice care since his hospitalization 6 months ago and has an in-home nurse throughout the week. There is a plan to reevaluate this and consider placing the patient on palliative care now. He has not recently been seen in the ED or urgent care for any respiratory illness. He has not required any antibiotics or prednisone for any breathing problems. He is compliant with the use of Ofev as prescribed. He was experiencing some episodes of diarrhea and weight loss. When he experiences diarrhea he will use loperamide. When he exerts himself he w ill increase his supplemental oxygen which will improve his shortness of breath. Overall his shortness of breath has been stable. He does have an occasional dry cough but this is at his baseline. He is denying wheeze today. He will utilize an ipratropium albuterol nebulized treatment with benefit 1-2 times per day. He does have some dry mouth in the morning and Biotene is beneficial. The patient is reporting some chest congestion which he reports that DuoNeb is beneficial. He is also using guaifenesin twice daily. He has not recently utilized his albuterol. He is compliant with supplemental oxygen. He is using 8 L/min continuous oxygen throughout the day and will utilize 4.5 L/min of continuous oxygen at night. They report that typically he uses between 2 and 3 L/min continuous at rest and increases to 5 or 6 L/min on exertion. His watches his oxygen saturation closely. Documentation reviewed with patient today includes: Pulmonary function test completed on October 11, 2024 shows severe restrictive ventilatory impairment. DLCO was unable to be performed. 6-minute walk test from October 14, 2024 shows that he ambulated 236 feet over the course of 3 minutes. Resting oxygen saturation was noted to be 85% on room air 8 L/min of supplemental oxygen was applied to improve the patient's oxygen saturations to 93% prior to commencement testing. With ambulation the patient had desaturated to 89% by minute 3 of testing but subsequently discontinued the test at that time. The recommendation is to utilize a liter per minute of supplemental oxygen at all times. AST/ALT are within normal limits. Intake Vital Signs 08/10/24 12:52 11/09/24 09:05 Height 5 ft 11 in 5 ft 11 in Weight: 166 lb BMI 23.1 BP 106/70 Blood Pressure Location Lt brachial Position Sitting Respiration 20 H Pulse 85 Pulse Source Monitor (more content not included)... Normal [facility] 6 Minute Walk Teston 025 6 Minute Walk Test y [facility] Services/Neurology [address] [place] [address] MR#: [id number] Acct: [id number] Name: DU BACA Rep #: [id number] : 1950 74 From: Farrukh Flanagan DO Referring Dr: Madan Soni CHIEF ESTIMATOR-C Status: DEP CLI Location: PSN Date: Sex: M C PSN 6 Minute Walk Test 6 Minute Walk Test 6 Minute Walk Test: 6 Minute Walk Test PSN:6-Minute Walk Test Start: 10/14/24 14:15 Freq: Status: Discharge Protocol: [id number] Document 10/14/24 14:15 EW (Rec: 10/14/24 14:24 EW [email or web address]) 6 Minute Walk Test Date Performed 10/14/24 Time Performed 13:45 Height 5 ft 11 in Weight: 170 lb Weight in Pounds 170.0 lbs Assistive device None used: Pre-test Oxygen Delivery Room Air Method Pulse Ox (%) 85 Pulse Rate (60-100 105 H beats/min) Dyspnea Shaun Scale ( 2 0-10) Exertion Shaun Scale 11 (6-20) 1st minute Oxygen Flow Rate (L/ 8 min) (L/min) Oxygen Delivery Nasal Cannula Method Pulse Ox (%) 93 Pulse Rate (60-100 110 H beats/min) 2nd minute Oxygen Flow Rate (L/ 8 min) (L/min) Oxygen Delivery Nasal Cannula Method Pulse Ox (%) 90 Pulse Rate (60-100 112 H beats/min) 3rd minute Oxygen Flow Rate (L/ 8 min) (L/min) Oxygen Delivery Nasal Cannula Method Pulse Ox (%) 89 Pulse Rate (60-100 120 H beats/min) Number of Rests 1 Taken Reported Symptoms Increased Work of Breathing Post-test Oxygen Flow Rate (L/ 8 min) (L/min) Oxygen Delivery Nasal Cannula Method Pulse Ox (%) 93 Pulse Rate (60-100 99 beats/min) Dyspnea Shaun Scale ( 3 0-10) Exertion Shaun Scale 14 (6-20) Full Laps Walked 4 Partial Lap, Number 0 of Tiles Walked Total Distance 236 Walked (ft) 10/14/24 14:20 Cardiopulmonary Services by Kym Wagner pt was placed on room air sats were 85% increasesd to 8L for remainder of test cause he walks with that at home. Only made it to 3 min before he was done with test. Initialized on 10/14/24 14:20 - END OF NOTE Interpretation Interpretation: The patient ambulated 236 feet over the course of 3 minutes beginning on supplemental oxygen without assistive devices. Retesting oxygen saturation was noted to be 85% on room air. 8 L/min of supplemental oxygen was applied to improve the patient's oxygen saturations to 93% prior to commencement testing. With ambulation, the patient had desaturated to 89% by minute 3 of testing but subsequently discontinued the test at that time. Recommendations Recommendations: 8 L/min of supplemental oxygen should be utilized at all times. 10/29/24 1334 Date Farrukh Flanagan DO CC: Date Dictated: 10/29/241332 Date Transcribed: 10/29/241332 Senior Specialist: Dr. Farrukh Flanagan, DO Signed Normal [facility] HEPATIC FUNCTION PANELon Albumin [Mass/Vol] 2.9 g/dL Low 3.4 - 5.0 [facility] Comment on above: Performed By: #### 2 84711 #### [facility],[address] [place], [place] [id number] ALK PHOS 97 U/L Normal 46 - 116 [facility] Comment on above: Performed By: #### 2 64843 #### [facility],[address] [place] [address]261 ALT [Catalytic activity/Vol] 34 U/L Normal 16 - 63 [facility] Comment on above: Performed By: #### 2 85049 #### [facility],[address] [place] [address] 48519 AST [Catalytic activity/Vol] 20 U/L Normal 15 - 37 [facility] Comment on above: Performed By: #### 2 58672 #### [facility],[address] [place] [address] 91429 Bilirubin [Mass/Vol] 0.7 mg/dL Normal 0.2 - 1.0 [facility] Comment on above: Performed By: #### 2 20359 #### [facility],[address] [place] [address] 40130 Bilirubin.direct [Mass/Vol] 0.2 mg/dL Normal 0.0 - 0.2 [facility] Comment on above: Performed By: #### 2 28450 #### [facility],[address] [place] [address] 26253 Hepatic function 2000 panel Normal [facility] Comment on above: Result Comment: HEPA TIC FUNCTION PROFILE Performed By: #### 2 97154 #### [facility],[address] [place] [address] 77319 Protein [Mass/Vol] 6.7 g/dL Normal 6.4 - 8.2 [facility] Comment on above: Performed By: #### 2 44919 #### [facility],[address] [place] [address]2000 HEPATIC FUNCTION PANELon Albumin [Mass/Vol] 2.7 g/dL Low 3.4 - 5.0 [facility] Comment on above: Performed By: #### 2 91784 #### [facility],[address] [place] [address] 86633 ALK PHOS 96 U/L Normal 46 - 116 [facility] Comment on above: Performed By: #### 2 76173 #### [facility],[address] [place] [address] 99868 ALT [Catalytic activity/Vol] 36 U/L Normal 16 - 63 [facility] Comment on above: Performed By: #### 2 11324 #### [facility],[address] [place] [address] 73487 AST [Catalytic activity/Vol] 27 U/L Normal 15 - 37 [facility] Comment on above: Performed By: #### 2 12033 #### [facility],[address] [place] [address] 80789 Bilirubin [Mass/Vol] 0.8 mg/dL Normal 0.2 - 1.0 [facility] Comment on above: Performed By: #### 2 79112 #### [facility],[address] [place] [address] 67786 Bilirubin.direct [Mass/Vol] 0.2 mg/dL Normal 0.0 - 0.2 [facility] Comment on above: Performed By: #### 2 87823 #### [facility],[address] [place] [address] 84728 Hepatic function 2000 panel Normal [facility] Comment on above: Result Comment: HEPA TIC FUNCTION PROFILE Performed By: #### 2 22037 #### [facility],[address] [place] [address] 51259 Protein [Mass/Vol] 6.6 g/dL Normal 6.4 - 8.2 [facility] Comment on above: Performed By: #### 2 86739 #### [facility],[address] [place] [address] 40705 HEPATIC FUNCTION PANELon Albumin [Mass/Vol] 2.7 g/dL Low 3.4 - 5.0 [facility] Comment on above: Performed By: #### 2 02447 #### [facility],[address] [place] [address] 19688 ALK PHOS 96 U/L Normal 46 - 116 [facility] Comment on above: Performed By: #### 2 63226 #### [facility],[address] [place] [address] 19314 ALT [Catalytic activity/Vol] 53 U/L Normal 16 - 63 [facility] Comment on above: Performed By: #### 2 42585 #### [facility],[address] [place] [address] 98778 AST [Catalytic activity/Vol] 30 U/L Normal 15 - 37 [facility] Comment on above: Performed By: #### 2 95459 #### [facility],[address] [place] [address] Bilirubin [Mass/Vol] 0.5 mg/dL Normal 0.2 - 1.0 [facility] Comment on above: Performed By: #### 2 81809 #### [facility],[address] [place] [address] Bilirubin.direct [Mass/Vol] 0.2 mg/dL Normal 0.0 - 0.2 [facility] Comment on above: Performed By: #### 2 23132 #### [facility],[address] [place] [address] Hepatic function 2000 panel Normal [facility] Comment on above: Result Comment: HEPA TIC FUNCTION PROFILE Performed By: #### 2 20276 #### [facility],[address] [place] [address] Protein [Mass/Vol] 6.6 g/dL Normal 6.4 - 8.2 [facility] Comment on above: Performed By: #### 2 96299 #### [facility],[address] [place], [place] [id number] Pulmonary Visit Reporton Pulmonary Visit Report [facility] Pulmonary Medicine of [address] [place] [address] OFFICE VISIT Date of Service: 08/10/24 MR#: [id number] Acct: [id number] Name: DU BACA Rep #: [id number] : 1950 Provider: Madan Soni NP Age/Sex: 74/M Location: [facility].PMW Status: Signed Assessment and Plan Assessment and Plan (1) Pulmonary fibrosis: Status: Chronic Plan: Tolerating Ofev well at current dose. I recommend LFT every 3-months while on Ofev. I recommend a PFT and 6-minute walk test prior to next visit in 3 months, this is needed to requalify for Ofev. (2) Pulmonary hypertension: Status: Chronic Plan: Symptomatically stable. No recent acute exacerbations. (3) Hypoxemia: Status: Chronic Plan: 6-minute walk test. The patient is using and benefiting from oxygen. Continue to titrate supplemental oxygen to maintain a saturation of 89-92%. (4) Wheeze: Status: Chronic Plan: In the past there has been benefit from albuterol nebulized. I plan to increase regimen to DuoNeb therapy and discontinue albuterol to determine if this provides him greater benefit. I have recommended a PFT. If there is significant reversibility seen on the PFT then I will consider adding budesonide. Given the patient's occupational and social exposure he could also have asthma or COPD. Orders: Orders Liver Profile Today J84.10 - Pulmonary fibrosis, unspecified PFT Complete: DLCO, Spirometry b/a bronchodilators, lung volumes 10/11/24 J84.10 - Pulmonary fibrosis, unspecified Simple Pulmonary Exercise Test 10/14/24 J84.10 - Pulmonary fibrosis, unspecified Medications: New ipratropium-albuterol 0.5 mg-3 mg(2.5 mg base)/3 mL 3 mL inhalation Q4-6H PRN 180 mL 6RF shortness of breath or wheezing J84.10 - Pulmonary fibrosis, unspecified Discontinued albuterol sulfate Discontinued Reason: Order Changed 5 mg inhalation Q6H Plan Details Follow Up: 3 Months (LMR) HPI HPI Comments Details: This 74-year-old male patient presents to the office today for follow-up of his pulmonary fibrosis with hypoxemia and pulmonary hypertension. He is in a wheelchair, currently on supplemental oxygen and accompanied today by his daughter and . Family indicates that the patient has now been placed on hospice care since his hospitalization 6 months ago and has an in-home nurse throughout the week. He has not recently been seen in the ED or urgent care for any respiratory illness. He has not required any antibiotics or prednisone for any breathing problems. He is compliant with the use of Ofev as prescribed. He was experiencing some episodes of diarrhea and weight loss. His spouse had the dose reduced for 1 week but the patient had worsening respiratory symptoms so it was returned to the previous dose. He has continued here without difficulty and when he experiences diarrhea he will use loperamide. When he exerts himself he will increase his supplemental oxygen which will improve his shortness of breath. Overall his shortness of breath has been stable. He does have an occasional dry cough. He has an in-home nurse who will occasionally hear a wheeze. He will utilize an albuterol nebulized treatment with benefit. The patient does not notice the wheeze himself. Both daughter and spouse have indicated that the patient has been relatively stable and even improved from 6 months ago. He has not recently utilized his albuterol. He is compliant with supplemental oxygen. They report that typically he uses between 2 and 3 L/min continuous at rest and increases to 5 or 6 L/min on exertion. His watches his oxygen saturation closely. Walking oximetry completed in October 24, 2023. The patient was able to ambulate a total of 118 feet over the course of 6 minutes. It is recommended that the patient utilize 8 L/min of supplemental oxygen at all times. Pulmonary function test completed on October 31, 2023. Impression is consistent with restrictive impairment. No lab work available to review today. Intake Vital Signs 02/03/24 07:46 08/10/24 12:52 Height 5 ft 11 in 5 ft 11 in Weight: 194 lb 169 lb BMI 27.0 23.6 BP 92/63 96/60 Blood Pressure Location Rt brachial Lt brachial Position Sitting Sitting Respiration 24 H 18 Pulse 98 84 Pulse Source Monitor Monitor Temp 98.0 F 96.6 F L Temperature Source Temporal Artery Temporal Artery Pulse Oximetry (%) 95 95 Oxygen Delivery Method nasal canula nasal canula Oxygen Flow Rate (L/min) 6 3 Intake Visit Reasons: 6 M FU [facility] Vendor: [employer] through Hospice Accompanied by: Allergies No Known Allergies Allergy (Verified 08/10/24 13:03) Medications ???Medication ???Instructions ???Recorded ???Confirmed ???Type omeprazole 20 mg capsule,delayed 20 mg PO DAILY ACID REFLUX (more content not included)... Normal [facility] HEPATIC FUNCTION PANELon Albumin [Mass/Vol] 2.7 g/dL Low 3.4 - 5.0 [facility] Comment on above: Performed By: #### 2 90734 #### [facility],[address] [place] [address] ALK PHOS 114 U/L Normal 46 - 116 [facility] Comment on above: Performed By: #### 2 75363 #### [facility],[address] [place], [place] [id number] ALT [Catalytic activity/Vol] 48 U/L Normal 16 - 63 [facility] Comment on above: Performed By: #### 2 43165 #### [facility],[address] [place], [place] [address] AST [Catalytic activity/Vol] 27 U/L Normal 15 - 37 [facility] Comment on above: Performed By: #### 2 52290 #### [facility],[address] [place] [address] 33078 Bilirubin [Mass/Vol] 0.8 mg/dL Normal 0.2 - 1.0 [facility] Comment on above: Performed By: #### 2 09601 #### [facility],[address] [place], [place] [address] Bilirubin.direct [Mass/Vol] 0.2 mg/dL Normal 0.0 - 0.2 [facility] Comment on above: Performed By: #### 2 46524 #### [facility],[address] [place], [place] [id number] Hepatic function 2000 panel Normal [facility] Comment on above: Result Comment: HEPA TIC FUNCTION PROFILE Performed By: #### 2 52802 #### [facility],[address] [place], [place] [id number] Protein [Mass/Vol] 6.8 g/dL Normal 6.4 - 8.2 [facility] Comment on above: Performed By: #### 2 89151 #### [facility],[address] [place], [place] [id number] Pulmonary Visit Reporton Pulmonary Visit Report [facility] Pulmonary Medicine of [address] [place] [id number] OFFICE VISIT Date of Service: 02/03/24 MR#: [id number] Acct: [id number] Name: DU BACA Rep #: [id number] : 1950 Provider: CORIE Kemp Age/Sex: 73/M Location: [facility].PMW Status: Signed Assessment and Plan Assessment and Plan (1) Pulmonary hypertension: Status: Chronic Plan: Symptomatically stable. (2) Pulmonary fibrosis: Status: Chronic Plan: Tolerating Ofev well. This will be continued without interruption. (3) Hypoxemia: Status: Chronic Plan: The patient is using and benefiting from oxygen. Continue to utilize to maintain a saturation of 89-92%. Follow-up in 6 months. Plan Details Follow Up: 6 Months ([facility]) HPI 3 M FU Chief Complaint: Test results HPI Comments Details: This patient presents to the office today for follow-up of his pulmonary fibrosis with hypoxemia and pulmonary hypertension. He is in a wheelchair, currently on supplemental oxygen and accompanied today by his daughter and . He has not recently been seen in the ED or urgent care for any respiratory illness. He has not required any antibiotics or prednisone for any breathing problems. He is compliant with the use of Ofev as prescribed. He is not having any medication side effects. He does report that it has caused loose stools but not diarrhea. His reports that this is actually helpful, as the patient has had trouble in the past when needing to bear down. He also continues with Lasix, however it is as needed. He watches his sodium intake carefully. He has not recently utilized his albuterol. He is compliant with supplemental oxygen. They report that typically he uses between 3 and 4 L/min continuous at rest and increases to 5 or 6 L/min on exertion. His watches his oxygen saturation closely. Test results personally reviewed with patient: Walking oximetry completed in October 24, 2023. The patient was able to ambulate a total of 118 feet over the course of 6 minutes. It is recommended that the patient utilize 8 L/min of supplemental oxygen at all times. Pulmonary function test completed on October 31, 2023. Impression is consistent with restrictive impairment. Intake Vital Signs 10/23/23 10:58 12/02/23 09:30 02/03/24 07:46 Height 5 ft 10 in 5 ft 11 in 5 ft 11 in Weight: 194 lb BMI 27.0 BP 92/63 Blood Pressure Location Rt brachial Position Sitting Respiration 24 H Pulse 98 Pulse Source Monitor Temp 98.0 F Temperature Source Temporal Artery Pulse Oximetry (%) 95 Oxygen Delivery Method nasal canula Oxygen Flow Rate (L/min) 6 Intake Visit Reasons: 3 M FU Supervisor Line Department Required: No DME Vendor: [employer] - [employer] Accompanied by: and daughter Allergies No Known Allergies Allergy (Verified 02/03/24 10:21) Medications ???Medication ???Instructions ???Recorded ???Confirmed ???Type losartan 25 mg tablet 25 mg PO DAILY BLOOD PRESSURE #90 04/06/21 02/03/24 Rx tabs omeprazole 20 mg capsule,delayed 20 mg PO DAILY ACID REFLUX 05/21/23 02/03/24 History release aspirin 81 mg tablet,delayed 81 mg PO DAILY HEART HEALTH 09/24/23 02/03/24 History release (Adult Low Dose Aspirin) atorvastatin 40 mg tablet 40 mg PO QHS CHOLESTEROL 09/24/23 02/03/24 History metoprolol succinate 50 mg 50 mg PO DAILY BLOOD PRESSURE 09/24/23 02/03/24 History tablet,extended release 24 hr guaifenesin 1,200 mg tablet, 1,200 mg PO BID PRN congestion 10/23/23 02/03/24 History extended release 12 hr (Mucus Relief ER) multivitamin (Daily Multi-Vitamin 1 tab PO DAILY vitamin 10/23/23 02/03/24 History tablet) nintedanib 150 mg capsule (Ofev) 150 mg PO Q12H pulm fibrosis 12/01/23 02/03/24 History alprazolam 0.25 mg tablet 0.25 mg PO BID PRN ANXIETY 3 days 12/05/23 02/03/24 Rx #5 tabs furosemide 40 mg tablet 40 mg PO DAILY 30 days #30 tabs 12/05/23 02/03/24 Rx potassium chloride 20 mEq 40 meq (2 x 20 mEq) PO DAILY 7 12/05/23 02/03/24 Rx tablet,extended release(part/cryst) days #14 tabs prednisone 10 mg tablet 10 mg PO DAILY #30 tabs 12/05/23 02/03/24 Rx sertraline 50 mg tablet 50 mg PO DAILY 30 days #30 tabs 04/12/24 06/11/24 Rx albuterol sulfate 2.5 mg/0.5 mL 5 mg inhalation Q6H 02/03/24 02/03/24 History solution for nebulization ondansetron HCl 4 mg tablet 4 mg PO Q4 PRN nausea/vomiting 02/03/24 02/03/24 History PFSH Medical History GERD (gastroesophageal reflux disease) Acute and chronic respiratory failure with hypoxia Kidney stones Smoker On home oxygen therapy Pulmonary fibrosis Hypertension Atherosclerosis of coronary artery bypass graft without angina pectoris Pulmonary fibrosis CKD (chronic (more content not included)... Normal [facility] HEPATIC FUNCTION PANELon Albumin [Mass/Vol] 2.9 g/dL Low 3.4 - 5.0 [facility] Comment on above: Performed By: #### 2 [id number] #### [facility],[address] [place] [address] ALK PHOS 104 U/L Normal 46 - 116 [facility] Comment on above: Performed By: #### 2 [id number] #### [facility],[address] [place] [address] ALT [Catalytic activity/Vol] 43 U/L Normal 16 - 63 [facility] Comment on above: Performed By: #### 2 [id number] #### [facility],[address] [place] [address] 20766 AST [Catalytic activity/Vol] 23 U/L Normal 15 - 37 [facility] Comment on above: Performed By: #### 2 [id number] #### [facility],[address] [place] [address] Bilirubin [Mass/Vol] 0.7 mg/dL Normal 0.2 - 1.0 [facility] Comment on above: Performed By: #### 2 [id number] #### [facility],[address] [place] [address]887 Bilirubin.direct [Mass/Vol] 0.2 mg/dL Normal 0.0 - 0.2 [facility] Comment on above: Performed By: #### 2 [id number] #### [facility],[address] [place] [address]507 Hepatic function 2000 panel Normal [facility] Comment on above: Result Comment: HEPA TIC FUNCTION PROFILE Performed By: #### 2 [id number] #### [facility],[address] [place] [address] 41436 Protein [Mass/Vol] 7.1 g/dL Normal 6.4 - 8.2 [facility] Comment on above: Performed By: #### 2 [id number] #### [facility],[address] [place] [address] HEPATIC FUNCTION PANELon Albumin [Mass/Vol] 2.3 g/dL Low 3.4 - 5.0 [facility] Comment on above: Performed By: #### 2 [id number] #### [facility],[address] [place] [address]609 ALK PHOS 93 U/L Normal 46 - 116 [facility] Comment on above: Performed By: #### 2 [id number] #### [facility],[address] [place] [address] 10453 ALT [Catalytic activity/Vol] 21 U/L Normal 16 - 63 [facility] Comment on above: Performed By: #### 2 [id number] #### [facility],[address] [place] [address] 25974 AST [Catalytic activity/Vol] 22 U/L Normal 15 - 37 [facility] Comment on above: Performed By: #### 2 [id number] #### [facility],[address] [place] [address] 18603 Bilirubin [Mass/Vol] 1.1 mg/dL High 0.2 - 1.0 [facility] Comment on above: Performed By: #### 2 [id number] #### [facility],[address] [place] [address] 13476 Bilirubin.direct [Mass/Vol] 0.3 mg/dL High 0.0 - 0.2 [facility] Comment on above: Performed By: #### 2 [id number] #### [facility],[address] [place] [address] Hepatic function 2000 panel Normal [facility] Comment on above: Result Comment: HEPA TIC FUNCTION PROFILE Performed By: #### 2 [id number] #### [facility],[address] [place] [address] Protein [Mass/Vol] 6.1 g/dL Low 6.4 - 8.2 [facility] Comment on above: Performed By: #### 2 [id number] #### [facility],[address] [place] [address] Absolute lymphocyte countOrd ered By: Jerson Avelar on 12-05-2023 Lymphocytes Auto (Unsp spec) [#/Vol] 1.33 10*3/uL 0.83-4.51 [facility] Automated lymphocyte count a s percentage of total leukocytesOrdered By: Jerson Avelar on 12-05-2023 Lymphocytes/100 WBC Auto (Unsp spec) 14.7 % 19-41 [facility] Basophil percentageOrdered B y: Jerson Avelar on 12-05-2023 Basophils/100 WBC (Bld) 0.2 % 0-1 [facility] Chloride [Moles/Vol] 96 mmol/L 98-107 [facility] Eosinophils/100 WBC (Bld) 0.3 % 0-5 [facility] Glucose [Mass/Vol] 104 mg/dL 74-106 [facility] Comment on above: Fasting Glucose resu lt from 100 to 125 mg/dL suggests IMPAIRED HOMEOSTASIS per A.D.A. criteria. Hemoglobin (Bld) [Mass/Vol] 13.6 g/dL 13.0-16.5 [facility] Monocytes/100 WBC (Bld) 7.1 % 0-10 [facility] Neutrophils (Bld) [#/Vol] 7.0 10*3/uL 2.0-7.7 [facility] Neutrophils/100 WBC (Bld) 77.4 % 47-70 [facility] Potassium [Moles/Vol] 3.3 mmol/L 3.5-5.1 [facility] Sodium [Moles/Vol] 137 mmol/L 136-145 [facility] WBC (Bld) [#/Vol] 9.0 10*3/uL 4.4-11.0 [facility] Determination of erythrocyte mean corpuscular volume (MCV)Ordered By: Jerson Avelar on 12-05-2023 MCV (RBC) [Entitic vol] 92.0 fL 80-94 [facility] Erythrocyte distribution wid th ratioOrdered By: Jerson Avelar on 12-05-2023 Erythrocyte distribution width (RBC) [Ratio] 15.6 % 11.6-14.6 [facility] Erythrocyte distribution wid th standard deviationOrdered By: Jerson Avelar on 12-05-2023 Erythrocyte distribution width (RBC) [Entitic vol] 52.2 fL 35.1-43.9 [facility] Hematocrit Auto (Bld) [Volum e fraction]Ordered By: Jerson Avelar on 12-05-2023 Hematocrit (Bld) [Volume fraction] 42.8 % 40-54 [facility] Immature granulocytes/100 WB C Auto (Bld)Ordered By: Jerson Avelar on 12-05-2023 Immature granulocytes/100 WBC (Bld) 0.300 % 0.0-0.9 [facility] Comment on above: IG% - Immature Granu locytes (promyelocytes, myelocytes and metamyelocytes) > 1% indicates that a LEFT SHIFT is Present. Laboratory - Chemistry and C hemistry - challengeOrdered By: Jerson Avelar on 12-05-2023 CO2 [Moles/Vol] 39.0 mmol/L 21.0-32.0 [facility] Urea nitrogen/Creatinine [Mass ratio] 28.7 mg/mg 10-20 [facility] Laboratory - Hematology and Cell countsOrdered By: Jerson Avelar on 12-05-2023 MCH (RBC) [Entitic mass] 29.2 pg 27.0-32.0 [facility] MCHC (RBC) [Mass/Vol] 31.8 g/dL 32-36 [facility] Nucleated RBC/100 WBC (Bld) [Ratio] 0 % 0-5 [facility] Platelet mean volume (Bld) [Entitic vol] 11.4 fL 6.2-12.0 [facility] Platelets (Bld) [#/Vol] 151 10*3/uL 150-450 [facility] No Panel InformationOrdered By: Jerson Avelar on 12-05-2023 Estimated Creatinine Clearance Calc 78.14 ml/min [facility] Estimated GFR (MDRD) Amer 110 mL/min >60 [facility] Comment on above: GFR Calc Estimated GFR (MDRD) Non-Af Amer 91 mL/min >60 [facility] Comment on above: Non- GFR Calc RBC Auto (Bld) [#/Vol]Ordere d By: Jerson Avelar on 12-05-2023 RBC (Bld) [#/Vol] 4.65 10*6/uL 4.6-6.2 [facility] Serum or plasma calcium rosalio urement (mass/volume)Ordered By: Jerson Avelar on 12-05-2023 Calcium [Mass/Vol] 8.3 mg/dL 8.5-10.1 [facility] Serum or plasma creatinine m easurement (mass/volume)Ordered By: Jerson Avelar on 12-05-2023 Creatinine [Mass/Vol] 0.87 mg/dL 0.70-1.30 [facility] Comment on above: The validity of the calculated GFR & GFRAA in patients over 70 years has not been determined. Clinical correlation is essential. Serum or plasma urea nitroge n measurement (mass/volume)Ordered By: Jerson Avelar on 12-05-2023 Urea nitrogen [Mass/Vol] 25 mg/dL 7-18 [facility] Thin prep Papanicolaou smear with manual screeningOrdered By: Jerson Avelar on 12-05-2023 Thin prep Papanicolaou smear with manual screening 2 5-15 [facility] Clostridioides difficile nuc leic acid assay by PCROrdered By: Jerson Avelar on 12-04-2023 C. difficile DNA NELI+probe Ql (Unsp spec) [facility] Laboratory - Chemistry and C hemistry - challengeOrdered By: Jerson Avelar on 12-04-2023 Magnesium [Mass/Vol] 1.7 mg/dL 1.6-2.6 [facility] Stool enteric pathogen panel by probe and target amplification methodOrdered By: Jerson Avelar on 12-04-2023 Gastrointestinal pathogens panel NELI+probe (Stl) [facility] Basophil percentageOrdered B y: Ankit Jeet on 12-03-2023 Bilirubin [Mass/Vol] 1.00 mg/dL 0.20-1.00 [facility] Comment on above: For patients on eltr ombopag therapy, use of Dimension [place] TBIL is not recommended. Protein [Mass/Vol] 6.2 g/dL 6.4-8.2 [facility] Laboratory - Chemistry and C hemistry - challengeOrdered By: Ankit Marcano on 12-03-2023 Albumin/Globulin [Mass ratio] 0.7 {ratio} 0.9-2.4 [facility] ALP [Catalytic activity/Vol] 73 U/L 45-117 [facility] ALT [Catalytic activity/Vol] 44 U/L 16-61 [facility] Globulin (S) [Mass/Vol] 3.6 g/dL 2.2-4.2 [facility] Thin prep Papanicolaou smear with manual screeningOrdered By: Anikt Marcano on 12-03-2023 Thin prep Papanicolaou smear with manual screening 2.6 g/dL 3.2-5.0 [facility] Thin prep Papanicolaou smear with manual screening 25 U/L 15-37 [facility] Serum procalcitonin measurem entOrdered By: Farrukh Flanagan on 12-02-2023 Procalcitonin [Mass/Vol] ng/mL 0.00-0.09 [facility] Comment on above: A procalcitonin (PCT ) level above 2.0 ng/mL on the first day of ICU admission is associated with a high risk for progression to severe sepsis and/or septic shock. A PCT level below 0.5 ng/mL on the first day of ICU admission is associated with a low risk for progression to severe and/or septic shock. Note: Concentrations <0.5 ng/mL do not exclude an infection on account of localized infections (without systemic signs) which can be associated with such low concentrations, or a systemic infection in its initial stages (<6 hours). Furthermore, increased procalcitonin can occur without infection. PCT concentrations between 0.5 and 2.0 ng/mL should be interpreted taking into account the patient's history. It is recommended to retest PCT within 6-24 hours if any concentrations <2 ng/mL are obtained. Absolute lymphocyte countOrd ered By: Sunita Mckenna on 12-01-2023 Lymphocytes Auto (Unsp spec) [#/Vol] 0.76 10*3/uL 0.83-4.51 [facility] Automated lymphocyte count a s percentage of total leukocytesOrdered By: Sunita Mckenna on 12-01-2023 Lymphocytes/100 WBC Auto (Unsp spec) 8.4 % 19-41 [facility] Base excessOrdered By: Alisson Mckenna on 12-01-2023 Base excess Calc (BldV) [Moles/Vol] 11 mmol/L -2-2 [facility] Basophil percentageOrdered B y: Sunita Mckenna on 12-01-2023 Basophil percentage 38 mmol/L [facility] Basophils/100 WBC (Bld) 96 % 95-99 [facility] Basophils/100 WBC (Bld) 0.4 % 0-1 [facility] Chloride [Moles/Vol] 94 mmol/L 98-107 [facility] Eosinophils/100 WBC (Bld) 1.2 % 0-5 [facility] Glucose [Mass/Vol] 124 mg/dL 74-106 [facility] Comment on above: Fasting Glucose resu lt from 100 to 125 mg/dL suggests IMPAIRED HOMEOSTASIS per A.D.A. criteria. Hemoglobin (Bld) [Mass/Vol] 13.9 g/dL 13.0-16.5 [facility] Monocytes/100 WBC (Bld) 3.9 % 0-10 [facility] Neutrophils (Bld) [#/Vol] 7.7 10*3/uL 2.0-7.7 [facility] Neutrophils/100 WBC (Bld) 85.5 % 47-70 [facility] Potassium [Moles/Vol] 3.8 mmol/L 3.5-5.1 [facility] Comment on above: Moderate Hemolysis, Result may be falsely increased. Sodium [Moles/Vol] 135 mmol/L 136-145 [facility] WBC (Bld) [#/Vol] 9.0 10*3/uL 4.4-11.0 [facility] Determination of erythrocyte mean corpuscular volume (MCV)Ordered By: Sunita Mckenna on 12-01-2023 MCV (RBC) [Entitic vol] 92.1 fL 80-94 [facility] Erythrocyte distribution wid th ratioOrdered By: Sunita Mckenna on 12-01-2023 Erythrocyte distribution width (RBC) [Ratio] 16.4 % 11.6-14.6 [facility] Erythrocyte distribution wid th standard deviationOrdered By: Sunita Mckenna on 12-01-2023 Erythrocyte distribution width (RBC) [Entitic vol] 54.3 fL 35.1-43.9 [facility] Hematocrit Auto (Bld) [Volum e fraction]Ordered By: Sunita Mckenna on 12-01-2023 Hematocrit (Bld) [Volume fraction] 45.6 % 40-54 [facility] Immature granulocytes/100 WB C Auto (Bld)Ordered By: Sunita Mckenna on 12-01-2023 Immature granulocytes/100 WBC (Bld) 0.600 % 0.0-0.9 [facility] Comment on above: IG% - Immature Granu locytes (promyelocytes, myelocytes and metamyelocytes) > 1% indicates that a LEFT SHIFT is Present. Laboratory - Chemistry and C hemistry - challengeOrdered By: Sunita Mckenna on 12-01-2023 CO2 [Moles/Vol] 37.0 mmol/L 21.0-32.0 [facility] Natriuretic peptide B (Bld) [Mass/Vol] 720.5 pg/mL 0-100 [facility] Urea nitrogen/Creatinine [Mass ratio] 22.5 mg/mg 10-20 [facility] Laboratory - Hematology and Cell countsOrdered By: Sunita Mckenna on 12-01-2023 MCH (RBC) [Entitic mass] 28.1 pg 27.0-32.0 [facility] MCHC (RBC) [Mass/Vol] 30.5 g/dL 32-36 [facility] Nucleated RBC/100 WBC (Bld) [Ratio] 0 % 0-5 [facility] Platelet mean volume (Bld) [Entitic vol] 11.9 fL 6.2-12.0 [facility] Platelets (Bld) [#/Vol] 186 10*3/uL 150-450 [facility] Laboratory - Microbiology an d Antimicrobial susceptibilityOrdered By: Sunita Mckenna on 12-01-2023 SARS-CoV-2 (COVID-19) RNA NELI+probe Ql (Unsp spec) [facility] Measurement, pHOrdered By: Sarthak Mckenna on 12-01-2023 pH (Unsp spec) 7.41 [pH] 7.35-7.45 [facility] No Panel InformationOrdered By: Ankit Marcano on 12-01-2023 D-Dimer Quantitative (PE/DVT) 0.56 FEU/ug/m 0.27-0.49 [facility] Comment on above: D-Dimer ELEVATED (>0 .49): Additional studies and clinicalassessments are indicated to conclude diagnosis of:Deep Vein Thrombosis (DVT) or Pulmonary Embolism (PE)CRITICAL VALUE VERIFIED. CALLED TO [id number]/24 Alicia Emily Ely.RESULTS READ BACK BY SAME . No Panel InformationOrdered By: Sunita Mckenna on 12-01-2023 Arterial Blood Partial Pressure CO2 57.3 mmHg 35-45 [facility] Arterial Blood Partial Pressure O2 86 mmHG 75-100 [facility] Blood Gas Bicarbonate Actual 36.0 mmol/L 22-26 [facility] Blood Gas Oxygen Percent 15.0 [facility] Blood Gas Sample Site L Brach [facility] Blood Gas Specimen Type ART [facility] Blood Gas Vent Mode Not entered [facility] Oxygen Delivery Device NRB [facility] Estimated Creatinine Clearance Calc 76.74 ml/min [facility] Estimated GFR (MDRD) Amer 91 mL/min >60 [facility] Comment on above: GFR Calc Estimated GFR (MDRD) Non-Af Amer 76 mL/min >60 [facility] Comment on above: Non- GFR Calc Troponin I High Sensitivity 34 pg/mL 3.0-78.0 [facility] Comment on above: Please Note: New Teresa t Units and Gender Specific Reference Ranges. For more information see Policy Stat Procedure [place] High Sensitivity Troponin (TNIH) and attachments. RBC Auto (Bld) [#/Vol]Ordere d By: Sunita Mckenna on 12-01-2023 RBC (Bld) [#/Vol] 4.95 10*6/uL 4.6-6.2 [facility] Serum or plasma calcium rosalio urement (mass/volume)Ordered By: Sunita Mckenna on 12-01-2023 Calcium [Mass/Vol] 9.3 mg/dL 8.5-10.1 [facility] Serum or plasma creatinine m easurement (mass/volume)Ordered By: Sunita Mckenna on 12-01-2023 Creatinine [Mass/Vol] 1.02 mg/dL 0.70-1.30 [facility] Comment on above: The validity of the calculated GFR & GFRAA in patients over 70 years has not been determined. Clinical correlation is essential. Serum or plasma urea nitroge n measurement (mass/volume)Ordered By: Sunita Mckenna on 12-01-2023 Urea nitrogen [Mass/Vol] 23 mg/dL 7-18 [facility] Thin prep Papanicolaou smear with manual screeningOrdered By: Sunita Mckenna on 12-01-2023 Thin prep Papanicolaou smear with manual screening 4 5-15 [facility] Absolute lymphocyte countOrd ered By: Muna Bowers on 09-25-2023 Lymphocytes Auto (Unsp spec) [#/Vol] 0.91 10*3/uL 0.83-4.51 [facility] Automated lymphocyte count a s percentage of total leukocytesOrdered By: Muna Bowers on 09-25-2023 Lymphocytes/100 WBC Auto (Unsp spec) 7.1 % 19-41 [facility] Basophil percentageOrdered B y: Muna Bowers on 09-25-2023 Basophils/100 WBC (Bld) 0.1 % 0-1 [facility] Bilirubin [Mass/Vol] 0.80 mg/dL 0.20-1.00 [facility] Comment on above: For patients on eltr ombopag therapy, use of Dimension [place] TBIL is not recommended. Chloride [Moles/Vol] 107 mmol/L 98-107 [facility] Eosinophils/100 WBC (Bld) 0.0 % 0-5 [facility] Glucose [Mass/Vol] 146 mg/dL 74-106 [facility] Comment on above: Fasting Glucose resu lt greater than or equal to 126 mg/dL suggests DIABETES MELLITUS per A.D.A. criteria. Hemoglobin (Bld) [Mass/Vol] 14.5 g/dL 13.0-16.5 [facility] Monocytes/100 WBC (Bld) 1.8 % 0-10 [facility] Neutrophils (Bld) [#/Vol] 11.5 10*3/uL 2.0-7.7 [facility] Neutrophils/100 WBC (Bld) 90.3 % 47-70 [facility] Potassium [Moles/Vol] 4.4 mmol/L 3.5-5.1 [facility] Protein [Mass/Vol] 7.1 g/dL 6.4-8.2 [facility] Sodium [Moles/Vol] 136 mmol/L 136-145 [facility] WBC (Bld) [#/Vol] 12.8 10*3/uL 4.4-11.0 [facility] Determination of erythrocyte mean corpuscular volume (MCV)Ordered By: Muna Bowers on 09-25-2023 MCV (RBC) [Entitic vol] 90.4 fL 80-94 [facility] Erythrocyte distribution wid th ratioOrdered By: Muna Bowers on 09-25-2023 Erythrocyte distribution width (RBC) [Ratio] 13.6 % 11.6-14.6 [facility] Erythrocyte distribution wid th standard deviationOrdered By: Muna Bowers on 09-25-2023 Erythrocyte distribution width (RBC) [Entitic vol] 45.2 fL 35.1-43.9 [facility] Hematocrit Auto (Bld) [Volum e fraction]Ordered By: Muna Bowers on 09-25-2023 Hematocrit (Bld) [Volume fraction] 45.1 % 40-54 [facility] Immature granulocytes/100 WB C Auto (Bld)Ordered By: Muna Bowers on 09-25-2023 Immature granulocytes/100 WBC (Bld) 0.700 % 0.0-0.9 [facility] Comment on above: IG% - Immature Granu locytes (promyelocytes, myelocytes and metamyelocytes) > 1% indicates that a LEFT SHIFT is Present. Laboratory - Chemistry and C hemistry - challengeOrdered By: Muna Bowers on 09-25-2023 Albumin/Globulin [Mass ratio] 0.6 {ratio} 0.9-2.4 [facility] ALP [Catalytic activity/Vol] 92 U/L 45-117 [facility] ALT [Catalytic activity/Vol] 25 U/L 16-61 [facility] CO2 [Moles/Vol] 24.0 mmol/L 21.0-32.0 [facility] Globulin (S) [Mass/Vol] 4.5 g/dL 2.2-4.2 [facility] Magnesium [Mass/Vol] 2.2 mg/dL 1.6-2.6 [facility] Urea nitrogen/Creatinine [Mass ratio] 24.3 mg/mg 10-20 [facility] Laboratory - Hematology and Cell countsOrdered By: Muna Bowers on 09-25-2023 MCH (RBC) [Entitic mass] 29.1 pg 27.0-32.0 [facility] MCHC (RBC) [Mass/Vol] 32.2 g/dL 32-36 [facility] Nucleated RBC/100 WBC (Bld) [Ratio] 0 % 0-5 [facility] Platelets (Bld) [#/Vol] 226 10*3/uL 150-450 [facility] No Panel InformationOrdered By: Muna Bowers on 09-25-2023 Estimated Creatinine Clearance Calc 70.43 ml/min [facility] Estimated GFR (MDRD) Amer 87 mL/min >60 [facility] Comment on above: GFR Calc Estimated GFR (MDRD) Non-Af Amer 72 mL/min >60 [facility] Comment on above: Non- GFR Calc Platelet mean volume Ari-Ec ker (Bld) [Entitic vol]Ordered By: Muan Bowers on 09-25-2023 Platelet mean volume (Bld) [Entitic vol] 10.6 fL 6.2-12.0 [facility] RBC Auto (Bld) [#/Vol]Ordere d By: Muna Bwoers on 09-25-2023 RBC (Bld) [#/Vol] 4.99 10*6/uL 4.6-6.2 [facility] Serum or plasma calcium rosalio urement (mass/volume)Ordered By: Muna Bowers on 09-25-2023 Calcium [Mass/Vol] 9.2 mg/dL 8.5-10.1 [facility] Serum or plasma creatinine m easurement (mass/volume)Ordered By: Muna Bowers on 09-25-2023 Creatinine [Mass/Vol] 1.07 mg/dL 0.70-1.30 [facility] Comment on above: The validity of the calculated GFR & GFRAA in patients over 70 years has not been determined. Clinical correlation is essential. Serum or plasma thyroid stim ulating hormone (TSH) measurement (units/volume)Ordered By: Muna Bowers on 09-25-2023 TSH Qn 0.50 uIU/mL 0.358-3.74 [facility] Serum or plasma urea nitroge n measurement (mass/volume)Ordered By: Muna Bowers on 09-25-2023 Urea nitrogen [Mass/Vol] 26 mg/dL 7-18 [facility] Thin prep Papanicolaou smear with manual screeningOrdered By: Muna Bowers on 09-25-2023 Thin prep Papanicolaou smear with manual screening 2.6 g/dL 3.2-5.0 [facility] Thin prep Papanicolaou smear with manual screening 16 U/L 15-37 [facility] Thin prep Papanicolaou smear with manual screening 5 5-15 [facility] Absolute lymphocyte countOrd ered By: ED PROVIDER on 09-24-2023 Lymphocytes Auto (Unsp spec) [#/Vol] 1.43 10*3/uL 0.83-4.51 [facility] Automated lymphocyte count a s percentage of total leukocytesOrdered By: ED PROVIDER on 09-24-2023 Lymphocytes/100 WBC Auto (Unsp spec) 13.7 % 19-41 [facility] Basophil percentageOrdered B y: Remus Ungur on 09-24-2023 Lactate [Moles/Vol] 1.3 mmol/L 0.4-2.0 [facility] Basophil percentageOrdered B y: ED PROVIDER on 09-24-2023 Basophils/100 WBC (Bld) 0.7 % 0-1 [facility] Chloride [Moles/Vol] 107 mmol/L 98-107 [facility] Eosinophils/100 WBC (Bld) 1.8 % 0-5 [facility] Glucose [Mass/Vol] 153 mg/dL 74-106 [facility] Comment on above: Fasting Glucose resu lt greater than or equal to 126 mg/dL suggests DIABETES MELLITUS per A.D.A. criteria. Hemoglobin (Bld) [Mass/Vol] 15.6 g/dL 13.0-16.5 [facility] Monocytes/100 WBC (Bld) 5.6 % 0-10 [facility] Neutrophils (Bld) [#/Vol] 8.1 10*3/uL 2.0-7.7 [facility] Neutrophils/100 WBC (Bld) 77.6 % 47-70 [facility] Potassium [Moles/Vol] 3.6 mmol/L 3.5-5.1 [facility] Sodium [Moles/Vol] 139 mmol/L 136-145 [facility] WBC (Bld) [#/Vol] 10.4 10*3/uL 4.4-11.0 [facility] Determination of erythrocyte mean corpuscular volume (MCV)Ordered By: ED PROVIDER on 09-24-2023 MCV (RBC) [Entitic vol] 91.2 fL 80-94 [facility] Erythrocyte distribution wid th ratioOrdered By: ED PROVIDER on 09-24-2023 Erythrocyte distribution width (RBC) [Ratio] 13.8 % 11.6-14.6 [facility] Erythrocyte distribution wid th standard deviationOrdered By: ED PROVIDER on 09-24-2023 Erythrocyte distribution width (RBC) [Entitic vol] 46.1 fL 35.1-43.9 [facility] Hematocrit Auto (Bld) [Volum e fraction]Ordered By: ED PROVIDER on 09-24-2023 Hematocrit (Bld) [Volume fraction] 49.5 % 40-54 [facility] Immature granulocytes/100 WB C Auto (Bld)Ordered By: ED PROVIDER on 09-24-2023 Immature granulocytes/100 WBC (Bld) 0.600 % 0.0-0.9 [facility] Comment on above: IG% - Immature Granu locytes (promyelocytes, myelocytes and metamyelocytes) > 1% indicates that a LEFT SHIFT is Present. Laboratory - Chemistry and C hemistry - challengeOrdered By: ED PROVIDER on 09-24-2023 CO2 [Moles/Vol] 28.0 mmol/L 21.0-32.0 [facility] Urea nitrogen/Creatinine [Mass ratio] 10.9 mg/mg 10-20 [facility] Laboratory - Chemistry and C hemistry - challengeOrdered By: Muna Bowers on 09-24-2023 Natriuretic peptide B (Bld) [Mass/Vol] 262.7 pg/mL 0-100 [facility] Laboratory - Hematology and Cell countsOrdered By: ED PROVIDER on 09-24-2023 MCH (RBC) [Entitic mass] 28.7 pg 27.0-32.0 [facility] MCHC (RBC) [Mass/Vol] 31.5 g/dL 32-36 [facility] Nucleated RBC/100 WBC (Bld) [Ratio] 0 % 0-5 [facility] Platelets (Bld) [#/Vol] 222 10*3/uL 150-450 [facility] Laboratory - Microbiology an d Antimicrobial susceptibilityOrdered By: Key Dent on 09-24-2023 Bacteria identified Cx Nom (Bld) No growth in 5 days. [facility] SARS-CoV-2 (COVID-19) RNA NELI+probe Ql (Unsp spec) [facility] Bacteria identified Cx Nom (Bld) No growth in 5 days. [facility] No Panel InformationOrdered By: Key Dent on 09-24-2023 D-Dimer Quantitative (PE/DVT) 0.49 FEU/ug/m 0.27-0.49 [facility] Comment on above: NORMAL D-Dimer level (<0.50) indicates no DVT or PE. Troponin I High Sensitivity 25 pg/mL 3.0-78.0 [facility] Comment on above: Please Note: New Teresa t Units and Gender Specific Reference Ranges. For more information see Policy Stat Procedure [place] High Sensitivity Troponin (TNIH) and attachments. No Panel InformationOrdered By: ED PROVIDER on 09-24-2023 Estimated Creatinine Clearance Calc 55.33 ml/min [facility] Estimated GFR (MDRD) Amer 65 mL/min >60 [facility] Comment on above: GFR Calc Estimated GFR (MDRD) Non-Af Amer 54 mL/min >60 [facility] Comment on above: Non- GFR Calc Platelet mean volume Ari-Ec ker (Bld) [Entitic vol]Ordered By: ED PROVIDER on 09-24-2023 Platelet mean volume (Bld) [Entitic vol] 10.2 fL 6.2-12.0 [facility] RBC Auto (Bld) [#/Vol]Ordere d By: ED PROVIDER on 09-24-2023 RBC (Bld) [#/Vol] 5.43 10*6/uL 4.6-6.2 [facility] Respiratory pathogens detect ion panel by molecular detection methodOrdered By: Muna Bowers on 09-24-2023 Respiratory pathogens DNA and RNA panel NELI+probe (Resp) [facility] Respiratory pathogens DNA and RNA panel NELI+probe (Resp) [facility] Serum or plasma calcium rosalio urement (mass/volume)Ordered By: ED PROVIDER on 09-24-2023 Calcium [Mass/Vol] 9.6 mg/dL 8.5-10.1 [facility] Serum or plasma creatinine m easurement (mass/volume)Ordered By: ED PROVIDER on 09-24-2023 Creatinine [Mass/Vol] 1.37 mg/dL 0.70-1.30 [facility] Comment on above: The validity of the calculated GFR & GFRAA in patients over 70 years has not been determined. Clinical correlation is essential. Serum or plasma urea nitroge n measurement (mass/volume)Ordered By: ED PROVIDER on 09-24-2023 Urea nitrogen [Mass/Vol] 15 mg/dL 7-18 [facility] Serum procalcitonin measurem entOrdered By: Muna Bowers on 09-24-2023 Procalcitonin [Mass/Vol] ng/mL 0.00-0.09 [facility] Comment on above: A procalcitonin (PCT ) level above 2.0 ng/mL on the first day of ICU admission is associated with a high risk for progression to severe sepsis and/or septic shock. A PCT level below 0.5 ng/mL on the first day of ICU admission is associated with a low risk for progression to severe and/or septic shock. Note: Concentrations <0.5 ng/mL do not exclude an infection on account of localized infections (without systemic signs) which can be associated with such low concentrations, or a systemic infection in its initial stages (<6 hours). Furthermore, increased procalcitonin can occur without infection. PCT concentrations between 0.5 and 2.0 ng/mL should be interpreted taking into account the patient's history. It is recommended to retest PCT within 6-24 hours if any concentrations <2 ng/mL are obtained. Thin prep Papanicolaou smear with manual screeningOrdered By: ED PROVIDER on 09-24-2023 Thin prep Papanicolaou smear with manual screening 4 5-15 [facility] Absolute lymphocyte countOrd ered By: Sariah Brennan on 05-21-2023 Lymphocytes Auto (Unsp spec) [#/Vol] 2.04 10*3/uL 0.83-4.51 [facility] Basophil percentageOrdered B y: Sariah Brennan on 05-21-2023 Basophils/100 WBC (Bld) 0.8 % 0-1 [facility] Chloride [Moles/Vol] 105 mmol/L 98-107 [facility] Eosinophils/100 WBC (Bld) 3.5 % 0-5 [facility] Glucose [Mass/Vol] 109 mg/dL 74-106 [facility] Comment on above: Fasting Glucose resu lt from 100 to 125 mg/dL suggests IMPAIRED HOMEOSTASIS per A.D.A. criteria. Neutrophils (Bld) [#/Vol] 4.5 10*3/uL 2.0-7.7 [facility] Neutrophils/100 WBC (Bld) 60.2 % 47-70 [facility] Potassium [Moles/Vol] 4.0 mmol/L 3.5-5.1 [facility] Sodium [Moles/Vol] 137 mmol/L 136-145 [facility] WBC (Bld) [#/Vol] 7.5 10*3/uL 4.4-11.0 [facility] Blood erythrocytes count (nu mber/volume)Ordered By: Sariah Brennan on 05-21-2023 RBC (Bld) [#/Vol] 5.91 10*6/uL 4.6-6.2 [facility] Blood hemoglobin measurement (mass/volume)Ordered By: Sariah Brennan on 05-21-2023 Hemoglobin (Bld) [Mass/Vol] 17.3 g/dL 13.0-16.5 [facility] Blood lymphocytes/100 leukoc ytesOrdered By: Sariah Brennan on 05-21-2023 Lymphocytes/100 WBC (Bld) 27.2 % 19-41 [facility] Blood monocytes/100 leukocyt esOrdered By: Sariah Brennan on 05-21-2023 Monocytes/100 WBC (Bld) 7.6 % 0-10 [facility] Blood platelet mean volumeOr dered By: Sariah Brennan on 05-21-2023 Platelet mean volume (Bld) [Entitic vol] 10.8 fL 6.2-12.0 [facility] Determination of erythrocyte mean corpuscular volume (MCV)Ordered By: Sariah Brennan on 05-21-2023 MCV (RBC) [Entitic vol] 93.9 fL 80-94 [facility] Hematocrit Auto (Bld) [Volum e fraction]Ordered By: Sariah Brennan on 05-21-2023 Hematocrit (Bld) [Volume fraction] 55.5 % 40-54 [facility] Laboratory - Chemistry and C hemistry - challengeOrdered By: Sariah Brennan on 05-21-2023 CO2 [Moles/Vol] 28.0 mmol/L 21.0-32.0 [facility] Urea nitrogen/Creatinine [Mass ratio] 8.1 mg/mg 10-20 [facility] Laboratory - Hematology and Cell countsOrdered By: Sariah Brennan on 05-21-2023 Erythrocyte distribution width (RBC) [Entitic vol] 47.6 fL 35.1-43.9 [facility] Erythrocyte distribution width (RBC) [Ratio] 13.8 % 11.6-14.6 [facility] Immature granulocytes/100 WBC (Bld) 0.700 % 0.0-0.9 [facility] Comment on above: IG% - Immature Granu locytes (promyelocytes, myelocytes and metamyelocytes) > 1% indicates that a LEFT SHIFT is Present. MCH (RBC) [Entitic mass] 29.3 pg 27.0-32.0 [facility] Nucleated RBC/100 WBC (Bld) [Ratio] 0 % 0-5 [facility] MCHC Auto (RBC) [Mass/Vol]Or dered By: Sariah Brennan on 05-21-2023 MCHC (RBC) [Mass/Vol] 31.2 g/dL 32-36 [facility] No Panel InformationOrdered By: Sariah Brennan on 05-21-2023 Estimated GFR (MDRD) Amer 73 mL/min >60 [facility] Comment on above: GFR Calc Estimated GFR (MDRD) Non-Af Amer 60 mL/min >60 [facility] Comment on above: Non- GFR Calc Thyroid Stimulating Hormone (TSH) 2.98 uIU/mL 0.358-3.74 [facility] Platelets bldOrdered By: Bud jessica Mika on 05-21-2023 Platelets (Bld) [#/Vol] 185 10*3/uL 150-450 [facility] Serum or plasma calcium rosalio urement (mass/volume)Ordered By: Sariah Brennan on 05-21-2023 Calcium [Mass/Vol] 9.4 mg/dL 8.5-10.1 [facility] Serum or plasma creatinine m easurement (mass/volume)Ordered By: Sariah Brennan on 05-21-2023 Creatinine [Mass/Vol] 1.24 mg/dL 0.70-1.30 [facility] Comment on above: The validity of the calculated GFR & GFRAA in patients over 70 years has not been determined. Clinical correlation is essential. Serum or plasma urea nitroge n measurement (mass/volume)Ordered By: Sariah Brennan on 05-21-2023 Urea nitrogen [Mass/Vol] 10 mg/dL 7-18 [facility] Thin prep Papanicolaou smear with manual screeningOrdered By: Sariah Brennan on 05-21-2023 Thin prep Papanicolaou smear with manual screening 4 5-15 [facility] Laboratory - Chemistry and C hemistry - challengeon 01-07-2023 Albumin [Mass/Vol] 4.0 g/dL Normal 3.6 - 5.1 g/dL [facility] Albumin/Globulin [Mass ratio] 1.3 {ratio} Normal 1.0 - 2.5 [facility].; [facility]. ALP [Catalytic activity/Vol] 73 U/L Normal 35 - 144 U/L [facility].; [facility]. ALT [Catalytic activity/Vol] 13 U/L Normal 9 - 46 U/L [facility].; [facility]. AST [Catalytic activity/Vol] 14 U/L Normal 10 - 35 U/L [facility].; [facility]. Bilirubin [Mass/Vol] 0.8 mg/dL Normal 0.2 - 1 .2 mg/dL [facility].; [facility]. Calcium [Mass/Vol] 9.7 mg/dL Normal 8.6 - 10. 3 mg/dL [facility].; [facility]. Chloride [Moles/Vol] 103 mmol/L Normal 98 - 11 0 mmol/L [facility].; [facility]. Cholesterol [Mass/Vol] 146 mg/dL Normal [facility].; [facility] Cholesterol in HDL [Mass/Vol] 50 mg/dL Normal [facility].; [facility]. Cholesterol in LDL [Mass/Vol] 80 mg/dL Normal [facility].; [place] [employer] [facility], [facility]. CO2 [Moles/Vol] 27 mmol/L Normal 20 - 32 mmol/L [facility].; [facility]. Creatinine [Mass/Vol] 1.13 mg/dL Normal 0.70 - 1.28 mg/dL [facility].; [facility]. GFR/1.73 sq M.predicted among non-blacks MDRD (S/P/Bld) [Vol rate/Area] 68 mL/min/{1.73_m2} Normal [facility], [facility].; [place] [employer] [facility] Glucose [Mass/Vol] 103 mg/dL Abnormal 65 - 99 mg/dL [facility].; [facility]. Potassium [Moles/Vol] 4.7 mmol/L Normal 3.5 - 5.3 mmol/L [facility].; [place] [employer], [facility]. Protein [Mass/Vol] 7.2 g/dL Normal 6.1 - 8.1 g/dL [facility] [employer] Sodium [Moles/Vol] 138 mmol/L Normal 135 - 146 mmol/L [facility]; [facility] Triglyceride [Mass/Vol] 78 mg/dL Normal [facility]; [place] [employer] [facility] Urea nitrogen [Mass/Vol] 16 mg/dL Normal 7 - 25 mg/dL [facility]; [facility] No Panel Informationon 01-07 BUN/CREATININE RATIO NOT APPLICABLE Normal 6 - 22 [facility]; [place] [facility]. CHOL/HDLC RATIO 2.9 Normal [facility]; [facility] GLOBULIN 3.2 Normal 1.9 - 3.7 [facility]; [facility] NON HDL CHOLESTEROL 96 Normal [facility]; [place] [employer] [facility] PSA, TOTAL 5.69 ng/mL Abnormal [facility]; [place] [employer] [facility] COMPREHENSIVE METABOLIC PANE [facility] 01-02-2022 Albumin [Mass/Vol] 4.2 g/dL Normal 3.6-5.1 [facility] Comment on above: Performed By: #### 7 600, [id number], 9537 #### [facility] [place] [address] Data Processing Control Clerk: Oli Fong MD Albumin/Globulin [Mass ratio] 1.4 {ratio} Normal 1.0-2.5 [facility] Comment on above: Performed By: #### 7 600, 48306, 5339 #### [facility] [place] [address] Data Processing Control Clerk: Oli Fong MD ALP [Catalytic activity/Vol] 64 U/L Normal 35-144 [facility] Comment on above: Performed By: #### 7 600, 21143, 8678 #### [facility] [place] [address] Data Processing Control Clerk: Oli Fong MD ALT [Catalytic activity/Vol] 17 U/L Normal 9-46 [facility] Comment on above: Performed By: #### 7 600, 16299, 5363 #### [facility] of [address], [address] [place] [address] Data Processing Control Clerk: Oli Fong MD AST [Catalytic activity/Vol] 16 U/L Normal 10-35 [facility] Comment on above: Performed By: #### 7 600, 29535, 5363 #### [facility] of [address], [address] [place] [address] Data Processing Control Clerk: Oli Fong MD Bilirubin [Mass/Vol] 1.0 mg/dL Normal 0.2-1.2 [facility] Comment on above: Performed By: #### 7 600, 94450, 5363 #### [facility] of [address], [address] [place] [address] Data Processing Control Clerk: Oli Fong MD BUN/CREATININE RATIO NOT APPLICABLE Normal 6-22 [facility] Comment on above: Performed By: #### 7 600, 52666, 5363 #### [facility] of [address], [address] [place] [address] Data Processing Control Clerk: Oil Fong MD Calcium [Mass/Vol] 10.1 mg/dL Normal 8.6-10.3 [facility] Comment on above: Performed By: #### 7 600, 86842, 5363 #### [facility] of [address], [address] [place] [address] Data Processing Control Clerk: Oli Fong MD Chloride [Moles/Vol] 100 mmol/L Normal 98-110 [facility] Comment on above: Performed By: #### 7 600, 24074, 5363 #### [facility] of [address], [address] [place] [address] Data Processing Control Clerk: Oli Fong MD CO2 [Moles/Vol] 30 mmol/L Normal 20-32 [facility] Comment on above: Performed By: #### 7 600, 65436, 5363 #### [facility] of [address], [address] [place] [address] Data Processing Control Clerk: Oli Fong MD Creatinine [Mass/Vol] 1.06 mg/dL Normal 0.70-1.[address] [facility] Comment on above: Result Comment: For patients >49 years of age, the reference limit for Creatinine is approximately 13% higher for people identified as -Algerian. Performed By: #### 7 600, 93975, 5363 #### [facility] [address], [address] [place] [address] Data Processing Control Clerk: Oli Fong MD eGFR NON-AFR. BRAZILIAN 69 mL/min/1.73m2 Normal > OR = 60 [facility] Comment on above: Performed By: #### 7 600, , 5363 #### [facility] [address], [address] [place] [address] Data Processing Control Clerk: Oli Fong MD GFR/1.73 sq M.predicted among blacks MDRD (S/P/Bld) [Vol rate/Area] 80 mL/min/{1.73_m2} Normal > OR = 60 [facility] Comment on above: Performed By: #### 7 600, 62862, 5363 #### [facility] [address], [address] [place] [address] Data Processing Control Clerk: Oli Fong MD Globulin (S) [Mass/Vol] 3.1 g/dL Normal 1.9-3.7 [facility] Comment on above: Performed By: #### 7 600, 95261, 5363 #### [facility] [address], [address] [place] [address] Data Processing Control Clerk: Oli Fong MD Glucose [Mass/Vol] 96 mg/dL Normal 65-99 [facility] Comment on above: Result Comment: Fasting reference interval Performed By: #### 7 600, 59115, 5363 #### [facility] [address], [address] [place] [address] Data Processing Control Clerk: Oli Fong MD Potassium [Moles/Vol] 4.6 mmol/L Normal 3.5-5.[address] [facility] Comment on above: Performed By: #### 7 600, 02801, 5363 #### [facility] of [address], [address] [place] [address] Data Processing Control Clerk: Oli Fong MD Protein [Mass/Vol] 7.3 g/dL Normal 6.1-8.1 [facility] Comment on above: Performed By: #### 7 600, 29651, 5363 #### [facility] of [place] [address] Data Processing Control Clerk: Oli Fong MD Sodium [Moles/Vol] 138 mmol/L Normal 135-146 [facility] Comment on above: Performed By: #### 7 600, 08903, 5363 #### [facility] of [place] [address] Data Processing Control Clerk: Oli Fong MD Urea nitrogen [Mass/Vol] 12 mg/dL Normal 7-25 [facility] Comment on above: Performed By: #### 7 600, 18319, 5363 #### [facility] of [place] [address] Data Processing Control Clerk: Oli Fong MD LIPID PANEL, [facility] [place] 05- Cholesterol [Mass/Vol] 150 mg/dL Normal <200 [facility] Comment on above: Performed By: #### 7 600, 27098, 5363 #### [facility] of [place] [address] Data Processing Control Clerk: Oli Fong MD Cholesterol in HDL [Mass/Vol] 50 mg/dL Normal > OR = 40 [facility] Comment on above: Performed By: #### 7 600, 18750, 5363 #### [facility] of [place] [address] Data Processing Control Clerk: Oli Fong MD Cholesterol in LDL [Mass/Vol] 77 mg/dL Normal [facility] Comment on above: Result Comment: Refe rence range: <100 Desirable range <100 mg/dL for primary prevention; <70 mg/dL for patients with CHD or diabetic patients with > or = 2 CHD risk factors. LDL-C is now calculated using the Db-Main calculation, which is a validated novel method providing better accuracy than the Friedewald equation in the estimation of LDL-C. Db SS et al. LAURA. 2013;310(19): 9730-3386 (http://education.51aiya.com.WikiBrains/faq/TEQ364) Performed By: #### 7 600, 58581, 5363 #### [facility] [address], [address] [place] [address] Data Processing Control Clerk: Oli Fong MD Cholesterol.total/Choles terol in HDL [Mass ratio] 3.0 {ratio} Normal <5.0 [facility] Comment on above: Performed By: #### 7 600, 39860, 5363 #### [facility] [place] [address] Data Processing Control Clerk: Oli Fong MD NON HDL CHOLESTEROL 100 mg/dL (calc) Normal <130 [facility] Comment on above: Result Comment: For patients with diabetes plus 1 major ASCVD risk factor, treating to a non-HDL-C goal of <100 mg/dL (LDL-C of <70 mg/dL) is considered a therapeutic option. Performed By: #### 7 600, 82938, 5363 #### [facility] [place] [address] Data Processing Control Clerk: Oli Fong MD Triglyceride [Mass/Vol] 134 mg/dL Normal <150 [facility] Comment on above: Performed By: #### 7 600, 51016, 5363 #### [facility] [place] [address] Data Processing Control Clerk: Oli Fong MD PSA, TOTALon 01-02-2022 PSA, TOTAL 6.24 ng/mL High < OR = 4.00 [facility] Comment on above: Result Comment: The total PSA value from this assay system is standardized against the WHO standard. The test result will be approximately 20% lower when compared to the equimolar-standardized total PSA (Darnell Carmen). Comparison of serial PSA results should be interpreted with this fact in mind. This test was performed using the Siemens chemiluminescent method. Values obtained from different assay methods cannot be used interchangeably. PSA levels, regardless of value, should not be interpreted as absolute evidence of the presence or absence of disease. Performed By: #### 7 156, 48613, 0119 #### [facility] [address] [facility], 4 [place] [id number] Data Processing Control Clerk: Oli Fong MD Laboratory - Chemistry and C hemistry - challengeon 01-01-2022 Albumin [Mass/Vol] 4.2 g/dL Normal 3.6 - 5.1 g/dL [facility] [place] [employer] Albumin/Globulin [Mass ratio] 1.4 {ratio} Normal 1.0 - 2.5 [facility] [place] [employer] [facility] ALP [Catalytic activity/Vol] 64 U/L Normal 35 - 144 U/L [facility] [place] [employer] [facility] ALT [Catalytic activity/Vol] 17 U/L Normal 9 - 46 U/L [facility] [place] [employer] AST [Catalytic activity/Vol] 16 U/L Normal 10 - 35 U/L [place] [employer] [facility] [employer] Bilirubin [Mass/Vol] 1.0 mg/dL Normal 0.2 - 1 .2 mg/dL [place] [employer] [facility] [place] [employer] Calcium [Mass/Vol] 10.1 mg/dL Normal 8.6 - 10. 3 mg/dL [facility] [place] [employer] Chloride [Moles/Vol] 100 mmol/L Normal 98 - 11 0 mmol/L [facility] [employer] Cholesterol [Mass/Vol] 150 mg/dL Normal [facility], [facility].; [place] [employer] Cholesterol in HDL [Mass/Vol] 50 mg/dL Normal [place] [employer] [facility] [place] [employer] [facility] Cholesterol in LDL [Mass/Vol] 77 mg/dL Normal [place] [employer] [facility] [place] [employer] CO2 [Moles/Vol] 30 mmol/L Normal 20 - 32 mmol/L [facility] [place] [employer] Creatinine [Mass/Vol] 1.06 mg/dL Normal 0.70 - 1.18 mg/dL [facility].; [facility]. GFR/1.73 sq M.predicted among blacks MDRD (S/P/Bld) [Vol rate/Area] 80 mL/min/{1.73_m2} Normal [facility], [facility].; [facility], [facility] Glucose [Mass/Vol] 96 mg/dL Normal 65 - 99 mg/dL [facility].; [facility], [facility] Potassium [Moles/Vol] 4.6 mmol/L Normal 3.5 - 5.3 mmol/L [facility], [facility]; [facility], [facility] Protein [Mass/Vol] 7.3 g/dL Normal 6.1 - 8.1 g/dL [facility]; [facility], [facility] Sodium [Moles/Vol] 138 mmol/L Normal 135 - 146 mmol/L [facility].; [facility], [facility]. Triglyceride [Mass/Vol] 134 mg/dL Normal [facility].; [place] [employer] [facility]. Urea nitrogen [Mass/Vol] 12 mg/dL Normal 7 - 25 mg/dL [facility].; [place] [employer] [facility], [facility]. No Panel Informationon 01-01 BUN/CREATININE RATIO NOT APPLICABLE Normal 6 - 22 [facility]; [place] [employer], [facility] CHOL/HDLC RATIO 3.0 Normal [facility]; [facility], [facility] eGFR NON-AFR. BRAZILIAN 69 Normal [facility]; [place] [employer] [facility] GLOBULIN 3.1 Normal 1.9 - 3.7 [facility].; [place] [employer] [facility], [facility]. NON HDL CHOLESTEROL 100 Normal [facility]; [place] [employer] [facility], [facility] PSA, TOTAL 6.24 ng/mL Abnormal [facility].; [place] [employer], [facility]. Laboratory - Chemistry and C hemistry - challengeon 01-01-2021 Albumin [Mass/Vol] 4.0 g/dL Normal 3.6 - 5.1 g/dL [facility].; [facility] Albumin/Globulin [Mass ratio] 1.3 {ratio} Normal 1.0 - 2.5 [facility], [facility].; [facility], [facility]. ALP [Catalytic activity/Vol] 65 U/L Normal 35 - 144 U/L [facility], [facility].; [facility], [facility]. ALT [Catalytic activity/Vol] 22 U/L Normal 9 - 46 U/L [facility], [facility].; [facility], [facility]. AST [Catalytic activity/Vol] 20 U/L Normal 10 - 35 U/L [facility].; [facility], [facility]. Bilirubin [Mass/Vol] 1.2 mg/dL Normal 0.2 - 1 .2 mg/dL [facility], [facility].; [facility], [facility]. Calcium [Mass/Vol] 9.4 mg/dL Normal 8.6 - 10. 3 mg/dL [facility], [facility].; [facility], [facility]. Chloride [Moles/Vol] 100 mmol/L Normal 98 - 11 0 mmol/L [facility].; [place] [employer], [facility]. Cholesterol [Mass/Vol] 140 mg/dL Normal [facility].; [place] [employer] [facility], [facility]. Cholesterol in HDL [Mass/Vol] 47 mg/dL Normal [facility].; [facility], [facility]. Cholesterol in LDL [Mass/Vol] 74 mg/dL Normal [facility], [facility].; [place] [employer], [facility]. CO2 [Moles/Vol] 27 mmol/L Normal 20 - 32 mmol/L [facility].; [facility], [facility]. Creatinine [Mass/Vol] 1.08 mg/dL Normal 0.70 - 1.18 mg/dL [facility], [facility].; [place] [employer], [facility]. GFR/1.73 sq M.predicted among blacks MDRD (S/P/Bld) [Vol rate/Area] 79 mL/min/{1.73_m2} Normal [facility], [facility].; [place] [employer] [facility] Glucose [Mass/Vol] 90 mg/dL Normal 65 - 99 mg/dL [facility], [facility].; [place] [employer] [facility], [facility]. Potassium [Moles/Vol] 4.7 mmol/L Normal 3.5 - 5.3 mmol/L [facility]; [place] [employer] [facility] Protein [Mass/Vol] 7.0 g/dL Normal 6.1 - 8.1 g/dL [facility]; [place] Center[facility] Sodium [Moles/Vol] 136 mmol/L Normal 135 - 146 mmol/L [facility]; [place] [employer] [facility] Triglyceride [Mass/Vol] 106 mg/dL Normal [facility]; [place] [employer] [facility] Urea nitrogen [Mass/Vol] 11 mg/dL Normal 7 - 25 mg/dL [facility]; [place] [employer] [facility] No Panel Informationon 01-01 BUN/CREATININE RATIO NOT APPLICABLE Normal - [facility]; [place] Center[facility] CHOL/HDLC RATIO 3.0 Normal [facility]; [place] [employer] [facility] eGFR NON-AFR. BRAZILIAN 68 Normal [facility]; [place] Center'd GLOBULIN 3.0 Normal 1.9 - 3.7 [facility]; [place] Center[facility] NON HDL CHOLESTEROL 93 Normal [facility]; [place] Center[facility] PSA, TOTAL 6.4 ng/mL Abnormal [facility]; [facility] SPECIMEN INTEGRITY COMPROMISED See Below Normal [facility]; [place] Center[facility] Work Phone: No Panel Informationon 01-18 PSA, TOTAL 6.4 ng/mL Abnormal [facility]; [employer] Laboratory - Chemistry and C hemistry - challengeon 05-11-2019 Prostate specific Ag [Mass/Vol] 7.3 ng/mL Abnormal [facility]; [place] [facility] Laboratory - Chemistry and C hemistry - challengeon 01-21-2019 Bilirubin Ql (U) Negative Normal [facility].; [employer] Ketones Ql (U) Negative Normal [facility].; [employer]. pH (U) 6.5 [pH] Normal [facility].; [facility]. Specific gravity (U) [Rel density] 1.010 Normal [facility]; [employer] Urobilinogen Qn (U) 0.2 mg/dL Normal [facility].; [employer]. Laboratory - Hematology and Cell countson 01-21-2019 Hemoglobin Ql (U) small Abnormal [facility] [employer]; [employer] Laboratory - Microbiology an d Antimicrobial susceptibilityon 01-21-2019 Amikacin [Susc] >32 Normal [facility]; [facility]. Work Phone: Ampicillin [Susc] <=2 Normal [facility]; [employer]. Work Phone: Bacteria identified # 2 Cx Nom (Unsp spec) SEE NOTE Abnormal [facility]; [employer]. Bacteria identified Cx Nom (U) SEE NOTE Normal [place] Center'd.; [employer]. Bacteria identified Cx Nom (Unsp spec) SEE NOTE Abnormal [facility]; [facility]. Cefepime [Susc] 16 Normal [facility]; [employer]. Work Phone: Cefotaxime [Susc] <=2 Normal [facility]; [employer]. Work Phone: cefTAZidime [Susc] >16 Normal [place] flux - neutrinity; [employer]. Work Phone: cefTRIAXone [Susc] 8 Normal [place] flux - [employer]; [employer]. Work Phone: Ciprofloxacin [Susc] 1 Normal [facility].; [employer]. Work Phone: Ciprofloxacin [Susc] <=1 Normal [facility]; [employer]. Work Phone: Gentamicin [Susc] >8 Normal [facility]; [facility] Work Phone: Imipenem [Susc] <=1 Normal [facility]; [facility] Work Phone: levoFLOXacin [Susc] 2 Normal [facility]; [facility] Work Phone: levoFLOXacin [Susc] <=2 Normal [facility]; [facility] Work Phone: Meropenem [Susc] 4 [facility]; [facility] Work Phone: Nitrofurantoin [Susc] <=16 Normal [facility]; [facility] Work Phone: Penicillin [Susc] 4 Normal [facility]; [facility]. Work Phone: Piperacillin+Sulbactam [Susc] <=16 Normal [facility]; [facility]. Work Phone: Tetracycline [Susc] <=1 Normal [facility]; [facility] Work Phone: Tetracycline [Susc] <=4 Normal [facility]; [facility] Work Phone: Tobramycin [Susc] 8 Normal [facility]; [facility] Work Phone: Trimethoprim+Sulfamethox azole [Susc] <=2/38 Normal [facility]; [facility] Work Phone: Vancomycin [Susc] 1 Normal [facility]; [facility] Work Phone: Laboratory - Specimen inform [facility] 01-21-2019 Appearance (U) cloudy Abnormal [employer]. Color (U) yellow Normal the grafter; the grafter Specimen source Nom (Unsp spec) URINE-URINE Normal [employer].; [employer]. Laboratory - Urinalysison Glucose Test strip (U) [Mass/Vol] Negative Normal [employer].; [employer]. Leukocyte esterase Test strip Ql (U) large Abnormal [employer].; [employer]. Nitrite Ql (U) Negative Normal [employer]; [employer]. Protein Ql (U) Negative Normal [facility] [employer]; [employer]. Laboratoryon 04-12-2018 Lower GI hemoglobin IA Ql (Stl) Not detected Normal the gra[employer]; [employer]. Laboratory - Chemistry and C hemistry - challengeon 04-10-2018 Albumin [Mass/Vol] 4.2 g/dL Normal 3.6 - 5.1 g/dL [employer].; [employer], [employer]. Albumin/Globulin [Mass ratio] 1.5 {ratio} Normal 1.0 - 2.5 [employer].; [employer]. ALP [Catalytic activity/Vol] 64 U/L Normal 40 - 115 U/L [employer].; [employer]. ALT [Catalytic activity/Vol] 21 U/L Normal 9 - 46 U/L [employer].; [employer], [employer]. AST [Catalytic activity/Vol] 25 U/L Normal 10 - 35 U/L [employer].; [employer]. Bilirubin [Mass/Vol] 0.9 mg/dL Normal 0.2 - 1 .2 mg/dL [employer].; [employer], [employer]. Calcium [Mass/Vol] 9.1 mg/dL Normal 8.6 - 10. 3 mg/dL [employer].; [employer]. Chloride [Moles/Vol] 104 mmol/L Normal 98 - 11 0 mmol/L [facility], [facility]. Cholesterol [Mass/Vol] 136 mg/dL Normal [facility]; [facility], [facility] Cholesterol in HDL [Mass/Vol] 47 mg/dL Normal [facility], [facility] Cholesterol in LDL [Mass/Vol] 72 mg/dL Normal 0 - 100 mg/dL [facility].; [facility], [facility] Cholesterol non HDL [Mass/Vol] 90 mg/dL Normal [facility].; [facility], [facility] Cholesterol.total/Choles terol in HDL [Mass ratio] 2.9 {ratio} Normal [facility]; [facility], [facility] CO2 [Moles/Vol] 27 mmol/L Normal 20 - 31 mmol/L [facility], [facility]; [facility], [facility]. Creatinine [Mass/Vol] 1.15 mg/dL Normal 0.70 - 1.25 mg/dL [facility], [facility].; [facility], [facility]. GFR/1.73 sq M.predicted among blacks MDRD (S/P/Bld) [Vol rate/Area] 75 {ML/MIN/1.73M2} Normal [facility], [facility].; [facility], [facility]. GFR/1.73 sq M.predicted MDRD (S/P/Bld) [Vol rate/Area] 65 {ML/MIN/1.73M2} Normal [facility], [facility].; [facility], [facility]. Globulin (S) [Mass/Vol] 2.8 g/dL Normal 1.9 - 3.7 g/dL [facility], [facility].; [facility], [facility]. Glucose [Mass/Vol] 98 mg/dL Normal 65 - 99 mg/dL [facility], [facility].; [facility], [facility]. Potassium [Moles/Vol] 4.5 mmol/L Normal 3.5 - 5.3 mmol/L [facility], [facility].; [facility], [facility] Prostate specific Ag [Mass/Vol] 5.2 ng/mL Abnormal [facility].; [facility], [facility]. Protein [Mass/Vol] 7.0 g/dL Normal 6.1 - 8.1 g/dL [facility], [facility].; [facility], [facility]. Sodium [Moles/Vol] 140 mmol/L Normal 135 - 146 mmol/L [facility], [facility].; [facility], [facility]. Triglyceride [Mass/Vol] 91 mg/dL Normal [facility].; [facility], [facility]. Urea nitrogen [Mass/Vol] 17 mg/dL Normal 7 - 25 mg/dL [facility], [facility].; [facility], [facility] Urea nitrogen/Creatinine [Mass ratio] 15.0 mg/mg Normal 6 - 22 [facility].; [facility], [facility]. Laboratory - Chemistry and C hemistry - challengeon 10-06-2017 Albumin [Mass/Vol] 4.3 g/dL Normal 3.6 - 5.1 g/dL [facility], [facility].; [facility], [facility]. Albumin/Globulin [Mass ratio] 1.4 {ratio} Normal 1.0 - 2.5 [facility].; [facility], [facility]. ALP [Catalytic activity/Vol] 71 U/L Normal 40 - 115 U/L [facility], [facility].; [facility], [facility]. ALT [Catalytic activity/Vol] 20 U/L Normal 9 - 46 U/L [facility].; [place] [employer] [facility] AST [Catalytic activity/Vol] 26 U/L Normal 10 - 35 U/L [facility], [facility].; [facility], [facility]. Bilirubin [Mass/Vol] 1.0 mg/dL Normal 0.2 - 1 .2 mg/dL [facility], [facility].; [place] [employer] [facility], [facility]. Calcium [Mass/Vol] 9.8 mg/dL Normal 8.6 - 10. 3 mg/dL [facility], [facility].; [place] [employer] [facility], [facility]. Chloride [Moles/Vol] 103 mmol/L Normal 98 - 11 0 mmol/L [facility], [facility].; [place] [employer] Cholesterol [Mass/Vol] 166 mg/dL Normal [facility].; [facility] Cholesterol in HDL [Mass/Vol] 46 mg/dL Normal [facility].; [facility], [facility]. Cholesterol in LDL [Mass/Vol] 96 mg/dL Normal 0 - 100 mg/dL [facility].; [facility], [facility]. Cholesterol non HDL [Mass/Vol] 119 mg/dL Normal [facility].; [facility], [facility]. Cholesterol.total/Choles terol in HDL [Mass ratio] 3.6 {ratio} Normal [facility].; [facility], [facility]. CO2 [Moles/Vol] 24 mmol/L Normal 20 - 31 mmol/L [facility].; [facility], [facility]. Creatinine [Mass/Vol] 1.17 mg/dL Normal 0.70 - 1.25 mg/dL [facility], [facility].; [facility], [facility]. GFR/1.73 sq M.predicted among blacks MDRD (S/P/Bld) [Vol rate/Area] 73 {ML/MIN/1.73M2} Normal [facility], [facility].; [facility], [facility]. GFR/1.73 sq M.predicted MDRD (S/P/Bld) [Vol rate/Area] 63 {ML/MIN/1.73M2} Normal [facility], [facility].; [facility], [facility]. Globulin (S) [Mass/Vol] 2.9 g/dL Normal 1.9 - 3.7 g/dL [facility], [facility].; [facility], [facility]. Glucose [Mass/Vol] 115 mg/dL Abnormal 65 - 99 mg/dL [facility], [facility].; [facility], [facility]. Potassium [Moles/Vol] 4.6 mmol/L Normal 3.5 - 5.3 mmol/L [facility].; [facility], [facility]. Protein [Mass/Vol] 7.2 g/dL Normal 6.1 - 8.1 g/dL [facility], [facility].; [facility], [facility]. Sodium [Moles/Vol] 136 mmol/L Normal 135 - 146 mmol/L [facility], [facility].; [facility], [facility]. Triglyceride [Mass/Vol] 138 mg/dL Normal [facility].; [facility], [facility]. Urea nitrogen [Mass/Vol] 18 mg/dL Normal 7 - 25 mg/dL [facility].; [facility], [facility]. Urea nitrogen/Creatinine [Mass ratio] 15.6 mg/mg Normal 6 - 22 [facility].; [facility], [facility]. Laboratory - Chemistry and C hemistry - challengeon 04-09-2017 Albumin [Mass/Vol] 4.1 g/dL Normal 3.6 - 5.1 g/dL [facility], [facility].; [facility], [facility]. Albumin/Globulin [Mass ratio] 1.5 {ratio} Normal 1.0 - 2.5 [facility], [facility]. ALP [Catalytic activity/Vol] 55 U/L Normal 40 - 115 U/L [facility].; [facility], [facility]. ALT [Catalytic activity/Vol] 20 U/L Normal 9 - 46 U/L [facility], [facility].; [facility], [facility]. AST [Catalytic activity/Vol] 19 U/L Normal 10 - 35 U/L [facility].; [place] [employer], [facility]. Bilirubin [Mass/Vol] 1.2 mg/dL Normal 0.2 - 1 .2 mg/dL [facility], [facility].; [place] [employer] [facility], [facility]. Calcium [Mass/Vol] 9.4 mg/dL Normal 8.6 - 10. 3 mg/dL [facility], [facility].; [place] [employer] [facility], [facility]. Chloride [Moles/Vol] 102 mmol/L Normal 98 - 11 0 mmol/L [facility].; [place] [employer] [facility], [facility]. Cholesterol [Mass/Vol] 160 mg/dL Normal 125 - 200 mg/dL [facility], [facility].; [facility], [facility]. Cholesterol in HDL [Mass/Vol] 44 mg/dL Normal [facility], [facility].; [facility], [facility]. Cholesterol in LDL [Mass/Vol] 92 mg/dL Normal [facility], [facility].; [place] [employer] [facility], [facility]. Cholesterol non HDL [Mass/Vol] 116 mg/dL Normal [facility], [facility].; [place] [employer] [facility], [facility]. Cholesterol.total/Choles terol in HDL [Mass ratio] 3.6 {ratio} Normal [facility]. CO2 [Moles/Vol] 29 mmol/L Normal 20 - 31 mmol/L [facility].; [facility]. Creatinine [Mass/Vol] 1.16 mg/dL Normal 0.70 - 1.25 mg/dL [facility].; [facility], [facility]. GFR/1.73 sq M.predicted among blacks MDRD (S/P/Bld) [Vol rate/Area] 75 {ML/MIN/1.73M2} Normal [facility], [facility]. GFR/1.73 sq M.predicted MDRD (S/P/Bld) [Vol rate/Area] 64 {ML/MIN/1.73M2} Normal [facility], [facility]. Globulin (S) [Mass/Vol] 2.6 g/dL Normal 1.9 - 3.7 g/dL [facility].; [facility], [facility]. Glucose [Mass/Vol] 98 mg/dL Normal 65 - 99 mg/dL [facility].; [facility], [facility]. Potassium [Moles/Vol] 4.3 mmol/L Normal 3.5 - 5.3 mmol/L [facility].; [facility], [facility]. Protein [Mass/Vol] 6.7 g/dL Normal 6.1 - 8.1 g/dL [facility], [facility].; [facility], [facility]. Sodium [Moles/Vol] 138 mmol/L Normal 135 - 146 mmol/L [facility].; [facility], [facility]. Triglyceride [Mass/Vol] 121 mg/dL Normal [facility], [facility]. Urea nitrogen [Mass/Vol] 18 mg/dL Normal 7 - 25 mg/dL [facility].; [facility], [facility]. Urea nitrogen/Creatinine [Mass ratio] 15.9 mg/mg Normal 6 - 22 [facility].; [place] [employer] [facility], [facility]. Laboratory - Chemistry and C hemistry - challengeon 10-11-2016 Albumin [Mass/Vol] 4.2 g/dL Normal 3.6 - 5.1 g/dL [facility], [facility]. Albumin/Globulin [Mass ratio] 1.2 {ratio} Normal 1.0 - 2.5 [facility], [facility]. ALP [Catalytic activity/Vol] 64 U/L Normal 40 - 115 U/L [facility], [facility]. ALT [Catalytic activity/Vol] 42 U/L Normal 9 - 46 U/L [facility], [facility]. AST [Catalytic activity/Vol] 25 U/L Normal 10 - 35 U/L [facility], [facility]. Bilirubin [Mass/Vol] 1.0 mg/dL Normal 0.2 - 1 .2 mg/dL [facility], [facility]. Calcium [Mass/Vol] 9.7 mg/dL Normal 8.6 - 10. 3 mg/dL [facility]. Chloride [Moles/Vol] 103 mmol/L Normal 98 - 11 0 mmol/L [facility], [facility]. Cholesterol [Mass/Vol] 190 mg/dL Normal 125 - 200 mg/dL [facility], [facility]. Cholesterol in HDL [Mass/Vol] 52 mg/dL Normal [facility], [facility]. Cholesterol in LDL [Mass/Vol] 111 mg/dL Normal [facility].; [facility], [facility]. Cholesterol non HDL [Mass/Vol] 138 mg/dL Normal [facility], [facility]. Cholesterol.total/Choles terol in HDL [Mass ratio] 3.7 {ratio} Normal [facility].; [facility]. CO2 [Moles/Vol] 29 mmol/L Normal 20 - 31 mmol/L [facility], [facility]. Creatinine [Mass/Vol] 1.13 mg/dL Normal 0.70 - 1.25 mg/dL [facility].; [facility], [facility]. GFR/1.73 sq M.predicted among blacks MDRD (S/P/Bld) [Vol rate/Area] 77 {ML/MIN/1.73M2} Normal [facility], [facility].; [facility], [facility]. GFR/1.73 sq M.predicted MDRD (S/P/Bld) [Vol rate/Area] 66 {ML/MIN/1.73M2} Normal [facility], [facility].; [facility], [facility]. Globulin (S) [Mass/Vol] 3.4 g/dL Normal 1.9 - 3.7 g/dL [facility], [facility].; [place] [employer] [facility], [facility]. Glucose [Mass/Vol] 102 mg/dL Abnormal 65 - 99 mg/dL [facility], [facility].; [facility], [facility]. Potassium [Moles/Vol] 5.0 mmol/L Normal 3.5 - 5.3 mmol/L [facility], [facility].; [facility], [facility]. Protein [Mass/Vol] 7.6 g/dL Normal 6.1 - 8.1 g/dL [facility].; [place] [employer], [facility]. Sodium [Moles/Vol] 138 mmol/L Normal 135 - 146 mmol/L [facility], [facility].; [place] [employer] [facility], [facility]. Triglyceride [Mass/Vol] 134 mg/dL Normal [facility].; [place] [employer] [facility], [facility]. Urea nitrogen [Mass/Vol] 17 mg/dL Normal 7 - 25 mg/dL [facility], [facility].; [place] [employer], [facility]. Urea nitrogen/Creatinine [Mass ratio] 14.8 mg/mg Normal 6 - 22 [facility].; [place] [employer], [facility]. Laboratory - Chemistry and C hemistry - challengeon 04-12-2016 Albumin [Mass/Vol] 4.1 g/dL Normal 3.6 - 5.1 g/dL [facility], [facility].; [place] [employer], [facility]. Albumin/Globulin [Mass ratio] 1.3 {ratio} Normal 1.0 - 2.5 [facility], [facility].; [place] [employer], [facility]. ALP [Catalytic activity/Vol] 55 U/L Normal 40 - 115 U/L [facility].; [place] [employer], [employer]. ALT [Catalytic activity/Vol] 22 U/L Normal 9 - 46 U/L [facility].; [facility]. AST [Catalytic activity/Vol] 21 U/L Normal 10 - 35 U/L [facility] [place] [employer] [facility], [facility]. Bilirubin [Mass/Vol] 1.0 mg/dL Normal 0.2 - 1 .2 mg/dL [facility], [facility]. Calcium [Mass/Vol] 9.6 mg/dL Normal 8.6 - 10. 3 mg/dL [facility], [facility]. Chloride [Moles/Vol] 104 mmol/L Normal 98 - 11 0 mmol/L [facility].; [facility], [facility]. Cholesterol [Mass/Vol] 158 mg/dL Normal 125 - 200 mg/dL [facility].; [facility], [facility]. Cholesterol in HDL [Mass/Vol] 53 mg/dL Normal [facility].; [facility]. Cholesterol in LDL [Mass/Vol] 86 mg/dL Normal [facility].; [place] [employer] [facility], [facility]. Cholesterol non HDL [Mass/Vol] 106 mg/dL Normal [facility].; [facility]. Cholesterol.total/Choles terol in HDL [Mass ratio] 3.0 {ratio} Normal [facility].; [place] [facility] [facility]. CO2 [Moles/Vol] 26 mmol/L Normal 20 - 31 mmol/L [facility].; [place] [employer] [facility], [facility]. Creatinine [Mass/Vol] 1.09 mg/dL Normal 0.70 - 1.25 mg/dL [facility], [facility].; [facility], [facility]. GFR/1.73 sq M.predicted among blacks MDRD (S/P/Bld) [Vol rate/Area] 81 {ML/MIN/1.73M2} Normal [facility].; [facility], [facility]. GFR/1.73 sq M.predicted MDRD (S/P/Bld) [Vol rate/Area] 70 {ML/MIN/1.73M2} Normal [facility].; [place] [employer] [facility], [facility]. Globulin (S) [Mass/Vol] 3.0 g/dL Normal 1.9 - 3.7 g/dL [facility], [facility].; [facility], [facility]. Glucose [Mass/Vol] 96 mg/dL Normal 65 - 99 mg/dL [facility].; [facility], [facility]. Potassium [Moles/Vol] 4.5 mmol/L Normal 3.5 - 5.3 mmol/L [facility], [facility] Protein [Mass/Vol] 7.1 g/dL Normal 6.1 - 8.1 g/dL [facility], [facility] Sodium [Moles/Vol] 138 mmol/L Normal 135 - 146 mmol/L [facility].; [facility], [facility] Triglyceride [Mass/Vol] 94 mg/dL Normal [facility]; [facility], [facility] Urea nitrogen [Mass/Vol] 20 mg/dL Normal 7 - 25 mg/dL [facility].; [facility], [facility] Urea nitrogen/Creatinine [Mass ratio] 18.3 mg/mg Normal 6 - 22 [facility]; [facility], [facility] Laboratory - Chemistry and C hemistry - challengeon 10-11-2015 Albumin [Mass/Vol] 4.1 g/dL Normal 3.6 - 5.1 g/dL [facility].; [facility], [facility]. Albumin/Globulin [Mass ratio] 1.4 {ratio} Normal 1.0 - 2.5 [facility].; [facility]. ALP [Catalytic activity/Vol] 59 U/L Normal 40 - 115 U/L [facility].; [facility], [facility]. ALT [Catalytic activity/Vol] 23 U/L Normal 9 - 46 U/L [facility].; [facility], [facility]. AST [Catalytic activity/Vol] 21 U/L Normal 10 - 35 U/L [facility], [facility].; [place] [employer] [facility], [facility]. Bilirubin [Mass/Vol] 0.7 mg/dL Normal 0.2 - 1 .2 mg/dL [facility].; [facility] Calcium [Mass/Vol] 9.8 mg/dL Normal 8.6 - 10. 3 mg/dL [facility], [facility].; [facility], [facility]. Chloride [Moles/Vol] 100 mmol/L Normal 98 - 11 0 mmol/L [facility], [facility].; [facility], [facility]. Cholesterol [Mass/Vol] 166 mg/dL Normal 125 - 200 mg/dL [facility], [facility].; [facility], [facility]. Cholesterol in HDL [Mass/Vol] 54 mg/dL Normal [facility], [facility].; [facility], [facility]. Cholesterol in LDL [Mass/Vol] 91 mg/dL Normal [facility], [facility].; [facility], [facility]. Cholesterol non HDL [Mass/Vol] 112 mg/dL Normal [facility], [facility].; [facility], [facility]. Cholesterol.total/Choles terol in HDL [Mass ratio] 3.1 {ratio} Normal [facility], [facility].; [facility], [facility]. CO2 [Moles/Vol] 29 mmol/L Normal 19 - 30 mmol/L [facility], [facility].; [place] [employer] [facility], [facility]. Creatinine [Mass/Vol] 1.23 mg/dL Normal 0.70 - 1.25 mg/dL [facility], [facility].; [facility], [facility]. GFR/1.73 sq M.predicted among blacks MDRD (S/P/Bld) [Vol rate/Area] 70 {ML/MIN/1.73M2} Normal [facility], [facility].; [facility], [facility]. GFR/1.73 sq M.predicted MDRD (S/P/Bld) [Vol rate/Area] 60 {ML/MIN/1.73M2} Normal [facility], [facility].; [place] [employer] [facility], [facility]. Globulin (S) [Mass/Vol] 3.0 g/dL Normal 1.9 - 3.7 g/dL [facility].; [place] [employer] [facility] Glucose [Mass/Vol] 80 mg/dL Normal 65 - 99 mg/dL [facility], [facility].; [place] [employer] Potassium [Moles/Vol] Normal [facility], [facility]. Protein [Mass/Vol] 7.1 g/dL Normal 6.1 - 8.1 g/dL [facility], [facility].; [facility], [facility]. Sodium [Moles/Vol] 135 mmol/L Normal 135 - 146 mmol/L [facility], [facility]. Triglyceride [Mass/Vol] 107 mg/dL Normal [facility].; [facility], [facility]. Urea nitrogen [Mass/Vol] 20 mg/dL Normal 7 - 25 mg/dL [facility].; [facility], [facility] Urea nitrogen/Creatinine [Mass ratio] 15.9 mg/mg Normal 6 - 22 [facility].; [facility], [facility]. Laboratory - Chemistry and C hemistry - challengeon 04-10-2015 Albumin [Mass/Vol] 4.2 g/dL Normal 3.6 - 5.1 g/dL [facility], [facility].; [facility], [facility]. Albumin/Globulin [Mass ratio] 1.5 {ratio} Normal 1.0 - 2.5 [facility], [facility]. ALP [Catalytic activity/Vol] 56 U/L Normal 40 - 115 U/L [facility].; [facility]. ALT [Catalytic activity/Vol] 20 U/L Normal 9 - 46 U/L [facility].; [facility], [facility]. AST [Catalytic activity/Vol] 20 U/L Normal 10 - 35 U/L [facility], [facility].; [facility]. Bilirubin [Mass/Vol] 0.8 mg/dL Normal 0.2 - 1 .2 mg/dL [facility], [facility].; [place] [employer] [facility], [facility]. Calcium [Mass/Vol] 9.7 mg/dL Normal 8.6 - 10. 3 mg/dL [facility].; [facility]. Chloride [Moles/Vol] 100 mmol/L Normal 98 - 11 0 mmol/L [facility].; [place] [employer] [facility], [facility]. Cholesterol [Mass/Vol] 165 mg/dL Normal 125 - 200 mg/dL [facility].; [facility]. Cholesterol in HDL [Mass/Vol] 55 mg/dL Normal [facility], [facility]. Cholesterol in LDL [Mass/Vol] 86 mg/dL Normal [facility].; [facility]. Cholesterol non HDL [Mass/Vol] 110 mg/dL Normal [facility].; [facility]. Cholesterol.total/Choles terol in HDL [Mass ratio] 3.0 {ratio} Normal [facility], [facility]. CO2 [Moles/Vol] 23 mmol/L Normal 19 - 30 mmol/L [facility].; [facility]. Creatinine [Mass/Vol] 1.13 mg/dL Normal 0.70 - 1.25 mg/dL [facility].; [facility]. GFR/1.73 sq M.predicted among blacks MDRD (S/P/Bld) [Vol rate/Area] 78 {ML/MIN/1.73M2} Normal [facility].; [facility]. GFR/1.73 sq M.predicted MDRD (S/P/Bld) [Vol rate/Area] 67 {ML/MIN/1.73M2} Normal [facility].; [facility]. Globulin (S) [Mass/Vol] 2.9 g/dL Normal 1.9 - 3.7 g/dL [facility].; [facility]. Glucose [Mass/Vol] 82 mg/dL Normal 65 - 99 mg/dL [facility].; [facility]. Potassium [Moles/Vol] 5.9 mmol/L Abnormal 3.5 - 5.3 mmol/L [facility].; [place] [employer] [facility], [facility]. Prostate specific Ag [Mass/Vol] 3.6 ng/mL Normal 0.0 - 4.0 ng/mL [facility].; [facility]. Protein [Mass/Vol] 7.1 g/dL Normal 6.1 - 8.1 g/dL [facility].; [facility]. Sodium [Moles/Vol] 136 mmol/L Normal 135 - 146 mmol/L [facility].; [facility] Triglyceride [Mass/Vol] 120 mg/dL Normal [facility] [employer]. Urea nitrogen [Mass/Vol] 15 mg/dL Normal 7 - 25 mg/dL [place] [facility] [employer], [employer]. Urea nitrogen/Creatinine [Mass ratio] 13.6 mg/mg Normal 6 - 22 [place] [facility] [employer]. Laboratory - Chemistry and C hemistry - challengeon 10-22-2014 Bilirubin Ql (U) Negative Normal [facility] [employer]. Ketones Ql (U) Negative Normal [facility] [employer]. pH (U) 5.5 [pH] Normal [place] [facility] [employer]. Specific gravity (U) [Rel density] 1.025 Normal [place] [facility] [employer]. Urobilinogen Qn (U) 0.2 mg/dL Normal [facility].; [employer]. Laboratory - Hematology and Cell countson 10-22-2014 Hemoglobin Ql (U) trace, hemolyzed Abnormal [facility] [employer].; [employer]. Laboratory - Specimen inform ationon 10-22-2014 Appearance (U) clear Normal [facility] [employer]. Color (U) yellow Normal [place] [facility] [employer]. Laboratory - Urinalysison Glucose Test strip (U) [Mass/Vol] Negative Normal [employer].; [employer]. Leukocyte esterase Test strip Ql (U) Negative Normal [place] [facility] [employer]. Protein Ql (U) Negative Normal [facility] [employer], [employer]. Laboratory - UrinalysisOrder ed By: Mercy Soares on 10-22-2014 Nitrite Ql (U) Negative Normal [facility].; [employer]. Vital Signs Date Time Vital Sign Value Performing Clinician Facility 12-05-2023 15:49-0400 Body temperature 97.4 [degF] Dr. Nehemiah Flanagan Work Phone: [phone])[phone] [place] [address] 12-05-2023 15:49-0400 Diastolic blood pressure 69 mm[Hg] Dr. Nehemiah Flanagan Work Phone: 7(841)[phone] [place] [address] 12-05-2023 15:49-0400 Heart rate 73 /min Dr. Nehemiah Flanagan Work Phone: 4(253)477-010087 [place] [address] 12-05-2023 15:49-0400 Inhaled oxygen flow rate 6 L/min Dr. Nehemiah Flanagan Work Phone: 5(219)173-004487 [place] [address] 12-05-2023 15:49-0400 Respiratory rate 26 /min Dr. Nehemiah Flanagan Work Phone: 6([phone])[phone] [place] [address] 12-05-2023 15:49-0400 SaO2% (BldA) [Mass fraction] 92 % Dr. Nehemiah Flanagan Work Phone: 7([phone])568-275287 [place] [address] 12-05-2023 15:49-0400 Systolic blood pressure 99 mm[Hg] Dr. Nehemiah Flanagan Work Phone: 3(169)[phone] [place] [address] 12-05-2023 05:17-0400 Body mass index (BMI) [Ratio] 27.4 kg/m2 Dr. Nehemiah Flanagan Work Phone: 8(952)027-350587 [place] [address] 12-05-2023 05:17-0400 Body weight 89.[address] Nehemiah Flanagan Work Phone: 4(545)[phone] [place] [address] 12-04-2023 10:00-0400 Inhaled oxygen concentration 45 % Dr. Nehemiah Flanagan Work Phone: 7(980)685-993535 [place] [address] 12-02-2023 09:30-0400 Body height 180.[address] Nehemiah Flanagan Work Phone: 9([phone])775-945487 [place] [address] 12-01-2023 17:12-0400 Body height 180.[address] Nehemiah Flanagan Work Phone: 9(954)046-220687 [place] [address] 12-01-2023 17:12-0400 Body mass index (BMI) [Ratio] 29 kg/m2 Dr. Nehemiah Flanagan Work Phone: 2(989)741-189877 [address] 12-01-2023 17:12-0400 Body weight 94.[address] Nehemiah Flanagan Work Phone: 4([phone])670-450935 [place] [address] 12-01-2023 16:30-0400 Body temperature 96.8 [degF] Dr. Nehemiah Flanagan Work Phone: 1(560)282-466935 [place] [address] 12-01-2023 16:30-0400 Diastolic blood pressure 107 mm[Hg] Dr. Nehemiah Flanagan Work Phone: 4([phone])592-478077 [address] 12-01-2023 16:30-0400 Heart rate 100 /min Dr. Nehemiah Flanagan Work Phone: [phone])782-254687 [place] [address] 12-01-2023 16:30-0400 Respiratory rate 32 /min Dr. Nehemiah Flanagan Work Phone: 5([phone])[phone] [place] [address] 12-01-2023 16:30-0400 SaO2% (BldA) [Mass fraction] 96 % Dr. Nehemiah Flanagan Work Phone: 6(754)057-878435 [place] [address] 12-01-2023 16:30-0400 Systolic blood pressure 148 mm[Hg] Dr. Nehemiah Flanagan Work Phone: 0([phone])689-484835 [place] [address] 12-01-2023 16:00-0400 Inhaled oxygen concentration 75 % Dr. Nehemiah Flanagan Work Phone: 8([phone])[phone] [place] [address] 12-01-2023 14:19-0400 Inhaled oxygen flow rate 15 L/min Dr. Nehemiah Flanagan Work Phone: 8([phone])683-578335 [place] [address] 10-24-2023 11:50-0500 Body height 180.[address] Nehemiah Flanagan Work Phone: 1(392)686-488335 [place] [address] 10-24-2023 11:50-0500 Body weight 102.[address] Nehemiah Flanagan Work Phone: 7(218)937-423835 [place] [address] 10-24-2023 11:50-0500 Heart rate 88 /min Dr. Nehemiah Flanagan Work Phone: 5([phone])082-880735 [place] [address] 10-24-2023 11:50-0500 Inhaled oxygen flow rate 8 L/min Dr. Nehemiah Flanagan Work Phone: 0(099)580-105435 [place] [address] 10-24-2023 11:50-0500 SaO2% (BldA) [Mass fraction] 94 % Dr. Nehemiah Flanagan Work Phone: [facility] 10-23-2023 10:58-0500 Body mass index (BMI) [Ratio] 31.5 kg/m2 Dr. Nehemiah Flanagan Work Phone: [facility] 10-23-2023 10:58-0500 Body temperature 98.6 [degF] Dr. Nehemiah Flanagan Work Phone: [facility] 10-23-2023 10:58-0500 Body weight 99.[address] Nehemiah Flanagan Work Phone: [facility] 10-23-2023 10:58-0500 Diastolic blood pressure 73 mm[Hg] Dr. Nehemiah Flanagan Work Phone: [facility] 10-23-2023 10:58-0500 Heart rate 98 /min Dr. Nehemiah Flanagan Work Phone: [facility] 10-23-2023 10:58-0500 Inhaled oxygen flow rate 3 L/min Dr. Nehemiah Flanagan Work Phone: [facility] 10-23-2023 10:58-0500 Respiratory rate 20 /min Dr. Nehemiah Flanagan Work Phone: [facility] 10-23-2023 10:58-0500 SaO2% (BldA) [Mass fraction] 93 % Dr. Nehemiah Flanagan Work Phone: [facility] 10-23-2023 10:58-0500 Systolic blood pressure 113 mm[Hg] Dr. Nehemiah Flanagan Work Phone: [facility] 10-07-2023 10:56-0500 Body height 179.07 cm [facility], [facility].; [facility], [facility]. 10-07-2023 10:56-0500 Body mass index (BMI) [Ratio] 31.4 kg/m2 [facility], [facility].; [facility], [facility] 10-07-2023 10:56-0500 Body surface area Derived from formula 2.19 m2 Iman Mamta [employer] [facility], [facility].; [facility]. 10-07-2023 10:56-0500 Body weight 100.7 kg [facility].; [place] [employer] [facility]. 10-07-2023 10:56-0500 Diastolic blood pressure 93 mm[Hg] [facility].; [place] [employer] [facility]. Comment on above: Patient Position: Sitting; Cuff Location : Left Arm; Cuff Size: Large 10-07-2023 10:56-0500 Heart rate 75 /min [facility], [facility].; [place] [employer] [facility]. Comment on above: Pattern: Regular 10-07-2023 10:56-0500 Inhaled oxygen concentration 36 % [facility] [place] [employer] [facility]. Comment on above: 4L O2 10-07-2023 10:56-0500 Oxygen flow rate 4 L/min [facility].; [place] [employer] [facility]. 10-07-2023 10:56-0500 SaO2% (BldA) [Mass fraction] 98 % [facility] [place] [employer] [facility]. 10-07-2023 10:56-0500 Systolic blood pressure 129 mm[Hg] [facility].; [place] [employer] [facility]. Comment on above: Patient Position: Sitting; Cuff Location : Left Arm; Cuff Size: Large 09-26-2023 11:13-0500 Heart rate 79 /min Dr. Nehemiah Flanagan Work Phone: [facility] 09-26-2023 11:13-0500 Respiratory rate 17 /min Dr. Nehemiah Flanagan Work Phone: [facility] 09-26-2023 09:49-0500 Inhaled oxygen flow rate 6 L/min Dr. Nehemiah Flanagan Work Phone: [facility] 09-26-2023 09:49-0500 SaO2% (BldA) [Mass fraction] 81 % Dr. Nehemiah Flanagan Work Phone: 0(307)754-762635 [place] [address] 09-26-2023 09:36-0500 Body temperature 97.4 [degF] Dr. Nehemiah Flanagan Work Phone: 3(749)507-215135 [place] [address] 09-26-2023 09:36-0500 Diastolic blood pressure 77 mm[Hg] Dr. Nehemiah Flanagan Work Phone: 1(031)810-763777 [address] 09-26-2023 09:36-0500 Systolic blood pressure 107 mm[Hg] Dr. Nehemiah Flanagan Work Phone: 4(859)896-148687 [place] [address] 09-26-2023 03:27-0500 Body mass index (BMI) [Ratio] 31.9 kg/m2 Dr. Nehemiah Flanagan Work Phone: 9(186)223-820477 [address] 09-26-2023 03:27-0500 Body weight 101.[address] Nehemiah Flanagan Work Phone: 2(235)502-452077 [address] 09-25-2023 14:35-0500 Body height 177.[address] Nehemiah Flanagan Work Phone: 8(615)843-616177 [address] 09-24-2023 16:19-0500 Diastolic blood pressure 103 mm[Hg] Dr. Nehemiah Flanagan Work Phone: 5(675)879-812587 [place] [address] 09-24-2023 16:19-0500 Heart rate 73 /min Dr. Nehemiah Flanagan Work Phone: 5(448)160-719677 [address] 09-24-2023 16:19-0500 Inhaled oxygen flow rate 2 L/min Dr. Nehemiah Flanagan Work Phone: 6(144)638-448877 [address] 09-24-2023 16:19-0500 Respiratory rate 23 /min Dr. Nehemiah Flanagan Work Phone: 4(947)011-872177 [address] 09-24-2023 16:19-0500 SaO2% (BldA) [Mass fraction] 96 % Dr. Nehemiah Flanagan Work Phone: 6(848)560-613135 [place] [address] 09-24-2023 16:19-0500 Systolic blood pressure 145 mm[Hg] Dr. Nehemiah Flanagan Work Phone: 7(522)678-332887 [place] [address] 09-24-2023 13:33-0500 Body temperature 97.2 [degF] Dr. Nehemiah Flanagan Work Phone: 3(297)179-830287 [place] [address] 09-24-2023 10:38-0500 Body height 178.[address] Nehemiah Flanagan Work Phone: 8(707)297-852787 [place] [address] 09-24-2023 10:38-0500 Body mass index (BMI) [Ratio] 31.3 kg/m2 Dr. Nehemiah Flanagan Work Phone: 7(367)780-618787 [place] [address] 09-24-2023 10:38-0500 Body weight 100.[address] Nehemiah Flanagan Work Phone: 6(702)227-384487 [place] [address] 09-18-2023 07:56-0500 Body mass index (BMI) [Ratio] 31.1 kg/m2 Dr. Nehemiah Flanagan Work Phone: 5(653)457-786287 [place] [address] 09-18-2023 07:56-0500 Body temperature 97.2 [degF] Dr. Nehemiah Flanagan Work Phone: 4(659)394-729887 [place] [address] 09-18-2023 07:56-0500 Body weight 99.[address] Nehemiah Flanagan Work Phone: 5(989)962-071287 [place] [address] 09-18-2023 07:56-0500 Diastolic blood pressure 73 mm[Hg] Dr. Nehemiah Flanagan Work Phone: 6(785)487-622087 [place] [address] 09-18-2023 07:56-0500 Heart rate 94 /min Dr. Nehemiah Flanagan Work Phone: 2(348)804-154787 [place] [address] 09-18-2023 07:56-0500 Respiratory rate 18 /min Dr. Nehemiah Flanagan Work Phone: 4(660)932-723687 [place] [address] 09-18-2023 07:56-0500 SaO2% (BldA) [Mass fraction] 91 % Dr. Nehemiah Flanagan Work Phone: 0(480)437-983987 [place] [address] 09-18-2023 07:56-0500 Systolic blood pressure 104 mm[Hg] Dr. Nehemiah Flanagan Work Phone: 7(117)590-136387 [place] [address] 08-27-2023 13:03-0500 Body height 179.[address] Nehemiah Flanagan Work Phone: [facility] 08-27-2023 13:03-0500 Body mass index (BMI) [Ratio] 31.4 kg/m2 Dr. Nehemiah Flanagan Work Phone: [facility] 08-27-2023 13:03-0500 Body weight 100.[address] Nehemiah Flanagan Work Phone: [facility] 08-27-2023 13:03-0500 Diastolic blood pressure 69 mm[Hg] Dr. Nehemiah Flanagan Work Phone: [facility] 08-27-2023 13:03-0500 Heart rate 103 /min Dr. Nehemiah Flanagan Work Phone: [facility] 08-27-2023 13:03-0500 Respiratory rate 18 /min Dr. Nehemiah Flanagan Work Phone: [facility] 08-27-2023 13:03-0500 SaO2% (BldA) [Mass fraction] 94 % Dr. Nehemiah Flanagan Work Phone: [facility] 08-27-2023 13:03-0500 Systolic blood pressure 108 mm[Hg] Dr. Nehemiah Flanagan Work Phone: [facility] 07-09-2023 08:33-0500 Body height 179.07 cm Sariah Luis LPN [facility], [facility].; [facility], [facility]. 07-09-2023 08:33-0500 Body mass index (BMI) [Ratio] 31.54 kg/m2 Sariah Luis LPN [facility], [facility].; [facility], [facility]. 07-09-2023 08:33-0500 Body surface area Derived from formula 2.2 m2 Sariah Luis LPN [facility], [facility].; [facility], [facility]. 07-09-2023 08:33-0500 Body weight 101.15 kg Sariah Luis LPN [facility], [facility].; [facility], [facility]. 07-09-2023 08:33-0500 Diastolic blood pressure 76 mm[Hg] Sariah Luis LPN [facility], [facility].; [facility], [facility]. Comment on above: Patient Position: Sitting; Cuff Location : Left Arm; Cuff Size: Standard 07-09-2023 08:33-0500 Heart rate 79 /min Sariah Luis LPN [facility], [facility].; [facility], [facility]. Comment on above: Pattern: Regular 07-09-2023 08:33-0500 Systolic blood pressure 112 mm[Hg] Sariah Luis LPN [facility], [facility].; [facility]. Comment on above: Patient Position: Sitting; Cuff Location : Left Arm; Cuff Size: Standard 06-10-2023 07:56-0400 Body mass index (BMI) [Ratio] 31.5 kg/m2 Dr. Nehemiah Flanagan Work Phone: 8(799)974-511987 [place] [address] 06-10-2023 07:56-0400 Body temperature 96.8 [degF] Dr. Nehemiah Flanagan Work Phone: 0(960)782-547787 [place] [address] 06-10-2023 07:56-0400 Body weight 101.[address] Nehemiah Flanagan Work Phone: 6(881)094-900887 [place] [address] 06-10-2023 07:56-0400 Diastolic blood pressure 78 mm[Hg] Dr. Nehemiah Flanagan Work Phone: 2(961)016-205187 [place] [address] 06-10-2023 07:56-0400 Heart rate 84 /min Dr. Nehemiah Flanagan Work Phone: 6(019)739-468887 [place] [address] 06-10-2023 07:56-0400 Respiratory rate 20 /min Dr. Nehemiah Flanagan Work Phone: 7(202)477-775687 [place] [address] 06-10-2023 07:56-0400 SaO2% (BldA) [Mass fraction] 94 % Dr. Nehemiah Flanagan Work Phone: 4(351)959-947087 [place] [address] 06-10-2023 07:56-0400 Systolic blood pressure 132 mm[Hg] Dr. Nehemiah Flanagan Work Phone: 3(050)421-504687 [place] [address] 05-21-2023 09:36-0400 Body height 179.[address] Nehemiah Flanagan Work Phone: 5(604)919-262477 [address] 05-21-2023 09:36-0400 Body mass index (BMI) [Ratio] 31.1 kg/m2 Dr. Nehemiah Flanagan Work Phone: [facility] 05-21-2023 09:36-0400 Body weight 99.[address] Nehemiah Flanagan Work Phone: [facility] 05-21-2023 09:36-0400 Diastolic blood pressure 98 mm[Hg] Dr. Nehemiah Flanagan Work Phone: [facility] 05-21-2023 09:36-0400 Heart rate 86 /min Dr. Nehemiah Flanagan Work Phone: [facility] 05-21-2023 09:36-0400 Respiratory rate 20 /min Dr. Nehemiah Flanagan Work Phone: [facility] 05-21-2023 09:36-0400 Systolic blood pressure 159 mm[Hg] Dr. Nehemiah Flanagan Work Phone: [facility] 01-14-2023 10:16-0400 Body weight 105.24 kg Nehemiah Flanagan MD Work Phone: [facility]; [employer] [facility] 01-14-2023 10:16-0400 Diastolic blood pressure 74 mm[Hg] Nehemiah Flanagan MD Work Phone: [facility].; [employer]. Comment on above: Patient Position: Sitting; Cuff Location : Left Arm; Cuff Size: Standard 01-14-2023 10:16-0400 Heart rate 53 /min Nehemiah Flanagan MD Work Phone: [facility].; [employer]. Comment on above: Pattern: Regular 01-14-2023 10:16-0400 Systolic blood pressure 122 mm[Hg] Nehemiah Flanagan MD Work Phone: [facility].; [employer]. Comment on above: Patient Position: Sitting; Cuff Location : Left Arm; Cuff Size: Standard 01-10-2023 10:30-0400 Body height 179.07 cm Virgie Mccauley RN [facility].; [place] [facility]. 01-10-2023 10:30-0400 Body mass index (BMI) [Ratio] 31.54 kg/m2 Virgie Mccauley RN [facility].; [employer] [facility]. 01-10-2023 10:30-0400 Body surface area Derived from formula 2.2 m2 Virgie Mccauley RN [facility].; [employer]. 01-10-2023 10:30-0400 Body temperature 98 [degF] Virgie Mccauley RN [facility].; [employer]. Comment on above: Method: Tympanic 01-10-2023 10:30-0400 Body weight 101.15 kg Virgie Mccauley RN [facility].; [place] [employer] [facility]. 01-10-2023 10:30-0400 Diastolic blood pressure 82 mm[Hg] Virgie Mccauley RN [facility].; [employer]. Comment on above: Patient Position: Sitting; Cuff Location : Left Arm; Cuff Size: Standard 01-10-2023 10:30-0400 Heart rate 60 /min Virgie Mccauley RN [facility].; [employer]. Comment on above: Pattern: Regular 01-10-2023 10:30-0400 Systolic blood pressure 133 mm[Hg] Virgie Mccauley RN [place] [employer] [facility].; [employer]. Comment on above: Patient Position: Sitting; Cuff Location : Left Arm; Cuff Size: Standard 07-09-2022 10:26-0500 Body height 179.07 cm Sariah Navarro MA [facility].; [place] [employer] [facility]. 07-09-2022 10:26-0500 Body mass index (BMI) [Ratio] 31.54 kg/m2 Sariah Navarro MA [place] [employer] [facility].; [place] [employer] [facility]. 07-09-2022 10:26-0500 Body surface area Derived from formula 2.2 m2 Sariah Navarro MA [facility].; [employer] [facility]. 07-09-2022 10:26-0500 Body weight 101.15 kg Sariah Navarro MA [employer].; [employer]. 07-09-2022 10:26-0500 Diastolic blood pressure 83 mm[Hg] Sariah Navarro MA [employer].; [employer]. Comment on above: Patient Position: Sitting; Cuff Location : Left Arm; Cuff Size: Standard 07-09-2022 10:26-0500 Heart rate 55 /min Sariah Navarro MA [employer].; [employer]. Comment on above: Pattern: Regular 07-09-2022 10:26-0500 Systolic blood pressure 138 mm[Hg] Sariah Navarro MA [employer].; [employer]. Comment on above: Patient Position: Sitting; Cuff Location : Left Arm; Cuff Size: Standard 01-08-2022 09:23-0400 Body height 179.07 cm Nehemiah Flanagan MD Work Phone: [employer].; [employer]. 01-08-2022 09:23-0400 Body mass index (BMI) [Ratio] 31.83 kg/m2 Nehemiah Flanagan MD Work Phone: [employer].; [employer]. 01-08-2022 09:23-0400 Body surface area Derived from formula 2.21 m2 Nehemiah Flanagan MD Work Phone: [employer].; [employer]. 01-08-2022 09:23-0400 Body weight 102.06 kg Nehemiah Flanagan MD Work Phone: [employer].; [employer]. 01-08-2022 09:23-0400 Diastolic blood pressure 76 mm[Hg] Nehemiah Flanagan MD Work Phone: [employer].; [employer]. Comment on above: Patient Position: Sitting; Cuff Location : Left Arm; Cuff Size: Large 01-08-2022 09:23-0400 Heart rate 60 /min Nehemiah Flanagan MD Work Phone: [employer].; [employer]. Comment on above: Pattern: Regular 01-08-2022 09:23-0400 Systolic blood pressure 128 mm[Hg] Nehemiah Flanagan MD Work Phone: [employer].; [employer]. Comment on above: Patient Position: Sitting; Cuff Location : Left Arm; Cuff Size: Large 07-11-2021 08:49-0500 Body height 179.07 cm Nehemiah Flanagan MD Work Phone: [employer].; [employer]. 07-11-2021 08:49-0500 Body mass index (BMI) [Ratio] 30.84 kg/m2 Nehemiah Flanagan MD Work Phone: [employer].; [employer]. 07-11-2021 08:49-0500 Body surface area Derived from formula 2.18 m2 Nehemiah Flanagan MD Work Phone: [employer].; [employer]. 07-11-2021 08:49-0500 Body weight 98.88 kg Nehemiah Flanagan MD Work Phone: [employer].; [employer]. 07-11-2021 08:49-0500 Diastolic blood pressure 64 mm[Hg] Nehemiah Flanagan MD Work Phone: [employer].; [employer]. Comment on above: Patient Position: Sitting; Cuff Location : Left Arm; Cuff Size: Standard 07-11-2021 08:49-0500 Heart rate 91 /min Nehemiah Flanagan MD Work Phone: [employer].; [employer]. Comment on above: Pattern: Regular 07-11-2021 08:49-0500 Systolic blood pressure 122 mm[Hg] Nehemiah Flanagan MD Work Phone: [employer].; [employer]. Comment on above: Patient Position: Sitting; Cuff Location : Left Arm; Cuff Size: Standard 01-08-2021 09:55-0400 Body height 179.07 cm [facility].; [facility] 01-08-2021 09:55-0400 Body mass index (BMI) [Ratio] 32.25 kg/m2 Keyla Oleary [facility], [facility].; [facility] 01-08-2021 09:55-0400 Body surface area Derived from formula 2.22 m2 Iman Mamta [facility] [place] [employer] [facility], [facility]. 01-08-2021 09:55-0400 Body weight 103.42 kg Keyla Oleary [facility], [facility].; [place] [employer] [facility], [facility]. 01-08-2021 09:55-0400 Diastolic blood pressure 80 mm[Hg] Keyla Oleary [facility], [facility].; [place] [employer] [facility] Comment on above: Patient Position: Sitting; Cuff Location : Left Arm; Cuff Size: Large 01-08-2021 09:55-0400 Heart rate 59 /min Keyla Oleary [facility], [facility].; [employer] [facility] Comment on above: Pattern: Regular 01-08-2021 09:55-0400 Systolic blood pressure 127 mm[Hg] Keyla Oleary [facility], [facility].; [place] [employer] [facility] Comment on above: Patient Position: Sitting; Cuff Location : Left Arm; Cuff Size: Large 07-11-2020 10:44-0500 Body height 179.07 cm Nehemiah Flanagan MD Work Phone: [facility], [facility].; [place] [employer] [facility], [facility]. 07-11-2020 10:44-0500 Body mass index (BMI) [Ratio] 31.54 kg/m2 Nehemiah Flanagan MD Work Phone: [facility], [facility].; [employer] 07-11-2020 10:44-0500 Body surface area Derived from formula 2.2 m2 Nehemiah Flanagan MD Work Phone: [facility], [employer]. 07-11-2020 10:44-0500 Body weight 101.15 kg Nehemiah Flanagan MD Work Phone: [place] [employer]; [employer] 07-11-2020 10:44-0500 Diastolic blood pressure 69 mm[Hg] Nehemiah Flanagan MD Work Phone: [employer]; [employer]. Comment on above: Patient Position: Sitting; Cuff Location : Left Arm; Cuff Size: Large 07-11-2020 10:44-0500 Heart rate 75 /min Nehemiah Flanagan MD Work Phone: [employer]; [employer] Comment on above: Pattern: Regular 07-11-2020 10:44-0500 Inhaled oxygen concentration 20 % Nehemiah Flanagan MD Work Phone: [employer]; [employer]. Comment on above: Room air 07-11-2020 10:44-0500 Inhaled oxygen concentration 21 % Nehemiah Flanagan MD Work Phone: [employer]; [employer]. Comment on above: Room air 07-11-2020 10:44-0500 SaO2% (BldA) [Mass fraction] 98 % Nehemiah Flanagan MD Work Phone: [employer]; [employer] 07-11-2020 10:44-0500 Systolic blood pressure 108 mm[Hg] Nehemiah Flanagan MD Work Phone: [employer]; [employer]. Comment on above: Patient Position: Sitting; Cuff Location : Left Arm; Cuff Size: Large 01-19-2020 07:35-0400 Body height 179.07 cm Mercy Soares RN [place] [facility] [employer]. 01-19-2020 07:35-0400 Body mass index (BMI) [Ratio] 32.89 kg/m2 Mercy Soares RN [place] [facility] [employer]. 01-19-2020 07:35-0400 Body surface area Derived from formula 2.24 m2 Mercy Soares RN [place] [facility] [employer]. 01-19-2020 07:35-0400 Body weight 105.46 kg Mercy Soares RN [facility], [facility].; [facility]. 01-19-2020 07:35-0400 Diastolic blood pressure 69 mm[Hg] Mercy Soares RN [facility], [facility].; [place] [employer] [facility], [employer]. Comment on above: Patient Position: Sitting; Cuff Location : Left Arm; Cuff Size: Standard 01-19-2020 07:35-0400 Heart rate 61 /min Mercy Soares RN [facility], [facility].; [place] [employer], [employer]. Comment on above: Pattern: Regular 01-19-2020 07:35-0400 Systolic blood pressure 108 mm[Hg] Mercy Soares RN [facility], [facility].; [place] [employer] [facility], [employer]. Comment on above: Patient Position: Sitting; Cuff Location : Left Arm; Cuff Size: Standard 12-14-2019 08:01-0400 Body height 179.07 cm Keyla Oleary LPN [facility] [place] [employer] [facility], [employer]. 12-14-2019 08:01-0400 Body mass index (BMI) [Ratio] 33.24 kg/m2 ImanTaya Oleary LPN [facility] [place] [employer] [facility], [employer]. 12-14-2019 08:01-0400 Body surface area Derived from formula 2.25 m2 Keyla Oleary LPN [facility], [facility].; [employer] [facility], [employer]. 12-14-2019 08:01-0400 Body temperature 97.3 [degF] Keyla Oleary LPN [facility], [facility].; [employer], [employer]. Comment on above: Method: Tympanic 12-14-2019 08:01-0400 Body weight 106.6 kg Keyla Oleary LPN [facility] [employer], [employer]. 12-14-2019 08:01-0400 Diastolic blood pressure 81 mm[Hg] Keyla Oleary LPN [facility], [facility].; [employer]. Comment on above: Patient Position: Sitting; Cuff Location : Left Arm; Cuff Size: Large 12-14-2019 08:01-0400 Heart rate 73 /min Keyla Oleary LPN [facility] [employer] [facility] [employer], [employer]. Comment on above: Pattern: Regular 12-14-2019 08:01-0400 Inhaled oxygen concentration 20 % Keyla Oleary [facility] [employer] Comment on above: Room air 12-14-2019 08:01-0400 Inhaled oxygen concentration 21 % Keyla Oleary [facility] [employer] [facility] [employer], [employer]. Comment on above: Room air 12-14-2019 08:01-0400 SaO2% (BldA) [Mass fraction] 95 % ImanTaya Oleary [facility] [employer] [facility] [employer], [employer]. 12-14-2019 08:01-0400 Systolic blood pressure 141 mm[Hg] Keyla Oleary [facility] [employer] [facility] [employer], [employer]. Comment on above: Patient Position: Sitting; Cuff Location : Left Arm; Cuff Size: Large 07-15-2019 08:48-0500 Body height 179.07 cm Josr Escamilla [facility] [employer] [facility] [employer], [employer]. 07-15-2019 08:48-0500 Body mass index (BMI) [Ratio] 33.1 kg/m2 Syapsebriane Tay Ipracom [facility] [employer] [facility], Inc.; [employer] 07-15-2019 08:48-0500 Body surface area Derived from formula 2.24 m2 Syapsebriane Tay Ipracom [facility] [employer], [employer].; [employer], [employer]. 07-15-2019 08:48-0500 Body temperature 97.6 [degF] [facility]apse[facility]riane [facility] [employer]. Comment on above: Method: Tympanic 07-15-2019 08:48-0500 Body weight 106.14 kg Syapsebriane Tay [facility] [employer]. 07-15-2019 08:48-0500 Diastolic blood pressure 68 mm[Hg] Syapseilee L Francine [facility] [employer]. Comment on above: Patient Position: Sitting; Cuff Location : Left Arm; Cuff Size: Standard 07-15-2019 08:48-0500 Heart rate 70 /min Nebriane Tay Vess [employer]EL[employer]. Comment on above: Pattern: Regular 07-15-2019 08:48-0500 Systolic blood pressure 112 mm[Hg] Neilee L Vess [employer]IOR [employer] DEVELOPER [employer] Comment on above: Patient Position: Sitting; Cuff Location : Left Arm; Cuff Size: Standard 05-11-2019 07:55-0400 Body height 179.07 cm Nehemiah Flanagan MD Work Phone: [employer]. 05-11-2019 07:55-0400 Body mass index (BMI) [Ratio] 32.82 kg/m2 Nehemiah Flanagan MD Work Phone: [employer].; [employer]. 05-11-2019 07:55-0400 Body surface area Derived from formula 2.23 m2 Nehemiah Flanagan MD Work Phone: [employer].; [employer]. 05-11-2019 07:55-0400 Body weight 105.24 kg Nehemiah Flanagan MD Work Phone: [employer].; [employer]. 05-11-2019 07:55-0400 Diastolic blood pressure 77 mm[Hg] Nehemiah Flanagan MD Work Phone: [employer].; [employer]. Comment on above: Patient Position: Sitting; Cuff Location : Left Arm; Cuff Size: Standard 05-11-2019 07:55-0400 Heart rate 58 /min Nehemiah Flanagan MD Work Phone: [employer].; [employer]. Comment on above: Pattern: Regular 05-11-2019 07:55-0400 Systolic blood pressure 123 mm[Hg] Nehemiah Flanagan MD Work Phone: [employer]. Comment on above: Patient Position: Sitting; Cuff Location : Left Arm; Cuff Size: Standard 03-12-2019 08:30-0400 Body height 179.07 cm Yokasta Nunesliza DUMONT [place] [employer] [facility], Inc.; [employer] 03-12-2019 08:30-0400 Body mass index (BMI) [Ratio] 32.25 kg/m2 Yokasta Rodriguezlidia D[facility]ONT [place] [employer], [employer].; [employer], [employer] 03-12-2019 08:30-0400 Body surface area Derived from formula 2.22 m2 Yokasta Niñohesham [employer] DEVELOPER [place] [employer], Inc.; [employer] 03-12-2019 08:30-0400 Body temperature 97 [degF] Yokasta Arias [facility] [employer], [employer]. Comment on above: Method: Tympanic 03-12-2019 08:30-0400 Body weight 103.42 kg Yokasta Niñohesham [facility] [employer] [facility], Inc.; [employer] 03-12-2019 08:30-0400 Diastolic blood pressure 84 mm[Hg] Yokasta Arias SENIOR [employer] DEVELOPER [employer]. Comment on above: Patient Position: Sitting; Cuff Location : Left Arm; Cuff Size: Standard 03-12-2019 08:30-0400 Heart rate 62 /min Yokasta Arias TIM [place] [employer], [employer].; [employer] Comment on above: Pattern: Regular 03-12-2019 08:30-0400 Systolic blood pressure 136 mm[Hg] Yokasta Arias TIM [place] [employer]. Comment on above: Patient Position: Sitting; Cuff Location : Left Arm; Cuff Size: Standard 01-21-2019 08:24-0400 Body height 179.07 cm Mercy Soares RN [place] [employer], [employer].; [employer] 01-21-2019 08:24-0400 Body mass index (BMI) [Ratio] 32.07 kg/m2 Mercy Soares RN [place] [employer], [employer].; [employer], [employer] 01-21-2019 08:24-0400 Body surface area Derived from formula 2.21 m2 Mercy Soares RN [employer]. 01-21-2019 08:24-0400 Body temperature 97.9 [degF] Mercy Soares RN [employer].; [employer]. Comment on above: Method: Tympanic 01-21-2019 08:24-0400 Body weight 102.83 kg Mercy Soares RN [employer].; [employer]. 01-21-2019 08:24-0400 Diastolic blood pressure 71 mm[Hg] Mercy Soares RN [employer].; [employer]. Comment on above: Patient Position: Sitting; Cuff Location : Left Arm; Cuff Size: Standard 01-21-2019 08:24-0400 Heart rate 89 /min Mercy Soares RN [employer]. Comment on above: Pattern: Regular 01-21-2019 08:24-0400 Systolic blood pressure 116 mm[Hg] Mercy Soares RN [employer].; [employer]. Comment on above: Patient Position: Sitting; Cuff Location : Left Arm; Cuff Size: Standard 10-27-2018 08:31-0500 Body height 179.07 cm Nehemiah Flanagan MD Work Phone: [employer].; [employer]. 10-27-2018 08:31-0500 Body mass index (BMI) [Ratio] 32.39 kg/m2 Nehemiah Flanagan MD Work Phone: [employer].; [employer]. 10-27-2018 08:31-0500 Body surface area Derived from formula 2.22 m2 Nehemiah Flanagan MD Work Phone: [employer].; [employer]. 10-27-2018 08:31-0500 Body temperature 97.5 [degF] Nehemiah Flanagan MD Work Phone: [employer].; [employer]. Comment on above: Method: Tympanic 10-27-2018 08:31-0500 Body weight 103.87 kg Nehemiah Flanagan MD Work Phone: [employer].; [employer]. 10-27-2018 08:31-0500 Diastolic blood pressure 80 mm[Hg] Nehemiah Flanagan MD Work Phone: [employer].; [employer]. Comment on above: Patient Position: Sitting; Cuff Location : Left Arm; Cuff Size: Large 10-27-2018 08:31-0500 Heart rate 62 /min Nehemiah Flanagan MD Work Phone: [employer].; [employer]. Comment on above: Pattern: Regular 10-27-2018 08:31-0500 Inhaled oxygen concentration 20 % Nehemiah Flanagan MD Work Phone: the gra[employer]; [employer]. Comment on above: Room air 10-27-2018 08:31-0500 Inhaled oxygen concentration 21 % Nehemiah Flanagan MD Work Phone: [employer]; [employer]. Comment on above: Room air 10-27-2018 08:31-0500 SaO2% (BldA) [Mass fraction] 99 % Nehemiah Flanagan MD Work Phone: [employer]; [employer]. 10-27-2018 08:31-0500 Systolic blood pressure 146 mm[Hg] Nehemiah Flanagan MD Work Phone: [employer]; [employer]. Comment on above: Patient Position: Sitting; Cuff Location : Left Arm; Cuff Size: Large 10-22-2018 10:43-0500 Body height 179.07 cm Virgie Mccauley RN [employer].; [employer]. 10-22-2018 10:43-0500 Body mass index (BMI) [Ratio] 32.82 kg/m2 Virgie Mccauley RN [employer].; [employer]. 10-22-2018 10:43-0500 Body surface area Derived from formula 2.23 m2 Virgie Mccauley RN [employer].; [employer]. 10-22-2018 10:43-0500 Body temperature 99.1 [degF] Virgie Mccauley RN [employer].; [employer]. Comment on above: Method: Tympanic 10-22-2018 10:43-0500 Body weight 105.24 kg Virgie Mccauley [facility] [employer]. 10-22-2018 10:43-0500 Diastolic blood pressure 59 mm[Hg] Virgie Mccauley RN [employer].; [employer]. Comment on above: Patient Position: Sitting; Cuff Location : Left Arm; Cuff Size: Standard 10-22-2018 10:43-0500 Inhaled oxygen concentration 20 % Virgie Mccauley RN [place] [facility] [employer]. Comment on above: Room air 10-22-2018 10:43-0500 Inhaled oxygen concentration 21 % Virgie Mccauley RN [facility] [employer]. Comment on above: Room air 10-22-2018 10:43-0500 SaO2% (BldA) [Mass fraction] 96 % Virgie Mccauley RN [employer].; [employer]. 10-22-2018 10:43-0500 Systolic blood pressure 99 mm[Hg] Virgie Mccauley RN [employer].; [employer]. Comment on above: Patient Position: Sitting; Cuff Location : Left Arm; Cuff Size: Standard 08-26-2018 09:00-0500 Body height 179.07 cm Keyla Oleary LPN [employer], [employer]. 08-26-2018 09:00-0500 Body mass index (BMI) [Ratio] 33.95 kg/m2 Keyla Oleary LPN [employer] 08-26-2018 09:00-0500 Body surface area Derived from formula 2.27 m2 Keyla Oleary SENIOR [employer] DEVELOPER [employer], [employer].; [employer]. 08-26-2018 09:00-0500 Body temperature 97.1 [degF] Keyla Oleary [facility], Inc.; [employer], [employer]. Comment on above: Method: Tympanic 08-26-2018 09:00-0500 Body weight 108.86 kg Keyla Oleary LPN [facility], Inc.; [employer]. 08-26-2018 09:00-0500 Diastolic blood pressure 83 mm[Hg] Keyla Oleary SENIOR [employer] DEVELOPER [facility], Inc.; [employer], [employer]. Comment on above: Patient Position: Sitting; Cuff Location : Left Arm; Cuff Size: Large 08-26-2018 09:00-0500 Heart rate 73 /min Keyla Oleary SENIOR [employer] DEVELOPER [facility], Inc.; [employer], [employer]. Comment on above: Pattern: Regular 08-26-2018 09:00-0500 Systolic blood pressure 143 mm[Hg] Keyla Oleary SENIOR [employer] DEVELOPER [place] [employer] [facility], Inc.; [employer]. Comment on above: Patient Position: Sitting; Cuff Location : Left Arm; Cuff Size: Large 04-10-2018 08:07-0400 Body height 179.07 cm Virgie Mccauley RN [place] [employer] [facility], Inc.; [employer], [employer]. 04-10-2018 08:07-0400 Body mass index (BMI) [Ratio] 33.52 kg/m2 Virgie Mccauley RN [place] [employer] [facility], Inc.; [employer]. 04-10-2018 08:07-0400 Body surface area Derived from formula 2.26 m2 Virgie Mccauley RN [place] [employer] [facility], [employer].; [employer], [employer]. 04-10-2018 08:07-0400 Body weight 107.5 kg Virgie Mccauley RN [place] [employer] [facility], [employer].; [employer]. 04-10-2018 08:07-0400 Diastolic blood pressure 85 mm[Hg] Virgie Mccauley RN [place] [employer] [facility], [employer].; [employer]. Comment on above: Patient Position: Sitting; Cuff Location : Left Arm; Cuff Size: Standard 04-10-2018 08:07-0400 Heart rate 52 /min Virgie Mccauley RN [facility], [facility].; [employer]. Comment on above: Pattern: Regular 04-10-2018 08:07-0400 Systolic blood pressure 131 mm[Hg] Virgie Mccauley RN [facility], [facility].; [employer]. Comment on above: Patient Position: Sitting; Cuff Location : Left Arm; Cuff Size: Standard 10-13-2017 08:09-0500 Body height 179.07 cm Ceci Turcios LPN [facility], Inc.; [employer]. 10-13-2017 08:09-0500 Body mass index (BMI) [Ratio] 34.37 kg/m2 Ceci Turcios LPN [facility], Inc.; [employer], [employer]. 10-13-2017 08:09-0500 Body surface area Derived from formula 2.28 m2 Ceci Turcios LPN [facility], Inc.; [employer], [employer]. 10-13-2017 08:09-0500 Body weight 110.22 kg Ceci Turcios LPN [facility], [facility].; [employer], [employer]. 10-13-2017 08:09-0500 Diastolic blood pressure 66 mm[Hg] Ceci Turcios LPN [place] [employer] [facility], Inc.; [employer]. Comment on above: Patient Position: Sitting; Cuff Location : Left Arm; Cuff Size: Standard 10-13-2017 08:09-0500 Heart rate 57 /min Ceci Turcios LPN [facility], Inc.; [employer]. Comment on above: Pattern: Regular 10-13-2017 08:09-0500 Systolic blood pressure 113 mm[Hg] Ceci Turcios LPN [place] [employer] [facility], [employer].; [employer]. Comment on above: Patient Position: Sitting; Cuff Location : Left Arm; Cuff Size: Standard 04-16-2017 08:31-0400 Body height 179.07 cm Olive Urena SENIOR COG[employer] DEVELOPER [place] [employer] [facility], Inc.; [employer]. 04-16-2017 08:31-0400 Body mass index (BMI) [Ratio] 33.81 kg/m2 Olive Urena SENIOR [employer] DEVELOPER [facility], Inc.; [employer]. 04-16-2017 08:31-0400 Body surface area Derived from formula 2.26 m2 Olive Urena SENIOR [employer] DEVELOPER [facility], [facility].; [employer] 04-16-2017 08:31-0400 Body weight 108.41 kg Olive Urena SENIOR COG[employer] DEVELOPER [facility], Inc.; [employer] 04-16-2017 08:31-0400 Diastolic blood pressure 73 mm[Hg] Olive Georgebaugh SENIOR COG[employer] DEVELOPER [place] [employer] [facility], Inc.; [employer]. Comment on above: Patient Position: Sitting; Cuff Location : Left Arm; Cuff Size: Standard 04-16-2017 08:31-0400 Heart rate 62 /min Olive Urena SENIOR [employer] DEVELOPER [facility], Inc.; [employer], [employer]. Comment on above: Pattern: Regular 04-16-2017 08:31-0400 Systolic blood pressure 129 mm[Hg] Olive Georgebaugh SENIOR COG[employer] DEVELOPER [place] [employer] [facility], [employer].; [employer]. Comment on above: Patient Position: Sitting; Cuff Location : Left Arm; Cuff Size: Standard 10-18-2016 08:52-0500 Body temperature 96.6 [degF] Ceci Turcios [facility] [employer] [facility], [employer].; [employer] 10-18-2016 08:52-0500 Body weight 109.32 kg Ceci Turcios SENIOR COG[employer] DEVELOPER [place] [employer] [facility], [employer].; [employer]. 10-18-2016 08:52-0500 Diastolic blood pressure 70 mm[Hg] Ceci Turcios LPN [place] [employer] [facility], [employer].; [employer]. Comment on above: Patient Position: Sitting; Cuff Location : Left Arm; Cuff Size: Standard 10-18-2016 08:52-0500 Heart rate 68 /min Ceci Turcios LPN [place] [employer] [facility], [employer].; [employer]. Comment on above: Pattern: Regular 10-18-2016 08:52-0500 Inhaled oxygen concentration 20 % Ceci Turcios LPN [place] [employer] [facility], [employer].; [employer]. Comment on above: Room air 10-18-2016 08:52-0500 Inhaled oxygen concentration 21 % Ceci Turcios LPN [facility], Inc.; [employer], [employer]. Comment on above: Room air 10-18-2016 08:52-0500 SaO2% (BldA) [Mass fraction] 97 % Ceci Turcios LPN [facility], Inc.; [employer] 10-18-2016 08:52-0500 Systolic blood pressure 143 mm[Hg] Ceci Turcios LPN [facility], Inc.; [employer], [employer]. Comment on above: Patient Position: Sitting; Cuff Location : Left Arm; Cuff Size: Standard 04-17-2016 07:19-0400 Body height 179.07 cm Keyla Bain Kipton TIM [facility], Inc.; [employer] 04-17-2016 07:19-0400 Body mass index (BMI) [Ratio] 34.37 kg/m2 ImanTaya Handleyey TIM [facility], Inc.; [employer], [employer] 04-17-2016 07:19-0400 Body surface area Derived from formula 2.28 m2 ImanTaya Handleyey SENIOR COGNOS DEVELOPER [facility], Inc.; [employer], [employer] 04-17-2016 07:19-0400 Body weight 110.22 kg Keyla Oleary TIM [facility], Inc.; [employer]. 04-17-2016 07:19-0400 Diastolic blood pressure 81 mm[Hg] Keyla Oleary TIM [facility], Inc.; [employer], [employer]. Comment on above: Patient Position: Sitting; Cuff Location : Left Arm; Cuff Size: Large 04-17-2016 07:19-0400 Heart rate 64 /min Iman Mamta TIM [facility], Inc.; [employer]. Comment on above: Pattern: Regular 04-17-2016 07:19-0400 Systolic blood pressure 135 mm[Hg] Keyla Oleary TIM [facility], Inc.; [employer], [employer]. Comment on above: Patient Position: Sitting; Cuff Location : Left Arm; Cuff Size: Large 10-18-2015 08:34-0500 Body height 179.07 cm Nehemiah Flanagan MD Work Phone: [employer].; [employer]. 10-18-2015 08:34-0500 Body mass index (BMI) [Ratio] 35.36 kg/m2 Nehemiah Flanagan MD Work Phone: [employer].; [employer]. 10-18-2015 08:34-0500 Body surface area Derived from formula 2.31 m2 Nehemiah Flanagan MD Work Phone: [employer].; [employer]. 10-18-2015 08:34-0500 Body weight 113.4 kg Nehemiah Flanagan MD Work Phone: [employer].; [employer]. 10-18-2015 08:34-0500 Diastolic blood pressure 78 mm[Hg] Nehemiah Flanagan MD Work Phone: [employer].; [employer]. Comment on above: Patient Position: Sitting; Cuff Location : Left Arm; Cuff Size: Standard 10-18-2015 08:34-0500 Heart rate 67 /min Nehemiah Flanagan MD Work Phone: [employer].; [employer]. Comment on above: Pattern: Regular 10-18-2015 08:34-0500 Systolic blood pressure 132 mm[Hg] Nehemiah Flanagan MD Work Phone: [employer].; [employer]. Comment on above: Patient Position: Sitting; Cuff Location : Left Arm; Cuff Size: Standard 04-17-2015 08:06-0400 Body height 179.07 cm Ceci Turcios LPN [employer].; [employer]. 04-17-2015 08:06-0400 Body mass index (BMI) [Ratio] 33.67 kg/m2 Ceci Turcios LPN [employer] 04-17-2015 08:06-0400 Body surface area Derived from formula 2.26 m2 Ceci Turcios LPN [employer].; [employer]. 04-17-2015 08:06-0400 Body weight 107.96 kg Ceci Turcios LPN [facility].; [employer]. 04-17-2015 08:06-0400 Diastolic blood pressure 76 mm[Hg] Ceci Turcios LPN [place] [employer] [facility], [facility].; [employer]. Comment on above: Patient Position: Sitting; Cuff Location : Left Arm; Cuff Size: Standard 04-17-2015 08:06-0400 Heart rate 53 /min Ceci Turcios LPN [place] [employer] [facility], [facility].; [employer]. Comment on above: Pattern: Regular 04-17-2015 08:06-0400 Systolic blood pressure 134 mm[Hg] Ceci Turcios LPN [place] [employer] [facility].; [employer]. Comment on above: Patient Position: Sitting; Cuff Location : Left Arm; Cuff Size: Standard 10-22-2014 09:39-0500 Body height 180.34 cm Mercy Soares RN [place] [employer] [facility], [facility].; [employer]. 10-22-2014 09:39-0500 Body mass index (BMI) [Ratio] 33.78 kg/m2 Mercy Soares RN [place] [employer] [facility].; [employer]. 10-22-2014 09:39-0500 Body surface area Derived from formula 2.29 m2 Mercy Soares RN [place] [employer] [facility].; [employer]. 10-22-2014 09:39-0500 Body temperature 97.7 [degF] Mercy Soares RN [place] [employer] [facility].; [employer]. Comment on above: Method: Tympanic 10-22-2014 09:39-0500 Body weight 109.86 kg Mercy Soares RN [place] [employer] [facility].; [employer]. 10-22-2014 09:39-0500 Diastolic blood pressure 79 mm[Hg] Mercy Soares RN [place] [employer] [facility].; [employer]. Comment on above: Patient Position: Sitting; Cuff Location : Left Arm; Cuff Size: Standard 10-22-2014 09:39-0500 Heart rate 60 /min Mercy Soares RN [facility].; [facility] Comment on above: Pattern: Regular 10-22-2014 09:39-0500 Systolic blood pressure 128 mm[Hg] Mercy Soares RN [facility] Comment on above: Patient Position: Sitting; Cuff Location : Left Arm; Cuff Size: Standard Encounters Encounter Date Encounter Type Care Provider Facility Start: 11-09-2024 End: 11-09-2024 ambulatory Madan Soni Facility:[facility] Start: 10-29-2024 ambulatory [facility] Start: 10-24-2024 End: 10-24-2024 ambulatory MADAN Moreno [facility] Start: 10-14-2024 End: 10-14-2024 ambulatory Madan Soni Facility:[facility] Start: 10-11-2024 End: 10-11-2024 ambulatory Nehemiah [facility] Facility:[facility] Start: 09-18-2024 End: 09-18-2024 [facility] Start: 08-20-2024 End: 08-20-2024 ambulatory MADANKAYLIE Moreno [facility] Start: 08-10-2024 End: 08-10-2024 ambulatory Madan Soni Facility:[facility] Start: 03-02-2024 End: 03-02-2024 Medication Nehemiah Flanagan MD Work Phone: [facility] Start: 02-10-2024 End: 02-10-2024 ambulatory MAGGIE KEMP Josh [facility] Start: 02-03-2024 End: 02-03-2024 ambulatory Maggie Kemp NP Facility:[facility] Start: 01-12-2024 End: 01-12-2024 ambulatory MAGGIE KEMP Josh [facility] Start: 12-15-2023 End: 12-15-2023 ambulatory MAGGIE JERRY [facility] Start: 12-08-2023 End: 12-08-2023 Telephone follow-up Nehemiah Flanagan MD Work Phone: [facility] Start: 12-05-2023 Non-patient / Non-visit Dr. Andres Flanagan Work Phone: [facility] Work Phone: Start: 12-04-2023 Non-patient / Non-visit Dr. Andres Flanagan Work Phone: [facility] Work Phone: Start: 12-04-2023 Non-patient / Non-visit Dr. Andres Flanagan Work Phone: [facility] Start: 12-03-2023 Non-patient / Non-visit Dr. Andres Flanagan Work Phone: [facility] Work Phone: Start: 12-03-2023 Non-patient / Non-visit Dr. Andres Flanagan Work Phone: [facility] Start: 12-02-2023 Non-patient / Non-visit Dr. Andres Flanagan Work Phone: [facility] Work Phone: Start: 12-01-2023 Non-patient / Non-visit Dr. Andres Flanagan Work Phone: [facility] Work Phone: Start: 12-01-2023 End: 12-05-2023 Evaluation and management of inpatient Dr. Nehemiah Flanagan Work Phone: [facility] Work Phone: Start: 10-31-2023 End: 10-31-[address] Nehemiah Flanagan Work Phone: [facility] Work Phone: Start: 10-31-2023 End: 10-31-[address] Nehemiah Flanagan Work Phone: [facility]/Neurology Work Phone: Start: 10-24-2023 Non-patient / Non-visit Dr. Andres Flanagan Work Phone: [facility] Start: 10-24-2023 End: 10-24-[address] Nehemiah Flanagan Work Phone: [facility] Work Phone: Start: 10-24-2023 End: 10-24-[address] Nehemiah Flanagan Work Phone: [facility]/Neurology Work Phone: Start: 10-23-2023 Review [facility]hem[facility] Flanagan MD [facility]: [facility] Start: 10-23-2023 End: 10-23-[address] Nehemiha Flanagan Work Phone: [facility] Work Phone: Start: 10-07-2023 End: 10-07-2023 Office outpatient visit 15 minutes Nehemiah Flanagan MD Work Phone: [employer] [facility] Start: 09-30-2023 End: 09-30-2023 Telephone follow-up Nehemiah Flanagan MD Work Phone: [facility] Start: 09-26-2023 Non-patient / Non-visit Dr. Andres Flanagan Work Phone: [facility] Work Phone: Start: 09-25-2023 Non-patient / Non-visit Dr. Andres Flanagan Work Phone: [facility] Start: 09-25-2023 Non-patient / Non-visit Dr. Andres Flanagan Work Phone: [facility] Work Phone: Start: 09-24-2023 End: 09-26-2023 Evaluation and management of inpatient Dr. Nehemiah Flanagan Work Phone: [facility]-Progressive Care Unit Work Phone: Start: 09-18-2023 End: 09-18-[address] [facility] Work Phone: Start: 09-01-2023 Non-patient / Non-visit Dr. Andres Flanagan Work Phone: [facility] Start: 09-01-2023 End: 09-01-[address] Nehemiah Flanagan Work Phone: [facility] Work Phone: Start: 09-01-2023 End: 09-01-[address] [facility] Start: 08-27-2023 End: 08-27-2023 Patient encounter procedure Dr. Nehemiah Flanagan Work Phone: [facility] Work Phone: Start: 07-09-2023 End: 07-09-2023 Office outpatient visit 25 minutes Nehemiah Flanagan MD Work Phone: [employer] Start: 06-10-2023 End: 06-10-[address] [facility] Work Phone: Start: 05-21-2023 End: 05-21-[address] Nehemiah Flanagan Work Phone: [facility] Work Phone: Start: 05-21-2023 End: 05-21-[address] Nehemiah Flanagan Work Phone: [facility] Work Phone: Start: 03-24-2023 End: 03-24-2023 [facility] Nehemiah Flanagan MD Work Phone: [facility] Start: 03-19-2023 End: 03-19-2023 Historical Summary Nehemiah Flanagan MD Work Phone: [employer] Start: 01-14-2023 End: 01-14-2023 Patient encounter procedure Nehemiah Flanagan MD Work Phone: [employer]; [employer]. Start: 01-14-2023 End: 01-14-2023 Periodic preventive med est patient 65yrs& older Nehemiah Flanagan MD Work Phone: [employer]. Start: 01-10-2023 End: 01-10-2023 Office outpatient visit 15 minutes Nehemiah Flanagan MD Work Phone: [employer] Start: 01-06-2023 End: 01-06-2023 Orders Nehemiah Flanagan MD Work Phone: [employer] Start: 07-09-2022 End: 07-09-2022 Office outpatient visit 25 minutes Nehemiah Flanagan MD Work Phone: [employer] Start: 01-08-2022 End: 01-08-2022 Patient encounter procedure Nehemiah Flanagan MD Work Phone: [employer]; [employer]. Start: 01-08-2022 End: 01-08-2022 Periodic preventive med est patient 65yrs& older Nehemiah Flanagan MD Work Phone: [employer]. Start: 12-31-2021 End: 12-31-2021 Orders Nehemiah Flanagan MD Work Phone: [employer]. Start: 07-11-2021 End: 07-11-2021 Office outpatient visit 15 minutes Nehemiah Flanagan MD Work Phone: [employer]. Start: 01-08-2021 End: 01-08-2021 Patient encounter procedure Nehemiah Flanagan MD Work Phone: [employer]. Start: 01-08-2021 End: 01-08-2021 Periodic preventive med est patient 63yrs& older Nehemiah Flanagan MD Work Phone: [employer]. Start: 01-01-2021 End: 01-01-2021 Orders Nehemiah Flanagan MD Work Phone: [employer]. Start: 11-28-2020 End: 11-28-2020 Orders Nehemiah Flanagan MD Work Phone: [employer]. Start: 07-11-2020 End: 07-11-2020 Office outpatient visit 25 minutes Nehemiah Flanagan MD Work Phone: [employer]. Start: 03-22-2020 End: 03-22-2020 Orders Nehemiah Flanagan MD Work Phone: [employer]. Start: 03-06-2020 End: 03-06-2020 Historical Summary Nehemiah Flanagan MD Work Phone: [employer]. Start: 01-19-2020 End: 01-19-2020 Office outpatient visit 25 minutes Nehemiah Flanagan MD Work Phone: [employer]. Start: 12-21-2019 End: 12-21-2019 Orders Nehemiah Flanagan MD Work Phone: [employer]. Start: 12-16-2019 End: 12-16-2019 Orders Nehemiah Flanagan MD Work Phone: [employer]. Start: 12-14-2019 End: 12-14-2019 Office outpatient visit 15 minutes Nehemiah Flanagan MD Work Phone: [employer]. Start: 09-24-2019 End: 09-24-2019 Medication Nehemiah Flanagan MD Work Phone: [employer]. Start: 07-15-2019 End: 07-15-2019 Office outpatient visit 15 minutes Nehemiah Flanagan MD Work Phone: [employer]. Start: 05-11-2019 End: 05-11-2019 Office outpatient visit 15 minutes Nehemiah Flanagan MD Work Phone: [employer]. Start: 03-12-2019 End: 03-12-2019 Office outpatient visit 15 minutes Nehemiah Flanagan MD Work Phone: [employer] Start: 01-21-2019 End: 01-21-2019 Office outpatient visit 15 minutes Nehemiah Flanagan MD Work Phone: [employer]. Start: 10-27-2018 End: 10-27-2018 Office outpatient visit 25 minutes Nehemiah Flanagan MD Work Phone: [employer]. Start: 10-22-2018 End: 10-22-2018 Office outpatient visit 15 minutes Nehemiah Flanagan MD Work Phone: [employer]. Start: 10-09-2018 End: 10-07-2018 Historical Summary Nehemiah Flanagan MD Work Phone: [employer]. Start: 08-27-2018 End: 08-27-2018 Telephone follow-up Nehemiah Flanagan MD Work Phone: [employer]. Start: 08-26-2018 End: 08-26-2018 Office outpatient visit 15 minutes Nehemiah Flanagan MD Work Phone: [employer] Start: 07-01-2018 End: 07-01-2018 Nursing evaluation of patient and report Nehemiah Flanagan MD Work Phone: [employer]. Start: 04-13-2018 End: 04-13-2018 Historical Summary Nehemiah Flanagan MD Work Phone: [employer] Start: 04-10-2018 End: 04-10-2018 Office outpatient visit 25 minutes Nehemiah Flanagan MD Work Phone: [employer]. Start: 10-13-2017 End: 10-13-2017 Office outpatient visit 15 minutes Nehemiah Flanagan MD Work Phone: [employer]. Start: 10-10-2017 End: 10-10-2017 Follow-up encounter Nehemiah Flanagan MD Work Phone: [employer]. Start: 10-06-2017 End: 10-06-2017 Orders Nehemiah Flanagan MD Work Phone: [employer]. Start: 04-16-2017 End: 04-16-2017 Office outpatient visit 15 minutes Nehemiah Flanagan MD Work Phone: [employer]. Start: 04-09-2017 End: 04-09-2017 Orders Nehemiah Flanagan MD Work Phone: [employer]. Start: 10-18-2016 End: 10-18-2016 Office outpatient visit 15 minutes Nheemiah Flanagan MD Work Phone: [employer]. Start: 10-11-2016 End: 10-11-2016 Orders Nehemiah Flanagan MD Work Phone: [employer]. Start: 04-17-2016 End: 04-17-2016 Office outpatient visit 15 minutes Nehemiah Flanagan MD Work Phone: [employer]. Start: 04-16-2016 End: 04-16-2016 Historical Summary Nehemiah Flanagan MD Work Phone: [employer]. Start: 04-12-2016 End: 04-12-2016 Orders Nehemiah Flanagan MD Work Phone: [employer]. Start: 10-18-2015 End: 10-18-2015 Office outpatient visit 15 minutes Nehemiah Flanagan MD Work Phone: [employer]. Start: 10-11-2015 End: 10-11-2015 Orders Nehemiah Flanagan MD Work Phone: [employer]. Start: 04-17-2015 End: 04-17-2015 Periodic preventive med est patient 63yrs& older Nehemiah Flanagan MD Work Phone: [employer]. Start: 04-17-2015 End: 04-17-2015 Routine general medical examination at a health care facility Nehemiah Flanagan MD Work Phone: [employer].; [employer] Start: 04-10-2015 End: 04-10-2015 Orders Nehemiah Flanagan MD Work Phone: [employer]. Start: 04-10-2015 End: 04-10-2015 Routine general medical examination at a health care facility Nehemiah Flanagan MD Work Phone: [employer]. Start: 03-10-2015 End: 03-10-2015 Orders Nehemiah Flanagan MD Work Phone: [employer]. Start: 03-10-2015 End: 03-10-2015 Routine general medical examination at a [facility] facility Nehemiah Flanagan MD Work Phone: [employer]. Start: 11-30-2014 End: 11-30-2014 Medication Nehemiah Flanagan MD Work Phone: [employer]. Start: 10-22-2014 End: 10-22-2014 Office outpatient visit 15 minutes Nehemiah Flanagan MD Work Phone: [employer] [facility] Patient encounter procedure Sariah Luis SENIOR COGNOS DEVELOPERAdventhealth Palm [facility] ErMobile [facility].; [employer] Patient encounter procedure Nara Herbert SENIOR COGNOS DEVELOPERAdvanced [facility] Hospital Of Southern [facility] MexicoFur and Mask [facility] HospitalMobile [facility].; [employer]. Patient encounter procedure Virgie Mccauley RN [place] [facility] [employer] Patient encounter procedure Keyla Oleary SENIOR COGNOS DEVELOPERAdvanced Care Hospital [facility] Southern New MexicoQualgenix.; [employer]. Procedures Date Procedure Procedure Detail Performing Clinician Start: 12-04-[address] e detection Dr. Nehemiah Flanagan Work Phone: Start: 12-04-[address] Nehemiah Flanagan Work Phone: Start: 12-02-2023 CT of chest without contrast Dr. Nehemiah Flanagan Work Phone: Start: 12-01-2023 Plain chest X-ray Dr. Callie Flanagan Work Phone: Start: 12-01-2023 SARS-CoV-2, Influenz a & RSV (PCR) Dr. Nehemiah Flanagan Work Phone: Start: 09-24-2023 Bacteria identified in Blood by Culture Dr. Nehemiah Flanagan Work Phone: Start: 09-24-[address] Nehemiah Flanagan Work Phone: Start: 09-24-2023 SARS-CoV-2, Influenz a & RSV (PCR) Dr. Nehemiah Flanagan Work Phone: Start: 09-24-2023 Plain chest X-ray Dr. Callie Flanagan Work Phone: Start: 09-01-2023 Cardiovascular stres s test using pharmacologic stress agent Dr. Nehemiah Flanagan Work Phone: Start: 07-09-2023 End: 07-09-2023 Flu immunize order/admin Nehemiah Tipton Work Phone: Start: 01-14-2023 End: 01-14-2023 Adv care pln/ no alt dcsn mkr docd or refusal Nehemiah Flanagan MD Work Phone: Start: 01-14-2023 End: 01-14-2023 Depression screening Nehemiah Flanagan MD Work Phone: Start: 01-14-2023 End: 01-14-2023 Falls risk assessment documented Nehemiah Flanagan MD Work Phone: Start: 01-14-2023 End: 03-19-2023 Oncology colorectal screening nyla 10 dna markrs Nehemiah Flanagan MD Work Phone: Start: 01-14-2023 End: 01-14-2023 PPPS, subseq visit Nehemiah Flanagan MD Work Phone: Start: 01-14-2023 End: 01-14-2023 Pt falls assess docd w/o fall/injury past year Nehemiah Flanagan MD Work Phone: Start: 01-14-2023 End: 01-14-2023 Scr dep neg, no plan reqd Nehemiah Flanagan MD Work Phone: Start: 01-07-2023 End: 01-07-2023 Comprehensive metabolic 2000 panel - Serum or Plasma Sariah Luis LPN Comment on above: 103 Start: 01-07-2023 End: 01-07-2023 Lipid panel Sariah Luis LPN Comment on above: TC 146, HDL 50, TRI 78, LDL 80 Start: 01-08-2022 End: 01-08-2022 Adv care pln/ no alt dcsn mkr docd or refusal Nehemiah Flanagan MD Work Phone: Start: 01-08-2022 End: 01-08-2022 Depression screening Nehemiah Flanagan MD Work Phone: Start: 01-08-2022 End: 01-08-2022 Falls risk assessment documented Nehemiah Flanagan MD Work Phone: Start: 01-08-2022 End: 01-08-2022 PPPS, subseq visit Nehemiah Flanagan MD Work Phone: Start: 01-08-2022 End: 01-08-2022 Pt falls assess docd w/o fall/injury past year Nehemiah Flanagan MD Work Phone: Start: 01-08-2022 End: 01-08-2022 Scr dep neg, no plan reqd Nehemiah Flanagan MD Work Phone: Start: 01-01-2022 End: 01-01-2022 Lab findings surveillance Sariah Luis LPN Comment on above: 96 Start: 01-08-2021 End: 01-08-2021 Depression screening Nehemiah Flanagan MD Work Phone: Start: 01-08-2021 End: 01-08-2021 Falls risk assessment documented Nehemiah Flanagan MD Work Phone: Start: 01-08-2021 End: 01-08-2021 PPPS, subseq visit Nehemiah Flanagan MD Work Phone: Start: 01-08-2021 End: 01-08-2021 Pt falls assess docd w/o fall/injury past year Nehemiah Flanagan MD Work Phone: Start: 01-08-2021 End: 01-08-2021 Scr dep neg, no plan reqd Nehemiah Flanagan MD Work Phone: Start: 03-03-2020 End: 03-03-2020 Cologuard Sariah Luis LPN Comment on above: Normal. Negative Start: 01-19-2020 End: 03-06-2020 Oncology colorectal screening nyla 10 dna markrs Nehemiah Flanagan MD Work Phone: Start: 12-16-2019 End: 12-21-2019 TTE w or wo fol wcon,Doppler Nehemiah Flanagan MD Work Phone: Start: 12-14-2019 End: 12-16-2019 Radiologic exam chest 2 views Nehemiah Flanagan MD Work Phone: Start: 12-14-2019 End: 12-15-2019 Spmtry w/vc expiratory claire w/wo mxml vol vntj Nehemiah Flanagan MD Work Phone: Start: 05-11-2019 End: 05-11-2019 Flu immunize order/admin Nehemiah Tipton Work Phone: Start: 10-22-2018 End: 10-22-2018 Ceftriaxone sodium injection Nii Godfrey MD Work Phone: Start: 07-01-2018 End: 07-01-2018 Flu immunize order/admin Nehemiah Tipton Work Phone: Start: 04-12-2018 End: 04-12-2018 Fecal Occult Screening Sariah Schneider Comment on above: Normal. Neg cards Start: 04-10-2018 End: 04-10-2018 Pt falls assess docd w/o fall/injury past year Nehemiah Flanagan MD Work Phone: Start: 04-10-2018 End: 04-10-2018 Scr dep neg, no plan reqd Nehemiah Flanagan MD Work Phone: Start: 04-10-2018 End: 04-10-2018 Falls risk assessment documented Nehemiah Flanagan MD Work Phone: Start: 04-10-2018 End: 04-10-2018 Depression screen annual Nehemiah Tipton Work Phone: Start: 10-13-2017 End: 10-13-2017 Body mass index documented Nehemiah Flanagan MD Work Phone: Start: 08-25-1989 History of coronary artery bypass grafting H/O coronary artery bypass surgery Dr. Nehemiah Flanagan Work Phone: Plan of Treatment Date Care Activity Detail Author Start: 04-06-2024 Patient encounter procedure [facility] [employer] Start: 12-05-2023 Patient discharge [facility] Start: 12-05-2023 Referral to service [facility] Start: 12-04-2023 Referral to service [facility] Start: 12-02-2023 Oxygen therapy [facility] Start: 12-02-2023 Referral to occupational therapist [facility] Start: 12-02-2023 End: 12-02-2023 Referral to service [facility] Start: 12-02-2023 Care planning and problem solving actions [facility] Start: 12-02-2023 Blood chemistry [facility] Start: 12-02-2023 Continuous positive airway pressure ventilation treatment [facility] Start: 12-01-2023 Following clinical pathway protocol [facility] Start: 12-01-2023 Assessment of risk of venous thromboembolism [facility] Start: 12-01-2023 Consultation [facility] Start: 12-01-2023 Continuous pulse oximetry [facility] Start: 12-01-2023 Insertion of catheter into peripheral vein [facility] Start: 12-01-2023 Measuring intake and output [facility] Start: 12-01-2023 Providing care according to standard [facility] Start: 12-01-2023 Vital signs measurements [facility] Start: 12-01-2023 [facility] Start: 12-01-2023 Verification routine [facility] Start: 12-01-2023 Admission procedure [facility] Start: 12-01-2023 Removal of urinary catheter [facility] Start: 12-01-2023 Continuous pulse oximetry [facility] Start: 12-01-2023 Dual pressure spontaneous ventilation support [facility] Start: 10-07-2023 Patient encounter procedure Medical; Hospital F/U - hosp d/c 09/26, [facility] pulmon fibrosis exac. [facility]. Start: 07-Oct-2023 11:00 MD Nehemiah Flanagan Appointment Request [facility]. Start: 09-26-2023 Patient discharge [facility] Start: 09-24-2023 Assessment of risk of venous thromboembolism [facility] Start: 09-24-2023 Incentive spirometry [facility] Start: 09-24-2023 Inhalation therapy procedure [facility] Start: 09-24-2023 Insertion of catheter into peripheral vein [facility] Start: 09-24-2023 Measuring intake and output [facility] Start: 09-24-2023 Oxygen therapy [facility] Start: 09-24-2023 Providing care according to standard [facility] Start: 09-24-2023 Provision of activity privileges [facility] Start: 09-24-2023 Referral to service [facility] Start: 09-24-2023 [facility] Start: 09-24-2023 Following clinical pathway protocol [facility] Start: 09-24-2023 Respiratory pathogens DNA and RNA panel - Respiratory specimen by NELI with probe detection [facility] Start: 09-24-2023 Verification routine [facility] Start: 09-24-2023 Admission procedure [facility] Start: 09-24-2023 Bacteria identified in Blood by Culture Blood Culture [facility] Start: 09-24-2023 Hospital admission, emergency, from emergency room, medical nature [facility] Start: 09-24-2023 End: 09-24-2023 Blood culture [facility] Start: 09-24-2023 Patient referral to dietitian [facility] Anion gap measurement [facility] BUN/Creatinine ratio [facility] Calcium [Mass/volume ] in Serum or Plasma [facility] Carbon dioxide, tota l [Moles/volume] in Serum or Plasma [facility] Chloride [Moles/volu me] in Serum or Plasma [facility] Creatinine [Moles/vo lume] in Serum or Plasma [facility] Erythrocyte mean corpuscular volume determination [facility] Glucose [Mass/volume ] in Serum or Plasma [facility] Hematocrit [Volume Fraction] of Blood [facility] Hemoglobin [Mass/vol ume] in Blood [facility] Leukocytes [#/volume ] in Blood [facility] Mean corpuscular hem oglobin concentration determination [facility] Mean corpuscular hem oglobin determination [facility] Measurement of renal function [facility] Measurement of respi ratory function [facility] Neutrophil count [facility] Neutrophil percent differential count [facility] Patient referral [facility] Work Phone: Platelets [#/volume] in Blood [facility] Potassium [Moles/vol ume] in Serum or Plasma [facility] Procalcitonin [Mass/ volume] in Serum or Plasma [facility] Red blood cell count [facility] Red cell distributio n width determination [facility] Sodium [Moles/volume ] in Serum or Plasma [facility] Urea nitrogen [Mass/ volume] in Serum or Plasma [facility] Immunizations Immunization Date Immunization Notes Care Provider Fa cility 07-09-2023 influenza virus vacc ine, unspecified formulation Nehemiah Flanagan MD Work Phone: [facility]; [facility] 07-09-2023 influenza, injectabl e, quadrivalent, preservative free Nehemiah Flanagan MD Work Phone: [facility]; [facility] Comment on above: [facility] * Influenza (Flu) Vaccine (Inactivated or Recombinant) (03/30/21) 06-02-2023 zoster vaccine recombinant Nehemiah Flanagan MD Work Phone: [facility]; [facility] Comment on above: [facility] 07-09-2022 COVID-Pfizer (Bivale nt 30 MCG/0.3 ML IM BST) Nehemiah Flanagan MD Work Phone: [facility]; [facility] Work Phone: 06-27-2022 influenza, injectabl e, quadrivalent, preservative free Dr. Nehemiah Flanagan Work Phone: [facility] 10-26-2020 COVID-Pfizer (30 MCG /0.3 ML) Nehemiah Flanagan MD Work Phone: [facility]; [facility] 09-28-2020 COVID-Pfizer (30 MCG /0.3 ML) Nehemiah Flanagan MD Work Phone: [facility]; [facility] 05-25-2020 influenza, injectabl e, quadrivalent, contains preservative Nehemiah Flanagan MD Work Phone: [facility]; [facility] Comment on above: at [facility] 05-15-2020 influenza, injectabl e, quadrivalent, preservative free Dr. Nehemiah Flanagan Work Phone: [facility] 05-11-2019 influenza virus vacc ine, unspecified formulation Nehemiah Flanagan MD Work Phone: [facility]; [employer] 05-11-2019 influenza, injectabl e, quadrivalent, contains preservative Nehemiah Flanagan MD Work Phone: [facility]; [employer] Comment on above: Site: Left ArmVIS Gi honorio: * Influenza - Inactivated (03/31/15) 07-01-2018 influenza virus vacc ine, unspecified formulation Nehemiah Flanagan MD Work Phone: [facility]; [employer] 07-01-2018 influenza, injectabl e, quadrivalent, contains preservative Nehemiah Flanagan MD Work Phone: [facility]; [employer]. Comment on above: Site: Left DeltoidVI S Given: * Influenza - Inactivated (03/31/15) 07-01-2018 pneumococcal conjuga te vaccine, 13 valent Nehemiah Flanagan MD Work Phone: [facility]; [employer] Comment on above: Site: Right DeltoidV IS Given: * Pneumococcal Conjugate (PCV13) (06/29/15) 06-13-2014 influenza, seasonal, injectable Nehemiah Flanagan MD Work Phone: [facility]; [employer] 06-13-2014 pneumococcal Conjuga te, unspecified formulation Nehemiah Flanagan MD Work Phone: [facility] [employer]; [employer] Comment on above: prevnar 07/01/2018 06-13-2014 pneumococcal polysaccharide vaccine, 23 valent Nehemiah Flanagan MD Work Phone: [facility]; [employer] Payers Date Payer Category Payer Self-pay [id number] 2023 Medicare [id number] 2023 Medicare [id number] 1950 Unknown [id number] 1950 Unknown [id number] 1950 Unknown [id number] 1950 Unknown [id number] 1950 Unknown [id number] 1950 Unknown [id number] Unknown [id number] Unknown [employer] [id number] Unknown ANTHEM MEDICARE PREFERRED-PP O Unknown [id number] Unknown [id number] Unknown [id number] Unknown [id number] Unknown [id number] Unknown [id number] Unknown [id number] Social History Date Type Detail Facility Start: 05-21-2023 End: 12-01-2023 Tobacco smoking status NHIS Unknown if ever smoked [facility] Start: 1950 Sex Assigned At Male [facility] Alcohol Use: Alcohol Use: ; 7 or fewer drinks per week. [place] [employer] [facility]; [employer] Caffeine Use Caffeine Use [facility] [employer]; [facility] Tobacco Use: Tobacco Use: ; F ormer smoker. [place] [employer] [facility].; [facility] Tobacco Use: Tobacco Use: ; U ses chewing tobacco. [employer]; [employer] Uses chewing tobacco [place] [employer]; [facility] Work Phone: Ex-smoker [facility] [employer]; [employer]. Work Phone: Goals Date Patient Goal Desired Activity /State Functional Status Date Assessment Result Facility 12-05-2023 Functional status Ambulates [facility] Work Phone: 09-26-2023 Functional status Ambulates;Up ad beny [facility] Work Phone: Mental Status Date Assessment Result Facility 12-05-2023 Cognitive function Voice/Name;To uch/Shaking;L ight Pain;Deep Pain [facility] Work Phone: 09-26-2023 Cognitive function Voice/Name [facility] Work Phone: 09-26-2023 Cognitive function Appropriate;Cooperativ e [facility] Work Phone: Clinical Notes 09-24-2023 to 12-05-2023 Note Date & Type Note Facility 12-05-2023 Discharge summary Note Date/Time December 05, 2023 10:04am [facility] Medical Records Department [address] [place] [address] Discharge Summary 12/05/23 1000 MR#: [id number] Acct: [id number] Name: DU BACA Rep #:[id number] : [id number] 73 From: Jerson Tipton PCP: Dr. Nehemiah Flanagan MD Status:ADM IN Location: ICU ICU02-1 Providers Date of Admission: 12/01/23 Date of Discharge: 12/05/23 Primary Care Physician: Dr. Nehemiah Flanagan MD Consultations 12/01/23 17:04 Consult: [employer] M[employer] / Pulmonary Medicine Routine Consulting Provider: Intensivists/Pulmonary Med Reason for Consult: Pulm fibrosis EMERGENT Consult: No MD Notified: Yes Date Notified: 12/01/23 Time Notified: 16:43 Method of Notification: Text Reason For Visit: ACUTE ON CHRONIC RESPIRATORY FAILURE Diagnosis Discharge Diagnosis (1) Acute and chronic respiratory failure with hypoxia: Status: Chronic Code(s): J96.21 - Acute and chronic respiratory failure with hypoxia Plan This is a 73-year-old gentleman being admitted for severe shortness of breath started after having straining for defecation with constipation. Patient got very hypoxic with pulse ox in 70s to 80s, unable to correct on home oxygen requirement of 4 to 5 L. Bilateral leg swelling. 1. Acute on chronic hypoxic respiratory failure with acute hypercapnic respiratory failure secondary to pulmonary fibrosis and flash pulmonary edema inthe setting of pulmonary hypertension and acute on chronic right ventricular failure: Patient is being admitted in ICU. Initially on BiPAP transition to Airvo. On IV Lasix. Chest x-ray delirium shows interstitial reticulonodular fibrosis with pulmonary edema ? Given his pulmonary fibrosis and his chronic prednisone use, continue with p.o. prednisone 40 mg ? Pulmonology is consulted. ? ABG showed pH 7.41/pCO2 57/86 on nonrebreather 10 L in ED. On Trelegy at home. ? Continue with albuterol ? Continue with his home Nintedanib 12/02: [employer] M[employer] consult reviewed. Patient had -7 L of fluid balance thereforefurosemide dose was decreased. Hypokalemia, K2.9. Potassium IV replacement. Patient was on AVAPS for some time last night. Patient was downgraded to PCU telemetry yesterday. 12/03: Subjectively patient feels better but objective does not show any improvement in oxygenation/ventilation. As needed. 9.4 L fluid balance. Bicarb decreased from 44-40 but is still elevated 12/04: Patient currently on 6 L of oxygen. On baseline home oxygen needed. Patient is discharged on Lasix 40 mg daily for 5 days and then as needed for shortness of breath/leg swelling/fluid overload. Prednisone taper and after completion of taper dose, continue prednisone 10 mg daily. Resume Ofev 150 mg bid. Mild hypokalemia, prescription for potassium supplement given. Bicarb gradually improving. 2. 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 Continue with his home blood pressure medications ? His blood pressure is currently stable ? We will monitor make adjustments as necessary ? Continue with cholesterol medications 2D echo in August 2023 The estimated ejection fraction is 60 %. D shaped septum in systole and diastole. Moderately dilated right ventricle. Mild global right ventricular systolic dysfunction. The left atrium is mildly enlarged. Mild (1+) tricuspid valve insufficiency. Mild pulmonary hypertension. Aortic sclerosis, no stenosis. Mild aortic insufficiency Mild atherosclerosis of the ascending aorta. 3. GERD ? Stable ? Continue with PPI 4. Anxiety/depression ? This will be a new diagnosis for him as he does not take any medications at baseline though family does agree that he does struggle with his medical diagnosis ? continue with Xanax 0.25 mg p.o. twice daily as well as Zoloft 50 mg daily DVT: Lovenox Discharge medication reconciliation done. Discharge follow-up instructions completed. Discharge process discussed with the patient and all questions wereanswered to patient's satisfaction. Follow with PCP in 1 to 2 weeks Total time spent, exact 35 minutes on discharge meds reconciliation, examination, coordination of care with nurses and ancillary staff, review of imaging and blood test and discussion with the patient on follow-up instructions. Medications at Discharge Home Medications losartan 25 mg tablet 25 mg PO DAILY BLOOD PRESSURE #90 tabs 04/06/21 albuterol sulfate 90 mcg/actuation aerosol inhaler (Ventolin HFA) 2 puff inhalation Q4H PRN SHORTNESS OF BREATH/WHEEZNG #18 grams 11/27/22 omeprazole 20 mg capsule,delayed release 20 mg PO DAILY ACID REFLUX 05/21/23 aspirin 81 mg tablet,delayed release (Adult Low Dose Aspirin) 81 mg PO DAILY HEART HEALTH 09/24/23 atorvastatin 40 mg tablet 40 mg PO QHS CHOLESTEROL 09/24/23 metoprolol succinate 50 mg tablet,extended release 24 hr 50 mg PO DAILY BLOOD PRESSURE 09/24/23 guaifenesin 1,200 mg tablet, extended release 12 hr (Mucus Relief ER) 1,200 mg PO BID PRN congestion 10/23/23 multivitamin (Daily Multi-Vitamin tablet) 1 tab PO DAILY vitamin 10/23/23 prednisone 10 mg tablet 10 mg PO DAILY breathing #30 tabs 11/13/23 nintedanib 150 mg capsule (Ofev) 150 mg PO Q12H pulm fibrosis 12/01/23 furosemide 40 mg tablet 40 mg PO DAILY 30 days #30 tabs 12/05/23 potassium chloride 20 mEq tablet,extended release(part/cryst) 40 meq (2 x 20 mEq) PO DAILY 7 days #14 tabs 12/05/23 prednisone 10 mg tablet 10 mg PO DAILY #30 tabs 12/05/23 Physical Exam Narrative Seen and examined. Clinical update from the nursing staff. On 6 L of high flow oxygen. On baseline. No fever. Cough and dyspnea are better. Physical exam General: Alert, Oriented x3, Cooperative HEENT: Atraumatic, PERRLA, EOMI, Normocephalic Oral: No Gingival or Mucosal Lesions/ Ulcerations Neck: Supple, No JVD, Negative Carotid Bruits Chest wall/Lungs: Air entry diminished in bilateral lung bases. Chronic inspiratory coarse rales. Cardiovascular: Sinus rhythm , Normal S1, Normal S2, No M/G/R Abdomen: Bowel Sounds Present, Soft, Non Tender, Non-Distended : No dysuria. No renal angle tenderness. No suprapubic tenderness. Extremities: Ankle abnormalities, Capillary Refill Less than 3 Seconds Skin: No rashes, No breakdown Musculoskeletal: No Tenderness to Palpation of Joints or Extremities Neurological: Cranial nerves II-XII grossly intact, DTR 2+/4. No acute focal neurological deficit. Psych/Mental Status: Flat affect Weight / BMI Weight Weight: 196 lb 13.965 oz Body Mass Index (BMI) 27.4 ABG / Lab / Microbiology Data 12/05/23 04:05 12/05/23 04:05 Laboratory: Laboratory Results - last 24 hr 12/05/23 04:05: WBC 9.0, RBC 4.65, Hgb 13.6, Hct 42.8, MCV 92.0, MCH 29.2, MCHC 31.8 L, RDW Std Deviation 52.2 H, RDW Coeff of Breana 15.6 H, Plt Count 151, MPV 11.4, Immature Gran % (Auto) 0.300, Neut % (Auto) 77.4 H, Lymph % (Auto) 14.7 L,Jerauld % (Auto) 7.1, Eos % (Auto) 0.3, Baso % (Auto) 0.2, Absolute Neuts (auto) 7.0, Absolute Lymphs (auto) 1.33, Nucleated RBC % 0, Sodium 137, Potassium 3.3 L, Chloride 96 L, Carbon Dioxide 39.0 H, Anion Gap 2 L, BUN 25 H, Creatinine 0.87, Estim Creat Clear Calc 78.14, Est GFR (MDRD) Af Amer 110, Est GFR (MDRD) Non-Af 91, BUN/Creatinine Ratio 28.7 H, Glucose 104, Calcium 8.3 L Microbiology: Microbiology 12/04/23 14:50 Stool Enteric Bacteriology - Final 12/04/23 14:50 Stool Clostridioides difficile (PCR) - Final 12/01/23 14:20 Mucosa - Nose SARS-CoV-2, Influenza & RSV (PCR) - Final D/C Instructions Discharge Diet: No restrictions Weight Bearing Status: Weight bearing as tolerated Call your doctor if you observe: Fever of 101 or Higher, Coldness, Increased Pain, Numbness or Tingling, Change in Color, Inability to urinate, Inability to have a bowel movement, Shortness of breath, Dizziness, Fainting spells, Swellingin the ankles, Chest pain, Prolonged hiccupping, Increased palpitations (irregular heartbeat) and Calf discomfort When: IN 2 WEEKS Meaningful Use Info Meaningful Use Diagnoses (Choose all that apply): None applicable Discharge Plan Admission Admit Date/Time: 12/01/23 16:40 Primary Reason for Your Visit: Acute on chronic hypoxic respiratory/ILD Attending Provider: Jerson Avelar Primary Care Provider: Nehemiah Flanagan Consulting Providers: Frank Landon Discharge Orders/Prescriptions Prescriptions: New furosemide 40 mg Tablet 40 mg PO DAILY 30 Days Qty: 30 0RF Rx Instructions: Hold for SBP less than 100 mmHg. Continue for 5 days and then as needed for shortness of breath/ . potassium chloride 20 mEq Tablet,Er Particles/Crystals 40 meq PO DAILY 7 Days Qty: 14 0RF prednisone 10 mg tablet 10 mg PO DAILY Qty: 30 0RF Rx Instructions: 40 mg for 3 days 30 mg for 3 days, 20 mg for 3 days,and 10 mg for 3 days Continued omeprazole 20 mg capsule,delayed release(DR/EC) 20 mg PO DAILY multivitamin [Daily Multi-Vitamin] Tablet 1 tab PO DAILY guaifenesin [Mucus Relief ER] 1,200 mg tablet extended release 12hr 1,200 mg PO BID PRN (Reason: congestion) atorvastatin 40 mg tablet 40 mg PO QHS metoprolol succinate 50 mg tablet extended release 24 hr 50 mg PO DAILY aspirin [Adult Low Dose Aspirin] 81 mg tablet,delayed release (DR/EC) 81 mg PO DAILY Ofev 150 mg capsule 150 mg PO Q12H Rx Instructions: TAKE AT 0800 AND 2000 DAILY. losartan 25 mg tablet 25 mg PO DAILY Qty: 90 3RF albuterol sulfate [Ventolin HFA] 90 mcg/actuation HFA aerosol inhaler 2 puff INHALATION Q4H PRN (Reason: SHORTNESS OF BREATH/WHEEZNG ) Qty: 18 6RF Held prednisone 10 mg tablet 10 mg PO DAILY Qty: 30 3RF Hold Instructions: Hold it while patient is on prednisone taper dose of 40 mgdaily. After completion of taper dose continue on prednisone 10 mg daily Discontinued furosemide [Lasix] 40 mg tablet 40 mg PO DAILY PRN (Reason: edema) Qty: 10 0RF Patient Comments: HAS PRESCRIPTION, HAS NOT TAKEN YET Referrals / Follow Up: Farrukh Flanagan DO [Med Staff - Active Staff] - Within 1 Month Nehemiah Flanagan MD [Primary Care Provider] - Disposition Disposition (needs filled in before D/C Order can be placed): Home, Self Care Charges/Coding Visit Charges Inpatient E&M: 93216 Disch Hosp >30min 12/05/23 1004 <Electronically signed by Jerson Avelar MD> Cosigner Signature (if applicable): CC: Dr. Jerson Avelar MD; Dr. Nehemiah Flanagan MD~ Signed ADDENDUM by Dr. Jerson Avelar MD on 12/05/23 at 1247 Addendum Patient going to home with home hospice care. As per the family request, sertraline 50 mg daily, 30 tablets and Xanax 0.25 twice daily as needed total 5tablets sent to retail pharmacy. 12/05/23 1247<Electronically signed by Jerson Avelar MD> Cosigner Signature (if applicable): cc: Dr. Jerson Avelar MD; Dr. Nehemiah Flanagan MD ~* Signed [facility] Work Phone: 1(211) 350-944804-12-2024 Discharge summary Author Jerson Avelar [facility] December 05, 2023 10:00am Note Date/Time December 05, 2023 9:5 4am [facility] Medical Records Department [address] [place] [address] Instructions for Home/Discharge Instructions 12/05/23 0929 MR#: [id number] Acct: [id number] Name: DU BACA Rep #:[id number] : 1950 73 From: Jerson Tipton PCP: Dr. Nehemiah Flanagan MD Status:ADM IN Discharge Instructions Diet Discharge Diet: No restrictions Activity Discharge Activity: Return to Normal Activity Weight Bearing Status: Weight bearing as tolerated Dressing / Incision Call your doctor if you observe: Fever of 101 or Higher, Coldness, Increased Pain, Numbness or Tingling, Change in Color, Inability to urinate, Inability to have a bowel movement, Shortness of breath, Dizziness, Fainting spells, Swellingin the ankles, Chest pain, Prolonged hiccupping, Increased palpitations (irregular heartbeat) and Calf discomfort Follow Up Care When: IN 2 WEEKS Test Results: Test results from this visit will be discussed in further detail at your follow- up appointment, if applicable. Discharge Plan Admission Admit Date/Time: 12/01/23 16:40 Primary Reason for Your Visit: Acute on chronic hypoxic respiratory/ILD Attending Provider: Jerson Avelar Primary Care Provider: Nehemiah Flanagan Consulting Providers: Frank Landon Discharge Orders/Prescriptions Prescriptions: New furosemide 40 mg Tablet 40 mg PO DAILY 30 Days Qty: 30 0RF Rx Instructions: Hold for SBP less than 100 mmHg. Continue for 5 days and then as needed for shortness of breath/ . potassium chloride 20 mEq Tablet,Er Particles/Crystals 40 meq PO DAILY 7 Days Qty: 14 0RF prednisone 10 mg tablet 10 mg PO DAILY Qty: 30 0RF Rx Instructions: 40 mg for 3 days 30 mg for 3 days, 20 mg for 3 days,and 10 mg for 3 days Continued omeprazole 20 mg capsule,delayed release(DR/EC) 20 mg PO DAILY multivitamin [Daily Multi-Vitamin] Tablet 1 tab PO DAILY guaifenesin [Mucus Relief ER] 1,200 mg tablet extended release 12hr 1,200 mg PO BID PRN (Reason: congestion) atorvastatin 40 mg tablet 40 mg PO QHS metoprolol succinate 50 mg tablet extended release 24 hr 50 mg PO DAILY aspirin [Adult Low Dose Aspirin] 81 mg tablet,delayed release (DR/EC) 81 mg PO DAILY Ofev 150 mg capsule 150 mg PO Q12H Rx Instructions: TAKE AT 0800 AND 2000 DAILY. losartan 25 mg tablet 25 mg PO DAILY Qty: 90 3RF albuterol sulfate [Ventolin HFA] 90 mcg/actuation HFA aerosol inhaler 2 puff INHALATION Q4H PRN (Reason: SHORTNESS OF BREATH/WHEEZNG ) Qty: 18 6RF Held prednisone 10 mg tablet 10 mg PO DAILY Qty: 30 3RF Hold Instructions: Hold it while patient is on prednisone taper dose of 40 mgdaily. After completion of taper dose continue on prednisone 10 mg daily Discontinued furosemide [Lasix] 40 mg tablet 40 mg PO DAILY PRN (Reason: edema) Qty: 10 0RF Patient Comments: HAS PRESCRIPTION, HAS NOT TAKEN YET Referrals / Follow Up: Farrukh Flanagan DO [Med Staff - Active Staff] - Within 1 Month Nehemiah Flanagan MD [Primary Care Provider] - Disposition Disposition (needs filled in before D/C Order can be placed): Home, Self Care 12/05/23 1000<Electronically signed by Jerson Avelar MD>Jerson Avelar MD CC: Dr. Frank Landon MD; Dr. Nehemiah Flanagan MD ~ Signed [facility] Work Phone: 1(581) 138-356104-12-2024 Progress note Author Farrukh Flanagan [facility] December 05, 2023 8:19am Note Date/Time December 05, 2023 6:4 6am [facility] Medical Records Department [facility] [place] [address] Progress Note - [employer] M113 12/05/23 0645 MR#: [id number] Acct: [id number] Name: DU BACA Rep #:[id number] : 1950 73 From: Farrukh Flanagan DO PCP: Dr. Nehemiah Flanagan MD Status:ADM IN Location: ICU ICU02-1 Assessment & Plan Assessment/Plan (1) Acute and chronic respiratory failure with hypoxia: PLAN: Plan RECOMMENDATIONS: 1. Continue to wean supplemental oxygen as tolerated. 2. Transition to p.o. Lasix regimen when feasible. 3. Continue corticosteroids. 4. Resume Ofev after discharge. 5. Palliative care referral with outpatient follow-up planned. 6. The patient is medically stable from a pulmonary perspective to be discharged home. 7. Will sign off from a critical care perspective. Please call with any additional questions. IMPRESSIONS: 1. Acute on chronic respiratory failure with hypoxemia The patient has a known history of interstitial lung disease and chronic respiratory failure with a 8 L/min oxygen requirement. He has been followed in the past by Dr. Gallagher in the pulmonary medicine clinic and was recently placed on Ofev. The patient readily admitted to noncompliance with prescribed oxygen therapy, which is likely contributing to his current clinical state. In addition, the patient is likely volume overloaded in the setting of pulmonary hypertension and RV dysfunction. The patient has improved with volume optimization. He is currently requiring 6 L/min at rest and 10 L/min with exertion, which is within the capabilities of his current home concentrator. I would recommend that the patient follow-up with palliative care medicine following discharge. I have no new additional recommendations from a pulmonary perspective. The patient is likely stable for discharge home. 2. Coronary artery disease status post CABG/GERD/hypertension/hyperlipidemia/anxiety/depression Complicates care, management, recovery and prognosis. Continue home medicationsas indicated. This note was generated with [employer] dictation software. It may contain incorrectwords, spelling, and punctuation that were not noted in checking the note beforesigning. Subjective Subjective The patient was seen and examined at the bedside this morning. Events from the last 24 hours have been reviewed. The patient is currently afebrile, hemodynamically stable and maintaining appropriate oxygen saturations on 6 L/minvia nasal cannula. The patient is currently requiring 6 L/min of oxygen at restand 10 L/min with exertion. He is documented to be overall net -12 L for the hospitalization. Objective Data Objective Data The patient's most recent lab work, culture data and imaging studies have all been personally reviewed. COVID, influenza and RSV PCR's were negative. Vital Signs: Vital Signs Temp Pulse Resp BP Pulse Ox O2 Del Method O2 Flow Rate 97.4 F L 70 25 H 122/77 H 95 Room Air 6 12/05/23 03:00 12/05/23 03:00 12/05/23 03:00 12/05/23 03:00 12/05/23 04:00 12/05/23 04:00 12/05/23 04:00 FiO2 45 12/04/23 10:00 Oxygen Flow Rate (L/min) 6 Oxygen Delivery Method Room Air Weight: 196 lb 13.965 oz Body Mass Index (BMI) 27.4 Intake & Output: Intake and Output for Last 24 Hours 12/03/23 12/04/23 12/05/23 23:59 23:59 23:59 Intake Total 500 / 500 250 / 250 Output Total 3500 / 3800 2875 / 2875 250 / 250 Balance -3000 / -3300 -2625 / -2625 -250 / -250 Lab / Micro Data Attestation: I reviewed the patient's lab results. 12/05/23 04:05 12/05/23 04:05 Labs: Laboratory Results - last 24 hr 12/05/23 04:05: WBC 9.0, RBC 4.65, Hgb 13.6, Hct 42.8, MCV 92.0, MCH 29.2, MCHC 31.8 L, RDW Std Deviation 52.2 H, RDW Coeff of Breana 15.6 H, Plt Count 151, MPV 11.4, Immature Gran % (Auto) 0.300, Neut % (Auto) 77.4 H, Lymph % (Auto) 14.7 L,Jerauld % (Auto) 7.1, Eos % (Auto) 0.3, Baso % (Auto) 0.2, Absolute Neuts (auto) 7.0, Absolute Lymphs (auto) 1.33, Nucleated RBC % 0, Sodium 137, Potassium 3.3 L, Chloride 96 L, Carbon Dioxide 39.0 H, Anion Gap 2 L, BUN 25 H, Creatinine 0.87, Estim Creat Clear Calc 78.14, Est GFR (MDRD) Af Amer 110, Est GFR (MDRD) Non-Af 91, BUN/Creatinine Ratio 28.7 H, Glucose 104, Calcium 8.3 L Micro: Microbiology 12/04/23 14:50 Stool Enteric Bacteriology - Final 12/04/23 14:50 Stool Clostridioides difficile (PCR) - Final 12/01/23 14:20 Mucosa - Nose SARS-CoV-2, Influenza & RSV (PCR) - Final Radiography Diagnostic Testing: Radiology Impression Chest CT 12/02/23 07:40 IMPRESSION: Findings indicative of diffuse interstitial fibrosis involving both upper and lower lobes although it is more prominent in the upper lobes. Electronically Signed: Calvin Vargas MD at 10:20 EDT , Rhythm Strip Rhythm Strip: Sinus Rhythm Rate: 99 Ectopy: None Physical Exam Const alert and no apparent distress Constitutional Narrative: Sitting upright in bed. General Appearance: cooperative HEENT normocephalic and head/scalp atraumatic Eyes PERRL, EOMs intact bilaterally and conjunctivae normal Neck supple General: trachea midline Chest inspection of chest normal Resp normal respiratory effort Auscultation: rales and diminished lung sounds Cardio regular rate and regular rhythm GI normal to inspection, nondistended, normoactive bowel sounds Extremity General Extremity: edema bilateral lower extremity; Negative for clubbing Neuro CN's II-XII intact bilaterally, moves all extremities and no focal motor deficits Psych Mood & Affect: anxious Charges/Coding Visit Charges Inpatient E&M: 16388 Subs Hosp L2 12/05/23 0819 <Electronically signed by Farrukh Flanagan DO> Cosigner Signature (if applicable): CC: ~ Signed [facility] Work Phone: 1(965) 371-232604-11-2024 Progress note Author Jerson Avelar [facility] December 04, 2023 12:48pm Note Date/Time December 04, 2023 12: 48pm [facility] Medical Records Department [address] [place] [address] [place] [address] Progress Note - Hospitalist 12/04/23 1244 MR#: [id number] Acct: [id number] Name: DU BACA Rep #:[id number] : 1950 73 From: Jerson Tipton PCP: Dr. Nehemiah Flanagan MD Status:ADM IN Location: ICU ICU02-1 Reason for Visit Reason for Visit: Diagnoses Acute and chronic respiratory failure with hypoxia (12/01/23) Objective Data Objective Data Vital Signs: Vital Signs Temp Pulse Resp BP Pulse Ox O2 Del Method O2 Flow Rate 97.9 F 75 16 114/90 H 92 Airvo 45 12/04/23 09:00 12/04/23 09:00 12/04/23 09:00 12/04/23 09:00 12/04/23 09:00 12/04/23 10:00 12/04/23 10:00 FiO2 45 12/04/23 10:00 Oxygen Flow Rate (L/min) 45 Oxygen Delivery Method Airvo Weight: 198 lb 10.184 oz Body Mass Index (BMI) 27.7 Intake & Output: Intake and Output for Last 24 Hours 12/02/23 12/03/23 12/04/23 23:59 23:59 23:59 Intake Total 1250 / 1350 500 / 500 250 / 250 Output Total 2425 / 3425 3500 / 3800 575 / 575 Balance -1175 / -2075 -3000 / -3300 -325 / -325 Lab / Micro Data 12/04/23 04:03 12/04/23 04:03 Labs: Laboratory Results - last 24 hr 12/04/23 04:03: WBC 9.7, RBC 5.07, Hgb 14.3, Hct 46.1, MCV 90.9, MCH 28.2, MCHC 31.0 L, RDW Std Deviation 52.9 H, RDW Coeff of Breana 16.2 H, Plt Count 154, MPV 11.2, Immature Gran % (Auto) 0.700, Neut % (Auto) 80.0 H, Lymph % (Auto) 13.7 L,Jerauld % (Auto) 5.3, Eos % (Auto) 0.1, Baso % (Auto) 0.2, Absolute Neuts (auto) 7.7, Absolute Lymphs (auto) 1.32, Nucleated RBC % 0, Sodium 137, Potassium 3.6, Chloride 94 L, Carbon Dioxide 40.0 H, Anion Gap 3 L, BUN 24 H, Creatinine 0.84, Estim Creat Clear Calc 87.68, Est GFR (MDRD) Af Amer 114, Est GFR (MDRD) Non-Af 94, BUN/Creatinine Ratio 28.5 H, Glucose 104, Calcium 9.1, Magnesium 1.7 Micro: Microbiology 12/01/23 14:20 Mucosa - Nose SARS-CoV-2, Influenza & RSV (PCR) - Final Rhythm Strip Rhythm Strip: Sinus Rhythm Rate: 99 Ectopy: None Physical Exam Narrative Seen and examined. Clinical update from the nursing staff. Patient airvo. No fever. Patient admitted with shortness of breath with predominantly dry cough. Cough has improved Physical exam General: Alert, Oriented x3, Cooperative HEENT: Atraumatic, PERRLA, EOMI, Normocephalic Oral: No Gingival or Mucosal Lesions/ Ulcerations Neck: Supple, No JVD, Negative Carotid Bruits Chest wall/Lungs: Air entry diminished in bilateral lung bases. Inspiratory coarse rales. On Airvo, NIPPV Cardiovascular: Sinus rhythm , Normal S1, Normal S2, No M/G/R Abdomen: Bowel Sounds Present, Soft, Non Tender, Non-Distended : No dysuria. No renal angle tenderness. No suprapubic tenderness. Extremities: Mild bilateral pitting ankle , Capillary Refill Less than 3 Seconds Skin: No rashes, No breakdown Musculoskeletal: No Tenderness to Palpation of Joints or Extremities Neurological: Cranial nerves II-XII grossly intact, DTR 2+/4. No acute focal neurological deficit. Psych/Mental Status: Flat affect Assessment & Plan Assessment/Plan (1) Acute and chronic respiratory failure with hypoxia: PLAN: Plan This is a 73-year-old gentleman being admitted for severe shortness of breath started after having straining for defecation with constipation. Patient got very hypoxic with pulse ox in 70s to 80s, unable to correct on home oxygen requirement of 4 to 5 L. Bilateral leg swelling. 1. Acute on chronic hypoxic respiratory failure with acute hypercapnic respiratory failure secondary to pulmonary fibrosis and flash pulmonary edema inthe setting of pulmonary hypertension and acute on chronic right ventricular failure: Patient is being admitted in ICU. Initially on BiPAP transition to Airvo. On IV Lasix. Chest x-ray delirium shows interstitial reticulonodular fibrosis with pulmonary edema ? Given his pulmonary fibrosis and his chronic prednisone use, continue with p.o. prednisone 40 mg ? Pulmonology is consulted. ? ABG showed pH 7.41/pCO2 57/86 on nonrebreather 10 L in ED. On Trelegy at home. ? Continue with albuterol ? Continue with his home Nintedanib 12/02: [employer] M113 consult reviewed. Patient had -7 L of fluid balance thereforefurosemide dose was decreased. Hypokalemia, K2.9. Potassium IV replacement. Patient was on AVAPS for some time last night. Patient was downgraded to PCU telemetry yesterday. 12/03: Subjectively patient feels better but objective does not show any improvement in oxygenation/ventilation. As needed. 9.4 L fluid balance. Bicarb decreased from 44-40 but is still elevated 2. 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 Continue with his home blood pressure medications ? His blood pressure is currently stable ? We will monitor make adjustments as necessary ? Continue with cholesterol medications 2D echo in August 2023 The estimated ejection fraction is 60 %. D shaped septum in systole and diastole. Moderately dilated right ventricle. Mild global right ventricular systolic dysfunction. The left atrium is mildly enlarged. Mild (1+) tricuspid valve insufficiency. Mild pulmonary hypertension. Aortic sclerosis, no stenosis. Mild aortic insufficiency Mild atherosclerosis of the ascending aorta. 3. GERD ? Stable ? Continue with PPI 4. Anxiety/depression ? This will be a new diagnosis for him as he does not take any medications at baseline though family does agree that he does struggle with his medical diagnosis ? continue with Xanax 0.25 mg p.o. twice daily as well as Zoloft 50 mg daily DVT: Lovenox Charges/Coding Visit Charges Inpatient E&M: 98067 Subs Hosp L2 12/04/23 1248 <Electronically signed by Jerson Avelar MD> Cosigner Signature (if applicable): CC: ~ Signed [facility] Work Phone: 1(422) 551-617804-11-2024 Progress note Author Farrukh Flanagan [facility] December 04, 2023 10:28am Note Date/Time December 04, 2023 10: 23am [facility] Medical Records Department [address] [place] [address] Progress Note - [employer]man [employer] M113 12/04/23 1021 MR#: [id number] Acct: [id number] Name: DU BACA Rep #:[id number] : 1950 73 From: Farrukh Flanagan DO PCP: Dr. Nehemiah Flanagan MD Status:ADM IN Location: ICU ICU02-1 Assessment & Plan Assessment/Plan (1) Acute and chronic respiratory failure with hypoxia: PLAN: Plan RECOMMENDATIONS: 1. Continue to wean supplemental oxygen as tolerated. 2. Continue Lasix once daily as tolerated by hemodynamics and renal function. 3. Continue corticosteroids. 4. Resume Ofev after discharge. 5. Palliative care referral with outpatient follow-up planned. IMPRESSIONS: 1. Acute on chronic respiratory failure with hypoxemia The patient has a known history of interstitial lung disease and chronic respiratory failure with a 8 L/min oxygen requirement. He has been followed in the past by Dr. Gallagher in the pulmonary medicine clinic and was recently placed on Ofev. The patient readily admitted to noncompliance with prescribed oxygen therapy, which is likely contributing to his current clinical state. In addition, the patient is likely volume overloaded in the setting of pulmonary hypertension and RV dysfunction. The patient has improved somewhat with volume optimization. However, I do suspect that he will require an increased amount ofsupplemental oxygen at the time of his discharge. For now, we will continue once daily Lasix. The patient would benefit from outpatient palliative care referral for additional symptom management. 2. Coronary artery disease status post CABG/GERD/hypertension/hyperlipidemia/anxiety/depression Complicates care, management, recovery and prognosis. Continue home medicationsas indicated. This note was generated with [employer] dictation software. It may contain incorrectwords, spelling, and punctuation that were not noted in checking the note beforesigning. Subjective Subjective The patient was seen and examined at the bedside this morning. Events from the last 24 hours have been reviewed. The patient is currently afebrile, hemodynamically stable and maintaining appropriate oxygen saturations on heated high flow oxygen with an FiO2 requirement of 45%. The patient continues to readily desaturate with any form of physical exertion. He is documented to be overall net -9.4 L for the hospitalization. Serum bicarbonate remains elevated at 40 with a normal creatinine. Objective Data Objective Data The patient's most recent lab work, culture data and imaging studies have all been personally reviewed. COVID, influenza and RSV PCR's were negative. Vital Signs: Vital Signs Temp Pulse Resp BP Pulse Ox O2 Del Method O2 Flow Rate 97.9 F 75 16 114/90 H 92 Airvo 45 12/04/23 09:00 12/04/23 09:00 12/04/23 09:00 12/04/23 09:00 12/04/23 09:00 12/04/23 10:00 12/04/23 10:00 FiO2 45 12/04/23 10:00 Oxygen Flow Rate (L/min) 45 Oxygen Delivery Method Airvo Weight: 198 lb 10.184 oz Body Mass Index (BMI) 27.7 Intake & Output: Intake and Output for Last 24 Hours 12/02/23 12/03/23 12/04/23 23:59 23:59 23:59 Intake Total 1250 / 1350 500 / 500 250 / 250 Output Total 2425 / 3425 3500 / 3800 575 / 575 Balance -1175 / -2075 -3000 / -3300 -325 / -325 Lab / Micro Data Attestation: I reviewed the patient's lab results. 12/04/23 04:03 12/04/23 04:03 Labs: Laboratory Results - last 24 hr 12/04/23 04:03: WBC 9.7, RBC 5.07, Hgb 14.3, Hct 46.1, MCV 90.9, MCH 28.2, MCHC 31.0 L, RDW Std Deviation 52.9 H, RDW Coeff of Breana 16.2 H, Plt Count 154, MPV 11.2, Immature Gran % (Auto) 0.700, Neut % (Auto) 80.0 H, Lymph % (Auto) 13.7 L,Jerauld % (Auto) 5.3, Eos % (Auto) 0.1, Baso % (Auto) 0.2, Absolute Neuts (auto) 7.7, Absolute Lymphs (auto) 1.32, Nucleated RBC % 0, Sodium 137, Potassium 3.6, Chloride 94 L, Carbon Dioxide 40.0 H, Anion Gap 3 L, BUN 24 H, Creatinine 0.84, Estim Creat Clear Calc 87.68, Est GFR (MDRD) Af Amer 114, Est GFR (MDRD) Non-Af 94, BUN/Creatinine Ratio 28.5 H, Glucose 104, Calcium 9.1, Magnesium 1.7 Micro: Microbiology 12/01/23 14:20 Mucosa - Nose SARS-CoV-2, Influenza & RSV (PCR) - Final Radiography Diagnostic Testing: Radiology Impression Chest CT 12/02/23 07:40 IMPRESSION: Findings indicative of diffuse interstitial fibrosis involving both upper and lower lobes although it is more prominent in the upper lobes. Electronically Signed: Calvin Vargas MD at 10:20 EDT , Rhythm Strip Rhythm Strip: Sinus Rhythm Rate: 99 Ectopy: None Physical Exam Const alert and no apparent distress Constitutional Narrative: Sitting in bedside recliner. Family is present. General Appearance: cooperative HEENT normocephalic and head/scalp atraumatic Eyes PERRL, EOMs intact bilaterally and conjunctivae normal Neck supple General: trachea midline Chest inspection of chest normal Resp normal respiratory effort Auscultation: rales and diminished lung sounds Cardio regular rate and regular rhythm GI normal to inspection, nondistended, normoactive bowel sounds Extremity General Extremity: edema bilateral lower extremity; Negative for clubbing Neuro CN's II-XII intact bilaterally, moves all extremities and no focal motor deficits Psych Mood & Affect: anxious Charges/Coding Visit Charges Inpatient E&M: 16620 Subs Hosp L2 12/04/23 1028 <Electronically signed by Farrukh Flanagan DO> Cosigner Signature (if applicable): CC: ~ Signed [facility] Work Phone: 1(446) 699-501104-10-2024 Progress note Author Jerson Avelar [facility] December 03, 2023 11:32am Note Date/Time December 03, 2023 11: 31am [facility] Medical Records Department [address] [place] [address] Progress Note - Hospitalist 12/03/23 1123 MR#: [id number] Acct: [id number] Name: DU BACA Rep #:[id number] : 1950 73 From: Jerson Tipton PCP: Dr. Nehemiah Flanagan MD Status:ADM IN Location: ICU ICU02-1 Reason for Visit Reason for Visit: Diagnoses Acute and chronic respiratory failure with hypoxia (12/01/23) Objective Data Objective Data Vital Signs: Vital Signs Temp Pulse Resp BP Pulse Ox O2 Del Method O2 Flow Rate 97.9 F 84 26 H 104/70 94 High Flow 10 12/03/23 08:00 12/03/23 10:01 12/03/23 08:00 12/03/23 08:00 12/03/23 08:00 12/03/23 09:20 12/03/23 09:20 FiO2 63 12/03/23 07:15 Oxygen Flow Rate (L/min) 10 Oxygen Delivery Method High Flow Weight: 200 lb 9.93 oz Body Mass Index (BMI) 27.9 Intake & Output: Intake and Output for Last 24 Hours 12/01/23 12/02/23 12/03/23 23:59 23:59 23:59 Intake Total 480 / 480 1250 / 1350 400 / 400 Output Total 5425 / 5425 2425 / 3425 1600 / 1600 Balance -4945 / -4945 -1175 / -2075 -1200 / -1200 Lab / Micro Data 12/03/23 04:55 12/03/23 04:55 Labs: Laboratory Results - last 24 hr 12/03/23 04:55: WBC 11.0, RBC 4.78, Hgb 13.6, Hct 43.4, MCV 90.8, MCH 28.5, MCHC31.3 L, RDW Std Deviation 53.1 H, RDW Coeff of Breana 16.2 H, Plt Count 158, MPV 11.1, Immature Gran % (Auto) 0.500, Neut % (Auto) 78.6 H, Lymph % (Auto) 13.9 L,Jerauld % (Auto) 6.4, Eos % (Auto) 0.3, Baso % (Auto) 0.3, Absolute Neuts (auto) 8.6 H, Absolute Lymphs (auto) 1.52, Nucleated RBC % 0, Sodium 138, Potassium 2.9L, Chloride 91 L, Carbon Dioxide 44.0 H, Anion Gap 3 L, BUN 27 H, Creatinine 1.04, Estim Creat Clear Calc 70.82, Est GFR (MDRD) Af Amer 89, Est GFR (MDRD) Non-Af 74, BUN/Creatinine Ratio 26.0 H, Glucose 102, Calcium 8.8, Total Bilirubin 1.00, AST 25, ALT 44, Alkaline Phosphatase 73, Total Protein 6.2 L, Albumin 2.6 L, Globulin 3.6, Albumin/Globulin Ratio 0.7 L Micro: Microbiology 12/01/23 14:20 Mucosa - Nose SARS-CoV-2, Influenza & RSV (PCR) - Final Rhythm Strip Rhythm Strip: Sinus Rhythm Rate: 99 Ectopy: None Physical Exam Narrative Seen and examined. Clinical update from the nursing staff. Patient on 8 L of oxygen similar to his home O2 requirement. Has about 7 L negative fluid balance. Lasix dose decreased. Was on AVAPS overnight for some time No fever. Patient admitted with shortness of breath with predominantly dry cough. Physical exam General: Alert, Oriented x3, Cooperative HEENT: Atraumatic, PERRLA, EOMI, Normocephalic Oral: No Gingival or Mucosal Lesions/ Ulcerations Neck: Supple, No JVD, Negative Carotid Bruits Chest wall/Lungs: Air entry diminished in bilateral lung bases. Inspiratory coarse rales. On high flow oxygen. Cardiovascular: Sinus rhythm , Normal S1, Normal S2, No M/G/R Abdomen: Bowel Sounds Present, Soft, Non Tender, Non-Distended : No dysuria. No renal angle tenderness. No suprapubic tenderness. Extremities: Mild bilateral pitting ankle , Capillary Refill Less than 3 Seconds Skin: No rashes, No breakdown Musculoskeletal: No Tenderness to Palpation of Joints or Extremities Neurological: Cranial nerves II-XII grossly intact, DTR 2+/4. No acute focal neurological deficit. Psych/Mental Status: Flat affect Assessment & Plan Assessment/Plan (1) Acute and chronic respiratory failure with hypoxia: PLAN: Plan This is a 73-year-old gentleman being admitted for severe shortness of breath started after having straining for defecation with constipation. Patient got very hypoxic with pulse ox in 70s to 80s, unable to correct on home oxygen requirement of 4 to 5 L. Bilateral leg swelling. 1. Acute on chronic hypoxic respiratory failure with acute hypercapnic respiratory failure secondary to pulmonary fibrosis and flash pulmonary edema inthe setting of pulmonary hypertension and acute on chronic right ventricular failure: Patient is being admitted in ICU. Initially on BiPAP transition to Airvo. On IV Lasix. Chest x-ray delirium shows interstitial reticulonodular fibrosis with pulmonary edema ? Given his pulmonary fibrosis and his chronic prednisone use, continue with p.o. prednisone 40 mg ? Pulmonology is consulted. ? ABG showed pH 7.41/pCO2 57/86 on nonrebreather 10 L in ED. On Trelegy at home. ? Continue with albuterol ? Continue with his home Nintedanib 12/02: [employer] M113 consult reviewed. Patient had -7 L of fluid balance thereforefurosemide dose was decreased. Hypokalemia, K2.9. Potassium IV replacement. Patient was on AVAPS for some time last night. Patient was downgraded to PCU telemetry yesterday. 2. 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 Continue with his home blood pressure medications ? His blood pressure is currently stable ? We will monitor make adjustments as necessary ? Continue with cholesterol medications 2D echo in August 2023 The estimated ejection fraction is 60 %. D shaped septum in systole and diastole. Moderately dilated right ventricle. Mild global right ventricular systolic dysfunction. The left atrium is mildly enlarged. Mild (1+) tricuspid valve insufficiency. Mild pulmonary hypertension. Aortic sclerosis, no stenosis. Mild aortic insufficiency Mild atherosclerosis of the ascending aorta. 3. GERD ? Stable ? Continue with PPI 4. Anxiety/depression ? This will be a new diagnosis for him as he does not take any medications at baseline though family does agree that he does struggle with his medical diagnosis ? continue with Xanax 0.25 mg p.o. twice daily as well as Zoloft 50 mg daily DVT: Lovenox Charges/Coding Visit Charges Inpatient E&M: 97852 Subs Hosp L2 12/03/23 1132 <Electronically signed by Jerson Avelar MD> Cosigner Signature (if applicable): CC: ~ Signed [facility] Work Phone: 1(695) 225-715504-10-2024 Progress note Author Farrukh Flanagan [facility] December 03, 2023 7:41am Note Date/Time December 03, 2023 7:0 1am [facility] Medical Records Department [address] [place] [address] Progress Note - [employer]man [employer] M113 12/03/23 0658 MR#: [id number] Acct: [id number] Name: DU BACA Rep #:[id number] : 1950 73 From: Farrukh Flanagan DO PCP: Dr. Nehemiah Flanagan MD Status:ADM IN Location: ICU ICU02-1 Assessment & Plan Assessment/Plan (1) Acute and chronic respiratory failure with hypoxia: PLAN: Plan RECOMMENDATIONS: 1. Continue to wean supplemental oxygen as tolerated. 2. Decrease Lasix dosing to once daily. 3. Continue corticosteroids. 4. Resume Ofev after discharge. 5. Potassium repletion as ordered. 6. Palliative care referral with outpatient follow-up planned. IMPRESSIONS: 1. Acute on chronic respiratory failure with hypoxemia The patient has a known history of interstitial lung disease and chronic respiratory failure with a 8 L/min oxygen requirement. He has been followed in the past by Dr. Gallagher in the pulmonary medicine clinic and was recently placed on Ofev. The patient readily admitted to noncompliance with prescribed oxygen therapy, which is likely contributing to his current clinical state. In addition, the patient is likely volume overloaded in the setting of pulmonary hypertension and RV dysfunction. The patient appears to be improving from a respiratory perspective with volume optimization. Plan to continue Lasix, but will decrease dosing to once daily. In the interim, continue to wean oxygen as tolerated. The patient would benefit from outpatient palliative care referral for additional symptom management. 2. Coronary artery disease status post CABG/GERD/hypertension/hyperlipidemia/anxiety/depression Complicates care, management, recovery and prognosis. Continue home medicationsas indicated. This note was generated with [employer] dictation software. It may contain incorrectwords, spelling, and punctuation that were not noted in checking the note beforesigning. Subjective Subjective The patient was seen and examined at the bedside this morning. Events from the last 24 hours have been reviewed. The patient is currently afebrile, hemodynamically stable and maintaining appropriate oxygen saturations on heated high flow oxygen with an FiO2 requirement of 45%. The patient was partially compliant with use of AVAPS therapy overnight. He is documented to be overall net -7.6 L for the hospitalization. Potassium is low this morning at 2.9. Creatinine is within normal limits. Objective Data Objective Data The patient's most recent lab work, culture data and imaging studies have all been personally reviewed. COVID, influenza and RSV PCR's were negative. Vital Signs: Vital Signs Temp Pulse Resp BP Pulse Ox O2 Del Method O2 Flow Rate 98.2 F 69 29 H 121/82 H 94 Airvo 45 12/03/23 06:00 12/03/23 06:00 12/03/23 06:00 12/03/23 06:00 12/03/23 06:00 12/03/23 06:00 12/03/23 06:00 FiO2 45 12/03/23 06:00 Oxygen Flow Rate (L/min) 45 Oxygen Delivery Method Airvo Weight: 200 lb 9.93 oz Body Mass Index (BMI) 27.9 Intake & Output: Intake and Output for Last 24 Hours 12/01/23 12/02/23 12/03/23 23:59 23:59 23:59 Intake Total 480 / 480 1250 / 1350 100 / 100 Output Total 5425 / 5425 2425 / 3425 1600 / 1600 Balance -4945 / -4945 -1175 / -2075 -1500 / -1500 Lab / Micro Data Attestation: I reviewed the patient's lab results. 12/03/23 04:55 12/03/23 04:55 Labs: Laboratory Results - last 24 hr 12/02/23 08:10: Procalcitonin < 0.04 12/03/23 04:55: WBC 11.0, RBC 4.78, Hgb 13.6, Hct 43.4, MCV 90.8, MCH 28.5, MCHC31.3 L, RDW Std Deviation 53.1 H, RDW Coeff of Breana 16.2 H, Plt Count 158, MPV 11.1, Immature Gran % (Auto) 0.500, Neut % (Auto) 78.6 H, Lymph % (Auto) 13.9 L,Jerauld % (Auto) 6.4, Eos % (Auto) 0.3, Baso % (Auto) 0.3, Absolute Neuts (auto) 8.6 H, Absolute Lymphs (auto) 1.52, Nucleated RBC % 0, Sodium 138, Potassium 2.9L, Chloride 91 L, Carbon Dioxide 44.0 H, Anion Gap 3 L, BUN 27 H, Creatinine 1.04, Estim Creat Clear Calc 70.82, Est GFR (MDRD) Af Amer 89, Est GFR (MDRD) Non-Af 74, BUN/Creatinine Ratio 26.0 H, Glucose 102, Calcium 8.8, Total Bilirubin 1.00, AST 25, ALT 44, Alkaline Phosphatase 73, Total Protein 6.2 L, Albumin 2.6 L, Globulin 3.6, Albumin/Globulin Ratio 0.7 L Micro: Microbiology 12/01/23 14:20 Mucosa - Nose SARS-CoV-2, Influenza & RSV (PCR) - Final Radiography Diagnostic Testing: Radiology Impression Chest CT 12/02/23 07:40 IMPRESSION: Findings indicative of diffuse interstitial fibrosis involving both upper and lower lobes although it is more prominent in the upper lobes. Electronically Signed: Calvin Vargas MD at 10:20 EDT , Rhythm Strip Rhythm Strip: Sinus Rhythm Rate: 99 Ectopy: None Physical Exam Const alert and no apparent distress General Appearance: cooperative HEENT normocephalic and head/scalp atraumatic Eyes PERRL, EOMs intact bilaterally and conjunctivae normal Neck supple General: trachea midline Chest inspection of chest normal Resp normal respiratory effort Auscultation: rales and diminished lung sounds Cardio regular rate and regular rhythm GI normal to inspection, nondistended, normoactive bowel sounds Extremity General Extremity: edema bilateral lower extremity; Negative for clubbing Neuro CN's II-XII intact bilaterally, moves all extremities and no focal motor deficits Psych cooperative and affect normal Charges/Coding Visit Charges Inpatient E&M: 36408 Subs Hosp L2 12/03/23 0741 <Electronically signed by Farrukh Flanagan DO> Cosigner Signature (if applicable): CC: ~ Signed [facility] Work Phone: [phone]) 332-540204-09-2024 Progress note Author Jerson Avelar [facility] December 02, 2023 8:28am Note Date/Time December 02, 2023 7:20 am [facility] Medical Records Department [address] [place] [address] Progress Note - Hospitalist 12/02/23717 MR#: [id number] Acct: [id number] Name: DU BACA Rep #:[id number] : 1950 73 From: Jerson Tipton PCP: Dr. Nehemiah Flanagan MD Status:ADM IN Location: ICU ICU02-1 Reason for Visit Reason for Visit: Diagnoses Acute and chronic respiratory failure with hypoxia (12/01/23) Objective Data Objective Data Vital Signs: Vital Signs Temp Pulse Resp BP Pulse Ox O2 Del Method O2 Flow Rate 97.6 F L 83 24 H 148/90 H 99 Bi-pap 10 12/02/23 04:00 12/02/23 07:00 12/02/23 07:00 12/02/23 07:00 12/02/23 07:00 12/02/23 07:00 12/02/23 00:00 FiO2 45 12/02/23 07:00 Oxygen Flow Rate (L/min) 10 Oxygen Delivery Method Bi-pap Weight: 206 lb 12.697 oz Body Mass Index (BMI) 28.9 Intake & Output: Intake and Output for Last 24 Hours 11/30/23 12/01/23 12/02/23 23:59 23:59 23:59 Intake Total 480 / 480 Output Total 5425 / 5425 375 / 375 Balance -4945 / -4945 -375 / -375 Lab / Micro Data 12/02/23 03:06 12/02/23 03:06 Labs: Laboratory Results - last 24 hr 12/01/23 13:50: WBC 9.0, RBC 4.95, Hgb 13.9, Hct 45.6, MCV 92.1, MCH 28.1, MCHC 30.5 L, RDW Std Deviation 54.3 H, RDW Coeff of Breana 16.4 H, Plt Count 186, MPV 11.9, Immature Gran % (Auto) 0.600, Neut % (Auto) 85.5 H, Lymph % (Auto) 8.4 L, Jerauld % (Auto) 3.9, Eos % (Auto) 1.2, Baso % (Auto) 0.4, Absolute Neuts (auto) 7.7, Absolute Lymphs (auto) 0.76 L, Nucleated RBC % 0, Sodium 135 L, Potassium 3.8, Chloride 94 L, Carbon Dioxide 37.0 H, Anion Gap 4 L, BUN 23 H, Creatinine 1.02, Estim Creat Clear Calc 76.74, Est GFR (MDRD) Af Amer 91, Est GFR (MDRD) Non-Af 76, BUN/Creatinine Ratio 22.5 H, Glucose 124 H, Calcium 9.3, Troponin I High Sens 34, B-Natriuretic Peptide 720.5 H 12/01/23 20:57: D-Dimer Quant (PE/DVT) 0.56 H* 12/02/23 03:06: WBC 6.0, RBC 4.54 L, Hgb 13.4, Hct 41.3, MCV 91.0, MCH 29.5, MCHC 32.4 D, RDW Std Deviation 52.6 H, RDW Coeff of Breana 16.1 H, Plt Count 147 L, MPV 11.5, Immature Gran % (Auto) 0.500, Neut % (Auto) 90.3 H, Lymph % (Auto) 7.7 L, Jerauld % (Auto) 1.3, Eos % (Auto) 0.0, Baso % (Auto) 0.2, Absolute Neuts (auto) 5.4, Absolute Lymphs (auto) 0.46 L, Nucleated RBC % 0, Sodium 141, Potassium 3.7, Chloride 98, Carbon Dioxide 39.0 H, Anion Gap 4 L, BUN 24 H, Creatinine 1.01, Estim Creat Clear Calc 74.14, Est GFR (MDRD) Af Amer 93, Est GFR (MDRD) Non-Af 76, BUN/Creatinine Ratio 23.8 H, Glucose 128 H, Calcium 8.7 Micro: Microbiology 12/01/23 14:20 Mucosa - Nose SARS-CoV-2, Influenza & RSV (PCR) - Final ABG Data ABG results: ABG 12/01/23 14:08 Specimen Type ART Sample Site L Brach pH 7.41 Bicarbonate Actual 36.0 H Total CO2 38 Base Excess 11 H O2 Saturation 96 O2 % 15.0 ABG pCO2 57.3 H ABG pO2 86 O2 Delivery Device NRB Vent Mode Not entered Radiography Diagnostic Testing: Radiology Impression Chest X-Ray 12/01/23 14:25 IMPRESSION: Cardiomegaly, low volume to the lung smith, diffuse reticulonodular and interstitial opacities and patchy parenchymal opacities in both bases, left greater than right. Findings may represent a combination of interstitial fibrosis and interstitial edema/congestive failure. Follow-up chest imaging to resolution recommended. Electronically Signed: Brian Hicks MD at 14:42 EDT , Rhythm Strip Rhythm Strip: Sinus Rhythm Rate: 99 Ectopy: None Physical Exam Narrative Seen and examined. Clinical update from the nursing staff. No fever. Patient admitted with shortness of breath with predominantly dry cough. He has chronic dyspnea on exertion from IPF and pulmonary hypertension. Complain of mild chest tightness yesterday but feeling better after admission on BiPAP. Transition to Airvo. Physical exam General: Alert, Oriented x3, Cooperative HEENT: Atraumatic, PERRLA, EOMI, Normocephalic Oral: No Gingival or Mucosal Lesions/ Ulcerations Neck: Supple, No JVD, Negative Carotid Bruits Chest wall/Lungs: Air entry diminished in bilateral lung bases. Inspiratory coarse rales. On Airvo Cardiovascular: Sinus rhythm , Normal S1, Normal S2, No M/G/R Abdomen: Bowel Sounds Present, Soft, Non Tender, Non-Distended : No dysuria. No renal angle tenderness. No suprapubic tenderness. Extremities: 1-2+ bilateral ankle , Capillary Refill Less than 3 Seconds Skin: No rashes, No breakdown Musculoskeletal: No Tenderness to Palpation of Joints or Extremities Neurological: Cranial nerves II-XII grossly intact, DTR 2+/4. No acute focal neurological deficit. Psych/Mental Status: Flat affect Assessment & Plan Assessment/Plan (1) Acute and chronic respiratory failure with hypoxia: PLAN: Plan This is a 73-year-old gentleman being admitted for severe shortness of breath started after having straining for defecation with constipation. Patient got very hypoxic with pulse ox in 70s to 80s, unable to correct on home oxygen requirement of 4 to 5 L. Bilateral leg swelling. 1. Acute on chronic hypoxic respiratory failure with acute hypercapnic respiratory failure secondary to pulmonary fibrosis and flash pulmonary edema in the setting of pulmonary hypertension and acute on chronic right ventricular failure: Patient is being admitted in ICU. Initially on BiPAP transition to Airvo. On IV Lasix. Chest x-ray delirium shows interstitial reticulonodular fibrosis with pulmonary edema ? Given his pulmonary fibrosis and his chronic prednisone use, continue with p.o. prednisone 40 mg ? Pulmonology is consulted. ? ABG showed pH 7.41/pCO2 57/86 on nonrebreather 10 L in ED. On Trelegy at home. ? Continue with albuterol ? Continue with his home Nintedanib 2. 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 Continue with his home blood pressure medications ? His blood pressure is currently stable ? We will monitor make adjustments as necessary ? Continue with cholesterol medications 2D echo in August 2023 The estimated ejection fraction is 60 %. D shaped septum in systole and diastole. Moderately dilated right ventricle. Mild global right ventricular systolic dysfunction. The left atrium is mildly enlarged. Mild (1+) tricuspid valve insufficiency. Mild pulmonary hypertension. Aortic sclerosis, no stenosis. Mild aortic insufficiency Mild atherosclerosis of the ascending aorta. 3. GERD ? Stable ? Continue with PPI 4. Anxiety/depression ? This will be a new diagnosis for him as he does not take any medications at baseline though family does agree that he does struggle with his medical diagnosis ? continue with Xanax 0.25 mg p.o. twice daily as well as Zoloft 50 mg daily DVT: Lovenox Charges/Coding Visit Charges Inpatient E&M: 75847 Subs Hosp L3 12/02/23827 <Electronically signed by Jerson Avelar MD> Cosigner Signature (if applicable): CC: ~ Signed [facility] Work Phone: 1(932) 411-464104-09-2024 Consult note Author Farrukh Flanagan [facility] December 02, 2023 8:24am Note Date/Time December 02, 2023 7:09 am [facility] Medical Records Department [address] [place] [address] Consultation - [employer]man [employer] M113 12/02/23 0708 MR#: [id number] Acct: [id number] Name: DU BACA Rep #:[id number] : 1950 73 From: Farrukh Flanagan DO PCP: Dr. Nehemiah Flanagan MD Status:ADM IN Location: ICU ICU02-1 Assessment & Plan Assessment/Plan (1) Acute and chronic respiratory failure with hypoxia: PLAN: Plan RECOMMENDATIONS: 1. Continue AVAPS therapy and attempt to wean to heated high flow oxygen, as tolerated. 2. Diuretics as tolerated by hemodynamics and renal function. 3. Continue corticosteroids. 4. Resume Ofev after discharge. 5. Obtain follow-up CT chest without contrast to evaluate for progression of ILD. IMPRESSIONS: 1. Acute on chronic respiratory failure with hypoxemia The patient has a known history of interstitial lung disease and chronic respiratory failure with a 8 L/min oxygen requirement. He has been followed in the past by Dr. Gallagher in the pulmonary medicine clinic and was recently placed on Ofev. The patient readily admitted to noncompliance with prescribed oxygen therapy, which is likely contributing to his current clinical state. In addition, the patient is likely volume overloaded in the setting of pulmonary hypertension and RV dysfunction. For now, the patient will be transitioned fromnoninvasive positive pressure ventilatory to support to heated high flow oxygen,as tolerated. It is reasonable to continue diuretic therapy as tolerated by hemodynamics and renal function along with corticosteroids. Will obtain follow-up noncontrasted chest CT to evaluate for ILD progression. Ultimately, the patient would likely benefit from palliative care referral with eventual transition to hospice care services. 2. Coronary artery disease status post CABG/GERD/hypertension/hyperlipidemia/anxiety/depression Complicates care, management, recovery and prognosis. Continue home medicationsas indicated. This note was generated with Occasionation software. It may contain incorrectwords, spelling, and punctuation that were not noted in checking the note beforesigning. HPI Consult Data Date of Consult: 12/02/23 HPI Narrative Reason for Consultation: Acute on chronic respiratory failure HPI Narrative: The patient is a 73-year-old male, with a history as outlined below, who presented to the emergency department on November 30 with worsening shortness of breath. The patient has been under the care of Dr. Gallagher since 2019, and according to documentation, has a history of pulmonary fibrosis, pulmonary hypertension and chronic hypoxemic respiratory failure. According to his last 6-minute walk test, the patient required 8 L/min of supplemental oxygen. However, the patientreadily admitted that he has been noncompliant with its use. Prior autoimmune workup in 2019 was unremarkable. There has not been any recent CT imaging of the chest completed. He was recently started on Ofev by Dr. Gallagher in October. On presentation to the emergency department, the patient was documented to be afebrile hemodynamically stable. He was mildly tachycardic and tachypneic and presented with hypoxemia. Initial laboratory evaluation revealed a normal whiteblood cell count. D-dimer was noted to be 0.56. ABG was notable for a pH of 7.4 with a pCO2 of 57 and pO2 of 86. Chemistry profile was notable for a bicarbonate of 37 and normal creatinine. BNP was elevated at 720. The patient was started on noninvasive positive pressure ventilatory support and was administered IV Lasix. He was subsequently admitted to the medical intensive care unit for further management. Surface echocardiogram from September 2023 demonstrated normal LV size with an ejection fraction of 60%. There was mild global RV systolic dysfunction with left atrial enlargement and a right ventricular systolic pressure of 43 mmHg. PFSH Medical History Atherosclerosis of coronary artery bypass graft without angina pectoris Atherosclerosis of coronary artery of [place] heart without angina pectoris CKD (chronic kidney disease), stage III GERD (gastroesophageal reflux disease) history of tick bite Hyperlipidemia Hypertension Kidney disease Kidney stones On home oxygen therapy Pneumonia Pulmonary fibrosis Pulmonary fibrosis Shortness of breath Smoker Home Medications losartan 25 mg tablet 25 mg PO DAILY BLOOD PRESSURE #90 tabs 04/06/21 [Rx Last Taken 12/01/23] albuterol sulfate 90 mcg/actuation aerosol inhaler (Ventolin HFA) 2 puff inhalation Q4H PRN SHORTNESS OF BREATH/WHEEZNG #18 grams 11/27/22 [Rx Last Taken 09/24/23] omeprazole 20 mg capsule,delayed release 20 mg PO DAILY ACID REFLUX 05/21/23 [History Last Taken 12/01/23] aspirin 81 mg tablet,delayed release (Adult Low Dose Aspirin) 81 mg PO DAILY HEART HEALTH 09/24/23 [History Last Taken 12/01/23] atorvastatin 40 mg tablet 40 mg PO QHS CHOLESTEROL 09/24/23 [History Last Taken 11/30/23 20:00] metoprolol succinate 50 mg tablet,extended release 24 hr 50 mg PO DAILY BLOOD PRESSURE 09/24/23 [History Last Taken 12/01/23] guaifenesin 1,200 mg tablet, extended release 12 hr (Mucus Relief ER) 1,200 mg PO BID PRN congestion 10/23/23 [History Last Taken Unknown] multivitamin (Daily Multi-Vitamin tablet) 1 tab PO DAILY vitamin 10/23/23 [History Last Taken 12/01/23] prednisone 10 mg tablet 10 mg PO DAILY breathing #30 tabs 11/13/23 [Rx Last Taken 12/01/23] furosemide 40 mg tablet (Lasix) 40 mg PO DAILY PRN edema #10 tabs 11/26/23 [Rx Last Taken Unknown] nintedanib 150 mg capsule (Ofev) 150 mg PO Q12H pulm fibrosis 12/01/23 [History Last Taken 12/01/23 08:00] Allergy/AdvReac Type Severity Reaction Status Date / Time No Known Allergies Allergy Verified 10/23/23 11:00 Family History Mother Brain aneurysm Father CVA (cerebral vascular accident) Surgical History H/O coronary artery bypass surgery (1989) H/O hernia repair History of coronary artery stent placement History of left heart catheterization (01/02/16) Social History Smoking Status: Former smoker Tobacco: How many years used: 16 Smokeless tobacco user: chewing tobacco alcohol intake: current alcohol intake frequency: holidays/special occasions only Alcohol type: beer substance use type: does not use caffeine: Yes Type: coffee Number of servings: 5 ROS ROS Narrative 10 systems were reviewed with pertinent positives as noted in the HPI above. Physical Exam Const alert and no apparent distress Constitutional Narrative: PAP mask in place. General Appearance: cooperative HEENT normocephalic and head/scalp atraumatic Eyes PERRL, EOMs intact bilaterally and conjunctivae normal Neck supple General: trachea midline Chest inspection of chest normal Resp Effort and Inspection: tachypneic Auscultation: rales, wheezes and diminished lung sounds Cardio regular rate and regular rhythm GI normal to inspection, nondistended, normoactive bowel sounds Extremity General Extremity: edema bilateral lower extremity; Negative for clubbing Neuro CN's II-XII intact bilaterally, moves all extremities and no focal motor deficits Psych cooperative and affect normal Lab / Micro Data 12/02/23 03:06 12/02/23 03:06 Labs: Laboratory Results - last 24 hr 12/01/23 13:50: WBC 9.0, RBC 4.95, Hgb 13.9, Hct 45.6, MCV 92.1, MCH 28.1, MCHC 30.5 L, RDW Std Deviation 54.3 H, RDW Coeff of Breana 16.4 H, Plt Count 186, MPV 11.9, Immature Gran % (Auto) 0.600, Neut % (Auto) 85.5 H, Lymph % (Auto) 8.4 L, J[place] % (Auto) 3.9, Eos % (Auto) 1.2, Baso % (Auto) 0.4, Absolute Neuts (auto) 7.7, Absolute Lymphs (auto) 0.76 L, Nucleated RBC % 0, Sodium 135 L, Potassium 3.8, Chloride 94 L, Carbon Dioxide 37.0 H, Anion Gap 4 L, BUN 23 H, Creatinine 1.02, Estim Creat Clear Calc 76.74, Est GFR (MDRD) Af Amer 91, Est GFR (MDRD) Non-Af 76, BUN/Creatinine Ratio 22.5 H, Glucose 124 H, Calcium 9.3, Troponin I High Sens 34, B-Natriuretic Peptide 720.5 H 12/01/23 20:57: D-Dimer Quant (PE/DVT) 0.56 H* 12/02/23 03:06: WBC 6.0, RBC 4.54 L, Hgb 13.4, Hct 41.3, MCV 91.0, MCH 29.5, MCHC 32.4 D, RDW Std Deviation 52.6 H, RDW Coeff of Breana 16.1 H, Plt Count 147 L, MPV 11.5, Immature Gran % (Auto) 0.500, Neut % (Auto) 90.3 H, Lymph % (Auto) 7.7 L, J[place] % (Auto) 1.3, Eos % (Auto) 0.0, Baso % (Auto) 0.2, Absolute Neuts (auto) 5.4, Absolute Lymphs (auto) 0.46 L, Nucleated RBC % 0, Sodium 141, Potassium 3.7, Chloride 98, Carbon Dioxide 39.0 H, Anion Gap 4 L, BUN 24 H, Creatinine 1.01, Estim Creat Clear Calc 74.14, Est GFR (MDRD) Af Amer 93, Est GFR (MDRD) Non-Af 76, BUN/Creatinine Ratio 23.8 H, Glucose 128 H, Calcium 8.7 Micro: Microbiology 12/01/23 14:20 Mucosa - Nose SARS-CoV-2, Influenza & RSV (PCR) - Final ABG Data ABG results: ABG 12/01/23 14:08 Specimen Type ART Sample Site L Brach pH 7.41 Bicarbonate Actual 36.0 H Total CO2 38 Base Excess 11 H O2 Saturation 96 O2 % 15.0 ABG pCO2 57.3 H ABG pO2 86 O2 Delivery Device NRB Vent Mode Not entered Rhythm Strip Rhythm Strip: Sinus Rhythm Rate: 99 Ectopy: None Imaging Radiology Impression Chest X-Ray 12/01/23 14:25 IMPRESSION: Cardiomegaly, low volume to the lung smith, diffuse reticulonodular and interstitial opacities and patchy parenchymal opacities in both bases, left greater than right. Findings may represent a combination of interstitial fibrosis and interstitial edema/congestive failure. Follow-up chest imaging to resolution recommended. Electronically Signed: Brian Hicks MD at 14:42 EDT Reading Location ID and State: [address] [place] [address] , Service support , Charges/Coding Visit Charges Inpatient E&M: 86930 Init Hosp L3 12/02/23823 <Electronically signed by Farrukh Flanagan DO> Cosigner Signature (if applicable): CC: Dr. Seymour Goldberg MD; Dr. Henrry Acosta MD; Dr. Romulo Gallagher MD; Dr. Farrukh Flanagan DO; Dr. Yuri Garcia MD; Dr. Mark Ortiz MD; Dr. Kendell Thompson MD; Dr. Nessa Gagnon MD; Dr. Lakhwinder Corrales MD; Dr. Frank Landon MD; Dr. Tera Nowak MD; Dr. Kel Ernandez MD; Dr. Arvind Coronel MD; Dr. Nehemiah Flanagan MD; Dr. Adrien Palmer MD; Dr. Ayaz Harvey MD; Dr. Viridiana Bashir MD~ Signed [facility] Work Phone: 1([phone]) 562-461304-08-2024 History and physical note Author Frank Landon [facility] December 01, 2023 8:05pm Note Date/Time December 01, 2023 6:40 pm [facility] Medical Records Department [address] [place] [address] H&P Exam - Hospitalist 12/01/23 1834 MR#: [id number] Acct: [id number] Name: DU BACA Rep #:[id number] : 1950 73 From: Frank bella MD PCP: Dr. Nehemiah Flanagan MD Status:ADM IN Location: ICU ICU02-1 HPI - General General Date of Admission: 12/01/23 HPI Narrative DU BACA, is a 73 M who presents to the hospital with increased shortness of breath. He has a baseline history of idiopathic pulmonary fibrosis as well as mild pulmonary hypertension. He states that he has been in his usual state of health with his respiratory status and then this morning he went to have a bowel movement, he has been constipated for several days and he said it is a challenge to have a bowel movement and after he had his bowel movement he developed significant shortness of breath and was found to have an oxygen saturation at home in the 70-80's and he is normally requiring anywhere between 4 to 5 L nasal cannula at rest and on arrival he was only 90% on 10 L nonrebreather. Chest x-ray demonstrated his pulmonary fibrosis as well as possible pulmonary edema and there is some concern with his pulmonary hypertension if he potentially went into flash pulmonary edema with increased intrathoracic pressures from the salvos during his multiple times to have a bowel movement today. He had an echo in August 2023 with a normal EF and an RVSP of 43 mmHg. He was ultimately increased to BiPAP in the ER with improvement in his respiratory status and he was also given a dose of IV Lasix, ABG demonstrated a pCO2 of 57.3 however we do not have any baseline ABGs to compare to and his bicarb was 36 with a pH of 7.41. PFSH Medical History Atherosclerosis of coronary artery bypass graft without angina pectoris Atherosclerosis of coronary artery of [place] heart without angina pectoris CKD (chronic kidney disease), stage III GERD (gastroesophageal reflux disease) history of tick bite Hyperlipidemia Hypertension Kidney disease Kidney stones On home oxygen therapy Pneumonia Pulmonary fibrosis Pulmonary fibrosis Shortness of breath Smoker Home Medications losartan 25 mg tablet 25 mg PO DAILY BLOOD PRESSURE #90 tabs 04/06/21 [Rx Last Taken 12/01/23] albuterol sulfate 90 mcg/actuation aerosol inhaler (Ventolin HFA) 2 puff inhalation Q4H PRN SHORTNESS OF BREATH/WHEEZNG #18 grams 11/27/22 [Rx Last Taken 09/24/23] omeprazole 20 mg capsule,delayed release 20 mg PO DAILY ACID REFLUX 05/21/23 [History Last Taken 12/01/23] aspirin 81 mg tablet,delayed release (Adult Low Dose Aspirin) 81 mg PO DAILY HEART HEALTH 09/24/23 [History Last Taken 12/01/23] atorvastatin 40 mg tablet 40 mg PO QHS CHOLESTEROL 09/24/23 [History Last Taken 11/30/23 20:00] metoprolol succinate 50 mg tablet,extended release 24 hr 50 mg PO DAILY BLOOD PRESSURE 09/24/23 [History Last Taken 12/01/23] guaifenesin 1,200 mg tablet, extended release 12 hr (Mucus Relief ER) 1,200 mg PO BID PRN congestion 10/23/23 [History Last Taken Unknown] multivitamin (Daily Multi-Vitamin tablet) 1 tab PO DAILY vitamin 10/23/23 [History Last Taken 12/01/23] prednisone 10 mg tablet 10 mg PO DAILY breathing #30 tabs 11/13/23 [Rx Last Taken 12/01/23] furosemide 40 mg tablet (Lasix) 40 mg PO DAILY PRN edema #10 tabs 11/26/23 [Rx Last Taken Unknown] nintedanib 150 mg capsule (Ofev) 150 mg PO Q12H pulm fibrosis 12/01/23 [History Last Taken 12/01/23 08:00] Allergy/AdvReac Type Severity Reaction Status Date / Time No Known Allergies Allergy Verified 10/23/23 11:00 Family History Mother Brain aneurysm Father CVA (cerebral vascular accident) Surgical History H/O coronary artery bypass surgery (1989) H/O hernia repair History of coronary artery stent placement History of left heart catheterization (01/02/16) Social History Smoking Status: Former smoker Tobacco: How many years used: 16 Smokeless tobacco user: chewing tobacco alcohol intake: current alcohol intake frequency: holidays/special occasions only Alcohol type: beer substance use type: does not use caffeine: Yes Type: coffee Number of servings: 5 ROS Constitutional Constitutional: Denies chills, fatigue, fever(s) or malaise Eyes Eyes: Denies blurry vision ENT HEENT: Denies headache(s) or nasal discharge Cardiovascular Cardiovascular: Denies chest pain, dyspnea on exertion or syncope Respiratory/Chest Respiratory/Chest: Reports shortness of breath at rest and shortness of breath with exertion; Denies cough Gastrointestinal Gastrointestinal: Denies constipation, diarrhea, nausea or vomiting Genitourinary Genitourinary: Denies dysuria Neurologic Neurologic: Denies focal weakness, numbness or tremor(s) Psychiatric Psychiatric: Denies anxiety or depression Vital Signs Vital Signs Vital Signs: 12/01/23 13:26 12/01/23 13:30 12/01/23 13:30 Temperature 97 F L 97.8 F Temperature Source Temporal Temporal Pulse Rate 103 H 103 H 103 H Respiratory Rate 22 H 41 H 32 H Respiratory Effort Respiratory Depth Respiratory Pattern Blood Pressure 141/100 H 159/101 H 159/101 H Blood Pressure Mean 113 120 120 Blood Pressure Source Blood Pressure Position Blood Pressure Location Pulse Ox 90 90 91 Oxygen Delivery Method Non-Rebreather Non-Rebreather Non-Rebreather Oxygen Flow Rate (L/min) 10 10 Fraction of Inspired Oxygen (FIO2) 12/01/23 13:32 12/01/23 14:19 12/01/23 14:25 Temperature Temperature Source Pulse Rate 102 H Respiratory Rate 28 H Respiratory Effort Short of Breath Labored Nasal Flaring Respiratory Depth Respiratory Pattern Tachypnea Blood Pressure 147/107 H Blood Pressure Mean 120 Blood Pressure Source Blood Pressure Position Blood Pressure Location Pulse Ox 92 96 Oxygen Delivery Method Non-Rebreather Non-Rebreather Bi-pap Oxygen Flow Rate (L/min) 10 15 Fraction of Inspired Oxygen (FIO2) 100 12/01/23 15:00 12/01/23 14:19 12/01/23 14:38 Temperature Temperature Source Pulse Rate 103 H 105 H 99 Respiratory Rate 35 H 30 H 27 H Respiratory Effort Respiratory Depth Respiratory Pattern Tachypnea Blood Pressure 151/101 H Blood Pressure Mean 117 Blood Pressure Source Blood Pressure Position Blood Pressure Location Pulse Ox 97 96 Oxygen Delivery Method Bi-pap Oxygen Flow Rate (L/min) Fraction of Inspired Oxygen (FIO2) 100 75 12/01/23 16:00 12/01/23 16:30 12/01/23 17:22 Temperature 96.8 F L Temperature Source Pulse Rate 102 H 100 Respiratory Rate 32 H 32 H Respiratory Effort Short of Breath Labored Accessory Muscle Use Respiratory Depth Shallow Respiratory Pattern Tachypnea Blood Pressure 140/98 H 148/107 H Blood Pressure Mean 112 120 Blood Pressure Source Blood Pressure Position Blood Pressure Location Pulse Ox 97 96 Oxygen Delivery Method Bi-pap Bi-pap Oxygen Flow Rate (L/min) Fraction of Inspired Oxygen (FIO2) 75 12/01/23 17:20 12/01/23 17:15 12/01/23 17:30 Temperature 96.5 F L Temperature Source Temporal Pulse Rate 96 94 94 Respiratory Rate 34 H 28 H 27 H Respiratory Effort Respiratory Depth Respiratory Pattern Tachypnea Blood Pressure 158/101 H 150/119 H Blood Pressure Mean 120 129 Blood Pressure Source Monitor Monitor Blood Pressure Position Semi-Fowlers Semi-Fowlers Blood Pressure Location Right Arm Right Arm Pulse Ox 94 97 97 Oxygen Delivery Method Bi-pap Bi-pap Oxygen Flow Rate (L/min) Fraction of Inspired Oxygen (FIO2) 75 75 75 12/01/23 17:45 12/01/23 18:00 Temperature Temperature Source Pulse Rate 97 94 Respiratory Rate 27 H 22 H Respiratory Effort Respiratory Depth Respiratory Pattern Blood Pressure 152/102 H 148/74 H Blood Pressure Mean 118 98 Blood Pressure Source Monitor Monitor Blood Pressure Position Semi-Fowlers Semi-Fowlers Blood Pressure Location Right Arm Right Arm Pulse Ox 96 94 Oxygen Delivery Method Bi-pap Bi-pap Oxygen Flow Rate (L/min) Fraction of Inspired Oxygen (FIO2) 60 50 Weight Weight: 208 lb 1.862 oz Body Mass Index (BMI) 29.0 Physical Exam Narrative General: Alert, Oriented x3, Cooperative, moderate respiratory distress HEENT: Atraumatic, PERRLA, EOMI, Normocephalic Oral: On BiPAP Neck: Supple, No JVD Lungs: Diminished, Normal air movement, rhonchi, No wheeze, No rales, tachypneic, accessory muscle use Cardiovascular: Regular rate, Regular Rhythm, Normal S1, Normal S2, No murmurs Abdomen: Soft, Non Tender, Non-Distended, No Hepato-splenomegaly Extremities: Edema, Capillary Refill Less than 3 Seconds Skin: No rashes, No breakdown Musculoskeletal: No Tenderness to Palpation of Joints or Extremities Neurological: No focal neurological deficits, Motor Exam 5/5 strength throughout, Sensory exam intact to light touch and pain Psych/Mental Status: Anxious Results Lab / Micro Data 12/01/23 13:50 12/01/23 13:50 Labs: Laboratory Results - last 24 hr 12/01/23 13:50: WBC 9.0, RBC 4.95, Hgb 13.9, Hct 45.6, MCV 92.1, MCH 28.1, MCHC 30.5 L, RDW Std Deviation 54.3 H, RDW Coeff of Breana 16.4 H, Plt Count 186, MPV 11.9, Immature Gran % (Auto) 0.600, Neut % (Auto) 85.5 H, Lymph % (Auto) 8.4 L, Jerauld % (Auto) 3.9, Eos % (Auto) 1.2, Baso % (Auto) 0.4, Absolute Neuts (auto) 7.7, Absolute Lymphs (auto) 0.76 L, Nucleated RBC % 0, Sodium 135 L, Potassium 3.8, Chloride 94 L, Carbon Dioxide 37.0 H, Anion Gap 4 L, BUN 23 H, Creatinine 1.02, Estim Creat Clear Calc 76.74, Est GFR (MDRD) Af Amer 91, Est GFR (MDRD) Non-Af 76, BUN/Creatinine Ratio 22.5 H, Glucose 124 H, Calcium 9.3, Troponin I High Sens 34, B-Natriuretic Peptide 720.5 H Micro: Microbiology 12/01/23 14:20 Mucosa - Nose SARS-CoV-2, Influenza & RSV (PCR) - Final ABG Data ABG results: ABG 12/01/23 14:08 Specimen Type ART Sample Site L Brach pH 7.41 Bicarbonate Actual 36.0 H Total CO2 38 Base Excess 11 H O2 Saturation 96 O2 % 15.0 ABG pCO2 57.3 H ABG pO2 86 O2 Delivery Device NRB Vent Mode Not entered Rhythm Strip Rhythm Strip: Sinus Rhythm Rate: 99 Ectopy: None Imaging Radiology Impression Chest X-Ray 12/01/23 14:25 IMPRESSION: Cardiomegaly, low volume to the lung smith, diffuse reticulonodular and interstitial opacities and patchy parenchymal opacities in both bases, left greater than right. Findings may represent a combination of interstitial fibrosis and interstitial edema/congestive failure. Follow-up chest imaging to resolution recommended. Electronically Signed: Brian Hicks MD at 14:42 EDT , Assessment & Plan Assessment/Plan (1) Acute and chronic respiratory failure with hypoxia: PLAN: Plan 1. Acute on chronic hypoxic respiratory failure with acute hypercapnic respiratory failure secondary to pulmonary fibrosis and flash pulmonary edema in the setting of pulmonary hypertension ? Will continue with twice daily Lasix dosing ? Given his pulmonary fibrosis and his chronic prednisone use, will continue with p.o. prednisone 40 mg ? Will consult pulmonology ? Continue with BiPAP ? May benefit from Trelegy with sleep, unclear if he meets criteria with the pCO2 of 57 on ABG ? Continue with albuterol ? Continue with his home Nintedanib 2. CAD status post CABG and stent/essential HTN/HLD ? Continue with his home blood pressure medications ? His blood pressure is currently stable ? We will monitor make adjustments as necessary ? Continue with cholesterol medications 3. GERD ? Stable ? Continue with PPI 4. Anxiety/depression ? This will be a new diagnosis for him as he does not take any medications at baseline though family does agree that he does struggle with his medical diagnosis ? Will continue with Xanax 0.25 mg p.o. twice daily as well as Zoloft 50 mg daily DVT: Lovenox 75 minutes was spent on direct patient care, including documentation as well as chart review and collaboration with colleagues Charges/Coding Visit Charges Inpatient E&M: 04575 Init Hosp L3 12/01/232004 <Electronically signed by Frank Landon MD> Cosigner Signature (if applicable): CC: Dr. Frank Landon MD; Dr. Nehemiah Flanagan MD~ Signed [facility] Work Phone: [phone]) 948-888904-08-2024 Discharge summary Author Sunita Mckenna [facility] December 01, 2023 4:00pm Note Date/Time December 01, 2023 3:01 pm [facility] Medical Records Department [address] [place] [address] Emergency Department Summary 12/01/23 MR#: [id number] Acct: [id number] Name: DU BACA Rep #:[id number] : 1950 73 From: Sunita Gamble PCP: Dr. Nehemiah Flanagan MD Status:REG ER Location: ED HPI History of Present Illness Chief Complaint: Shortness of Breath Informant: patient Narrative Narrative: Patient is a 73-year-old male with history of pulmonary hypertension and pulmonary fibrosis on 5 to 6 L of oxygen at baseline presenting with worsening shortness of breath. He has a history of pretty significant hypoxia with exertion however today apparently he had a particularly rough bowel movement and his O2 sats dropped to 70% and couldnt get his oxygen back up. He alsois at increased swelling of his legs since yesterday. Patient's been complaining of some increased nasal congestion and feeling congested over the past few weeks. Does not wear CPAP or BiPAP. Denies any change in his cough. Denies any chest pain. No other complaints or concerns at this time. [facility] Medical History Atherosclerosis of coronary artery bypass graft without angina pectoris Atherosclerosis of coronary artery of [place] heart without angina pectoris CKD (chronic kidney disease), stage III history of tick bite Hyperlipidemia Hypertension Kidney disease Kidney stones On home oxygen therapy Pneumonia Pulmonary fibrosis Pulmonary fibrosis Shortness of breath Smoker Home Medications losartan 25 mg tablet 25 mg PO DAILY BLOOD PRESSURE #90 tabs 04/06/21 [Rx Last Taken 09/24/23] albuterol sulfate 90 mcg/actuation aerosol inhaler (Ventolin HFA) 2 puff inhalation Q4H PRN SHORTNESS OF BREATH/WHEEZNG #18 grams 11/27/22 [Rx Last Taken 09/24/23] omeprazole 20 mg capsule,delayed release 20 mg PO DAILY ACID REFLUX 05/21/23 [History Last Taken 09/24/23] aspirin 81 mg tablet,delayed release (Adult Low Dose Aspirin) 81 mg PO DAILY HEART HEALTH 09/24/23 [History Last Taken 09/24/23] atorvastatin 40 mg tablet 40 mg PO QHS CHOLESTEROL 09/24/23 [History Last Taken 09/23/23] metoprolol succinate 50 mg tablet,extended release 24 hr 50 mg PO DAILY BLOOD PRESSURE 09/24/23 [History Last Taken 09/24/23] guaifenesin 1,200 mg tablet, extended release 12 hr (Mucus Relief ER) 1,200 mg PO BID PRN congestion 10/23/23 [History Last Taken Unknown] multivitamin (Daily Multi-Vitamin tablet) 1 tab PO DAILY 10/23/23 [History Last Taken Unknown] prednisone 10 mg tablet 10 mg PO DAILY #30 tabs 11/13/23 [Rx Last Taken Unknown] furosemide 40 mg tablet (Lasix) 40 mg PO DAILY PRN edema #10 tabs 11/26/23 [Rx Last Taken Unknown] nintedanib 150 mg capsule (Ofev) 150 mg PO Q12H 12/01/23 [History Last Taken Unknown] Allergy/AdvReac Type Severity Reaction Status Date / Time No Known Allergies Allergy Verified 10/23/23 11:00 Family History Mother Brain aneurysm Father CVA (cerebral vascular accident) Surgical History H/O coronary artery bypass surgery (1989) H/O hernia repair History of coronary artery stent placement History of left heart catheterization (01/02/16) Social History Smoking Status: Former smoker Tobacco: How many years used: 16 Smokeless tobacco user: chewing tobacco alcohol intake: current alcohol intake frequency: holidays/special occasions only Alcohol type: beer substance use type: does not use caffeine: Yes Type: coffee Number of servings: 5 ROS ROS ED Constitutional Constitutional ED: Denies chills or fever(s) ENT ENT ED: Reports other Details: congestion Cardiovascular Cardiovascular: Denies chest pain Respiratory/Chest Respiratory/Chest: Reports dyspnea and dyspnea on exertion; Denies sputum Gastrointestinal Gastrointestinal: Denies nausea or vomiting Musculoskeletal Musculoskeletal: Denies arthralgias or myalgias Integumentary Denies rash Neurologic Neurologic: Denies headache(s) Hematologic/Lymphatic Hematologic/Lymphatic: Denies easy bleeding or easy bruising EXAM Physical Exam Const Vital Signs: 12/01/23 13:26 12/01/23 13:30 12/01/23 13:30 Temperature 97 F L 97.8 F Temperature Source Temporal Temporal Pulse Rate 103 H 103 H 103 H Respiratory Rate 22 H 41 H 32 H Respiratory Effort Respiratory Pattern Blood Pressure 141/100 H 159/101 H 159/101 H Blood Pressure Mean 113 120 120 Pulse Ox 90 90 91 Oxygen Delivery Method Non-Rebreather Non-Rebreather Non-Rebreather Oxygen Flow Rate (L/min) 10 10 Fraction of Inspired Oxygen (FIO2) 12/01/23 13:32 12/01/23 14:19 12/01/23 14:25 Temperature Temperature Source Pulse Rate 102 H Respiratory Rate 28 H Respiratory Effort Short of Breath Labored Nasal Flaring Respiratory Pattern Tachypnea Blood Pressure 147/107 H Blood Pressure Mean 120 Pulse Ox 92 96 Oxygen Delivery Method Non-Rebreather Non-Rebreather Bi-pap Oxygen Flow Rate (L/min) 10 15 Fraction of Inspired Oxygen (FIO2) 100 12/01/23 15:00 12/01/23 14:19 12/01/23 14:38 Temperature Temperature Source Pulse Rate 103 H 105 H 99 Respiratory Rate 35 H 30 H 27 H Respiratory Effort Respiratory Pattern Tachypnea Blood Pressure 151/101 H Blood Pressure Mean 117 Pulse Ox 97 96 Oxygen Delivery Method Bi-pap Oxygen Flow Rate (L/min) Fraction of Inspired Oxygen (FIO2) 100 75 Positive well developed Constitutional Narrative: Patient appears to be in mild to moderate respiratory distress General Appearance ED: well developed HEENT Reports dry mucous membranes atraumatic Mouth ED: Yes dry mucous membranes Mouth: dry mucous membranes Eyes PERRL and EOMs intact bilaterally Neck supple and no JVD Resp Resp Narrative: Tachypneic. Diffuse crackles throughout. Decreased air movement. Increased work of breathing with use of accessory muscles Cardio regular rate and regular rhythm Extremity normal to inspection General Extremety ED: Yes edema General Extremity: edema Neuro oriented x3 Sensorium / Orientation: alert Motor Exam: general weakness Psych mental status grossly normal Skin no wounds MDM MDM MDM Narrative Medical decision making narrative: Patient evaluated for 1 day of worsening shortness of breath, increased work of breathing, hypoxia and increased lower extremity edema. Patient is on nonrebreather and is only 90%. Is given a DuoNeb with no improvement. ABG is consistent with compensated respiratory hypercapnia with hypoxia. Patient will be placed on a BiPAP due to his work of breathing. Patient appears intravascularly depleted but also mild fluid overloaded. Differential includes fluid overload, exacerbation pulmonary fibrosis, pneumoniaand reactive airway. Do not think this presentation is consistent with flash pulmonary edema. Chest x-ray shows cardiomegaly with dense interstitial opacities likely consistent with chronic changes left worse than right and possible superimposed interstitial edema/CHF. High since he troponin is mildly elevated at 34 but EKGis nonischemic. White blood cell count is normal. Viral panel still pending. I do think patient require admission for his increased acute on chronic respiratory distress. BNP is elevated. IV fluids are stopped and patient is given 40 mg IV Lasix. Patient is also given a dose of IV Solu-Medrol due to hisunderlying pulmonary fibrosis. He does not have a fever, leukocytosis or infectious symptoms so low suspicion for pneumonia. Will defer antibiotics at this time. Case discussed admitting physician, Dr. Landon and will be admitted to ICU. Lab Data Attestation: I reviewed the patient's lab results. Labs: Laboratory Results - last 24 hr 12/01/23 13:50 WBC 9.0 RBC 4.95 Hgb 13.9 Hct 45.6 MCV 92.1 MCH 28.1 MCHC 30.5 L RDW Std Deviation 54.3 H RDW Coeff of Breana 16.4 H Plt Count 186 MPV 11.9 Immature Gran % (Auto) 0.600 Neut % (Auto) 85.5 H Lymph % (Auto) 8.4 L Jerauld % (Auto) 3.9 Eos % (Auto) 1.2 Baso % (Auto) 0.4 Absolute Neuts (auto) 7.7 Absolute Lymphs (auto) 0.76 L Nucleated RBC % 0 Sodium 135 L Potassium 3.8 Chloride 94 L Carbon Dioxide 37.0 H Anion Gap 4 L BUN 23 H Creatinine 1.02 Estim Creat Clear Calc 76.74 Est GFR (MDRD) Af Amer 91 Est GFR (MDRD) Non-Af 76 BUN/Creatinine Ratio 22.5 H Glucose 124 H Calcium 9.3 Troponin I High Sens 34 B-Natriuretic Peptide 720.5 H ABG Data ABG results: ABG 12/01/23 14:08 Specimen Type ART Sample Site L Brach pH 7.41 Bicarbonate Actual 36.0 H Total CO2 38 Base Excess 11 H O2 Saturation 96 O2 % 15.0 ABG pCO2 57.3 H ABG pO2 86 O2 Delivery Device NRB Vent Mode Not entered Radiography Chest X-Ray - ED: 1 View, Chronic Changes and CHF Diagnostic Testing: Clinical Impression(s) from Imaging Studies Chest X-Ray 12/01/23 14:25 IMPRESSION: Cardiomegaly, low volume to the lung smith, diffuse reticulonodular and interstitial opacities and patchy parenchymal opacities in both bases, left greater than right. Findings may represent a combination of interstitial fibrosis and interstitial edema/congestive failure. Follow-up chest imaging to resolution recommended. Electronically Signed: Brian Hicks MD at 14:42 EDT Reading Location ID and State: [facility] / [place] , Service support , Rhythm Strip Rhythm Strip: Sinus Rhythm Rate: 99 Ectopy: None EKG Initial EKG: Attestation: I personally reviewed and interpreted this EKG as follows: Interpretation: Sinus Rhythm Comments: Normal sinus rhythm rate of 90 bpm Normal axis Normal intervals Normal ST segments Differential Diagnosis Chest pain/SOB: ACS ACS: Positive for no evidence of ACS based on cardiac biomarkers, EKG without ischemia and history not suggestive of ischemia pain, pneumonia Reason(s) pneumonia less likely: Positive for no elevation in WBC count, no noted fever and symptoms not consistent with acute infection, CHF and COPD Reason(s) COPD less likely: Positive for no significant wheezing on exam Critical Care Time Critical Care Time: Yes Critical care time (excluding procedures): 30-74 minutes (37), Discussing w/Patient &/or 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, Arranging Admission or Transfer and PerformingDirect Patient Care at Bedside Discharge Plan Triage Chief Complaint: Shortness of Breath ED Provider: Sunita Mckenna Dx/Rx/DC Orders Clinical Impression: Acute and chronic respiratory failure with hypoxia, Pulmonary fibrosis, Fluid overload Prescriptions: No Action omeprazole 20 mg capsule,delayed release(DR/EC) 20 mg PO DAILY multivitamin [Daily Multi-Vitamin] Tablet 1 tab PO DAILY guaifenesin [Mucus Relief ER] 1,200 mg tablet extended release 12hr 1,200 mg PO BID PRN (Reason: congestion) atorvastatin 40 mg tablet 40 mg PO QHS metoprolol succinate 50 mg tablet extended release 24 hr 50 mg PO DAILY aspirin [Adult Low Dose Aspirin] 81 mg tablet,delayed release (DR/EC) 81 mg PO DAILY Ofev 150 mg capsule 150 mg PO Q12H Rx Instructions: TAKE AT 0800 AND 2000 DAILY. losartan 25 mg tablet 25 mg PO DAILY Qty: 90 3RF albuterol sulfate [Ventolin HFA] 90 mcg/actuation HFA aerosol inhaler 2 puff INHALATION Q4H PRN (Reason: SHORTNESS OF BREATH/WHEEZNG ) Qty: 18 6RF prednisone 10 mg tablet 10 mg PO DAILY Qty: 30 3RF furosemide [Lasix] 40 mg tablet 40 mg PO DAILY PRN (Reason: edema) Qty: 10 0RF Patient Comments: HAS PRESCRIPTION, HAS NOT TAKEN YET Primary Care Provider: Nehemiah Flanagan Referrals: Nehemiah Flanagan MD [Primary Care Provider] - Disposition Disposition: Acute Care Hospital [facility] What to do if you have Problems For any increased pain, shortness of breath, bleeding, nausea or vomiting, chestpain, or any unexpected problems, contact your Primary Care Provider. Call [facility] ([phone]) or report to the closest Emergency Room. Call 911 if necessary. 12/01/23 1600 <Electronically signed by Sunita Mckenna DO> Cosigner Signature (if applicable): CC: Dr. Nehemiah Flanagan MD ~ Signed [facility] Work Phone: 1([phone] 478-551204-08-2024 Discharge summary Author Sunita [facility] December 01, 2023 4:00pm Note Date/Time December 01, 2023 3:01 pm [facility] Medical Records Department [address] [place] [address] Emergency Department Summary 12/01/23 MR#: [id number] Acct: [id number] Name: DU BACA Rep #:[id number] : 1950 73 From: Sunita Gamble PCP: Dr. Nehemiah Flanagan MD Status:REG ER Location: ED HPI History of Present Illness Chief Complaint: Shortness of Breath Informant: patient Narrative Narrative: Patient is a 73-year-old male with history of pulmonary hypertension and pulmonary fibrosis on 5 to 6 L of oxygen at baseline presenting with worsening shortness of breath. He has a history of pretty significant hypoxia with exertion however today apparently he had a particularly rough bowel movement and his O2 sats dropped to 70% and couldnt get his oxygen back up. He alsois at increased swelling of his legs since yesterday. Patient's been complaining of some increased nasal congestion and feeling congested over the past few weeks. Does not wear CPAP or BiPAP. Denies any change in his cough. Denies any chest pain. No other complaints or concerns at this time. [facility] Medical History Atherosclerosis of coronary artery bypass graft without angina pectoris Atherosclerosis of coronary artery of [place] heart without angina pectoris CKD (chronic kidney disease), stage III history of tick bite Hyperlipidemia Hypertension Kidney disease Kidney stones On home oxygen therapy Pneumonia Pulmonary fibrosis Pulmonary fibrosis Shortness of breath Smoker Home Medications losartan 25 mg tablet 25 mg PO DAILY BLOOD PRESSURE #90 tabs 04/06/21 [Rx Last Taken 09/24/23] albuterol sulfate 90 mcg/actuation aerosol inhaler (Ventolin HFA) 2 puff inhalation Q4H PRN SHORTNESS OF BREATH/WHEEZNG #18 grams 11/27/22 [Rx Last Taken 09/24/23] omeprazole 20 mg capsule,delayed release 20 mg PO DAILY ACID REFLUX 05/21/23 [History Last Taken 09/24/23] aspirin 81 mg tablet,delayed release (Adult Low Dose Aspirin) 81 mg PO DAILY HEART HEALTH 09/24/23 [History Last Taken 09/24/23] atorvastatin 40 mg tablet 40 mg PO QHS CHOLESTEROL 09/24/23 [History Last Taken 09/23/23] metoprolol succinate 50 mg tablet,extended release 24 hr 50 mg PO DAILY BLOOD PRESSURE 09/24/23 [History Last Taken 09/24/23] guaifenesin 1,200 mg tablet, extended release 12 hr (Mucus Relief ER) 1,200 mg PO BID PRN congestion 10/23/23 [History Last Taken Unknown] multivitamin (Daily Multi-Vitamin tablet) 1 tab PO DAILY 10/23/23 [History Last Taken Unknown] prednisone 10 mg tablet 10 mg PO DAILY #30 tabs 11/13/23 [Rx Last Taken Unknown] furosemide 40 mg tablet (Lasix) 40 mg PO DAILY PRN edema #10 tabs 11/26/23 [Rx Last Taken Unknown] nintedanib 150 mg capsule (Ofev) 150 mg PO Q12H 12/01/23 [History Last Taken Unknown] Allergy/AdvReac Type Severity Reaction Status Date / Time No Known Allergies Allergy Verified 10/23/23 11:00 Family History Mother Brain aneurysm Father CVA (cerebral vascular accident) Surgical History H/O coronary artery bypass surgery (1989) H/O hernia repair History of coronary artery stent placement History of left heart catheterization (01/02/16) Social History Smoking Status: Former smoker Tobacco: How many years used: 16 Smokeless tobacco user: chewing tobacco alcohol intake: current alcohol intake frequency: holidays/special occasions only Alcohol type: beer substance use type: does not use caffeine: Yes Type: coffee Number of servings: 5 ROS ROS ED Constitutional Constitutional ED: Denies chills or fever(s) ENT ENT ED: Reports other Details: congestion Cardiovascular Cardiovascular: Denies chest pain Respiratory/Chest Respiratory/Chest: Reports dyspnea and dyspnea on exertion; Denies sputum Gastrointestinal Gastrointestinal: Denies nausea or vomiting Musculoskeletal Musculoskeletal: Denies arthralgias or myalgias Integumentary Denies rash Neurologic Neurologic: Denies headache(s) Hematologic/Lymphatic Hematologic/Lymphatic: Denies easy bleeding or easy bruising EXAM Physical Exam Const Vital Signs: 12/01/23 13:26 12/01/23 13:30 12/01/23 13:30 Temperature 97 F L 97.8 F Temperature Source Temporal Temporal Pulse Rate 103 H 103 H 103 H Respiratory Rate 22 H 41 H 32 H Respiratory Effort Respiratory Pattern Blood Pressure 141/100 H 159/101 H 159/101 H Blood Pressure Mean 113 120 120 Pulse Ox 90 90 91 Oxygen Delivery Method Non-Rebreather Non-Rebreather Non-Rebreather Oxygen Flow Rate (L/min) 10 10 Fraction of Inspired Oxygen (FIO2) 12/01/23 13:32 12/01/23 14:19 12/01/23 14:25 Temperature Temperature Source Pulse Rate 102 H Respiratory Rate 28 H Respiratory Effort Short of Breath Labored Nasal Flaring Respiratory Pattern Tachypnea Blood Pressure 147/107 H Blood Pressure Mean 120 Pulse Ox 92 96 Oxygen Delivery Method Non-Rebreather Non-Rebreather Bi-pap Oxygen Flow Rate (L/min) 10 15 Fraction of Inspired Oxygen (FIO2) 100 12/01/23 15:00 12/01/23 14:19 12/01/23 14:38 Temperature Temperature Source Pulse Rate 103 H 105 H 99 Respiratory Rate 35 H 30 H 27 H Respiratory Effort Respiratory Pattern Tachypnea Blood Pressure 151/101 H Blood Pressure Mean 117 Pulse Ox 97 96 Oxygen Delivery Method Bi-pap Oxygen Flow Rate (L/min) Fraction of Inspired Oxygen (FIO2) 100 75 Positive well developed Constitutional Narrative: Patient appears to be in mild to moderate respiratory distress General Appearance ED: well developed HEENT Reports dry mucous membranes atraumatic Mouth ED: Yes dry mucous membranes Mouth: dry mucous membranes Eyes PERRL and EOMs intact bilaterally Neck supple and no JVD Resp Resp Narrative: Tachypneic. Diffuse crackles throughout. Decreased air movement. Increased work of breathing with use of accessory muscles Cardio regular rate and regular rhythm Extremity normal to inspection General Extremety ED: Yes edema General Extremity: edema Neuro oriented x3 Sensorium / Orientation: alert Motor Exam: general weakness Psych mental status grossly normal Skin no wounds MDM MDM MDM Narrative Medical decision making narrative: Patient evaluated for 1 day of worsening shortness of breath, increased work of breathing, hypoxia and increased lower extremity edema. Patient is on nonrebreather and is only 90%. Is given a DuoNeb with no improvement. ABG is consistent with compensated respiratory hypercapnia with hypoxia. Patient will be placed on a BiPAP due to his work of breathing. Patient appears intravascularly depleted but also mild fluid overloaded. Differential includes fluid overload, exacerbation pulmonary fibrosis, pneumoniaand reactive airway. Do not think this presentation is consistent with flash pulmonary edema. Chest x-ray shows cardiomegaly with dense interstitial opacities likely consistent with chronic changes left worse than right and possible superimposed interstitial edema/CHF. High since he troponin is mildly elevated at 34 but EKGis nonischemic. White blood cell count is normal. Viral panel still pending. I do think patient require admission for his increased acute on chronic respiratory distress. BNP is elevated. IV fluids are stopped and patient is given 40 mg IV Lasix. Patient is also given a dose of IV Solu-Medrol due to hisunderlying pulmonary fibrosis. He does not have a fever, leukocytosis or infectious symptoms so low suspicion for pneumonia. Will defer antibiotics at this time. Case discussed admitting physician, Dr. Landon and will be admitted to ICU. Lab Data Attestation: I reviewed the patient's lab results. Labs: Laboratory Results - last 24 hr 12/01/23 13:50 WBC 9.0 RBC 4.95 Hgb 13.9 Hct 45.6 MCV 92.1 MCH 28.1 MCHC 30.5 L RDW Std Deviation 54.3 H RDW Coeff of Breana 16.4 H Plt Count 186 MPV 11.9 Immature Gran % (Auto) 0.600 Neut % (Auto) 85.5 H Lymph % (Auto) 8.4 L Jerauld % (Auto) 3.9 Eos % (Auto) 1.2 Baso % (Auto) 0.4 Absolute Neuts (auto) 7.7 Absolute Lymphs (auto) 0.76 L Nucleated RBC % 0 Sodium 135 L Potassium 3.8 Chloride 94 L Carbon Dioxide 37.0 H Anion Gap 4 L BUN 23 H Creatinine 1.02 Estim Creat Clear Calc 76.74 Est GFR (MDRD) Af Amer 91 Est GFR (MDRD) Non-Af 76 BUN/Creatinine Ratio 22.5 H Glucose 124 H Calcium 9.3 Troponin I High Sens 34 B-Natriuretic Peptide 720.5 H ABG Data ABG results: ABG 12/01/23 14:08 Specimen Type ART Sample Site L Brach pH 7.41 Bicarbonate Actual 36.0 H Total CO2 38 Base Excess 11 H O2 Saturation 96 O2 % 15.0 ABG pCO2 57.3 H ABG pO2 86 O2 Delivery Device NRB Vent Mode Not entered Radiography Chest X-Ray - ED: 1 View, Chronic Changes and CHF Diagnostic Testing: Clinical Impression(s) from Imaging Studies Chest X-Ray 12/01/23 14:25 IMPRESSION: Cardiomegaly, low volume to the lung smith, diffuse reticulonodular and interstitial opacities and patchy parenchymal opacities in both bases, left greater than right. Findings may represent a combination of interstitial fibrosis and interstitial edema/congestive failure. Follow-up chest imaging to resolution recommended. Electronically Signed: Brian Hicks MD at 14:42 EDT Reading Location ID and State: [address] [place] [address] , Service support , Rhythm Strip Rhythm Strip: Sinus Rhythm Rate: 99 Ectopy: None EKG Initial EKG: Attestation: I personally reviewed and interpreted this EKG as follows: Interpretation: Sinus Rhythm Comments: Normal sinus rhythm rate of 90 bpm Normal axis Normal intervals Normal ST segments Differential Diagnosis Chest pain/SOB: ACS ACS: Positive for no evidence of ACS based on cardiac biomarkers, EKG without ischemia and history not suggestive of ischemia pain, pneumonia Reason(s) pneumonia less likely: Positive for no elevation in WBC count, no noted fever and symptoms not consistent with acute infection, CHF and COPD Reason(s) COPD less likely: Positive for no significant wheezing on exam Critical Care Time Critical Care Time: Yes Critical care time (excluding procedures): 30-74 minutes (37), Discussing w/Patient &/or 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, Arranging Admission or Transfer and PerformingDirect Patient Care at Bedside Discharge Plan Triage Chief Complaint: Shortness of Breath ED Provider: Sunita Mckenna Dx/Rx/DC Orders Clinical Impression: Acute and chronic respiratory failure with hypoxia, Pulmonary fibrosis, Fluid overload Prescriptions: No Action omeprazole 20 mg capsule,delayed release(DR/EC) 20 mg PO DAILY multivitamin [Daily Multi-Vitamin] Tablet 1 tab PO DAILY guaifenesin [Mucus Relief ER] 1,200 mg tablet extended release 12hr 1,200 mg PO BID PRN (Reason: congestion) atorvastatin 40 mg tablet 40 mg PO QHS metoprolol succinate 50 mg tablet extended release 24 hr 50 mg PO DAILY aspirin [Adult Low Dose Aspirin] 81 mg tablet,delayed release (DR/EC) 81 mg PO DAILY Ofev 150 mg capsule 150 mg PO Q12H Rx Instructions: TAKE AT 0800 AND 2000 DAILY. losartan 25 mg tablet 25 mg PO DAILY Qty: 90 3RF albuterol sulfate [Ventolin HFA] 90 mcg/actuation HFA aerosol inhaler 2 puff INHALATION Q4H PRN (Reason: SHORTNESS OF BREATH/WHEEZNG ) Qty: 18 6RF prednisone 10 mg tablet 10 mg PO DAILY Qty: 30 3RF furosemide [Lasix] 40 mg tablet 40 mg PO DAILY PRN (Reason: edema) Qty: 10 0RF Patient Comments: HAS PRESCRIPTION, HAS NOT TAKEN YET Primary Care Provider: Nehemiah Flanagan Referrals: Nehemiah Flanagan MD [Primary Care Provider] - Disposition Disposition: Acute Care Hospital [facility] What to do if you have Problems For any increased pain, shortness of breath, bleeding, nausea or vomiting, chestpain, or any unexpected problems, contact your Primary Care Provider. Call [facility] ([phone]) or report to the closest Emergency Room. Call 911 if necessary. 12/01/23 1600 <Electronically signed by Sunita Mckenna DO> Cosigner Signature (if applicable): CC: Dr. Nehemiah Flanagan MD ~ Signed [facility] Work Phone: 1(811) 135-601103-01-2024 Procedure [facility] 09-26-2023 Consult note [facility] September 26, 2023 10:57am Note Date/Time September 26, 2023 1 0:57am [facility] Medical Records Department [address] [place] [address] Counseling Note - Pharmacy 09/26/23 1056 MR#: [id number] Acct: [id number] Name: DU BACA Rep #:[id number] : 1950 73 From: Estrella Ang PCP: Dr. Nehemiah Flanagan MD Status:ADM IN Location: [place] [address] Pharmacy [facility] has performed discharge medication reconciliation and counseling for this patient. The patient's discharge medication list was reviewed for discrepancies and discrepancies were resolved. The patient was counseled on the following discharge medications and changes in medications for homegoing were reviewed. 1. LEVAQUIN 2. PREDNISONE The Reason for Use, instructions for use, and potential side effects were reviewed for all new medications. The patient's questions regarding all of their medications were answered. The patient/ family was able to verbally demonstrate an understanding of their discharge medications. Medications at Discharge Home Medications losartan 25 mg tablet 25 mg PO DAILY BLOOD PRESSURE #90 tabs 04/06/21 albuterol sulfate 90 mcg/actuation aerosol inhaler (Ventolin HFA) 2 puff inhalation Q4H PRN SHORTNESS OF BREATH/WHEEZNG #18 grams 11/27/22 omeprazole 20 mg capsule,delayed release 20 mg PO DAILY ACID REFLUX 05/21/23 aspirin 81 mg tablet,delayed release (Adult Low Dose Aspirin) 81 mg PO DAILY HEART HEALTH 09/24/23 atorvastatin 40 mg tablet 40 mg PO QHS CHOLESTEROL 09/24/23 metoprolol succinate 50 mg tablet,extended release 24 hr 50 mg PO DAILY BLOOD PRESSURE 09/24/23 guaifenesin 1,200 mg tablet, extended release 12 hr (Mucus Relief ER) 1,200 mg PO BID #10 tabs 09/26/23 levofloxacin 750 mg tablet 750 mg PO DAILY #7 tabs 09/26/23 prednisone 10 mg tablet 10 mg PO DAILY #30 tabs 09/26/23 09/26/23 1057 <Electronically signed by Estrella Ang > Date _ Estrella Antonioigncorie Signature (if applicable): Date CC: ~ Signed [facility] Work Phone: 1(143) 198-711102-02-2024 Discharge summary Author Martin Clemens [facility] September 26, 2023 10:39am Note Date/Time September 26, 2023 1 0:35am [facility] Medical Records Department [address] [place] [address] Discharge Summary 09/26/23 1033 MR#: [id number] Acct: [id number] Name: DU BACA Rep #:[id number] : 1950 73 From: Martin Clemens DO PCP: Dr. Nehemiah Flanagan MD Status:ADM IN Location: [place] [id number] Providers Date of Admission: 09/24/23 Date of Discharge: 09/26/23 Primary Care Physician: Dr. Nehemiah Flanagan MD Reason For Visit: HYPOXIA Diagnosis Discharge Diagnosis (1) Hypoxemia: Status: Acute Code(s): R09.02 - Hypoxemia (2) Pulmonary fibrosis: Status: Acute Code(s): J84.10 - Pulmonary fibrosis, unspecified Plan Acute exacerbation of pulmonary fibrosis * CXR reviewed and shows chronic changes in lungs bilatearlly. * COVID/flu/RSV/resp panel negative * PEP * Prednisone taper. Levofloxacin. * Patient required oxygen at home with up to 6 L with activity. Patient is ambulatory in the home and community and requires home oxygen with portability. Chronic conditions: * Hx CAD s/p bypass in 1989-Continue aspirin, statin, beta-hermann * HTN-Continue beta-hermann, slight bump in creatinine so we will hold losartan at this time * CKD unclear subtype-Slight elevation in creatinine but does not meet criteria for DAISHA, monitor daily BMP * GERD-Continue PPI * Tobacco use-Chews tobacco occasionally, advise cessation-Nicotine replacement available if desired DVT ppx: Heparin subcu DW pt's and son at bedside. Medications at Discharge Home Medications losartan 25 mg tablet 25 mg PO DAILY BLOOD PRESSURE #90 tabs 04/06/21 albuterol sulfate 90 mcg/actuation aerosol inhaler (Ventolin HFA) 2 puff inhalation Q4H PRN SHORTNESS OF BREATH/WHEEZNG #18 grams 11/27/22 omeprazole 20 mg capsule,delayed release 20 mg PO DAILY ACID REFLUX 05/21/23 aspirin 81 mg tablet,delayed release (Adult Low Dose Aspirin) 81 mg PO DAILY HEART HEALTH 09/24/23 atorvastatin 40 mg tablet 40 mg PO QHS CHOLESTEROL 09/24/23 metoprolol succinate 50 mg tablet,extended release 24 hr 50 mg PO DAILY BLOOD PRESSURE 09/24/23 guaifenesin 1,200 mg tablet, extended release 12 hr (Mucus Relief ER) 1,200 mg PO BID #10 tabs 09/26/23 levofloxacin 750 mg tablet 750 mg PO DAILY #7 tabs 09/26/23 prednisone 10 mg tablet 10 mg PO DAILY #30 tabs 09/26/23 Hospital Course Operations None Procedures None Summary of Care Provided Minutes Spent on Discharge: 40 Hospital Course: Patient presents with shortness of breath and hypoxia. Workup was unremarkable but the patient overall did well. Patient required up to 6 L of oxygen with activity. Is due to an exacerbation of his idiopathic pulmonary fibrosis. Patient will be discharged on prednisone taper as well as 70 course of levofloxacin. Patient to follow-up with pulmonary office. Patient improved faster than anticipated. Weight / BMI Weight Weight: 101.1 kg Body Mass Index (BMI) 31.9 ABG / Lab / Microbiology Data 09/25/23 07:20 09/25/23 07:20 Microbiology: Microbiology 09/24/23 17:25 Mucosa - Nasopharyngeal Respiratory Panel (PCR) - Final 09/24/23 12:00 Mucosa - Nasopharyngeal SARS-CoV-2, Influenza & RSV (PCR) - Final Radiography Diagnostic Testing: Radiology Impression Echocardiogram 09/24/23 18:10 Interpretation Summary The estimated ejection fraction is 60 %. D shaped septum in systole and diastole. Moderately dilated right ventricle. Mild global right ventricular systolic dysfunction. The left atrium is mildly enlarged. Mild (1+) tricuspid valve insufficiency. Mild pulmonary hypertension. Aortic sclerosis, no stenosis. Mild aortic insufficiency Mild atherosclerosis of the ascending aorta. Ordering Physician: Muna Bowers Referring Physician: Nehemiah Flanagan Performed By: Maximilian Morin RCS D/C Instructions Discharge Diet: No restrictions Discharge Activity: - (Slowly ease back into your normal routine.) Meaningful Use Info Meaningful Use Diagnoses (Choose all that apply): None applicable Discharge Plan Admission Admit Date/Time: 09/24/23 15:16 Primary Reason for Your Visit: Acute exacerbation of pulmonary fibrosis. Attending Provider: Martin Clemens Primary Care Provider: Nehemiah Flanagan Consulting Providers: Muna Bowers Instructions Additional Instructions / Restrictions: You had an exacerbation of your pulmonary fibrosis. The source of which is not identified. You will be on a course of prednisone will be weaned over time. Also complete a course of antibiotics. Notify physician if you are feeling worse or not getting better over the coming weeks. Discharge Orders/Prescriptions Prescriptions: New guaifenesin [Mucus Relief ER] 1,200 mg Tablet Extended Release 12hr 1,200 mg PO BID Qty: 10 0RF prednisone 10 mg tablet 10 mg PO DAILY Qty: 30 0RF Rx Instructions: 4 tabs daily for 3 days, then 3 tabs daily for 3 days, then 2 tabs daily for 3 days, then 1 tab daily for 3 days levofloxacin 750 mg tablet 750 mg PO DAILY Qty: 7 0RF Continued omeprazole 20 mg capsule,delayed release(DR/EC) 20 mg PO DAILY atorvastatin 40 mg tablet 40 mg PO QHS metoprolol succinate 50 mg tablet extended release 24 hr 50 mg PO DAILY aspirin [Adult Low Dose Aspirin] 81 mg tablet,delayed release (DR/EC) 81 mg PO DAILY losartan 25 mg tablet 25 mg PO DAILY Qty: 90 3RF albuterol sulfate [Ventolin HFA] 90 mcg/actuation HFA aerosol inhaler 2 puff INHALATION Q4H PRN (Reason: SHORTNESS OF BREATH/WHEEZNG ) Qty: 18 6RF Referrals / Follow Up: [facility] [Provider Group] - Within 1 Month Nehemiah Flanagan MD [Primary Care Provider] - Within 2 Weeks Disposition Disposition (needs filled in before D/C Order can be placed): Home, Self Care Charges/Coding Visit Charges Inpatient E&M: 34535 Disch Hosp >30min 09/26/23 1039 <Electronically signed by Martin Clemens DO> Cosigner Signature (if applicable): CC: Dr. Martin Clemens DO; Dr. Nehemiah Flanagan MD~ Signed [facility] Work Phone: 1(225) 936-346302-02-2024 Progress note Author Martin Clemens [facility] September 26, 2023 10:32am Note Date/Time September 26, 2023 8 :41am [facility] Medical Records Department [address] [place] [address] Progress Note - Hospitalist 09/26/23840 MR#: [id number] Acct: [id number] Name: DU BACA Rep #:[id number] : 1950 73 From: Martin Clemens DO PCP: Dr. Nehemiah Flanagan MD Status:ADM IN Location: [place] [address] Subjective Subjective Breathing welll. Anxious to go home. Objective Data Objective Data Vital Signs: Vital Signs Temp Pulse Resp BP Pulse Ox O2 Del Method O2 Flow Rate 36.6 C 62 17 111/76 95 Nasal Cannula 2 09/26/23 02:00 09/26/23 07:51 09/26/23 07:51 09/26/23 02:00 09/26/23 07:51 09/26/23 07:51 09/26/23 07:51 Oxygen Flow Rate (L/min) [ 4 AMBULATING with Oxygen #2] Oxygen Flow Rate (L/min) [ 2 AMBULATING with Oxygen #1] Oxygen Flow Rate (L/min) [At 2 REST with Oxygen] Oxygen Flow Rate (L/min) 2 Oxygen Delivery Method Nasal Cannula Weight: 101.1 kg Body Mass Index (BMI) 31.9 Intake & Output: Intake and Output for Last 24 Hours 09/24/23 09/25/23 09/26/23 23:59 23:59 23:59 Intake Total 837.5 / 837.5 Output Total 0 / 0 0 / 0 Balance 837.5 / 837.5 Lab / Micro Data 09/25/23 07:20 09/25/23 07:20 Micro: Microbiology 09/24/23 17:25 Mucosa - Nasopharyngeal Respiratory Panel (PCR) - Final 09/24/23 12:00 Mucosa - Nasopharyngeal SARS-CoV-2, Influenza & RSV (PCR) - Final Radiography Diagnostic Testing: Radiology Impression Echocardiogram 09/24/23 18:10 Interpretation Summary The estimated ejection fraction is 60 %. D shaped septum in systole and diastole. Moderately dilated right ventricle. Mild global right ventricular systolic dysfunction. The left atrium is mildly enlarged. Mild (1+) tricuspid valve insufficiency. Mild pulmonary hypertension. Aortic sclerosis, no stenosis. Mild aortic insufficiency Mild atherosclerosis of the ascending aorta. Ordering Physician: Muna Bowers Referring Physician: Nehemiah Flanagan Performed By: Maximilian Morin RCS Physical Exam Const alert and no apparent distress HEENT head/scalp atraumatic and moist oral mucous membranes Resp Resp Narrative: crackles bilaterally. Cardio regular rate, regular rhythm, S1 normal heart sound and S2 normal heart sound GI normal to inspection, nondistended, normoactive bowel sounds and soft to palpation Assessment & Plan Assessment/Plan (1) Hypoxemia: (2) Pulmonary fibrosis: PLAN: Plan Acute exacerbation of pulmonary fibrosis * CXR reviewed and shows chronic changes in lungs bilatearlly. * COVID/flu/RSV/resp panel negative * PEP * Prednisone taper. Levofloxacin. * Patient required oxygen at home with up to 6 L with activity. Patient is ambulatory in the home and community and requires home oxygen with portability. Chronic conditions: * Hx CAD s/p bypass in 1989-Continue aspirin, statin, beta-hermann * HTN-Continue beta-hermann, slight bump in creatinine so we will hold losartan at this time * CKD unclear subtype-Slight elevation in creatinine but does not meet criteria for DAISHA, monitor daily BMP * GERD-Continue PPI * Tobacco use-Chews tobacco occasionally, advise cessation-Nicotine replacement available if desired DVT ppx: Heparin subcu DW pt's and son at bedside. 09/26/23 1032 <Electronically signed by Martin Clemens DO> Cosigner Signature (if applicable): CC: ~ Signed [facility] Work Phone: 1(636) 984-837502-01-2024 Progress note Author Martin Clemens [facility] September 25, 2023 1:47pm Note Date/Time September 25, 2023 9 :01am [facility] Medical Records Department [address] [place] [address] Progress Note - Hospitalist 09/25/23 0856 MR#: [id number] Acct: [id number] Name: DU BACA Rep #:[id number] : 1950 73 From: Martin Clemens DO PCP: Dr. Nehemiah Flanagan MD Status:ADM IN Location: [place] [address] Subjective Subjective Short of breath with activity. Objective Data Objective Data Vital Signs: Vital Signs Temp Pulse Resp BP Pulse Ox O2 Del Method O2 Flow Rate 36.5 C L 79 16 117/70 94 Nasal Cannula 2 09/25/23 08:10 09/25/23 08:13 09/25/23 08:10 09/25/23 08:13 09/25/23 08:10 09/25/23 08:27 09/25/23 08:27 Oxygen Flow Rate (L/min) 2 Oxygen Delivery Method Nasal Cannula Weight: 99.2 kg Body Mass Index (BMI) 31.4 Intake & Output: Intake and Output for Last 24 Hours 09/23/23 09/24/23 09/25/23 23:59 23:59 23:59 Intake Total 837.5 / 837.5 Output Total 0 / 0 Balance 837.5 / 837.5 Lab / Micro Data 09/25/23 07:20 09/25/23 07:20 Labs: Laboratory Results - last 24 hr 09/24/23 10:50: WBC 10.4, RBC 5.43, Hgb 15.6, Hct 49.5, MCV 91.2, MCH 28.7, MCHC31.5 L, RDW Std Deviation 46.1 H, RDW Coeff of Breana 13.8, Plt Count 222, MPV 10.2, Immature Gran % (Auto) 0.600, Neut % (Auto) 77.6 H, Lymph % (Auto) 13.7 L,[place] % (Auto) 5.6, Eos % (Auto) 1.8, Baso % (Auto) 0.7, Absolute Neuts (auto) 8.1 H, Absolute Lymphs (auto) 1.43, Nucleated RBC % 0, D-Dimer Quant (PE/DVT) 0.49, Sodium 139, Potassium 3.6, Chloride 107, Carbon Dioxide 28.0, Anion Gap 4 L, BUN 15, Creatinine 1.37 H, Estim Creat Clear Calc 55.33, Est GFR (MDRD) Af Amer 65, Est GFR (MDRD) Non-Af 54 L, BUN/Creatinine Ratio 10.9, Glucose 153 H, Calcium 9.6, Troponin I High Sens 25, B-Natriuretic Peptide 262.7 H 09/24/23 12:03: Lactic Acid 1.3 09/24/23 15:52: Procalcitonin < 0.04 09/25/23 07:20: WBC 12.8 H, RBC 4.99, Hgb 14.5, Hct 45.1, MCV 90.4, MCH 29.1, MCHC 32.2, RDW Std Deviation 45.2 H, RDW Coeff of Breana 13.6, Plt Count 226, MPV 10.6, Immature Gran % (Auto) 0.700, Neut % (Auto) 90.3 H, Lymph % (Auto) 7.1 L, [place] % (Auto) 1.8, Eos % (Auto) 0.0, Baso % (Auto) 0.1, Absolute Neuts (auto) 11.5 H, Absolute Lymphs (auto) 0.91, Nucleated RBC % 0, Sodium 136, Potassium 4.4, Chloride 107, Carbon Dioxide 24.0, Anion Gap 5, BUN 26 H, Creatinine 1.07, Estim Creat Clear Calc 70.43, Est GFR (MDRD) Af Amer 87, Est GFR (MDRD) Non-Af 72, BUN/Creatinine Ratio 24.3 H, Glucose 146 H, Calcium 9.2, Magnesium 2.2, Total Bilirubin 0.80, AST 16, ALT 25, Alkaline Phosphatase 92, Total Protein 7.1, Albumin 2.6 L, Globulin 4.5 H, Albumin/Globulin Ratio 0.6 L, TSH 0.50 Micro: Microbiology 09/24/23 17:25 Mucosa - Nasopharyngeal Respiratory Panel (PCR) - Final 09/24/23 12:00 Mucosa - Nasopharyngeal SARS-CoV-2, Influenza & RSV (PCR) - Final Radiography Diagnostic Testing: Radiology Impression Chest X-Ray 09/24/23 12:25 IMPRESSION: 1. Diffuse chronic interstitial lung disease. 2. Cardiomegaly. Electronically Signed: Gonzales Sequeira MD at 13:03 EST Reading Location ID and State: [facility] / [place] Tel , Service support , Physical Exam Const alert and no apparent distress HEENT head/scalp atraumatic and moist oral mucous membranes Resp Resp Narrative: bilateral crackles. Cardio regular rate, regular rhythm, S1 normal heart sound and S2 normal heart sound GI normal to inspection, nondistended, normoactive bowel sounds and soft to palpation Neuro Sensorium / Orientation: awake and alert Assessment & Plan Assessment/Plan (1) Hypoxemia: (2) Pulmonary fibrosis: PLAN: Plan Acute exacerbation of pulmonary fibrosis * CXR reviewed and shows chronic changes in lungs bilatearlly. * COVID/flu/RSV/resp panel negative * PEP * steroids. * Wean oxygen as tolerated. Chronic conditions: * Hx CAD s/p bypass in 1989-Continue aspirin, statin, beta-hermann * HTN-Continue beta-hermann, slight bump in creatinine so we will hold losartan at this time * CKD unclear subtype-Slight elevation in creatinine but does not meet criteria for DAISHA, monitor daily BMP * GERD-Continue PPI * Tobacco use-Chews tobacco occasionally, advise cessation-Nicotine replacement available if desired DVT ppx: Heparin subcu DW pt's and dtr at bedside. Charges/Coding Visit Charges Inpatient E&M: 87172 Subs Hosp L2 09/25/23 1340 <Electronically signed by Martin Clemens DO> Cosigner Signature (if applicable): CC: ~ Signed [facility] Work Phone: [phone]) 363-566101-31-2024 Discharge summary Author Key Christiansanti [facility] September 24, 2023 3:54pm Note Date/Time September 24, 2023 1 1:44am [facility] Medical Records Department [address] [place] [address] Emergency Department Summary 09/24/23 MR#: [id number] Acct: [id number] Name: DU BACA Rep #:[id number] : 1950 73 From: Key Dent DO PCP: Dr. Nehemiah Flanagan MD Status:REG ER Location: ED HPI History of Present Illness Chief Complaint: Shortness of Breath Detail of Chief Complaint: Shortness of breath Informant: patient Narrative Narrative: Patient presents with worsening shortness of breath mostly dyspnea starting thismorning. Patient states he is kind of been feeling weak and no energy for about5 days. Patient denies any chest discomfort. Denies recent travel or surgery. He does have history of pulmonary fibrosis. His states that his O2 sat wasdown to 85% at home. He is not on home O2. He has a chronic cough. Patient with history of pulmonary fibrosis. He states that he had pneumonia several months ago. 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 He denies any fevers or chills or sweats. Denies exposures to other ill individuals. [facility] Medical History Atherosclerosis of coronary artery bypass graft without angina pectoris Atherosclerosis of coronary artery of [place] heart without angina pectoris CKD (chronic kidney disease), stage III history of tick bite Hyperlipidemia Kidney disease Pneumonia Pulmonary fibrosis Shortness of breath Home Medications losartan 25 mg tablet 25 mg PO DAILY BLOOD PRESSURE #90 tabs 04/06/21 [Rx Last Taken 09/24/23] albuterol sulfate 90 mcg/actuation aerosol inhaler (Ventolin HFA) 2 puff inhalation Q4H PRN SHORTNESS OF BREATH/WHEEZNG #18 grams 11/27/22 [Rx Last Taken 09/24/23] omeprazole 20 mg capsule,delayed release 20 mg PO DAILY ACID REFLUX 05/21/23 [History Last Taken 09/24/23] aspirin 81 mg tablet,delayed release (Adult Low Dose Aspirin) 81 mg PO DAILY HEART HEALTH 09/24/23 [History Last Taken 09/24/23] atorvastatin 40 mg tablet 40 mg PO QHS CHOLESTEROL 09/24/23 [History Last Taken 09/23/23] metoprolol succinate 50 mg tablet,extended release 24 hr 50 mg PO DAILY BLOOD PRESSURE 09/24/23 [History Last Taken 09/24/23] Allergy/AdvReac Type Severity Reaction Status Date / Time No Known Allergies Allergy Verified 09/24/23 10:36 Family History Mother Brain aneurysm Father CVA (cerebral vascular accident) Surgical History H/O coronary artery bypass surgery (1989) H/O hernia repair History of left heart catheterization (01/02/16) Social History Smoking Status: Former smoker Tobacco: How many years used: 16 Smokeless tobacco user: chewing tobacco alcohol intake: current alcohol intake frequency: holidays/special occasions only Alcohol type: beer substance use type: does not use caffeine: Yes Type: coffee Number of servings: 5 ROS ROS ED Review of Systems ROS Unobtainable: other Constitutional Constitutional ED: Reports lethargy; Denies chills, fever(s), sweats or weight loss Eyes Eyes: Denies blurry vision, change in vision or diplopia ENT ENT ED: Denies rhinorrhea or sore throat Cardiovascular Cardiovascular: Denies chest pain, orthopnea or racing heartbeat Respiratory/Chest Respiratory/Chest: Reports cough, dyspnea and dyspnea on exertion; Denies orthopnea or sputum Gastrointestinal Gastrointestinal: Denies abdominal pain, diarrhea, nausea or vomiting Genitourinary Genitourinary ED: Denies dysuria, hematuria or urinary frequency Musculoskeletal Musculoskeletal: Denies arthralgias, back pain, myalgias or neck pain Integumentary Denies abscess, Abrasions or rash Neurologic Neurologic: Reports weakness; Denies headache(s) Psychiatric Psychiatric: Denies anxiety, depression or suicidal thoughts Endocrine Endocrinology: Denies polydipsia, polyphagia or polyuria Hematologic/Lymphatic Hematologic/Lymphatic: Denies easy bleeding, easy bruising or lymphadenopathy Allergic/Immunologic Allergic/Immunologic ED: Denies mouth swelling, tongue swelling or urticaria EXAM Physical Exam Const Vital Signs: 09/24/23 10:38 09/24/23 11:29 09/24/23 11:30 Temperature 98.3 F Temperature Source Temporal Pulse Rate 98 82 Respiratory Rate 20 H 16 16 Respiratory Effort Respiratory Pattern Blood Pressure 128/75 H 143/88 H Blood Pressure Mean 92 106 Pulse Ox 86 98 98 Oxygen Delivery Method Room Air Nasal Cannula Nasal Cannula Oxygen Flow Rate (L/min) 2 2 09/24/23 11:31 09/24/23 11:31 09/24/23 11:55 Temperature Temperature Source Pulse Rate Respiratory Rate Respiratory Effort Short of Breath Respiratory Pattern Normal Blood Pressure Blood Pressure Mean Pulse Ox Oxygen Delivery Method Nasal Cannula Nasal Cannula Nasal Cannula Oxygen Flow Rate (L/min) 2 09/24/23 12:08 09/24/23 12:08 09/24/23 13:33 Temperature Temperature Source Pulse Rate 73 76 Respiratory Rate 14 13 Respiratory Effort Respiratory Pattern Normal Blood Pressure 143/88 H Blood Pressure Mean 106 Pulse Ox 96 99 Oxygen Delivery Method Nasal Cannula Nasal Cannula Oxygen Flow Rate (L/min) 3 2 09/24/23 13:33 09/24/23 15:00 Temperature 97.2 F L Temperature Source Temporal Pulse Rate 80 74 Respiratory Rate 18 16 Respiratory Effort Respiratory Pattern Blood Pressure 143/88 H 137/98 H Blood Pressure Mean 106 111 Pulse Ox 93 96 Oxygen Delivery Method Nasal Cannula Oxygen Flow Rate (L/min) 2 Positive well nourished and well developed General Appearance ED: well developed and NAD HEENT Reports TM's clear and moist mucous membranes normocephalic and atraumatic; Negative for trauma or tenderness Tympanic Membrane ED: Yes TM's clear Eyes PERRL and EOMs intact bilaterally General Eye ED: Negative for pale conjunctiva or scleral icterus Neck no lymphadenopathy, supple and no JVD General: Negative for tenderness Chest Wall inspection of chest normal and palpation of chest normal Chest: Negative for tenderness Resp normal respiratory effort and clear to auscultation bilaterally Resp Narrative: No significant tachypnea or conversational dyspnea. No accessory muscle use or retractions. He does have Rales and some faint expiratory wheezes. Effort and Inspection: Negative for respiratory distress or pain with movement Auscultation: rales and wheezes; Negative for rhonchi or diminished lung sounds Cardio regular rate, regular rhythm, S1 normal heart sound, S2 normal heart sound and no murmurs Peripheral Pulses: pulses 2+ throughout GI normal to inspection, nondistended, normoactive bowel sounds, soft to palpation,non-tender, non-distended and no masses Back/Spine no CVA tenderness and no thoracic nor lumbar tenderness Extremity normal to inspection General Extremety ED: Negative for edema General Extremity: Negative for edema Neuro oriented x3, CN's II-XII intact bilaterally, no sensory deficits noted and gait normal Sensorium / Orientation: awake, alert, oriented to person, oriented to place andoriented to time Motor Exam: strength 5/5 throughout and strength abnormal Psych mental status grossly normal Skin no rashes or lesions noted and no wounds MDM MDM MDM Narrative Medical decision making narrative: Patient presents to the emergency department with dyspnea and hypoxemia today. Patient has been feeling weak with no energy for about 5 days. He has history of pulmonary fibrosis. He does not wear home O2. IV line established and patient placed on a patient service representative. Patient placed on 2 L nasal cannula O2. EKG obtained showed sinus rhythm with rate of [address] changes. CBC with differential count of 10.4 with hemoglobin 15.6 and platelet count of 222. Chemistries unremarkable. Lactate normal at 1.3. D-dimer normalat 0.49. Chest x-ray showed chronic changes related to his chronic lung diseaseof pulmonary fibrosis. Lab Data Attestation: I reviewed the patient's lab results. Labs: Laboratory Results - last 24 hr 09/24/23 09/24/23 10:50 12:03 WBC 10.4 RBC 5.43 Hgb 15.6 Hct 49.5 MCV 91.2 MCH 28.7 MCHC 31.5 L RDW Std Deviation 46.1 H RDW Coeff of Breana 13.8 Plt Count 222 MPV 10.2 Immature Gran % (Auto) 0.600 Neut % (Auto) 77.6 H Lymph % (Auto) 13.7 L Jerauld % (Auto) 5.6 Eos % (Auto) 1.8 Baso % (Auto) 0.7 Absolute Neuts (auto) 8.1 H Absolute Lymphs (auto) 1.43 Nucleated RBC % 0 D-Dimer Quant (PE/DVT) 0.49 Sodium 139 Potassium 3.6 Chloride 107 Carbon Dioxide 28.0 Anion Gap 4 L BUN 15 Creatinine 1.37 H Estim Creat Clear Calc 55.33 Est GFR (MDRD) Af Amer 65 Est GFR (MDRD) Non-Af 54 L BUN/Creatinine Ratio 10.9 Glucose 153 H Lactic Acid 1.3 Calcium 9.6 Troponin I High Sens 25 Radiography Diagnostic Testing: Clinical Impression(s) from Imaging Studies Chest X-Ray 09/24/23 12:25 IMPRESSION: 1. Diffuse chronic interstitial lung disease. 2. Cardiomegaly. Electronically Signed: Gonzales Sequeira MD at 13:03 EST Reading Location ID and State: [facility] / [place] Tel , Service support , 1 view chest x-ray obtained interpreted by myself as chronic interstitial changes without evidence of infiltrate or pneumothorax or acute disease process. Radiology in agreement. Radiology also noted cardiomegaly. EKG Initial EKG: Attestation: I personally reviewed and interpreted this EKG as follows: Comments: Sinus rhythm with rate of [address] changes Discharge Plan Dx/Rx/DC Orders Clinical Impression: Dyspnea, Pulmonary fibrosis, Hypoxemia Disposition Disposition: Acute Care Hospital [facility] What to do if you have Problems For any increased pain, shortness of breath, bleeding, nausea or vomiting, chestpain, or any unexpected problems, contact your Primary Care Provider. Call [facility] ([phone]) or report to the closest Emergency Room. Call 911 if necessary. 09/24/23 1554 <Electronically signed by Key Dent DO> Cosigner Signature (if applicable): CC: Dr. Nehemiah Flanagan MD ~ Signed [facility] Work Phone: [phone]) 284-829201-31-2024 History and physical note Author Muna Bowers [facility] September 24, 2023 3:24pm Note Date/Time September 24, 2023 3 :24pm [facility] Medical Records Department [address] [place] [address] H&P Exam - Hospitalist 09/24/23 1516 MR#: [id number] Acct: [id number] Name: DU BACA Rep #:[id number] : 1950 73 From: Muna Bowers MD PCP: Dr. Nehemiah Flanagan MD Status:REG ER Location: ED HPI - General General Date of Admission: 09/24/23 Date of Service: 09/24/23 Chief Complaint: SOB HPI Narrative DU BACA, is a 73M history of CKD stage III unclear subtype, CAD w/ bypass,hypertension, pulmonary fibrosis, GERD who presented to [facility] 09/24/2023 with shortness of breath that mostly started this morning andhas been somewhat weak with lack of energy for about 5 days. His O2 sat was 85%at home and he is not on home O2. Does follow with pulmonology. In the ED patient had x- ray that showed diffuse chronic interstitial lung disease and cardiomegaly. D-dimer 0.49, patient given steroids and DuoNebs and placed on O2and hospitalist contacted for admission. Patient evaluated at bedside with wifepresent and reports that he has been short of breath for 3 months since he had pneumonia however the past 3 days he has had increased shortness of breath with some intermittent cough, has not really cough today however in last coughed yesterday morning, has a chronic scratchy throat, no chest pain, no fevers, denies any other specific complaints at this time aside from his increasing shortness of breath for the past 3 days. [facility] Medical History Atherosclerosis of coronary artery bypass graft without angina pectoris Atherosclerosis of coronary artery of [place] heart without angina pectoris CKD (chronic kidney disease), stage III history of tick bite Hyperlipidemia Kidney disease Pneumonia Pulmonary fibrosis Shortness of breath Home Medications losartan 25 mg tablet 25 mg PO DAILY BLOOD PRESSURE #90 tabs 04/06/21 [Rx Last Taken 09/24/23] albuterol sulfate 90 mcg/actuation aerosol inhaler (Ventolin HFA) 2 puff inhalation Q4H PRN SHORTNESS OF BREATH/WHEEZNG #18 grams 11/27/22 [Rx Last Taken 09/24/23] omeprazole 20 mg capsule,delayed release 20 mg PO DAILY ACID REFLUX 05/21/23 [History Last Taken 09/24/23] aspirin 81 mg tablet,delayed release (Adult Low Dose Aspirin) 81 mg PO DAILY HEART HEALTH 09/24/23 [History Last Taken 09/24/23] atorvastatin 40 mg tablet 40 mg PO QHS CHOLESTEROL 09/24/23 [History Last Taken 09/23/23] metoprolol succinate 50 mg tablet,extended release 24 hr 50 mg PO DAILY BLOOD PRESSURE 09/24/23 [History Last Taken 09/24/23] Allergy/AdvReac Type Severity Reaction Status Date / Time No Known Allergies Allergy Verified 09/24/23 10:36 Family History Mother Brain aneurysm Father CVA (cerebral vascular accident) Surgical History H/O coronary artery bypass surgery (1989) H/O hernia repair History of left heart catheterization (01/02/16) Social History Smoking Status: Former smoker Tobacco: How many years used: 16 Smokeless tobacco user: chewing tobacco alcohol intake: current alcohol intake frequency: holidays/special occasions only Alcohol type: beer substance use type: does not use caffeine: Yes Type: coffee Number of servings: 5 ROS ROS Narrative General: Denies fever/chills HENT: Denies headache, denies stuffy nose, has some chronic sore throat EYES: Denies changes in vision Resp: Occasional cough, has not coughed today, increasing shortness of breath for 3 days Cardiac: Denies chest pain GI: Denies abdominal pain, denies changes in bowel, denies nausea/vomiting : Denies changes in urination Extremity: Denies swelling MSK: Denies weakness Neuro: Denies any numbness/tingling Heme: Denies any bleeding or bruising Skin: Denies rashes Psychiatric: No complaints voiced Vital Signs Vital Signs Vital Signs: 09/24/23 10:38 09/24/23 11:29 09/24/23 11:30 Temperature 98.3 F Temperature Source Temporal Pulse Rate 98 82 Respiratory Rate 20 H 16 16 Respiratory Effort Respiratory Pattern Blood Pressure 128/75 H 143/88 H Blood Pressure Mean 92 106 Pulse Ox 86 98 98 Oxygen Delivery Method Room Air Nasal Cannula Nasal Cannula Oxygen Flow Rate (L/min) 2 2 09/24/23 11:31 09/24/23 11:31 09/24/23 11:55 Temperature Temperature Source Pulse Rate Respiratory Rate Respiratory Effort Short of Breath Respiratory Pattern Normal Blood Pressure Blood Pressure Mean Pulse Ox Oxygen Delivery Method Nasal Cannula Nasal Cannula Nasal Cannula Oxygen Flow Rate (L/min) 2 09/24/23 12:08 09/24/23 12:08 09/24/23 13:33 Temperature Temperature Source Pulse Rate 73 76 Respiratory Rate 14 13 Respiratory Effort Respiratory Pattern Normal Blood Pressure 143/88 H Blood Pressure Mean 106 Pulse Ox 96 99 Oxygen Delivery Method Nasal Cannula Nasal Cannula Oxygen Flow Rate (L/min) 3 2 09/24/23 13:33 09/24/23 15:00 Temperature 97.2 F L Temperature Source Temporal Pulse Rate 80 74 Respiratory Rate 18 16 Respiratory Effort Respiratory Pattern Blood Pressure 143/88 H 137/98 H Blood Pressure Mean 106 111 Pulse Ox 93 96 Oxygen Delivery Method Nasal Cannula Oxygen Flow Rate (L/min) 2 Weight Weight: 100.425 kg Body Mass Index (BMI) 31.3 Physical Exam Narrative General: Alert, oriented, no apparent distress HEENT: Atraumatic, normocephalic Eyes: Anicteric, normal conjunctiva, extraocular movements grossly intact Neck: Supple Respiratory: Coarse diffusely with some scattered wheezes, normal respiratory effort Cardiovascular: Regular rate GI: Soft, nontender, nondistended Extremities: Trace lower extremity edema Musculoskeletal: Moving all extremities Neuro: No overt focal neurological deficits Skin: No rashes appreciated Psych: Cooperative Results Lab / Micro Data 09/24/23 10:50 09/24/23 10:50 Labs: Laboratory Results - last 24 hr 09/24/23 10:50: WBC 10.4, RBC 5.43, Hgb 15.6, Hct 49.5, MCV 91.2, MCH 28.7, MCHC31.5 L, RDW Std Deviation 46.1 H, RDW Coeff of Breana 13.8, Plt Count 222, MPV 10.2, Immature Gran % (Auto) 0.600, Neut % (Auto) 77.6 H, Lymph % (Auto) 13.7 L,Jerauld % (Auto) 5.6, Eos % (Auto) 1.8, Baso % (Auto) 0.7, Absolute Neuts (auto) 8.1 H, Absolute Lymphs (auto) 1.43, Nucleated RBC % 0, D-Dimer Quant (PE/DVT) 0.49, Sodium 139, Potassium 3.6, Chloride 107, Carbon Dioxide 28.0, Anion Gap 4 L, BUN 15, Creatinine 1.37 H, Estim Creat Clear Calc 55.33, Est GFR (MDRD) Af Amer 65, Est GFR (MDRD) Non-Af 54 L, BUN/Creatinine Ratio 10.9, Glucose 153 H, Calcium 9.6, Troponin I High Sens 25 09/24/23 12:03: Lactic Acid 1.3 Micro: Microbiology 09/24/23 12:00 Mucosa - Nasopharyngeal SARS-CoV-2, Influenza & RSV (PCR) - Final Imaging Radiology Impression Chest X-Ray 09/24/23 12:25 IMPRESSION: 1. Diffuse chronic interstitial lung disease. 2. Cardiomegaly. Electronically Signed: Gonzales Sequeira MD at 13:03 EST , Assessment & Plan Assessment/Plan (1) Hypoxemia: (2) Pulmonary fibrosis: (3) H/O coronary artery bypass surgery: (4) Atherosclerosis of coronary artery bypass graft without angina pectoris: PLAN: Plan #Hypoxia in setting of chronic pulmonary fibrosis -Increasing shortness of breath over the past 3 days but does not endorse any significant cough and no fevers or chills but was found to be hypoxic -CXR in ED diffuse chronic interstitial lung disease and cardiomegaly. -Follows with Dr. Gallagher for pulmonology -Last PFTs in 2020 with partially reversible mixed moderately severe large airway ventilatory defect and symmetric reduction in diffusing capacity -COVID/flu/RSV negative, will obtain rest of respiratory panel and sputum culture if possible -Incentive spirometry -Mucinex -Continue nebs and steroids, do not presently see indication for antibiotics butwill additionally check Pro-Baldemar -Will check BNP to assess for any component of fluid overload and if elevated will obtain echo #Hx CAD s/p bypass in 1989 -Continue aspirin, statin, beta-hermann #HTN -Continue beta-hermann, slight bump in creatinine so we will hold losartan at this time #CKD unclear subtype -Slight elevation in creatinine but does not meet criteria for DAISHA, monitor daily BMP #GERD -Continue PPI #Tobacco use -Chews tobacco occasionally, advise cessation -Nicotine replacement available if desired #DVT ppx: Heparin subcu Muna Bowers MD Time spent in the patient's overall evaluation,decision-making process, review of diagnostic data, adjustment of management, discussion with other providers, nursing nursing and ancillary staff involved in patient's care documentation, 56Minutes Charges/Coding Visit Charges Inpatient E&M: 57882 Init Hosp L2 09/24/23 1524 <Electronically signed by Muna Bowers MD> Cosigner Signature (if applicable): CC: Dr. Muna Bowers MD; Dr. Nehemiah Flanagan MD~ Signed [facility] Work Phone: 1(610) 595-304201-31-2024 Discharge summary Author Key Dent [facility] September 24, 2023 3:54pm Note Date/Time September 24, 2023 1 1:44am [facility] Medical Records Department [address] [place] [address] Emergency Department Summary 09/24/23 MR#: [id number] Acct: [id number] Name: DU BACA Rep #:[id number] : 1950 73 From: Key Dent DO PCP: Dr. Nehemiah Flanagan MD Status:REG ER Location: ED HPI History of Present Illness Chief Complaint: Shortness of Breath Detail of Chief Complaint: Shortness of breath Informant: patient Narrative Narrative: Patient presents with worsening shortness of breath mostly dyspnea starting thismorning. Patient states he is kind of been feeling weak and no energy for about5 days. Patient denies any chest discomfort. Denies recent travel or surgery. He does have history of pulmonary fibrosis. His states that his O2 sat wasdown to 85% at home. He is not on home O2. He has a chronic cough. Patient with history of pulmonary fibrosis. He states that he had pneumonia several months ago. 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 He denies any fevers or chills or sweats. Denies exposures to other ill individuals. [facility] Medical History Atherosclerosis of coronary artery bypass graft without angina pectoris Atherosclerosis of coronary artery of [place] heart without angina pectoris CKD (chronic kidney disease), stage III history of tick bite Hyperlipidemia Kidney disease Pneumonia Pulmonary fibrosis Shortness of breath Home Medications losartan 25 mg tablet 25 mg PO DAILY BLOOD PRESSURE #90 tabs 04/06/21 [Rx Last Taken 09/24/23] albuterol sulfate 90 mcg/actuation aerosol inhaler (Ventolin HFA) 2 puff inhalation Q4H PRN SHORTNESS OF BREATH/WHEEZNG #18 grams 11/27/22 [Rx Last Taken 09/24/23] omeprazole 20 mg capsule,delayed release 20 mg PO DAILY ACID REFLUX 05/21/23 [History Last Taken 09/24/23] aspirin 81 mg tablet,delayed release (Adult Low Dose Aspirin) 81 mg PO DAILY HEART HEALTH 09/24/23 [History Last Taken 09/24/23] atorvastatin 40 mg tablet 40 mg PO QHS CHOLESTEROL 09/24/23 [History Last Taken 09/23/23] metoprolol succinate 50 mg tablet,extended release 24 hr 50 mg PO DAILY BLOOD PRESSURE 09/24/23 [History Last Taken 09/24/23] Allergy/AdvReac Type Severity Reaction Status Date / Time No Known Allergies Allergy Verified 09/24/23 10:36 Family History Mother Brain aneurysm Father CVA (cerebral vascular accident) Surgical History H/O coronary artery bypass surgery (1989) H/O hernia repair History of left heart catheterization (01/02/16) Social History Smoking Status: Former smoker Tobacco: How many years used: 16 Smokeless tobacco user: chewing tobacco alcohol intake: current alcohol intake frequency: holidays/special occasions only Alcohol type: beer substance use type: does not use caffeine: Yes Type: coffee Number of servings: 5 ROS ROS ED Review of Systems ROS Unobtainable: other Constitutional Constitutional ED: Reports lethargy; Denies chills, fever(s), sweats or weight loss Eyes Eyes: Denies blurry vision, change in vision or diplopia ENT ENT ED: Denies rhinorrhea or sore throat Cardiovascular Cardiovascular: Denies chest pain, orthopnea or racing heartbeat Respiratory/Chest Respiratory/Chest: Reports cough, dyspnea and dyspnea on exertion; Denies orthopnea or sputum Gastrointestinal Gastrointestinal: Denies abdominal pain, diarrhea, nausea or vomiting Genitourinary Genitourinary ED: Denies dysuria, hematuria or urinary frequency Musculoskeletal Musculoskeletal: Denies arthralgias, back pain, myalgias or neck pain Integumentary Denies abscess, Abrasions or rash Neurologic Neurologic: Reports weakness; Denies headache(s) Psychiatric Psychiatric: Denies anxiety, depression or suicidal thoughts Endocrine Endocrinology: Denies polydipsia, polyphagia or polyuria Hematologic/Lymphatic Hematologic/Lymphatic: Denies easy bleeding, easy bruising or lymphadenopathy Allergic/Immunologic Allergic/Immunologic ED: Denies mouth swelling, tongue swelling or urticaria EXAM Physical Exam Const Vital Signs: 09/24/23 10:38 09/24/23 11:29 09/24/23 11:30 Temperature 98.3 F Temperature Source Temporal Pulse Rate 98 82 Respiratory Rate 20 H 16 16 Respiratory Effort Respiratory Pattern Blood Pressure 128/75 H 143/88 H Blood Pressure Mean 92 106 Pulse Ox 86 98 98 Oxygen Delivery Method Room Air Nasal Cannula Nasal Cannula Oxygen Flow Rate (L/min) 2 2 09/24/23 11:31 09/24/23 11:31 09/24/23 11:55 Temperature Temperature Source Pulse Rate Respiratory Rate Respiratory Effort Short of Breath Respiratory Pattern Normal Blood Pressure Blood Pressure Mean Pulse Ox Oxygen Delivery Method Nasal Cannula Nasal Cannula Nasal Cannula Oxygen Flow Rate (L/min) 2 09/24/23 12:08 09/24/23 12:08 09/24/23 13:33 Temperature Temperature Source Pulse Rate 73 76 Respiratory Rate 14 13 Respiratory Effort Respiratory Pattern Normal Blood Pressure 143/88 H Blood Pressure Mean 106 Pulse Ox 96 99 Oxygen Delivery Method Nasal Cannula Nasal Cannula Oxygen Flow Rate (L/min) 3 2 09/24/23 13:33 09/24/23 15:00 Temperature 97.2 F L Temperature Source Temporal Pulse Rate 80 74 Respiratory Rate 18 16 Respiratory Effort Respiratory Pattern Blood Pressure 143/88 H 137/98 H Blood Pressure Mean 106 111 Pulse Ox 93 96 Oxygen Delivery Method Nasal Cannula Oxygen Flow Rate (L/min) 2 Positive well nourished and well developed General Appearance ED: well developed and NAD HEENT Reports TM's clear and moist mucous membranes normocephalic and atraumatic; Negative for trauma or tenderness Tympanic Membrane ED: Yes TM's clear Eyes PERRL and EOMs intact bilaterally General Eye ED: Negative for pale conjunctiva or scleral icterus Neck no lymphadenopathy, supple and no JVD General: Negative for tenderness Chest Wall inspection of chest normal and palpation of chest normal Chest: Negative for tenderness Resp normal respiratory effort and clear to auscultation bilaterally Resp Narrative: No significant tachypnea or conversational dyspnea. No accessory muscle use or retractions. He does have Rales and some faint expiratory wheezes. Effort and Inspection: Negative for respiratory distress or pain with movement Auscultation: rales and wheezes; Negative for rhonchi or diminished lung sounds Cardio regular rate, regular rhythm, S1 normal heart sound, S2 normal heart sound and no murmurs Peripheral Pulses: pulses 2+ throughout GI normal to inspection, nondistended, normoactive bowel sounds, soft to palpation,non-tender, non-distended and no masses Back/Spine no CVA tenderness and no thoracic nor lumbar tenderness Extremity normal to inspection General Extremety ED: Negative for edema General Extremity: Negative for edema Neuro oriented x3, CN's II-XII intact bilaterally, no sensory deficits noted and gait normal Sensorium / Orientation: awake, alert, oriented to person, oriented to place andoriented to time Motor Exam: strength 5/5 throughout and strength abnormal Psych mental status grossly normal Skin no rashes or lesions noted and no wounds MDM MDM MDM Narrative Medical decision making narrative: Patient presents to the emergency department with dyspnea and hypoxemia today. Patient has been feeling weak with no energy for about 5 days. He has history of pulmonary fibrosis. He does not wear home O2. IV line established and patient placed on a patient service representative. Patient placed on 2 L nasal cannula O2. EKG obtained showed sinus rhythm with rate of [address] changes. CBC with differential count of 10.4 with hemoglobin 15.6 and platelet count of 222. Chemistries unremarkable. Lactate normal at 1.3. D-dimer normalat 0.49. Chest x-ray showed chronic changes related to his chronic lung diseaseof pulmonary fibrosis. Lab Data Attestation: I reviewed the patient's lab results. Labs: Laboratory Results - last 24 hr 09/24/23 09/24/23 10:50 12:03 WBC 10.4 RBC 5.43 Hgb 15.6 Hct 49.5 MCV 91.2 MCH 28.7 MCHC 31.5 L RDW Std Deviation 46.1 H RDW Coeff of Breana 13.8 Plt Count 222 MPV 10.2 Immature Gran % (Auto) 0.600 Neut % (Auto) 77.6 H Lymph % (Auto) 13.7 L Jerauld % (Auto) 5.6 Eos % (Auto) 1.8 Baso % (Auto) 0.7 Absolute Neuts (auto) 8.1 H Absolute Lymphs (auto) 1.43 Nucleated RBC % 0 D-Dimer Quant (PE/DVT) 0.49 Sodium 139 Potassium 3.6 Chloride 107 Carbon Dioxide 28.0 Anion Gap 4 L BUN 15 Creatinine 1.37 H Estim Creat Clear Calc 55.33 Est GFR (MDRD) Af Amer 65 Est GFR (MDRD) Non-Af 54 L BUN/Creatinine Ratio 10.9 Glucose 153 H Lactic Acid 1.3 Calcium 9.6 Troponin I High Sens 25 Radiography Diagnostic Testing: Clinical Impression(s) from Imaging Studies Chest X-Ray 09/24/23 12:25 IMPRESSION: 1. Diffuse chronic interstitial lung disease. 2. Cardiomegaly. Electronically Signed: Gonzales Sequeira MD at 13:03 EST Reading Location ID and State: [address] [place] [address] Tel , Service support , 1 view chest x-ray obtained interpreted by myself as chronic interstitial changes without evidence of infiltrate or pneumothorax or acute disease process. Radiology in agreement. Radiology also noted cardiomegaly. EKG Initial EKG: Attestation: I personally reviewed and interpreted this EKG as follows: Comments: Sinus rhythm with rate of [address] changes Discharge Plan Dx/Rx/DC Orders Clinical Impression: Dyspnea, Pulmonary fibrosis, Hypoxemia Disposition Disposition: Acute Care Hospital [facility] What to do if you have Problems For any increased pain, shortness of breath, bleeding, nausea or vomiting, chestpain, or any unexpected problems, contact your Primary Care Provider. Call [facility] ([phone]) or report to the closest Emergency Room. Call 911 if necessary. 09/24/23 1554 <Electronically signed by Key Dent DO> Cosigner Signature (if applicable): CC: Dr. Nehemiah Flanagan MD ~ Signed [facility] Work Phone: Evaluation note* Diagnosis Onset Date Resolution Status Fatigue acute H/O coronary artery bypass surgery 1989 chronic Hyperlipidemia chronic Hypertension [facility] Work Phone: Evaluation note* Diagnosis Onset Date Resolution Status Fatigue acute H/O coronary artery bypass surgery 1989 chronic Hyperlipidemia chronic Hypertension chronic Shortness of breath acute Pulmonary fibrosis chronic H/O coronary artery bypass surgery 1989 chronic Hyperlipidemia chronic Hypertension [facility] Work Phone: Evaluation note* Diagnosis Onset Date Resolution Status Pulmonary fibrosis chronic Shortness of breath chronic H/O coronary artery bypass surgery 1989 chronic Hyperlipidemia chronic Hypertension chronic Pulmonary fibrosis chronic Shortness of breath chronic Dyspnea acute Hypoxemia acute Pulmonary fibrosis acute Atherosclerosis of coronary artery bypass graft without angina pectoris chronic H/O coronary artery bypass surgery 1989 [facility] Work Phone: Evaluation note* Diagnosis Onset Date Resolution Status Pulmonary fibrosis acute Shortness of breath resolved Dyspnea acute Hypoxemia acute Hypoxemia acute Pulmonary fibrosis acute Pulmonary hypertension acute [facility] Work Phone: Evaluation note* Diagnosis Onset Date Resolution Status Pulmonary fibrosis acute Shortness of breath resolved Dyspnea acute Hypoxemia acute Hypoxemia acute Pulmonary fibrosis acute Pulmonary hypertension acute Fluid overload acute Pulmonary fibrosis acute Acute and chronic respiratory failure with hypoxia [facility] Work Phone: History and physical note Author Muna Bowers [facility] September 24, 2023 3:24pm Note Date/Time September 24, 2023 3 :24pm [facility] Medical Records Department [address] [place] [address] H&P Exam - Hospitalist 09/24/23 1516 MR#: [id number] Acct: [id number] Name: DU BACA Rep #:[id number] : 1950 73 From: Muna Bowers MD PCP: Dr. Nehemiah Flanagan MD Status:REG ER Location: ED HPI - General General Date of Admission: 09/24/23 Date of Service: 09/24/23 Chief Complaint: SOB HPI Narrative DU BACA, is a 73M history of CKD stage III unclear subtype, CAD w/ bypass,hypertension, pulmonary fibrosis, GERD who presented to [facility] 09/24/2023 with shortness of breath that mostly started this morning andhas been somewhat weak with lack of energy for about 5 days. His O2 sat was 85%at home and he is not on home O2. Does follow with pulmonology. In the ED patient had x- ray that showed diffuse chronic interstitial lung disease and cardiomegaly. D-dimer 0.49, patient given steroids and DuoNebs and placed on O2and hospitalist contacted for admission. Patient evaluated at bedside with wifepresent and reports that he has been short of breath for 3 months since he had pneumonia however the past 3 days he has had increased shortness of breath with some intermittent cough, has not really cough today however in last coughed yesterday morning, has a chronic scratchy throat, no chest pain, no fevers, denies any other specific complaints at this time aside from his increasing shortness of breath for the past 3 days. [facility] Medical History Atherosclerosis of coronary artery bypass graft without angina pectoris Atherosclerosis of coronary artery of [place] heart without angina pectoris CKD (chronic kidney disease), stage III history of tick bite Hyperlipidemia Kidney disease Pneumonia Pulmonary fibrosis Shortness of breath Home Medications losartan 25 mg tablet 25 mg PO DAILY BLOOD PRESSURE #90 tabs 04/06/21 [Rx Last Taken 09/24/23] albuterol sulfate 90 mcg/actuation aerosol inhaler (Ventolin HFA) 2 puff inhalation Q4H PRN SHORTNESS OF BREATH/WHEEZNG #18 grams 11/27/22 [Rx Last Taken 09/24/23] omeprazole 20 mg capsule,delayed release 20 mg PO DAILY ACID REFLUX 05/21/23 [History Last Taken 09/24/23] aspirin 81 mg tablet,delayed release (Adult Low Dose Aspirin) 81 mg PO DAILY HEART HEALTH 09/24/23 [History Last Taken 09/24/23] atorvastatin 40 mg tablet 40 mg PO QHS CHOLESTEROL 09/24/23 [History Last Taken 09/23/23] metoprolol succinate 50 mg tablet,extended release 24 hr 50 mg PO DAILY BLOOD PRESSURE 09/24/23 [History Last Taken 09/24/23] Allergy/AdvReac Type Severity Reaction Status Date / Time No Known Allergies Allergy Verified 09/24/23 10:36 Family History Mother Brain aneurysm Father CVA (cerebral vascular accident) Surgical History H/O coronary artery bypass surgery (1989) H/O hernia repair History of left heart catheterization (01/02/16) Social History Smoking Status: Former smoker Tobacco: How many years used: 16 Smokeless tobacco user: chewing tobacco alcohol intake: current alcohol intake frequency: holidays/special occasions only Alcohol type: beer substance use type: does not use caffeine: Yes Type: coffee Number of servings: 5 ROS ROS Narrative General: Denies fever/chills HENT: Denies headache, denies stuffy nose, has some chronic sore throat EYES: Denies changes in vision Resp: Occasional cough, has not coughed today, increasing shortness of breath for 3 days Cardiac: Denies chest pain GI: Denies abdominal pain, denies changes in bowel, denies nausea/vomiting : Denies changes in urination Extremity: Denies swelling MSK: Denies weakness Neuro: Denies any numbness/tingling Heme: Denies any bleeding or bruising Skin: Denies rashes Psychiatric: No complaints voiced Vital Signs Vital Signs Vital Signs: 09/24/23 10:38 09/24/23 11:29 09/24/23 11:30 Temperature 98.3 F Temperature Source Temporal Pulse Rate 98 82 Respiratory Rate 20 H 16 16 Respiratory Effort Respiratory Pattern Blood Pressure 128/75 H 143/88 H Blood Pressure Mean 92 106 Pulse Ox 86 98 98 Oxygen Delivery Method Room Air Nasal Cannula Nasal Cannula Oxygen Flow Rate (L/min) 2 2 09/24/23 11:31 09/24/23 11:31 09/24/23 11:55 Temperature Temperature Source Pulse Rate Respiratory Rate Respiratory Effort Short of Breath Respiratory Pattern Normal Blood Pressure Blood Pressure Mean Pulse Ox Oxygen Delivery Method Nasal Cannula Nasal Cannula Nasal Cannula Oxygen Flow Rate (L/min) 2 09/24/23 12:08 09/24/23 12:08 09/24/23 13:33 Temperature Temperature Source Pulse Rate 73 76 Respiratory Rate 14 13 Respiratory Effort Respiratory Pattern Normal Blood Pressure 143/88 H Blood Pressure Mean 106 Pulse Ox 96 99 Oxygen Delivery Method Nasal Cannula Nasal Cannula Oxygen Flow Rate (L/min) 3 2 09/24/23 13:33 09/24/23 15:00 Temperature 97.2 F L Temperature Source Temporal Pulse Rate 80 74 Respiratory Rate 18 16 Respiratory Effort Respiratory Pattern Blood Pressure 143/88 H 137/98 H Blood Pressure Mean 106 111 Pulse Ox 93 96 Oxygen Delivery Method Nasal Cannula Oxygen Flow Rate (L/min) 2 Weight Weight: 100.425 kg Body Mass Index (BMI) 31.3 Physical Exam Narrative General: Alert, oriented, no apparent distress HEENT: Atraumatic, normocephalic Eyes: Anicteric, normal conjunctiva, extraocular movements grossly intact Neck: Supple Respiratory: Coarse diffusely with some scattered wheezes, normal respiratory effort Cardiovascular: Regular rate GI: Soft, nontender, nondistended Extremities: Trace lower extremity edema Musculoskeletal: Moving all extremities Neuro: No overt focal neurological deficits Skin: No rashes appreciated Psych: Cooperative Results Lab / Micro Data 09/24/23 10:50 09/24/23 10:50 Labs: Laboratory Results - last 24 hr 09/24/23 10:50: WBC 10.4, RBC 5.43, Hgb 15.6, Hct 49.5, MCV 91.2, MCH 28.7, MCHC31.5 L, RDW Std Deviation 46.1 H, RDW Coeff of Breana 13.8, Plt Count 222, MPV 10.2, Immature Gran % (Auto) 0.600, Neut % (Auto) 77.6 H, Lymph % (Auto) 13.7 L,J[place]uld % (Auto) 5.6, Eos % (Auto) 1.8, Baso % (Auto) 0.7, Absolute Neuts (auto) 8.1 H, Absolute Lymphs (auto) 1.43, Nucleated RBC % 0, D-Dimer Quant (PE/DVT) 0.49, Sodium 139, Potassium 3.6, Chloride 107, Carbon Dioxide 28.0, Anion Gap 4 L, BUN 15, Creatinine 1.37 H, Estim Creat Clear Calc 55.33, Est GFR (MDRD) Af Amer 65, Est GFR (MDRD) Non-Af 54 L, BUN/Creatinine Ratio 10.9, Glucose 153 H, Calcium 9.6, Troponin I High Sens 25 09/24/23 12:03: Lactic Acid 1.3 Micro: Microbiology 09/24/23 12:00 Mucosa - Nasopharyngeal SARS-CoV-2, Influenza & RSV (PCR) - Final Imaging Radiology Impression Chest X-Ray 09/24/23 12:25 IMPRESSION: 1. Diffuse chronic interstitial lung disease. 2. Cardiomegaly. Electronically Signed: Gonzales Sequeira MD at 13:03 EST , Assessment & Plan Assessment/Plan (1) Hypoxemia: (2) Pulmonary fibrosis: (3) H/O coronary artery bypass surgery: (4) Atherosclerosis of coronary artery bypass graft without angina pectoris: PLAN: Plan #Hypoxia in setting of chronic pulmonary fibrosis -Increasing shortness of breath over the past 3 days but does not endorse any significant cough and no fevers or chills but was found to be hypoxic -CXR in ED diffuse chronic interstitial lung disease and cardiomegaly. -Follows with Dr. Gallagher for pulmonology -Last PFTs in 2020 with partially reversible mixed moderately severe large airway ventilatory defect and symmetric reduction in diffusing capacity -COVID/flu/RSV negative, will obtain rest of respiratory panel and sputum culture if possible -Incentive spirometry -Mucinex -Continue nebs and steroids, do not presently see indication for antibiotics butwill additionally check Pro-Baldemar -Will check BNP to assess for any component of fluid overload and if elevated will obtain echo #Hx CAD s/p bypass in 1989 -Continue aspirin, statin, beta-hermann #HTN -Continue beta-hermann, slight bump in creatinine so we will hold losartan at this time #CKD unclear subtype -Slight elevation in creatinine but does not meet criteria for DAISHA, monitor daily BMP #GERD -Continue PPI #Tobacco use -Chews tobacco occasionally, advise cessation -Nicotine replacement available if desired #DVT ppx: Heparin subcu Muna Bowers MD Time spent in the patient's overall evaluation,decision-making process, review of diagnostic data, adjustment of management, discussion with other providers, nursing nursing and ancillary staff involved in patient's care documentation, 56Minutes Charges/Coding Visit Charges Inpatient E&M: 24077 Init Hosp L2 09/24/23 1524 <Electronically signed by Muna Bowers MD> Cosigner Signature (if applicable): CC: Dr. Muna Bowers MD; Dr. Nehemiah Flanagan MD~ Signed [facility] Work Phone: Summary Purpose Family History Relationship Condition Age at Onset Recorded Date/T alejandra mother Cerebral aneurysm Unknown father Cerebrovascular accident (CVA) Unknown Cancer Status:Active Comments:Negativ e Family History Of. Coronary Artery Disease Status:Active Comments :Brother. Diabetes Mellitus Type II Status:Active Commen ts:Negative Family History Of. Hypertension Status:Active Comments:Brother . Cancer Status:Active Comments:Negativ e Family History Of. Coronary Artery Disease Status:Active Comments :Brother. Diabetes Mellitus Type II Status:Active Commen ts:Negative Family History Of. Hypertension Status:Active Comments:Brother . Cancer Status:Active Comments:Negativ e Family History Of. Coronary Artery Disease Status:Active Comments :Brother. Diabetes Mellitus Type II Status:Active Commen ts:Negative Family History Of. Hypertension Status:Active Comments:Brother . Cancer Status:Active Comments:Negativ e Family History Of. Coronary Artery Disease Status:Active Comments :Brother. Diabetes Mellitus Type II Status:Active Commen ts:Negative Family History Of. Hypertension Status:Active Comments:Brother . Cancer Status:Active Comments:Negativ e Family History Of. Coronary Artery Disease Status:Active Comments :Brother. Diabetes Mellitus Type II Status:Active Commen ts:Negative Family History Of. Hypertension Status:Active Comments:Brother . Cancer Status:Active Comments:Negativ e Family History Of. Coronary Artery Disease Status:Active Comments :Brother. Diabetes Mellitus Type II Status:Active Commen ts:Negative Family History Of. Hypertension Status:Active Comments:Brother . Cancer Status:Active Comments:Negativ e Family History Of. Coronary Artery Disease Status:Active Comments :Brother. Diabetes Mellitus Type II Status:Active Commen ts:Negative Family History Of. Hypertension Status:Active Comments:Brother . Cancer Status:Active Comments:Negativ e Family History Of. Coronary Artery Disease Status:Active Comments :Brother. Diabetes Mellitus Type II Status:Active Commen ts:Negative Family History Of. Hypertension Status:Active Comments:Brother . Cancer Status:Active Comments:Negativ e Family History Of. Coronary Artery Disease Status:Active Comments :Brother. Diabetes Mellitus Type II Status:Active Commen ts:Negative Family History Of. Hypertension Status:Active Comments:Brother . Cancer Status:Active Comments:Negativ e Family History Of. Coronary Artery Disease Status:Active Comments :Brother. Diabetes Mellitus Type II Status:Active Commen ts:Negative Family History Of. Hypertension Status:Active Comments:Brother . Cancer Status:Active Comments:Negativ e Family History Of. Coronary Artery Disease Status:Active Comments :Brother. Diabetes Mellitus Type II Status:Active Commen ts:Negative Family History Of. Hypertension Status:Active Comments:Brother . Cancer Status:Active Comments:Negativ e Family History Of. Coronary Artery Disease Status:Active Comments :Brother. Diabetes Mellitus Type II Status:Active Commen ts:Negative Family History Of. Hypertension Status:Active Comments:Brother . Cancer Status:Active Comments:Negativ e Family History Of. Coronary Artery Disease Status:Active Comments :Brother. Diabetes Mellitus Type II Status:Active Commen ts:Negative Family History Of. Hypertension Status:Active Comments:Brother . Cancer Status:Active Comments:Negativ e Family History Of. Coronary Artery Disease Status:Active Comments :Brother. Diabetes Mellitus Type II Status:Active Commen ts:Negative Family History Of. Hypertension Status:Active Comments:Brother . Cancer Status:Active Comments:Negativ e Family History Of. Coronary Artery Disease Status:Active Comments :Brother. Diabetes Mellitus Type II Status:Active Commen ts:Negative Family History Of. Hypertension Status:Active Comments:Brother . Cancer Status:Active Comments:Negativ e Family History Of. Coronary Artery Disease Status:Active Comments :Brother. Diabetes Mellitus Type II Status:Active Commen ts:Negative Family History Of. Hypertension Status:Active Comments:Brother . Cancer Status:Active Comments:Negativ e Family History Of. Coronary Artery Disease Status:Active Comments :Brother. Diabetes Mellitus Type II Status:Active Commen ts:Negative Family History Of. Hypertension Status:Active Comments:Brother . Cancer Status:Active Comments:Negativ e Family History Of. Coronary Artery Disease Status:Active Comments :Brother. Diabetes Mellitus Type II Status:Active Commen ts:Negative Family History Of. Hypertension Status:Active Comments:Brother . Cancer Status:Active Comments:Negativ e Family History Of. Coronary Artery Disease Status:Active Comments :Brother. Diabetes Mellitus Type II Status:Active Commen ts:Negative Family History Of. Hypertension Status:Active Comments:Brother . Cancer Status:Active Comments:Negativ e Family History Of. Coronary Artery Disease Status:Active Comments :Brother. Diabetes Mellitus Type II Status:Active Commen ts:Negative Family History Of. Hypertension Status:Active Comments:Brother . Cancer Status:Active Comments:Negativ e Family History Of. Coronary Artery Disease Status:Active Comments :Brother. Diabetes Mellitus Type II Status:Active Commen ts:Negative Family History Of. Hypertension Status:Active Comments:Brother . Cancer Status:Active Comments:Negativ e Family History Of. Coronary Artery Disease Status:Active Comments :Brother. Diabetes Mellitus Type II Status:Active Commen ts:Negative Family History Of. Hypertension Status:Active Comments:Brother . Cancer Status:Active Comments:Negativ e Family History Of. Coronary Artery Disease Status:Active Comments :Brother. Diabetes Mellitus Type II Status:Active Commen ts:Negative Family History Of. Hypertension Status:Active Comments:Brother . Cancer Status:Active Comments:Negativ e Family History Of. Coronary Artery Disease Status:Active Comments :Brother. Diabetes Mellitus Type II Status:Active Commen ts:Negative Family History Of. Hypertension Status:Active Comments:Brother . Cancer Status:Active Comments:Negativ e Family History Of. Coronary Artery Disease Status:Active Comments :Brother. Diabetes Mellitus Type II Status:Active Commen ts:Negative Family History Of. Hypertension Status:Active Comments:Brother . Cancer Status:Active Comments:Negativ e Family History Of. Coronary Artery Disease Status:Active Comments :Brother. Diabetes Mellitus Type II Status:Active Commen ts:Negative Family History Of. Hypertension Status:Active Comments:Brother . Cancer Status:Active Comments:Negativ e Family History Of. Coronary Artery Disease Status:Active Comments :Brother. Diabetes Mellitus Type II Status:Active Commen ts:Negative Family History Of. Hypertension Status:Active Comments:Brother . Cancer Status:Active Comments:Negativ e Family History Of. Coronary Artery Disease Status:Active Comments :Brother. Diabetes Mellitus Type II Status:Active Commen ts:Negative Family History Of. Hypertension Status:Active Comments:Brother . Cancer Status:Active Comments:Negativ e Family History Of. Coronary Artery Disease Status:Active Comments :Brother. Diabetes Mellitus Type II Status:Active Commen ts:Negative Family History Of. Hypertension Status:Active Comments:Brother . Cancer Status:Active Comments:Negativ e Family History Of. Coronary Artery Disease Status:Active Comments :Brother. Diabetes Mellitus Type II Status:Active Commen ts:Negative Family History Of. Hypertension Status:Active Comments:Brother . Cancer Status:Active Comments:Negativ e Family History Of. Coronary Artery Disease Status:Active Comments :Brother. Diabetes Mellitus Type II Status:Active Commen ts:Negative Family History Of. Hypertension Status:Active Comments:Brother . Cancer Status:Active Comments:Negativ e Family History Of. Coronary Artery Disease Status:Active Comments :Brother. Diabetes Mellitus Type II Status:Active Commen ts:Negative Family History Of. Hypertension Status:Active Comments:Brother . Cancer Status:Active Comments:Negativ e Family History Of. Coronary Artery Disease Status:Active Comments :Brother. Diabetes Mellitus Type II Status:Active Commen ts:Negative Family History Of. Hypertension Status:Active Comments:Brother . Cancer Status:Active Comments:Negativ e Family History Of. Coronary Artery Disease Status:Active Comments :Brother. Diabetes Mellitus Type II Status:Active Commen ts:Negative Family History Of. Hypertension Status:Active Comments:Brother . Cancer Status:Active Comments:Negativ e Family History Of. Coronary Artery Disease Status:Active Comments :Brother. Diabetes Mellitus Type II Status:Active Commen ts:Negative Family History Of. Hypertension Status:Active Comments:Brother . Cancer Status:Active Comments:Negativ e Family History Of. Coronary Artery Disease Status:Active Comments :Brother. Diabetes Mellitus Type II Status:Active Commen ts:Negative Family History Of. Hypertension Status:Active Comments:Brother . Cancer Status:Active Comments:Negativ e Family History Of. Coronary Artery Disease Status:Active Comments :Brother. Diabetes Mellitus Type II Status:Active Commen ts:Negative Family History Of. Hypertension Status:Active Comments:Brother . Cancer Status:Active Comments:Negativ e Family History Of. Coronary Artery Disease Status:Active Comments :Brother. Diabetes Mellitus Type II Status:Active Commen ts:Negative Family History Of. Hypertension Status:Active Comments:Brother . Cancer Status:Active Comments:Negativ e Family History Of. Coronary Artery Disease Status:Active Comments :Brother. Diabetes Mellitus Type II Status:Active Commen ts:Negative Family History Of. Hypertension Status:Active Comments:Brother . Cancer Status:Active Comments:Negativ e Family History Of. Coronary Artery Disease Status:Active Comments :Brother. Diabetes Mellitus Type II Status:Active Commen ts:Negative Family History Of. Hypertension Status:Active Comments:Brother . Cancer Status:Active Comments:Negativ e Family History Of. Coronary Artery Disease Status:Active Comments :Brother. Diabetes Mellitus Type II Status:Active Commen ts:Negative Family History Of. Hypertension Status:Active Comments:Brother . Advance Directives Advance Directive Response Recorded Date/ Time Name of Medical Power of Certified Prosthetist Vice President September 24, 2023 11:32am Living Will Yes September 24 11:32am Power of Certified Prosthetist Vice President Yes September 24, 2023 11:32am Advance Directive Response Recorded Date/ Time Name of Medical Power of Certified Prosthetist Vice President September 24, 2023 4:53pm Living Will Yes September 24 4:53pm Power of Certified Prosthetist Vice President Yes September 24, 2023 4:53pm Advance Directive Response Recorded Date/ Time Name of Medical Power of Certified Prosthetist Vice President September 24, 2023 5:53pm Living Will Yes September 24 5:53pm Power of Certified Prosthetist Vice President Yes September 24, 2023 5:53pm Advance Directive Response Recorded Date/ Time Name of Medical Power of Certified Prosthetist Vice President September 24, 2023 5:53pm Living Will No December 01, 2023 1:32pm Power of Certified Prosthetist Vice President No November 30 1:32pm Advance Directive Response Recorded Date/ Time Name of Medical Power of Certified Prosthetist Vice President September 24, 2023 5:53pm Living Will No December 01, 2023 5:38pm Power of Certified Prosthetist Vice President No November 30 5:38pm Chief Complaint and Reason for Visit Chief Complaint 1 Y FU EORDERS Reason for Visit Fatigue H/O coronary artery bypass surgery Hyperlipidemia Hypertension Chief Complaint 1 Y FU EORDERS 1 Y FU 3 M FU SOB Shortness of breath Reason for Visit Fatigue H/O coronary artery bypass surgery Hyperlipidemia Hypertension Shortness of breath Pulmonary fibrosis H/O coronary artery bypass surgery Hyperlipidemia Hypertension Chief Complaint 1 Y FU 3 M FU SOB Shortness of breath 3 M FU HYPOXIA Reason for Visit Pulmonary fibrosis Shortness of breath H/O coronary artery bypass surgery Hyperlipidemia Hypertension Pulmonary fibrosis Shortness of breath Dyspnea Hypoxemia Pulmonary fibrosis Atherosclerosis of coronary artery bypass graft without angina pectoris H/O coronary artery bypass surgery Chief Complaint 1 Y FU 3 M FU SOB Shortness of breath 3 M FU HYPOXIA HYPOXIA HYPOXIA Reason for Visit Pulmonary fibrosis Shortness of breath H/O coronary artery bypass surgery Hyperlipidemia Hypertension Pulmonary fibrosis Shortness of breath Dyspnea Hypoxemia Pulmonary fibrosis Atherosclerosis of coronary artery bypass graft without angina pectoris H/O coronary artery bypass surgery Chief Complaint 3 M FU SOB Shortness of breath 3 M FU HYPOXIA HYPOXIA HYPOXIA Hospital FU R09.02 R09.02 Reason for Visit Pulmonary fibrosis Shortness of breath Dyspnea Hypoxemia Hypoxemia Pulmonary fibrosis Pulmonary hypertension Chief Complaint 3 M FU SOB Shortness of breath 3 M FU HYPOXIA HYPOXIA HYPOXIA Hospital FU R09.02 R09.02 R09.02 Reason for Visit Pulmonary fibrosis Shortness of breath Dyspnea Hypoxemia Hypoxemia Pulmonary fibrosis Pulmonary hypertension Chief Complaint 3 M FU SOB Shortness of breath 3 M FU HYPOXIA HYPOXIA HYPOXIA Hospital FU R09.02 R09.02 R09.02 ACUTE ON CHRONIC RESPIRATORY FAILURE Reason for Visit Pulmonary fibrosis Shortness of breath Dyspnea Hypoxemia Hypoxemia Pulmonary fibrosis Pulmonary hypertension Fluid overload Pulmonary fibrosis Acute and chronic respiratory failure with hypoxia Chief Complaint 3 M FU SOB Shortness of breath 3 M FU HYPOXIA HYPOXIA HYPOXIA Hospital FU R09.02 R09.02 R09.02 ACUTE ON CHRONIC RESPIRATORY FAILURE ACUTE ON CHRONIC RESPIRATORY FAILURE ACUTE ON CHRONIC RESPIRATORY FAILURE ACUTE ON CHRONIC RESPIRATORY FAILURE ACUTE ON CHRONIC RESPIRATORY FAILURE ACUTE ON CHRONIC RESPIRATORY FAILURE ACUTE ON CHRONIC RESPIRATORY FAILURE ACUTE ON CHRONIC RESPIRATORY FAILURE ACUTE ON CHRONIC RESPIRATORY FAILURE ACUTE ON CHRONIC RESPIRATORY FAILURE Reason for Visit Pulmonary fibrosis Shortness of breath Dyspnea Hypoxemia Hypoxemia Pulmonary fibrosis Pulmonary hypertension Fluid overload Pulmonary fibrosis Acute and chronic respiratory failure with hypoxia Additional Source Comments (unrecognized sect ion and content) No Status Records FoundNo Status Records FoundNo Status Records Found INFORMATION SOURCE (unrecogn ized section and content) DATE CREATED AUTHOR 01/03/2022 [facility] DATE CREATED AUTHOR AUTHOR'S ORGANIZ ATION 10/25/2024 [facility] DATE CREATED AUTHOR AUTHOR'S ORGANIZ ATION 12/22/2024 [facility] Care Teams (unrecognized sec tion and content) Team Status: Active Member Role Status Dates Dr. Nehemiah Flanagan MD Family Provider Active Dr. Nehemiah Flanagan MD Primary Care Provider Active Team Status: Inactive Member Role Status Dates Dr. Nehemiah Flanagan MD Primary Care Provider, Referring Provider Active Sariah KELLER, PA Attending Provider Active Team Status: Inactive Member Role Status Dates Dr. Nehemiah Flanagan MD Primary Care Provider Active Sariah KELLER, PA Attending Provider, Referr ing Provider Active Team Status: Inactive Member Role Status Dates Dr. Nehemiah Flanagan MD Primary Care Provider, Referring Provider Active Dr. Romulo Gallagher MD Attending Provider Active Team Status: Active Member Role Status Dates Dr. Nehemiah Flanagan MD Primary Care Provider Active Sariah KELLER, PA Referring Provider, Other Provider Active Dr. John Dias MD Attending Provider Active Team Status: Inactive Member Role Status Dates Dr. Nehemiah Flanagan MD Primary Care Provider, Referring Provider Active Maggie Kemp CHIEF ESTIMATOR, CHIEF ESTIMATOR-C Attending Provider Active Team Status: Active Member Role Status Dates Dr. Nehemiah Flanagan MD Primary Care Provider Active Dr. Key Dent DO Emergency Provider Active Dr. Muna Bowers MD Admit Provider, Attending Provid er Active Team Status: Active Member Role Status Dates Dr. Nehemiah Flanagan MD Primary Care Provider Active Dr. Key Dent DO Emergency Provider Active Dr. Muna Bowers MD Admit Provider, Other Provider A ctive Dr. Martin Clemens DO Attending Provider, Other Provid er Active Team Status: Active Member Role Status Dates Dr. Nehemiah Flanagan MD Primary Care Provider Active Dr. Carrington Munguia MD Attending Provider Active Team Status: Inactive Member Role Status Dates Dr. Nehemiah Flanagan MD Primary Care Provider Active Dr. Kye Dent DO Emergency Provider Active Dr. Muna Bowers MD Admit Provider, Other Provider A ctive Dr. Martin Clemens DO Attending Provider Active Team Status: Active Member Role Status Dates Dr. Nehemiah Flanagan MD Primary Care Provider Active Dr. Romulo Gallagher MD Attending Provider , Referring Provider, Other Provider Active Team Status: Inactive Member Role Status Dates Dr. Nehemiah Flanagan MD Primary Care Provider Active Dr. Romulo Gallagher MD Attending Provider, Referring Pr ovider Active Team Status: Active Member Role Status Dates Dr. Nehemiah Flanagan MD Primary Care Provider Active Dr. Sunita Mckenna DO Emergency Provider Active Dr. Frank Landon MD Admit Provider, Attending Provider Active Team Status: Active Member Role Status Dates Dr. Nehemiah Flanagan MD Primary Care Provider Active Dr. Sunita Mckenna DO Emergency Provider Active Dr. Frank Landon MD Admit Provi riccardo, Attending Provider, Other Provider Active Dr. Henrry Acosta MD Other Provider Active Dr. Seymour Goldberg MD Other Provider Active Dr. Romulo Gallagher MD Other Provider Active Dr. Farrukh Flanagan DO Other Provider Active Dr. Yuri Garcia MD Other Provider Active Dr. Mark Ortiz MD Other Provider Active Dr. Viridiana Bashir MD Other Provider Active Dr. Kendell Thompson MD Other Provider Active Dr. Nessa Gagnon MD Other Provider Active Dr. Lakhwinder Corrales MD Other Provider Active Dr. Kel Ernandez MD Other Provider Active Dr. Tera Nowak MD Other Provider Active Dr. Arvind Coronel MD Other Provider Active Dr. Adrien Palmer MD Other Provider Active Dr. Ayaz Harvey MD Other Provider Active Team Status: Active Member Role Status Dates Dr. Nehemiah Flanagan MD Primary Care Provider Active Dr. Sunita Mckenna , Emergency Provider Active Dr. Frank Landon MD Admit Provider, Other Pro vider Active Dr. Henrry Acosta MD Other Provider Active Dr. Seymour Goldberg MD Other Provider Active Dr. Romulo Gallagher MD Other Provider Active Dr. Farrukh Flanagan DO Attending Provider, Other Provide r Active Dr. Yuri Garcia MD Other Provider Active Dr. Mark Ortiz MD Other Provider Active Dr. Viridiana Bashir MD Other Provider Active Dr. Kendell Thompson MD Other Provider Active Dr. Nessa Gagnon MD Other Provider Active Dr. Lakhwinder Corrales MD Other Provider Active Dr. Kel Ernandez MD Other Provider Active Dr. Tera Nowak MD Other Provider Active Dr. Arvind Coronel MD Other Provider Active Dr. Adrien Palmer MD Other Provider Active Dr. Ayaz Harvey MD Other Provider Active Dr. Jerson Avelar MD Other Provider Active Team Status: Active Member Role Status Dates Dr. Nehemiah Flanagan MD Primary Care Provider Active Dr. Sunita Mckenna , Emergency Provider Active Dr. Frank Landon MD Admit Provider, Other Pro vider Active Dr. Henrry Acosta MD Other Provider Active Dr. Seymour Goldberg MD Other Provider Active Dr. Romulo Gallagher MD Other Provider Active Dr. Farrukh Brown , DO Other Provider Active Dr. Yuri Garcia MD Other Provider Active Dr. Mark Ortiz MD Other Provider Active Dr. Viridiana Bashir MD Other Provider Active Dr. Kendell Thompson MD Other Provider Active Dr. Nessa Gagnon MD Other Provider Active Dr. Lakhwinder Corrales MD Other Provider Active Dr. Kel Ernandez MD Other Provider Active Dr. Tera Nowak MD Other Provider Active Dr. Arvind Coronel MD Other Provider Active Dr. Adrien Palmer MD Other Provider Active Dr. Ayaz Harvey MD Other Provider Active Dr. Jerson Avelar MD Attending Provider, Other Provi riccardo Active Team Status: Active Member Role Status Dates Dr. Nehemiah Flanagan MD Primary Care Provider Active Dr. Sunita Mckenna , Emergency Provider Active Dr. Frank Landon MD Admit Provider, Other Pro vider Active Dr. Jerson Avelar MD Other Provider Active Dr. Henrry Acosta MD Other Provider Active Dr. Seymour Goldberg MD Other Provider Active Dr. Romulo Gallagher MD Other Provider Active Dr. Farrukh Flanagan DO Attending Provider, Other Provide r Active Dr. Yuri Garcia MD Other Provider Active Dr. Mark Ortiz MD Other Provider Active Dr. Viridiana Bashir MD Other Provider Active Dr. Kendell Thompson MD Other Provider Active Dr. Nessa Gagnon MD Other Provider Active Dr. Lakhwinder Corrales MD Other Provider Active Dr. Kel Ernandez MD Other Provider Active Dr. Trea Nowak MD Other Provider Active Dr. Arvind Coronel MD Other Provider Active Dr. Adrien Palmer MD Other Provider Active Dr. Ayaz Harvey MD Other Provider Active Team Status: Active Member Role Status Dates Dr. Nehemiah Flanagan MD Primary Care Provider Active Dr. Sunita Mckenna , Emergency Provider Active Dr. Frank Landon MD Admit Provider, Other Pro vider Active Dr. Jerson Avelar MD Attending Provider, Other Provi riccardo Active Dr. Henrry Acosta MD Other Provider Active Dr. Seymour Goldberg MD Other Provider Active Dr. Romulo Gallagher MD Other Provider Active Dr. Farrukh Flanagan DO Other Provider Active Dr. Yuri Garcia MD Other Provider Active Dr. Mark Ortiz MD Other Provider Active Dr. Viridiana Bashir MD Other Provider Active Dr. Kendell Thompson MD Other Provider Active Dr. Nessa Gagnon MD Other Provider Active Dr. Lakhwinder Corrales MD Other Provider Active Dr. Kel Ernandez MD Other Provider Active Dr. Tera Nowak MD Other Provider Active Dr. Arvind Coronel MD Other Provider Active Dr. Adrien Palmer MD Other Provider Active Dr. Ayaz Harvey MD Other Provider Active Team Status: Active Member Role Status Dates Dr. Nehemiah Flanagan MD Primary Care Provider Active Dr. Sunita Mckenna , Emergency Provider Active Dr. Frank Landon MD Admit Provider, Other Pro vider Active Dr. Jerson Avelar MD Other Provider Active Dr. Farrkuh Flanagan , DO Attending Provider Active Team Status: Active Member Role Status Dates Dr. Nehemiah Flanagan MD Primary Care Provider Active Dr. Sunita Mckenna , Emergency Provider Active Dr. Frank Landon MD Admit Provider, Other Pro vider Active Dr. Jerson Avelar MD Attending Provider, Other Provi riccardo Active Team Status: Inactive Member Role Status Dates Dr. Nehemiah Flanagan MD Primary Care Provider Active Dr. Sunita Mckenna , Emergency Provider Active Dr. Frank Landon MD Admit Provider, Other Pro vider Active Dr. Jerson Avelar MD Attending Provider Active Goals (unrecognized section and content) Goals may be documented in a n alternate sectionGoals may be documented in an alternate sectionGoals may be documented in an alternate section FOR RECORDS PERTAINING TO PATIENTS WHO ARE [...] BE BASED ON THE PRIMARY CLINICAL RECORDS. [facility] [employer] provides no warranty or guarantee of the accuracy or completeness of information in this document.
== END ==
LOC: PSN 13:21
PROVIDERS: PCP Family Medicine; Referring Provider Nurse Practitioner Family; Visit Provider Nurse Practitioner Family
DX: J84.10 Pulmonary fibrosis, unspecified (principal)
CPT/HCPCS: 94618

== ENCOUNTER → 2024-10-14 | Outpatient (CLI) | payer MEDICARE, SELFPAY ==
[2024-10-14 14:15] VITALS: PULSE 105; PULSE 110; PULSE 112; PULSE 120; PULSE 99; O2SAT 85; O2SAT 89; O2SAT 90; O2SAT 93
--- NOTE | 2024-10-14 14:20 | CPS ---
pt was placed on room air sats were 85% increasesd to 8L for remainder of test cause he walks with that at home. Only made it to 3 min before he was done with test.
--- NOTE | 2024-10-29 13:33 | PCM.PSN.6M ---
PSN 6 Minute Walk Test 6 Minute Walk Test 6 Minute Walk Test: 6 Minute Walk Test PSN:6-Minute Walk Test Start: 10/14/24 14:15 Freq: Status: Discharge Protocol: [id number] Document 10/14/24 14:15 EW (Rec: 10/14/24 14:24 EW [email or web address]) 6 Minute Walk Test Date Performed 10/14/24 Time Performed 13:45 Height 5 ft 11 in Weight: 170 lb Weight in Pounds 170.0 lbs Assistive device None used: Pre-test Oxygen Delivery Room Air Method Pulse Ox (%) 85 Pulse Rate (60-100 105 H beats/min) Dyspnea Shaun Scale ( 2 0-10) Exertion Shaun Scale 11 (6-20) 1st minute Oxygen Flow Rate (L/ 8 min) (L/min) Oxygen Delivery Nasal Cannula Method Pulse Ox (%) 93 Pulse Rate (60-100 110 H beats/min) 2nd minute Oxygen Flow Rate (L/ 8 min) (L/min) Oxygen Delivery Nasal Cannula Method Pulse Ox (%) 90 Pulse Rate (60-100 112 H beats/min) 3rd minute Oxygen Flow Rate (L/ 8 min) (L/min) Oxygen Delivery Nasal Cannula Method Pulse Ox (%) 89 Pulse Rate (60-100 120 H beats/min) Number of Rests 1 Taken Reported Symptoms Increased Work of Breathing Post-test Oxygen Flow Rate (L/ 8 min) (L/min) Oxygen Delivery Nasal Cannula Method Pulse Ox (%) 93 Pulse Rate (60-100 99 beats/min) Dyspnea Shaun Scale ( 3 0-10) Exertion Shaun Scale 14 (6-20) Full Laps Walked 4 Partial Lap, Number 0 of Tiles Walked Total Distance 236 Walked (ft) 10/14/24 14:20 Cardiopulmonary Services by Kym Wagner pt was placed on room air sats were 85% increasesd to 8L for remainder of test cause he walks with that at home. Only made it to 3 min before he was done with test. Initialized on 10/14/24 14:20 - END OF NOTE Interpretation Interpretation: The patient ambulated 236 feet over the course of 3 minutes beginning on supplemental oxygen without assistive devices. Retesting oxygen saturation was noted to be 85% on room air. 8 L/min of supplemental oxygen was applied to improve the patient's oxygen saturations to 93% prior to commencement testing. With ambulation, the patient had desaturated to 89% by minute 3 of testing but subsequently discontinued the test at that time. Recommendations Recommendations: 8 L/min of supplemental oxygen should be utilized at all times.
== END | disposition home or self-care (01) ==
LOC: PSN 13:23
PROVIDERS: PCP Family Medicine; Referring Provider Nurse Practitioner Family; Visit Provider Nurse Practitioner Family
DX: J84.10 Pulmonary fibrosis, unspecified (principal)
CPT/HCPCS: 94618